=== PATIENT | male | born 1940 | race Caucasian/White ===

== ENCOUNTER 2018-02-23 18:25 | Emergency (ER) | payer OTHER ==
[2018-02-23] MEDS ORDERED: NA CHLORIDE 0.9% 0 ML ONE (19:46)
[2018-02-23] MEDS ORDERED: NA CHLORIDE 0.9% 1,000 ML ONE ×2 (19:54→19:55)
[2018-02-23] MEDS ORDERED: NA CHLORIDE 0.9% 250 ML ONE (19:55)
[2018-02-23 20:03] LABS: Absolute Lymphocytes (CBC) 0.9 K/uL (0.7-4.9); Absolute Monocytes 1.3 K/uL (0.1-1.3); Absolute Neutrophil 8.1 K/uL (1.8-8.0); Basophils % 0.2 % (0-1.3); Eosinophils % 2.1 % (0-4.4); Hematocrit 37.7 % (39.6-49.0); Lymphocytes % 8.8 % (15.3-44.8); MCH 32.8 pg (27.0-35.0); MCV 96.3 fL (80-100); MPV 10.1 fL (7.6-11.3); Monocytes % 12.1 % (3.3-12.3); RBC Red Blood Cell Count 3.92 M/uL (4.33-5.43)
[2018-02-23 20:53] LABS: Protime INR 1.08
[2018-02-23 21:09] LABS: Urine Blood 3+ (NEG); Urine Glucose NEGATIVE (NEG); Urine Protein 2+ (NEG); Urine pH 5.5 (5.0-7.0)
[2018-02-23 21:25] LABS: Urine RBC >50 /HPF (NONE SEEN)
[2018-02-23 21:26] LABS: Urine Bacteria <20 /HPF (NONE SEEN); Urine Culture Reflex Order NOT NEEDED
--- NOTE | 2018-02-23 22:11 | RAD REPORT ---
EXAM DESCRIPTION: CT - Stone Protocol - 02/23/2018 9:03 pm CLINICAL HISTORY: Hematuria, recent lithotripsy history of Ramey catheter exchange of earlier in the day COMPARISON: CT imaging September 11, 2017 TECHNIQUE: Axial 5 mm thick images were obtained without oral or IV contrast. The wexxx-di-muel span s the entirety of the system partially obscuring uppermost abdomen and lung bases. All CT scans are performed using dose optimization technique as appropriate and may include automated exposure control or mA/KV adjustment according to patient size. FINDINGS: No hydronephrosis of the right collecting system. No right-sided renal or ureteral calculi . Double-pigtail stent is in place in the left collecting system. No renal or ureteral remnant calcul us seen. No bladder calculus seen. Ramey catheter is in place. Urinary bladder is contracted. No susp icious renal masses. Isodense masses and pyelonephritis are not excluded on a stone protocol CT scan. In the lower left pelvis there is a 3 x 1.5 cm dense mass. This is adjacent to the distal pigtail. A ir is present within the lumen of the urinary bladder and there is air within the left collecting sys tem. Prostate gland is prominent. Prostatic calcifications are present. There are numerous phlebolith s in the pelvis. Imaged portions of the liver, spleen and pancreas show no suspicious findings on non-contrast imaging . No gallbladder or biliary tree abnormality identified. No significant adrenal finding. No suspicious bowel findings. Appendix is normal. No mass or bulky lymphadenopathy. Bilateral fat filled inguinal hernias are present. No other free ai r. No free fluid or other focal inflammatory stranding. No significant bony abnormality. IMPRESSION: Double-pigtail stent is in place in the left collecting system with no remnant renal or ureteral calculus. Approximately 3 x 1.5 cm mass in the bladder is most likely a hematoma. Air within the bladder and left ureter may well have been introduced at the time of the Ramey cathete r exchange. Given the number of interventional procedures performed, the presence of air is unlikely to be from a gas-forming infectious organism. Isodense masses and pyelonephritis are not excluded on stone protocol technique.
[2018-02-23] MEDS ORDERED: CEFTRIAXONE/SWI 1gm 1 GM/10 ML SYR ONE (22:51)
--- NOTE | 2018-02-23 22:54 | ER ---
Nurse's Notes [facility] Name: Teo Toribio Age: 77 yrs Sex: Male : 1940 Arrival Date: 02/23/2018 Time: 18:27 Bed 16 Private MD: Jim Gabriel E Diagnosis: Hematuria, unspecified;Retention of urine, unspecified Presentation: 02/23 18:33 Presenting complaint: Patient states: I had a kidney stone removed with Dr Webb at [facility] on Monday and this morning they took my catheter out, I had been able to pee all day until one hour ago then my urine had bright red blood and now I c cant pee. Transition of care: patient was not received from another setting of care. Onset of symptoms was February 23, 2018. Risk Assessment: Do you want to hurt yourself or someone else? Patient reports no desire to harm self or others. Initial Sepsis Screen: Does the patient meet any 2 criteria? No. Patient's initial sepsis screen is negative. Does the patient have a suspected source of infection? No. Patient's initial sepsis screen is negative. Care prior to arrival: None. 18:33 Method Of Arrival: Ambulatory la1 18:33 Acuity: DEMARCUS 3 la1 Historical: - Allergies: 18:34 No Known Allergies; la1 - PMHx: 18:34 enlarged prostate; High Cholesterol; Hypertension; Hypothyroidism; la1 - Immunization history:: Adult Immunizations up to date. - Social history:: Smoking status: Patient/guardian denies using tobacco. - Ebola Screening: : No symptoms or risks identified at this time. Screenin:50 Abuse screen: Denies threats or abuse. Nutritional screening: No deficits noted. jb4 Tuberculosis screening: No symptoms or risk factors identified. Fall Risk None identified. Assessment: 18:50 General: Appears in no apparent distress. comfortable, Behavior is calm, cooperative, jb4 appropriate for age. Pain: Denies pain. Neuro: Level of Consciousness is awake, alert, obeys commands, Oriented to person, place, time, situation. Cardiovascular: Heart tones S1 S2 present Patient's skin is warm and dry. Respiratory: Airway is patent Respiratory effort is even, unlabored, Respiratory pattern is regular, symmetrical. GI: Abdomen is flat, Bowel sounds present X 4 quads. Abd is soft and non tender X 4 quads. : Reports inability to void, since 1730 urinating blood, and clots. EENT: No signs and/or symptoms were reported regarding the EENT system. Derm: Skin is intact, Skin is pink, warm \T\ dry. Musculoskeletal: No signs and/or symptoms reported regarding the musculoskeletal system. 19:16 General: Received report from MELISSA Bruce. Patient stable at this moment and agree with ao documented assessment by MELISSA Bruce. Patient is awaiting on provider. Patient urine is reported about 155 ml reading from bladder scanner. 20:32 Reassessment: Patient appears in no apparent distress at this time. No changes from ao previously documented assessment. Patient and/or family updated on plan of care and expected duration. Pain level reassessed. Bladder has been irrigated. Patient tolerated well. : 3-way catheter in place Urine is rajiv blood. 21:30 Reassessment: Patient appears in no apparent distress at this time. No changes from ao previously documented assessment. Patient and/or family updated on plan of care and expected duration. Pain level reassessed. irrigated bladder a second time as ordered by Janice REYES. 22:52 Reassessment: Patient appears in no apparent distress at this time. No changes from ao previously documented assessment. Patient and/or family updated on plan of care and expected duration. Pain level reassessed. Waiting on Dispo orders. Vital Signs: 18:34 BP 188 / 95; Pulse 90; Resp 16; Temp 97.4; Pulse Ox 100% on R/A; la1 20:33 BP 162 / 92; Pulse 72; Resp 20; Pulse Ox 98% ; ao 21:30 BP 162 / 96; Pulse 96; Resp 20; Pulse Ox 98% on R/A; Pain 0/10; ao 22:52 BP 165 / 98; Pulse 70; Resp 18; Pulse Ox 96% on R/A; Pain 0/10; ao ED Course: 18:27 Patient arrived in ED. mr 18:28 Jim Gabriel MD is Private Physician. mr 18:34 Triage completed. la1 18:34 Arm band placed on right wrist. la1 18:35 Teo Sheth RN is Primary Nurse. jb4 18:50 Patient has correct armband on for positive identification. Placed in gown. Bed in low jb4 position. Call light in reach. Side rails up X 1. Pulse ox on. NIBP on. 19:05 Report given to MELISSA Moctezuma. jb4 19:20 Hugo Camacho PA is PHCP. cp 19:20 Abhilash Walden MD is Attending Physician. cp 20:00 Inserted saline lock: 20 gauge in left antecubital area, using aseptic technique. ao ,using [facility] technique[facility]. [facility]08 3-way catheter inserted, using sterile technique, 20 Fr. By [facility]. ao 21:03 Stone Protocol In Process Unspecified. EDMS 23:28 No provider procedures requiring assistance completed. IV discontinued, intact, ao bleeding controlled, No redness/swelling at site. Pressure dressing applied. Administered Medications: 20:23 Drug: NS 0.9% 250 ml Route: IV; Rate: bolus; Site: left antecubital; ao 22:00 Follow up: IV Status: Completed infusion; IV Intake: 250ml ao 20:42 Drug: NS 0.9% 1000 ml Route: IV; Rate: 75 ml/hr; Site: left antecubital; ao 22:57 Follow up: IV Status: Order to discontinue infusion ao 23:29 Follow up: IV Status: Order to discontinue infusion ao 22:51 Drug: Rocephin 1 grams Route: IV; Rate: bolus; Site: left antecubital; ao 23:29 Follow up: IV Status: Completed infusion; IV Intake: 10ml ao Intake: 22:00 IV: 250ml; Total: 250ml. ao 23:29 IV: 10ml; Total: 260ml. ao Outcome: 22:54 Discharge ordered by MD. cp 23:28 Discharged to home ambulatory. ao 23:28 Condition: stable 23:28 Discharge instructions given to patient, Instructed on discharge instructions, follow up and referral plans. Demonstrated understanding of instructions, follow-up care, medications, Prescriptions given X 1. 23:29 Patient left the ED. ao Signatures: Dispatcher [facility] Cheryl Maddox Lee, RN RN la1 Hugo Camacho PA PA cp Ortiz, Alex, RN RN ao Bryson, James, RN RN jb4
--- NOTE | 2018-02-23 22:55 | EDPHYS ---
Physician Documentation [facility] Name: Teo Toribio Age: 77 yrs Sex: Male : 1940 Arrival Date: 02/23/2018 Time: 18:27 Bed 16 Private MD: Jim Gabriel E ED Physician Abhilash Walden HPI: 02/23 19:30 This 77 yrs old Male presents to ER via Ambulatory with complaints of Urinary cp Problem. 19:30 The patient presents with urinary symptoms, retention, hematuria. Onset: The cp symptoms/episode began/occurred today. Associated signs and symptoms: Pertinent positives: hematuria, Pertinent negatives: abdominal pain, constipation, fever, nausea, vomiting. Severity of symptoms: in the emergency department the symptoms are unchanged. Patient reports having removal of kidney stone 3 days ago with stent and vaz placed. At f/u appt today vaz was removed. Patient reports difficulty urinating and hematuria today. Historical: - Allergies: 18:34 No Known Allergies; la1 - PMHx: 18:34 enlarged prostate; High Cholesterol; Hypertension; Hypothyroidism; la1 - Immunization history:: Adult Immunizations up to date. - Social history:: Smoking status: Patient/guardian denies using tobacco. - Ebola Screening: : No symptoms or risks identified at this time. ROS: 19:35 Constitutional: Negative for body aches, chills, fever, poor PO intake. cp 19:35 Eyes: Negative for injury, pain, redness, and discharge. cp 19:35 ENT: Negative for drainage from ear(s), ear pain, sore throat, difficulty swallowing, difficulty handling secretions. 19:35 Cardiovascular: Negative for chest pain, edema, palpitations. 19:35 Respiratory: Negative for cough, shortness of breath, wheezing. 19:35 Abdomen/GI: Negative for abdominal pain, nausea, vomiting, and diarrhea, black/tarry stool, rectal bleeding. 19:35 : Positive for hematuria, difficulty urinating, Negative for burning with urination. 19:35 Skin: Negative for cellulitis, rash. 19:35 Neuro: Negative for altered mental status, dizziness, headache, syncope, near syncope, weakness. 19:35 All other systems are negative. Exam: 19:40 Constitutional: The patient appears in no acute distress, alert, awake, non-toxic, well cp developed, well nourished. 19:40 Head/Face: Normocephalic, atraumatic. cp 19:40 Eyes: Periorbital structures: appear normal, Conjunctiva: normal, no exudate, no injection, Sclera: no appreciated abnormality, Lids and lashes: appear normal, bilaterally. 19:40 ENT: External ear(s): are unremarkable, Nose: is normal, Mouth: Lips: moist, Oral mucosa: moist, Posterior pharynx: is normal, airway is patent. 19:40 Neck: ROM/movement: is normal, is supple, without pain, no range of motions limitations, no nuchal rigidity. 19:40 Chest/axilla: Inspection: normal, Palpation: is normal, no crepitus, no tenderness. 19:40 Cardiovascular: Rate: normal, Rhythm: regular. 19:40 Respiratory: the patient does not display signs of respiratory distress, Respirations: normal, no use of accessory muscles, no retractions, no splinting, no tachypnea, labored breathing, is not present, Breath sounds: are clear throughout, no decreased breath sounds, no stridor, no wheezing. 19:40 Abdomen/GI: Inspection: abdomen appears normal, Bowel sounds: active, all quadrants, Palpation: abdomen is soft and non-tender, in all quadrants, rebound tenderness, is not appreciated, voluntary guarding, is not appreciated, involuntary guarding, is not appreciated. 19:40 Back: pain, is absent, ROM is normal. 19:40 Skin: cellulitis, is not appreciated, no rash present. 19:40 Neuro: Orientation: to person, place \T\ time. Mentation: is normal, Cerebellar function: is grossly normal, Motor: moves all fours, strength is normal. Vital Signs: 18:34 BP 188 / 95; Pulse 90; Resp 16; Temp 97.4; Pulse Ox 100% on R/A; la1 20:33 BP 162 / 92; Pulse 72; Resp 20; Pulse Ox 98% ; ao 21:30 BP 162 / 96; Pulse 96; Resp 20; Pulse Ox 98% on R/A; Pain 0/10; ao 22:52 BP 165 / 98; Pulse 70; Resp 18; Pulse Ox 96% on R/A; Pain 0/10; ao MDM: 19:23 Patient medically screened. cp 20:00 Differential diagnosis: UTI, urinary retention, Vaz catheter problem, prostatitis, cp urethritis. 22:52 Data reviewed: vital signs, nurses notes, lab test result(s), radiologic studies, CT cp scan, and as a result, I will discharge patient. 22:52 Counseling: I had a detailed discussion with the patient and/or guardian regarding: the cp historical points, exam findings, and any diagnostic results supporting the discharge/admit diagnosis, the presence of at least one elevated blood pressure reading (>120/80) during this emergency department visit, lab results, radiology results, the need for outpatient follow up, a urologist, to return to the emergency department if symptoms worsen or persist or if there are any questions or concerns that arise at home. 22:52 ED course: VSS. Labs and CT reviewed. Vaz replaced and patient instructed on how to cp irrigate bladder. Will discharge to home for continued monitoring. 02/23 19:23 Order name: Urine Microscopic Only; Complete Time: 21:57 cp 02/23 19:38 Order name: PT-INR; Complete Time: 21:10 cp 02/23 19:38 Order name: Ptt, Activated; Complete Time: 21:10 cp 02/23 19:38 Order name: CBC with Diff; Complete Time: 20:41 cp 02/23 20:42 Interpretation: Normal except: RBC 3.92; HGB 12.9; HCT 37.7; RENE% 76.8; LYM% 8.8; NEUT cp A 8.1. 02/23 19:38 Order name: BMP; Complete Time: 20:41 cp 02/23 20:58 Order name: Urine Dipstick--Ancillary (enter results); Complete Time: 21:10 rg2 02/23 21:10 Interpretation: Normal except: UBLD 3+; UPROT 2+; UESTR TRACE. cp 02/23 18:36 Order name: Bladder Scanner; Complete Time: 18:36 jb4 02/23 19:23 Order name: Urine Dipstick-Ancillary (obtain specimen); Complete Time: 19:25 cp 02/23 19:38 Order name: Vaz-Three way; Complete Time: 20:42 cp 02/23 21:01 Order name: Stone Protocol; Complete Time: 22:18 EDMS 02/23 19:38 Order name: IV; Complete Time: 20:23 cp Administered Medications: 20:23 Drug: NS 0.9% 250 ml Route: IV; Rate: bolus; Site: left antecubital; ao 22:00 Follow up: IV Status: Completed infusion; IV Intake: 250ml ao 20:42 Drug: NS 0.9% 1000 ml Route: IV; Rate: 75 ml/hr; Site: left antecubital; ao 22:57 Follow up: IV Status: Order to discontinue infusion ao 23:29 Follow up: IV Status: Order to discontinue infusion ao 22:51 Drug: Rocephin 1 grams Route: IV; Rate: bolus; Site: left antecubital; ao 23:29 Follow up: IV Status: Completed infusion; IV Intake: 10ml ao Disposition: 02/24 15:58 Co-signature as Attending Physician, Abhilash Walden MD. Disposition: 02/23/18 22:54 Discharged to Home. Impression: Hematuria, unspecified, Retention of urine, unspecified. - Condition is Stable. - Discharge Instructions: Vaz Catheter Care, Adult, Hematuria, Adult, Acute Urinary Retention, Male. - Prescriptions for Keflex 500 mg Oral Capsule - take 1 capsule by ORAL route every 8 hours for 10 days; 30 capsule. - Medication Reconciliation Form, Thank You Letter, Antibiotic Education, Prescription Opioid Use form. - Follow up: Private Physician; When: primary urologist; Reason: Recheck today's complaints, next 2-3 days. - Problem is new. - Symptoms have improved. Signatures: Dispatcher [employer] EDPR Severiano Vargas RN RN la1 Hugo Camacho PA PA cp Jose Elias Cuellar RN RN ao Bryson, James, RN RN jb4 Abhilash Walden MD MD Corrections: (The following items were deleted from the chart) 02/23 21:01 20:43 Abdomen Pelvis Wo Con+CT.RAD.BRZ ordered. EDPR EDPR 23:29 22:54 02/23/2018 22:54 Discharged to Home. Impression: Hematuria, unspecified; ao Retention of urine, unspecified. Condition is Stable. Forms are Medication Reconciliation Form, Thank You Letter, Antibiotic Education, Prescription Opioid Use. Follow up: Private Physician; When: primary urologist; Reason: Recheck today's complaints, next 2-3 days. Problem is new. Symptoms have improved. cp
== END 2018-02-23 23:29 | disposition home or self-care (01) ==
LOC: ER 18:25
DX: R33.9 Retention of urine, unspecified (principal); I10 Essential (primary) hypertension; Z87.442 Personal history of urinary calculi
CPT/HCPCS: 36415; 74176; 76377; 80048; 85025; 85610; 85730; J0696; J7030 ×2; 81003; 81015; 96361; 96365; 96367; 99284

== ENCOUNTER 2018-02-24 18:03 | Emergency (ER) | payer OTHER ==
[2018-02-24] MEDS ORDERED: NACL 0.9% IRR SOLN 2,000 ML IRR ONE (18:24)
--- NOTE | 2018-02-24 20:00 | ER ---
Nurse's Notes [facility] Name: Teo Toribio Age: 77 yrs Sex: Male : 1940 Arrival Date: 02/24/2018 Time: 18:05 Bed 6 Private MD: Jim Gabriel E Diagnosis: Retention of urine;Hematuria Presentation: 02/24 18:06 Presenting complaint: Patient states: "I was seen here last night and they put a Dumont aa5 catheter in but it hasn't been draining into the bag properly, the pee has been running down my leg every time I pee so I think it needs to be changed". 18:06 Acuity: DEMARCUS 4 aa5 18:06 Transition of care: patient was not received from another setting of care. Onset of aa5 symptoms was February 24, 2018. 18:06 Method Of Arrival: Ambulatory aa5 18:06 Risk Assessment: Do you want to hurt yourself or someone else? Patient reports no aa5 desire to harm self or others. Initial Sepsis Screen: Does the patient meet any 2 criteria? No. Patient's initial sepsis screen is negative. Does the patient have a suspected source of infection? No. Patient's initial sepsis screen is negative. Care prior to arrival: None. Historical: - Allergies: 18:10 No Known Allergies; aa5 - Home Meds: 19:00 Fish Oil Oral daily [Active]; Flomax 0.4 mg Oral cp24 once daily [Active]; Iron CR Oral bp daily [Active]; levothyroxine [Active]; Lipitor Oral once daily [Active]; Melatonin Oral daily [Active]; vitamin [id number]-[id number] acid Oral once daily [Active]; - PMHx: 18:10 enlarged prostate; High Cholesterol; Hypertension; Hypothyroidism; aa5 - Immunization history:: Adult Immunizations up to date. - Ebola Screening: : No symptoms or risks identified at this time. - Social history:: Smoking status: Patient/guardian denies using tobacco. Screenin:08 Abuse screen: Denies threats or abuse. Denies injuries from another. Nutritional jl7 screening: No deficits noted. Tuberculosis screening: No symptoms or risk factors identified. Fall Risk None identified. Assessment: 18:30 General: Appears in no apparent distress. uncomfortable, Behavior is calm, cooperative, jl7 appropriate for age. Pain: Denies pain. Neuro: Level of Consciousness is awake, alert, obeys commands, Oriented to person, place, time, situation. Cardiovascular: Patient's skin is warm and dry. Respiratory: Airway is patent Respiratory effort is even, unlabored, Respiratory pattern is regular, symmetrical. : 3-way catheter in place Urine leaks out around the catheter. Derm: Skin is pink, warm \\T\\ dry. 19:15 Reassessment: RECD REPORT FROM SARAH TORRES. 77YO WM P/W URINARY CATHETER COMPLICATIONS. bp BLADDER IRRIGATION IN PROCESS, LEAKING NOTED AROUND DUMONT. AWAITING FURTHER ORDERS. 19:54 Reassessment: DUMONT REPLACED WITH NO COMPLICATIONS. PT TO BE OBS FOR COMPLICATIONS bp PRIOR TO DISPO. 20:07 Reassessment: PT D/C HOME WITH FAMILY, DX WITH URINARY RETENTION. bp Vital Signs: 19:08 BP 180 / 91; Pulse 70; Resp 16; Pulse Ox 94% ; jl7 19:15 BP 168 / 95; Pulse 80; Resp 16; Pulse Ox 95% ; bp 20:00 BP 166 / 99; Pulse 70; Resp 16; Pulse Ox 95% ; bp ED Course: 18:05 Patient arrived in ED. rg4 18:05 Jim Gabriel MD is Private Physician. rg4 18:06 Arm band placed on Patient placed in an exam room, on a stretcher. aa5 18:07 Sarah Pena RN is Primary Nurse. jl7 18:09 Edwin Velez PA is PHCP. jr8 18:09 Abhilash Walden MD is Attending Physician. jr8 18:10 Triage completed. aa5 18:45 Bladder irrigated via Dumont with 250 ml normal saline returned Initially return rajiv jl7 blood then ran clear, Irrigation leaks around tubing. ERP notified, ordered new catheter to be placed. Patient tolerated well. 19:08 Patient has correct armband on for positive identification. Placed in gown. Bed in low jl7 position. Call light in reach. Side rails up X 1. Pulse ox on. NIBP on. 19:55 Coud inserted, using sterile technique, 20 Fr. Returned bloody urine. To gravity bp drainage. Patient tolerated well. [address] WAY CATH REMOVED. 20FR COUDE INSERTED. 20:06 No provider procedures requiring assistance completed. Patient did not have IV access bp during this emergency room visit. Administered Medications: No medications were administered Outcome: 19:59 Discharge ordered by MD. bolanos 20:08 Discharged to home via wheelchair, with family. bp 20:08 Condition: stable 20:08 Discharge instructions given to patient, Instructed on discharge instructions, follow up and referral plans. Demonstrated understanding of instructions, follow-up care. 20:15 Patient left the ED. bp Signatures: Angela Dean RN RN aa5 Edwin Velez PA PA 8 Esther Clark 4 Sarah Pena RN RN jl7 Alejandro Valerio RN RN bp
--- NOTE | 2018-02-24 20:00 | EDPHYS ---
Physician Documentation [facility] Name: Teo Toribio Age: 77 yrs Sex: Male : 1940 Arrival Date: 02/24/2018 Time: 18:05 Bed 6 Private MD: Jim Gabriel E ED Physician Abhilash Walden HPI: 02/24 18:18 This 77 yrs old Male presents to ER via Ambulatory with complaints of Problem jr8 With Urinary Catheter. 18:18 The patient presents with a Vaz catheter problem, is not draining. Onset: The jr8 symptoms/episode began/occurred acutely, today. Modifying factors: The symptoms are alleviated by nothing, the symptoms are aggravated by nothing. Associated signs and symptoms: The patient has no apparent associated signs or symptoms. Severity of symptoms: At their worst the symptoms were mild, in the emergency department the symptoms are unchanged. The patient has experienced a previous episode. The patient has been recently seen by a physician:. Patient had renal stone removed this week. On Monday after work noticed that he was unable to urinate. Vaz was placed and had clots in urine with hematuria. Was doing fine until today where he cannot urinate again with the Vaz in place . Historical: - Allergies: 18:10 No Known Allergies; aa5 - Home Meds: 19:00 Fish Oil Oral daily [Active]; Flomax 0.4 mg Oral cp24 once daily [Active]; Iron CR Oral bp daily [Active]; levothyroxine [Active]; Lipitor Oral once daily [Active]; Melatonin Oral daily [Active]; vitamin [id number] acid Oral once daily [Active]; - PMHx: 18:10 enlarged prostate; High Cholesterol; Hypertension; Hypothyroidism; aa5 - Immunization history:: Adult Immunizations up to date. - Ebola Screening: : No symptoms or risks identified at this time. - Social history:: Smoking status: Patient/guardian denies using tobacco. ROS: 18:18 Eyes: Negative for injury, pain, redness, and discharge, ENT: Negative for injury, jr8 pain, and discharge, Neck: Negative for injury, pain, and swelling, Cardiovascular: Negative for chest pain, palpitations, and edema, Respiratory: Negative for shortness of breath, cough, wheezing, and pleuritic chest pain, Abdomen/GI: Negative for abdominal pain, nausea, vomiting, diarrhea, and constipation, Back: Negative for injury and pain, MS/Extremity: Negative for injury and deformity, Skin: Negative for injury, rash, and discoloration, Neuro: Negative for headache, weakness, numbness, tingling, and seizure. 18:18 : Positive for small amounts, hematuria, Negative for penile discharge, penile pain, testicular pain Exam: 18:18 Eyes: Pupils equal round and reactive to light, extra-ocular motions intact. Lids and jr8 lashes normal. Conjunctiva and sclera are non-icteric and not injected. Cornea within normal limits. Periorbital areas with no swelling, redness, or edema. ENT: Nares patent. No nasal discharge, no septal abnormalities noted. Tympanic membranes are normal and external auditory canals are clear. Oropharynx with no redness, swelling, or masses, exudates, or evidence of obstruction, uvula midline. Mucous membranes moist. Neck: Trachea midline, no thyromegaly or masses palpated, and no cervical lymphadenopathy. Supple, full range of motion without nuchal rigidity, or vertebral point tenderness. No Meningismus. Cardiovascular: Regular rate and rhythm with a normal S1 and S2. No gallops, murmurs, or rubs. Normal PMI, no JVD. No pulse deficits. Respiratory: Lungs have equal breath sounds bilaterally, clear to auscultation and percussion. No rales, rhonchi or wheezes noted. No increased work of breathing, no retractions or nasal flaring. Abdomen/GI: Soft, non-tender, with normal bowel sounds. No distension or tympany. No guarding or rebound. No evidence of tenderness throughout. Back: No spinal tenderness. No costovertebral tenderness. Full range of motion. Skin: Warm, dry with normal turgor. Normal color with no rashes, no lesions, and no evidence of cellulitis. MS/ Extremity: Pulses equal, no cyanosis. Neurovascular intact. Full, normal range of motion. Neuro: Awake and alert, GCS 15, oriented to person, place, time, and situation. Cranial nerves II-XII grossly intact. Motor strength 5/5 in all extremities. Sensory grossly intact. Cerebellar exam normal. Normal gait. 18:18 : Male external genitalia: normal, Bladder: distension, that is mild, tenderness, that is mild, 3-way catheter is employed, urine is blood tinged, clots present . Vital Signs: 19:08 BP 180 / 91; Pulse 70; Resp 16; Pulse Ox 94% ; jl7 19:15 BP 168 / 95; Pulse 80; Resp 16; Pulse Ox 95% ; bp 20:00 BP 166 / 99; Pulse 70; Resp 16; Pulse Ox 95% ; bp MDM: 18:09 Patient medically screened. jr8 19:52 Data reviewed: vital signs, nurses notes, and as a result, I will discharge patient. jr8 Data interpreted: Pulse oximetry: on room air is 95 %. Interpretation: normal. Counseling: I had a detailed discussion with the patient and/or guardian regarding: the historical points, exam findings, and any diagnostic results supporting the discharge/admit diagnosis, the need for outpatient follow up, a urologist, to return to the emergency department if symptoms worsen or persist or if there are any questions or concerns that arise at home. ED course: Irrigated and replaced vaz. No bleeding and no leaking around tube now . 02/24 18:18 Order name: Bladder Irrigation; Complete Time: 19:24 jr8 Administered Medications: No medications were administered Disposition: 02/24/18 19:59 Discharged to Home. Impression: Retention of urine, Hematuria. - Condition is Stable. - Discharge Instructions: Vaz Catheter Care, Adult, Acute Urinary Retention, Male. - Medication Reconciliation Form, Thank You Letter, Antibiotic Education, Prescription Opioid Use form. - Follow up: Private Physician; When: 2 - 3 days; Reason: Recheck today's complaints, Continuance of care, Re-evaluation by your physician. - Problem is new. - Symptoms have improved. Signatures: Angela Dean, RN RN aa5 Edwin Velez PA PA jr8 Alejandro Valerio, RN RN bp Corrections: (The following items were deleted from the chart) 19:59 19:59 02/24/2018 19:59 Discharged to Home. Impression: Retention of urine. Condition is jr8 Stable. Forms are Medication Reconciliation Form, Thank You Letter, Antibiotic Education, Prescription Opioid Use. Follow up: Private Physician; When: 2 - 3 days; Reason: Recheck today's complaints, Continuance of care, Re-evaluation by your physician. Problem is new. Symptoms have improved. jr8 20:15 19:59 02/24/2018 19:59 Discharged to Home. Impression: Retention of urine; Hematuria. bp Condition is Stable. Discharge Instructions: Vaz Catheter Care, Adult, Acute Urinary Retention, Male. Forms are Medication Reconciliation Form, Thank You Letter, Antibiotic Education, Prescription Opioid Use. Follow up: Private Physician; When: 2 - 3 days; Reason: Recheck today's complaints, Continuance of care, Re-evaluation by your physician. Problem is new. Symptoms have improved. jr8
== END 2018-02-24 20:15 | disposition home or self-care (01) ==
LOC: ER 18:03
DX: T83.038A Leakage of other urinary catheter, initial encounter (principal); R31.9 Hematuria, unspecified; E78.00 Pure hypercholesterolemia, unspecified; I10 Essential (primary) hypertension; E03.9 Hypothyroidism, unspecified; N40.1 Benign prostatic hyperplasia with lower urinary tract symptoms; R33.8 Other retention of urine; Y73.8 Miscellaneous gastroenterology and urology devices associated with adverse incidents, not elsewhere classified; Y92.019 Unspecified place in single-family (private) house as the place of occurrence of the external cause
CPT/HCPCS: 51700; 99284

== ENCOUNTER 2019-11-29 07:51 | Inpatient (IN) | payer OTHER ==
--- OUTSIDE RECORDS SUMMARY | 2019-11-29 07:54 | XMS REPORT ---
:1940 Author Organization [facility] t Address [address] [place] [address] Dr. So [address] [place] [id number] Care Team Providers Name Role Phone Unavailable Unavailable Unavailable Problems This patient has no known problems. Allergies, Adverse Reactions, Alerts This patient has no known allergies or adverse reactions. Medications This patient has no known medications. Procedures This patient has no known procedures. Results This patient has no known results.
[2019-11-29 08:45] LABS: Protime INR 0.99
[2019-11-29 08:47] LABS: Absolute Lymphocytes (CBC) 0.8 K/uL (0.7-4.9); Basophils % 0.7 % (0-1.3); Hematocrit 24.8 % (39.6-49.0); Lymphocytes % 6.8 % (15.3-44.8); MPV 9.7 fL (7.6-11.3)
[2019-11-29] MEDS ORDERED: NA CHLORIDE 0.9% 500 ML ONE (09:03)
[2019-11-29 09:06] LABS: ALT/SGPT 26 U/L (12-78); AST/SGOT 18 U/L (15-37); Albumin 2.9 g/dL (3.4-5.0); Alkaline Phosphatase 59 U/L (45-117); BUN Blood Urea Nitrogen 42 mg/dL (7-18); Bicarbonate 25 mmol/L (21-32); Bilirubin Direct 0.1 mg/dL (0-0.2); Bilirubin Total 0.5 mg/dL (0.2-1.0); Glucose Level 166 mg/dL (74-106); Lipase 78 U/L (73-393); Potassium 3.6 mmol/L (3.5-5.1); Protein, Total 5.6 g/dL (6.4-8.2); Sodium Level 142 mmol/L (136-145); Troponin (Emerg Dept Use Only) < 0.02 ng/mL (0.0-0.045)
--- NOTE | 2019-11-29 09:49 | RAD REPORT ---
EXAM DESCRIPTION: CT - Abdomen Pelvis Wo Contrast - 11/29/2019 9:37 am CLINICAL HISTORY: Abdominal pain hematochezia COMPARISON: 2019 TECHNIQUE: Computed axial tomography of the abdomen and pelvis was obtained. IV and oral contrast we re not requested. All CT scans are performed using dose optimization technique as appropriate and may include automated exposure control or mA/KV adjustment according to patient size. FINDINGS: The evaluation of solid organs, vessels and bowel is limited secondary to the lack of con trast administration. The liver, spleen, pancreas, adrenals and right kidney appear grossly normal. Left renal cyst is unch anged The appendix is normal. Colonic diverticulosis without evidence of diverticulitis. Mild anterior subluxation L4 on L5. Small umbilical hernia The prostate gland is mildly enlarged. Small inguinal hernias contain fat IMPRESSION: No acute abnormality is displayed.
--- NOTE | 2019-11-29 10:00 | ER ---
Nurse's Notes [facility] [place] Name: Teo Toribio Age: 79 yrs Sex: Male : 1940 Arrival Date: 11/29/2019 Time: 07:57 Bed 6 Private MD: Jim Gabriel E Diagnosis: Syncope and collapse;Gastrointestinal hemorrhage, unspecified;Acute Kidney Injury Presentation: 11/28 08:05 Chief complaint: Patient states: bloody stools that began 5-6 days ago. Pt states aa5 "sometimes the blood is bright red and sometimes dark red". Pt reports having colonoscopy and endoscopy September 12, [address] Boyd. Also reports diarrhea. 08:05 Coronavirus screen: Proceed with normal triage. Patient denies a cough. Patient denies aa5 shortness of breath or difficulty breathing. Patient denies measured and/or subjective temperature greater than 100.4F prior to today's visit. Patient denies travel on a cruise ship or to a country the [facility] currently lists as an affected area. Patient denies contact with known and/or suspected case of COVID-19. Ebola Screen: Patient negative for fever greater than or equal to 101.5 degrees Fahrenheit, and additional compatible Ebola Virus Disease symptoms. Initial Sepsis Screen: Does the patient meet any 2 criteria? No. Patient's initial sepsis screen is negative. Does the patient have a suspected source of infection? No. Patient's initial sepsis screen is negative. Risk Assessment: Do you want to hurt yourself or someone else? Patient reports no desire to harm self or others. Onset of symptoms was November 2019. 08:05 Acuity: DEMARCUS 3 aa5 08:05 Method Of Arrival: Wheelchair aa5 Historical: - Allergies: 08:24 No Known Allergies; aa5 - PMHx: 08:23 enlarged prostate; High Cholesterol; Hypertension; Hypothyroidism; Diverticulosis; aa5 - Immunization history:: Adult Immunizations unknown. - Social history:: Smoking status: Patient denies any tobacco usage or history of. Screenin:33 Abuse screen: Denies threats or abuse. Denies injuries from another. Nutritional ph screening: No deficits noted. Tuberculosis screening: No symptoms or risk factors identified. Fall Risk None identified. Assessment: 09:17 General: Appears in no apparent distress. comfortable, well groomed, Behavior is calm, ph cooperative, appropriate for age, Denies fever. Pain: Denies pain. Neuro: Level of Consciousness is awake, alert, obeys commands, Oriented to person, place, time, situation, Reports dizziness, weakness Denies blurred vision headache. Cardiovascular: Reports fatigue, lightheadedness, Denies chest pain, nausea, shortness of breath, syncope, vomiting, Capillary refill < 3 seconds in bilateral fingers Patient's skin is warm and dry. Respiratory: Airway is patent Respiratory effort is even, unlabored. GI: Abdomen is flat, non-distended, Reports diarrhea, bloody stool, Patient currently denies abdominal pain, nausea, vomiting. Derm: Skin is intact, Skin is pink, warm \\T\\ dry. Musculoskeletal: Circulation, motion, and sensation intact. Range of motion: intact in all extremities. 09:29 Reassessment: Patient appears in no apparent distress at this time. Patient and/or ph family updated on plan of care and expected duration. Pain level reassessed. Patient is alert, oriented x 3, equal unlabored respirations, skin warm/dry/pink. Pt taken to CT via wheelchair. 10:30 Reassessment: Patient appears in no apparent distress at this time. Patient and/or ph family updated on plan of care and expected duration. Pain level reassessed. Patient is alert, oriented x 3, equal unlabored respirations, skin warm/dry/pink. 11:36 Reassessment: Patient appears in no apparent distress at this time. Patient and/or ph family updated on plan of care and expected duration. Pain level reassessed. Patient is alert, oriented x 3, equal unlabored respirations, skin warm/dry/pink. 12:39 Reassessment: Patient appears in no apparent distress at this time. Patient and/or ph family updated on plan of care and expected duration. Pain level reassessed. Patient is alert, oriented x 3, equal unlabored respirations, skin warm/dry/pink. Pt resting comfortably, awaiting room assignment, VSS. 13:30 Reassessment: Patient appears in no apparent distress at this time. Patient and/or ph family updated on plan of care and expected duration. Pain level reassessed. Patient is alert, oriented x 3, equal unlabored respirations, skin warm/dry/pink. Vital Signs: 08:05 BP 116 / 65; Pulse 70; Resp 16 S; Temp 97.4(O); Pulse Ox 100% on R/A; Pain 0/10; aa5 08:40 BP 98 / 57 Supine; Pulse 64; Pulse Ox 100% ; lt1 08:43 BP 85 / 51 Sitting; Pulse 72; lt1 09:18 BP 110 / 61; Pulse 57; Resp 18; Pulse Ox 100% on R/A; Pain 0/10; ph 10:30 BP 92 / 52; Pulse 65; Resp 18; Pulse Ox 98% on R/A; ph 11:30 BP 116 / 57; Pulse 71; Resp 18; Pulse Ox 100% on R/A; ph 12:30 BP 105 / 54; Pulse 64; Resp 18; Pulse Ox 99% on R/A; ph 13:30 BP 112 / 58; Pulse 64; Resp 18; Temp 97.8; Pulse Ox 99% on R/A; ph 08:43 Patient felt dizzy when sitting up lt1 ED Course: 07:57 Patient arrived in ED. mr 07:57 Jim Gabriel MD is Private Physician. mr 07:59 [facility] jmm 07:59 Soy Montez MD is Attending Physician. jmm 08:05 Arm band placed on Patient placed in an exam room, on a stretcher. aa5 08:07 Itzel Bowen, RN is Primary Nurse. ph 08:23 Triage completed. aa5 08:33 Patient has correct armband on for positive identification. Placed in gown. Bed in low ph position. Call light in reach. Side rails up X 1. Pulse ox on. NIBP on. Door closed. Noise minimized. Warm blanket given. 08:47 Initial lab(s) drawn, by me, sent to lab. Inserted saline lock: 20 gauge in left lt1 antecubital area, using aseptic technique. 09:37 Abdomen In Process Unspecified. EDMS 09:49 EKG done, by auto glass technician. reviewed by Franc REYES. at1 09:55 Initiated transfer to [facility] with Kami Dickson. Stated she would work on tt3 getting an assignment and would call back. 10:35 Kami Dickson called with Dr. Deng for Franc. Initial transfer is cancelled. tt3 10:43 Madhav Major DO is Hospitalizing Provider[facility] 13:00 No provider procedures requiring assistance completed. Patient admitted, IV remains in ph place. Administered Medications: 08:59 Drug: NS 0.9% 500 ml Route: IV; Rate: bolus; Site: left femoral; ph 10:12 Follow up: Response: No adverse reaction; IV Status: Completed infusion; IV Intake: ph 500ml Intake: 10:12 IV: 500ml; Total: 500ml. ph Outcome: :59 ER care complete, transfer ordered by MD. jmm 10:45 Decision to Hospitalize by Provider. jmm 14:20 Patient left the ED. em 14:20 Admitted to Tele accompanied by tech, via stretcher, with chart. ph 14:20 Condition: stable 14:20 Instructed on the need for admit. Signatures: Dispatcher [employer] EDMS Franc Lunsford PA PA nicholas Tan Temi Rodriguez, Alcides, RN RN Angela Alcaraz RN RN aa5 Milly Nunes, medicine man EKG Tat1 Itzel Bowen RN RN Liriano, Erin lt1 Yimi Smith tt3 Corrections: (The following items were deleted from the chart) 08:34 08:05 Chief complaint: Patient states: bloody stools that began 5-6 days ago. Pt states aa5 "sometimes the blood is bright red and sometimes dark red". Pt reports having colonoscopy and endoscopy September 12, [address] Boyd. aa5 09:22 09:18 BP 110 / 61; Pulse 58bpm; Resp 18bpm; Pulse Ox 100% RA; Temp 97.7F; 58.97 kg; ph Pain 0/10; ph
--- NOTE | 2019-11-29 10:01 | EDPHYS ---
Physician Documentation [facility] Name: Teo Toribio Age: 79 yrs Sex: Male : 1940 Arrival Date: 11/29/2019 Time: 07:57 Bed 6 Private MD: Jim Gabriel E ED Physician Soy Montez HPI: 11/28 08:23 This 79 yrs old Male presents to ER via Wheelchair with complaints of Bloody jmm Stools. 08:23 The patient presents to the emergency department with rectal bleeding. Onset: The jmm symptoms/episode began/occurred gradually, 5 day(s) ago. Abdominal pain: none is appreciated. Modifying factors: The symptoms are alleviated by nothing, the symptoms are aggravated by nothing. Associated signs and symptoms: Pertinent negatives: fever. This is a 79 year old male with a history of of diverticulosis, HTN, HLP that presents to the ED with complaints of diarrhea, bloody stools beginning this past Monday. patient states symptoms worsened today with a syncopal episodes when walking to the restroom to defecate. Patient states recently finishing a course of amoxicillin for a tooth extraction. Denies abdominal pain. Patient complains of generalized fatigue and weakness. Similar episode in 2018 with negative colonoscopy. . Historical: - Allergies: 08:24 No Known Allergies; aa5 - PMHx: 08:23 enlarged prostate; High Cholesterol; Hypertension; Hypothyroidism; Diverticulosis; aa5 - Immunization history:: Adult Immunizations unknown. - Social history:: Smoking status: Patient denies any tobacco usage or history of. ROS: 08:23 Constitutional: Negative for fever, chills, and weight loss, Cardiovascular: Negative jmm for chest pain, palpitations, and edema, Respiratory: Negative for shortness of breath, cough, wheezing, and pleuritic chest pain. 08:23 Abdomen/GI: Positive for diarrhea, rectal bleeding. 08:23 Neuro: Positive for syncope. 08:23 All other systems are negative. Exam: 08:23 Constitutional: This is a well developed, well nourished patient who is awake, alert, jmm and in no acute distress. Head/Face: atraumatic. Eyes: EOMI, no conjunctival erythema appreciated ENT: Moist Mucus Membranes Neck: Trachea midline, Supple Chest/axilla: Normal chest wall appearance and motion. 08:23 Back: Normal ROM Skin: General appearance color normal MS/ Extremity: Moves all extremities, no obvious deformities appreciated, no edema noted to the lower extremities Neuro: Awake and alert, normal gait Psych: Behavior is normal, Mood is normal, Patient is cooperative and pleasant 08:23 Cardiovascular: Rate: normal, Rhythm: regular. 08:23 Respiratory: the patient does not display signs of respiratory distress, Respirations: normal, Breath sounds: are clear throughout. 08:23 Abdomen/GI: Inspection: abdomen appears normal, Bowel sounds: normal, Palpation: abdomen is soft and non-tender, in all quadrants. Vital Signs: 08:05 BP 116 / 65; Pulse 70; Resp 16 S; Temp 97.4(O); Pulse Ox 100% on R/A; Pain 0/10; aa5 08:40 BP 98 / 57 Supine; Pulse 64; Pulse Ox 100% ; lt1 08:43 BP 85 / 51 Sitting; Pulse 72; lt1 09:18 BP 110 / 61; Pulse 57; Resp 18; Pulse Ox 100% on R/A; Pain 0/10; ph 10:30 BP 92 / 52; Pulse 65; Resp 18; Pulse Ox 98% on R/A; ph 11:30 BP 116 / 57; Pulse 71; Resp 18; Pulse Ox 100% on R/A; ph 12:30 BP 105 / 54; Pulse 64; Resp 18; Pulse Ox 99% on R/A; ph 13:30 BP 112 / 58; Pulse 64; Resp 18; Temp 97.8; Pulse Ox 99% on R/A; ph 08:43 Patient felt dizzy when sitting up lt1 MDM: 08:06 [facility] medically screened. [facility] 09:54 Data reviewed: vital signs, nurses notes. Counseling: I had a detailed discussion with [facility] the patient and/or guardian regarding: the historical points, exam findings, and any diagnostic results supporting the discharge/admit diagnosis, lab results, radiology results, the need to transfer to another facility. ED course: No GI services today, will need to transfer. . 10:45 ED course: I discussed the patient with Dr. Boyd whom will consult on admission. . [facility] 11/28 08:09 Order name: Basic Metabolic Panel; Complete Time: 09:13 [facility] 11/28 08:09 Order name: CBC with Diff; Complete Time: 08:52 [facility] 11/28 08:09 Order name: Hepatic Function; Complete Time: 09:13 [facility] 11/28 08:09 Order name: Lipase; Complete Time: 09:13 [facility] 11/28 08:09 Order name: Troponin (emerg Dept Use Only); Complete Time: 09:13 [facility] 11/28 08:09 Order name: Type And Screen [facility] 11/28 08:09 Order name: PT-INR; Complete Time: 08:52 [facility] 11/28 08:29 Order name: Occult Blood; Complete Time: 11:49 [facility] 11/28 08:29 Order name: Stool Culture [facility] 11/28 08:29 Order name: C.difficile; Complete Time: 11:49 [facility] 11/28 09:09 Order name: CREATININE WHOLE BLOOD; Complete Time: 09:13 [facility] 11/28 09:26 Order name: Urine Culture [facility] 11/28 10:10 Order name: Urine Dipstick--Ancillary (enter results); Complete Time: 10:25 tt3 11/28 08:09 Order name: IV Saline Lock; Complete Time: 08:34 [facility] 11/28 08:09 Order name: Labs collected and sent; Complete Time: 08:34 [facility] 11/28 08:18 Order name: EKG - Nurse/Tech; Complete Time: 10:12 [facility] 11/28 08:19 Order name: Orthostatic Blood Pressure; Complete Time: 08:50 [facility] 11/28 08:59 Order name: Abdomen ; Complete Time: 09:52 [facility] 11/28 09:26 Order name: Urine Dipstick-Ancillary (obtain specimen); Complete Time: 10:12 [facility] Administered Medications: 08:59 Drug: NS 0.9% 500 ml Route: IV; Rate: bolus; Site: left femoral; ph 10:12 Follow up: Response: No adverse reaction; IV Status: Completed infusion; IV Intake: ph 500ml Disposition: 11/29 07:06 Co-signature as Attending Physician, Soy Montez MD. [email or web address] Disposition: 11/29/19 10:45 Hospitalization ordered by Madhav Major for Inpatient Admission. Preliminary diagnosis are Syncope and collapse, Gastrointestinal hemorrhage, unspecified, Acute Kidney Injury. - Bed requested for Telemetry/MedSurg (Inpatient). - Status is Inpatient Admission. em - Condition is Stable. - Problem is new. - Symptoms have improved. Signatures: Dispatcher [employer] EDVA Franc Lunsford PA PA [facility] Alcides Rodriguez, RN RN Angela Dean, RN RN [email or web address] Itzel Bowen, RN RN Soy Montez MD MD 7 Corrections: (The following items were deleted from the chart) 11/28 08:59 08:19 Abdomen Pelvis W Con+CT.RAD.BRZ ordered. EDVA EDVA 10:41 09:59 11/29/2019 09:[address] [facility]. [facility] Diagnosis is Gastrointestinal hemorrhage, unspecified; Anemia; acute kidney injury; syncope. Reason for transfer: Higher level of care. Accepting physician is [facility]. Condition is Stable. Problem is new. Symptoms are unchanged. [facility] 10:45 09:54 ED course: No GI services today, will need to transfer. . [facility] 12:40 10:45 Hospitalization Ordered by Madhav Majro DO for Inpatient Admission. Preliminary [facility] diagnosis is Syncope and collapse; Gastrointestinal hemorrhage, unspecified; Acute Kidney Injury. Bed requested for Telemetry/MedSurg (Inpatient). Status is Inpatient Admission. Condition is Stable. Problem is new. Symptoms have improved. [facility] 14:20 12:40 11/29/2019 10:45 Hospitalization Ordered by Madhav Major DO for Inpatient em Admission. Preliminary diagnosis is Syncope and collapse; Gastrointestinal hemorrhage, unspecified; Acute Kidney Injury. Bed requested for Telemetry/MedSurg (Inpatient). Status is Inpatient Admission. Condition is Stable. Problem is new. Symptoms have improved. 7
[2019-11-29 10:23] LABS: Urine Blood 2+ (NEG); Urine Glucose NEGATIVE (NEG); Urine Protein NEGATIVE (NEG); Urine Specific Gravity 1.025 (1.005-1.030)
[2019-11-29 11:47] LABS: C.diff Antigen/Toxin Ag neg : Tox neg (NEG : NEG)
--- NOTE | 2019-11-29 13:52 | P.HP ---
Certification for Inpatient Patient admitted to: Observation With expected LOS: <2 Midnights Patient will require the following post-hospital care: None Practitioner: I am a practitioner with admitting privileges, knowledge of patient current condition, hospital course, and medical plan of care. Services: Services provided to patient in accordance with Admission requirements found in Title 42 Section 412.3 of the Code of Federal Regulations Patient History Date of Service: 11/29/19 Primary Care Provider: Dr. Gabriel; GI-Dr. Mancia Reason for admission: Rectal bleeding, syncope History of Present Illness: 79-year-old male with history of hypertension, hyperlipidemia, BPH, hypothyroidism and GERD. Patient presented with syncope and rectal bleeding. He reports that he noted some rectal bleeding on Monday. He also reported some diarrhea at that time. He daughter was going to get better. He took some Lomotil to help with this. He denied any chest pain, shortness of breath or dizziness. Today when he woke up he felt lightheaded. He has reported passing out for a second. He still continued to have some rectal bleeding. Due to his worsening symptoms the patient came to the ER for further evaluation. Patient reports taking antibiotic therapy-Amoxil over the past week to due to a dental procedure. In the ER patient was evaluated. Blood pressure was initially low around 90 systolic. Patient was given IV fluid bolus. On lab hemoglobin 8.4. Prior hemoglobin above 12.0. Sodium 142, potassium 3.6. BUN of 42, creatinine 1.68 with a GFR 40. Troponin unremarkable. Patient was positive for guaiac stools. CT abdomen unremarkable. C diff culture was positive. The patient has been stabilize. Patient admitted for further evaluation and observation. When I saw the patient ER, he was much improved. Blood pressure also improved around 130 systolic. Patient did not take his blood pressure medication today. Patient reports having colonoscopies over the past 10 years. He does report a history of diverticulosis. Allergies No Known Allergies Allergy (Verified 09/12/17 00:13) Home medications list reviewed: Yes Home Medications: Amlodipine Besylate 1 tab PO DAILY 09/12/17 Atorvastatin Calcium 1 tab PO DAILY 09/12/17 Docosahexanoic AC/Epa [Fish Oil 1,000 MG*] 1 cap PO BID 09/12/17 Docosahexanoic AC/Epa [Fish Oil 1,000 MG*] 1 cap PO DAILY 09/12/17 Dutasteride 0.5 mg PO DAILY 09/12/17 Ferrous Sulfate [Iron] 325 mg PO DAILY 09/12/17 Levothyroxine Sodium 50 mcg PO DAILY 09/12/17 Melatonin [Melatonin*] 3 mg PO BEDTIME 09/12/17 Tamsulosin HCl 0.4 mg PO DAILY 09/12/17 Vit B Comp No.3/Folic/C/Biotin [Planning Assistant-Temi Rx Tablet] 1 each PO DAILY 09/12/17 Ciprofloxacin HCl [Cipro 250 MG Tablet*] 250 mg PO BID #6 tab 09/13/17 - Past Medical/Surgical History Diabetic: No -: Hypertension -: Hypothyroidism -: BPH -: Hyperlipidemia -: GERD -: Tonsillectomy -: Kidney stone removal Psychosocial/ Personal History: Patient is - Family History Family History: Reviewed- Non-Contributory - Social History Smoking Status: Never smoker Alcohol use: Yes CD- Drugs: No Caffeine use: Yes Place of Residence: Home Review of Systems General: Weakness, As per HPI Eyes: Unremarkable ENT: Unremarkable Respiratory: Unremarkable Cardiovascular: Light Headedness, As per HPI Gastrointestinal: Hematochezia, As per HPI Genitourinary: Unremarkable Musculoskeletal: Unremarkable Integumentary: Unremarkable Neurological: As per HPI Lymphatics: Unremarkable Physical Examination - Physical Exam General: Alert, In no apparent distress, Oriented x3, Cooperative HEENT: Atraumatic, Normocephalic, Other (Dry mucous membranes) Neck: Supple Respiratory: Clear to auscultation bilaterally, Normal air movement Cardiovascular: Normal pulses, Regular rate/rhythm Gastrointestinal: Normal bowel sounds, Soft and benign, Non-distended, No tenderness, No masses, No rebound, No guarding Musculoskeletal: No erythema, No tenderness, No warmth Integumentary: No tenderness/swelling, No erythema, No warmth, No cyanosis Neurological: Normal speech, Normal strength at 5/5 x4 extr, Normal tone, Normal affect - Studies Laboratory Data (last 24 hrs) 11/29/19 08:30: PT 11.7, INR 0.99 11/29/19 08:30: WBC 11.0 H, Hgb 8.4 L, Hct 24.8 L, Plt Count 163 11/29/19 08:30: Sodium 142, Potassium 3.6, BUN 42 H, Creatinine 1.68 H, Glucose 166 H, Total Bilirubin 0.5, AST 18, ALT 26, Alkaline Phosphatase 59, Lipase 78 Microbiology Data (last 24 hrs): 11/29/19 10:00 Stool Occult Blood - Final Assessment and Plan - Plan Impression: Syncope related to rectal bleeding and acute anemia suspect lower GI bleed versus colitis Acute renal injury suspect related to dehydration Hypertension Hyperlipidemia BPH GERD Hypothyroidism Plan: Syncope related to rectal bleeding and acute anemia suspect lower GI bleed versus colitis: Patient will be admitted for further evaluation and treatment. Will recheck hemoglobin. If hemoglobin below 8.0 will transfuse. Will maintain hemoglobin above 8.0. Will continue with IV fluids. Will hold blood pressure medication at this time. Will monitor for rectal bleeding. Patient without abdominal pain at this time. This may be related to a diverticular bleed due to history of diverticulosis. Will discuss further with GI. Will continue monitor hemoglobin. Will monitor electrolytes. Protocol in place. SCD for DVT prophylaxis. Anticipate improvement over the next 24-48 hr. Acute renal injury suspect related to dehydration: Will start IV fluids. Hold his medication of hydrochlorothiazide. Hypertension: Hold hydrochlorothiazide, carvedilol due to acute anemia and syncope. Hyperlipidemia: Obtain and restart home medication. BPH: Obtain and restart home medication. GERD: Will start PPI. Hypothyroidism: Resume home medication - Advance Directives Does patient have a Living Will: No Does patient have a Durable POA for Healthcare: Yes
[2019-11-29] MEDS ORDERED: ACETAMINOPHEN 500 MG TAB PO PRN (13:57)
[2019-11-29] MEDS ORDERED: SODIUM CHLORIDE 0.9% 10ML INJ IV PRN (13:57)
[2019-11-29] MEDS ORDERED: ONDANSETRON 4 MG/2 ML VIAL IV PRN (13:57)
[2019-11-29] MEDS: NA CHLORIDE 0.9% 1,000 ML IV SCH ×2 (14:30→23:57)
[2019-11-29] MEDS: Ciprofloxacin 200mg IV 200 MG/100 ML IV.SOLN. IV SCH ×2 (14:32→20:25)
[2019-11-29] MEDS: METRONIDAZOLE 500mg IVPB 500 MG/100 ML BAG IV SCH (14:32)
[2019-11-29 14:35] VITALS: BMI 29.2
[2019-11-29] MEDS ORDERED: POTASSIUM 25 MEQ EFFERV TAB PO ONE (15:00)
[2019-11-29] MEDS: PANTOPRAZOLE 40 MG INJ IVP SCH ×2 (15:20→20:50)
--- NOTE | 2019-11-29 15:36 | EKG ---
Test Date: 2019-11-29 Test Time: 09:47:25 Warehouse Incentive Selector: RUDY MEASUREMENT RESULTS: Intervals: Rate: 62 IA: 194 QRSD: 94 QT: 430 QTc: 436 [place]: P: 40 IA: 194 QRS: -3 T: -19 INTERPRETIVE STATEMENTS: Normal sinus rhythm Voltage criteria for left ventricular hypertrophy Inferior infarct, age undetermined Abnormal ECG Compared to ECG 09/12/2017 17:42:14 Left ventricular hypertrophy now present Myocardial infarct finding now present Electronically Signed On 11-29-19 15:35:25 CDT by Shahriar Benson
--- NOTE | 2019-11-29 20:50 | RAD REPORT ---
EXAM DESCRIPTION: RAD - Small Bowel Series - 11/29/2019 8:43 pm CLINICAL HISTORY: Rectal bleeding COMPARISON: Abdomen Pelvis Wo Contrast dated 11/29/2019 FINDINGS: Linotyper film shows a nonspecific bowel gas pattern. No obstruction or free air. No suspiciou s calcifications. Gastric size and mucosal fold pattern are grossly normal but not optimally visualize. Small hiatal he rnia is present. No delay in transit of contrast into the small bowel. Small bowel is normal in diame ter with no mucosal fold thickening. No intrinsic or extrinsic mass identifiable. Terminal ileum has normal appearance. Transit time to the colon is prolonged at 4 hours. IMPRESSION: No small bowel abnormality seen. Transit time was prolonged measuring 4 hours.
[2019-11-29 21:45] LABS: Hematocrit 22.6 % (39.6-49.0)
[2019-11-29] MEDS ORDERED: NA CHLORIDE 0.9% 250 ML ONE (22:47)
[2019-11-30] MEDS: METRONIDAZOLE 500mg IVPB 500 MG/100 ML BAG IV SCH ×3 (02:02→17:41)
[2019-11-30] MEDS ORDERED: FUROSEMIDE 20 MG/ 2ML VIAL IV ONE (03:00)
[2019-11-30 04:52] LABS: Absolute Lymphocytes (CBC) 1.1 K/uL (0.7-4.9); Basophils % 0.6 % (0-1.3); Hematocrit 25.6 % (39.6-49.0); Lymphocytes % 10.3 % (15.3-44.8); MPV 9.8 fL (7.6-11.3); RBC Red Blood Cell Count 2.64 M/uL (4.33-5.43)
[2019-11-30 04:55] LABS: Potassium 4.1 mmol/L (3.5-5.1)
[2019-11-30 05:19] LABS: Thyroid Stimulating Hormone 2.62 uIU/mL (0.360-3.740)
[2019-11-30] MEDS: PANTOPRAZOLE 40 MG INJ IVP SCH ×2 (09:57→19:55)
[2019-11-30] MEDS: Ciprofloxacin 200mg IV 200 MG/100 ML IV.SOLN. IV SCH ×2 (09:58→19:55)
[2019-11-30 12:26] LABS: Hematocrit 24.3 % (39.6-49.0)
--- NOTE | 2019-11-30 13:11 | P.PN ---
Subjective Date of Service: 11/30/19 Primary Care Provider: Dr. Gabriel; GI-Dr. Mancia Chief Complaint: Rectal bleeding, syncope Subjective: No new changes, Other (Had 1 more episode of melena Denies any hematemesis No fever or chills Denies any chest pain or shortness of breath Has difficulty in ambulation) Review of Systems 10-point ROS is otherwise unremarkable Physical Examination - Vital Signs Temperature: 97.8 F Blood Pressure: 121/64 Pulse: 85 Respirations: 16 Pulse Ox (%): 96 - Physical Exam General: Alert, In no apparent distress, Oriented x3 HEENT: Atraumatic, Normocephalic Neck: Supple Respiratory: Clear to auscultation bilaterally Cardiovascular: Normal pulses, Regular rate/rhythm, Normal S1 S2 Capillary refill: <2 Seconds Gastrointestinal: Normal bowel sounds, Soft and benign, Non-distended, W/out hepatosplenomegaly Musculoskeletal: No clubbing, No swelling, No erythema Integumentary: No rashes, No breakdown Neurological: Normal speech, Normal strength at 5/5 x4 extr Lymphatics: No axilla or inguinal lymphadenopathy Rectal: Deferred - Studies Abnormal Lab Results 11/29/19 08:30 ABO/Rh O POSITIVE Solid Phase Ab Screen Negative Crossmatch See Detail 11/29/19 08:30: ABO/Rh O POSITIVE, Solid Phase Ab Screen Negative, Crossmatch See Detail Laboratory Tests 11/29/19 11/29/19 11/29/19 07:56 08:30 08:30 WBC 11.0 H RBC 2.50 L Hgb 8.4 L Hct 24.8 L MCV 99.5 D MCH 33.6 MCHC 33.8 RDW 13.4 Plt Count 163 MPV 9.7 Neutrophils % 83.5 H Lymphocytes % 6.8 L Monocytes % 7.8 Eosinophils % 1.2 Basophils % 0.7 Absolute Neutrophils 9.2 H Absolute Lymphocytes 0.8 Absolute Monocytes 0.9 Absolute Eosinophils 0.1 Absolute Basophils 0.1 PT INR Sodium 142 Potassium 3.6 Chloride 109 H Carbon Dioxide 25 BUN 42 H Creatinine 1.68 H Whole Bld Creatinine 1.8 H Estimated GFR 40 L Glucose 166 H Calcium 8.2 L Total Bilirubin 0.5 Direct Bilirubin 0.1 AST 18 ALT 26 Alkaline Phosphatase 59 Rapid Troponin I < 0.02 Serum Total Protein 5.6 L Albumin 2.9 L Globulin 2.7 Albumin/Globulin Ratio 1.1 Lipase 78 Urine pH Ur Specific [place] Glucose (UA)(Auto) Urine Ketones Urine Blood Urine Nitrite Ur Leukocyte Esterase Urine Total Protein C. difficile Ag & Toxin ABO/Rh Solid Phase Ab Screen Crossmatch 11/29/19 11/29/19 11/29/19 08:30 08:30 10:00 WBC RBC Hgb Hct MCV MCH MCHC RDW Plt Count MPV Neutrophils % Lymphocytes % Monocytes % Eosinophils % Basophils % Absolute Neutrophils Absolute Lymphocytes Absolute Monocytes Absolute Eosinophils Absolute Basophils PT 11.7 INR 0.99 Sodium Potassium Chloride Carbon Dioxide BUN Creatinine Whole Bld Creatinine Estimated GFR Glucose Calcium Total Bilirubin Direct Bilirubin AST ALT Alkaline Phosphatase Rapid Troponin I Serum Total Protein Albumin Globulin Albumin/Globulin Ratio Lipase Urine pH Ur Specific [place] Glucose (UA)(Auto) Urine Ketones Urine Blood Urine Nitrite Ur Leukocyte Esterase Urine Total Protein C. difficile Ag & Toxin Ag neg : tox neg ABO/Rh O POSITIVE Solid Phase Ab Screen Negative Crossmatch See Detail 11/29/19 10:10 WBC RBC Hgb Hct MCV MCH MCHC RDW Plt Count MPV Neutrophils % Lymphocytes % Monocytes % Eosinophils % Basophils % Absolute Neutrophils Absolute Lymphocytes Absolute Monocytes Absolute Eosinophils Absolute Basophils PT INR Sodium Potassium Chloride Carbon Dioxide BUN Creatinine Whole Bld Creatinine Estimated GFR Glucose Calcium Total Bilirubin Direct Bilirubin AST ALT Alkaline Phosphatase Rapid Troponin I Serum Total Protein Albumin Globulin Albumin/Globulin Ratio Lipase Urine pH 5.0 Ur Specific [place] 1.025 Glucose (UA)(Auto) Negative Urine Ketones Negative Urine Blood 2+ H Urine Nitrite Negative Ur Leukocyte Esterase Negative Urine Total Protein Negative C. difficile Ag & Toxin ABO/Rh Solid Phase Ab Screen Crossmatch Microbiology Data (last 24 hrs): 11/29/19 10:00 Stool Occult Blood - Final Assessment & Plan - Problems (Diagnosis) (1) Anemia Onset Date: 09/12/17 Current Visit: No Status: Acute Plan: Acute blood-loss anemia due to GI bleed Status post transfusion Monitor serial H&Hs Transfuse p.r.n. Qualifiers: Anemia type: other cause (2) Lower gastrointestinal bleed Onset Date: 09/12/17 Current Visit: No Status: Acute Plan: Continue PPI Had 1 more episode of GI bleed Awaiting GI consult Monitor closely for any bleeding (3) Syncope Onset Date: 09/12/17 Current Visit: No Status: Acute Plan: Syncope possibly related to anemia Monitor neuro vital signs Will get a PTOT evaluation Monitor closely on telemetry Discharge Plan: Home Plan to discharge in: 24 Hours - Code Status/Comfort Care Code Status Assessed: Yes Code Status: Full Code Time Spent Managing Pts Care (In Minutes): 35
[2019-11-30] MEDS: METOCLOPRAMIDE 10 MG/2mL INJ IV SCH ×2 (17:37→18:00)
[2019-11-30] MEDS ORDERED: MAGNESIUM CITRATE 300 ML BOT PO SCH (19:00)
[2019-11-30] MEDS: MELATONIN 5 MG TABLET PO SCH (19:57)
[2019-11-30] MEDS: NA CHLORIDE 0.9% 1,000 ML IV SCH (19:57)
[2019-11-30] MEDS ORDERED: GOLYTELY 4000 ML PO SCH (20:00)
[2019-11-30] MEDS ORDERED: MELATONIN 3 MG TABLET PO SCH (21:00)
--- NOTE | 2019-11-30 21:40 | CON ---
Date of Consultation: 11/30/2019 Reason For Consultation: Hematochezia, change in bowel habits, diarrhea with dehydration and syncope . History Of Present Illness: Patient is a 79-year-old white male with history of hypertension, hyperl ipidemia, hypothyroidism, gastric reflux disease, kidney stones. Patient presented to hospital with change in bowel habits, diarrhea, rectal bleeding over the past week with dehydration. Patient had s yncope prior to admission as well. He denies any blood thinners, aspirin, ibuprofen, or other medica tions that are causing the bleeding that he knows of. He had a colonoscopy and EGD in September 2017. H e recalls diverticulosis, but no significant findings in the upper GI tract except being put on acid medicine to help alleviate findings there, possibly gastritis. Patient states he has had diarrhea of f and on as well as bleeding off and on over the past week. He has been becoming dehydrated and he h as syncope. He is unsure if it is due to the diarrhea or to the bleeding. He does note 3 weeks ago having a tooth extraction with amoxicillin given 500 mg p.o. t.i.d. 5 days before and then 5 days aft er his procedure. Stool studies have been negative today, although in chart says there is possibilit y he may have had C diff positive, but I could not find in the actual lab section. Review of Systems: Positive for hematochezia, diarrhea, dehydration, syncope. He denies any melena, hematemesis, coffee -grounds emesis, hematuria, dysuria, polydipsia, hemoptysis, chest pain, shortness of breath, seizure . He does have syncope, depression, anxiety, muscle aches, joint aches, backaches. Past Medical History: Significant for hypertension, hyperlipidemia, hypothyroidism, benign prostatic hypertrophy, gastric reflux disease, tonsillectomy, kidney stone removal. Medications: At home include amlodipine, atorvastatin, fish oil, dutasteride, iron sulfate, levothyr oxine, melatonin, tamsulosin, vitamin B, Cipro. Allergies: NKDA. Social History: , 2 children. No tobacco. No alcohol. 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 L[facility] [place], [facility], [facility] and back here in [place], and retired. Family History: Father of old age and lived to be in his late 80s. Mother with breast can cer in her late 90s. Physical Examination: Vital Signs: Patient is 5 foot 11 inches, 210 pounds, BMI 29.3 kg/sq m. His temperature is 97.8 deg jignesh Fahrenheit, pulse 85, respirations 16, blood pressure 120/64, O2 saturation 96%. HEENT: Normocephalic, atraumatic. Anicteric. Pupils equal, round, and reactive to light. Orophary nx is clear. Neck: Supple. No masses. Respirations: Clear to auscultation bilaterally. Heart: Regular rate and rhythm. Gastrointestinal: Positive bowel sounds, soft, nontender, nondistended. No hepatosplenomegaly. Extremities: No clubbing, cyanosis, or edema. 2+ pulses. Neuro: Alert and oriented x3. Grossly nonfocal. 5/5 motor strength. Sensation intact to light kelley ch. Laboratory Data: Patient had a hemoglobin of 8.4 on admission, which went down to 7.8. He had 1 uni t of packed RBCs overnight with hemoglobin back up to 8.7 and then the second time this afternoon at 12:12, it is 8.5. He has a PT of 11.7, INR of 1.0. He has a sodium of 142, potassium 4.1, chloride 111, bicarb 27, BUN 13, creatinine of 1.51, glucose 127, calcium 8.0, magnesium 2.0, total bilirubin yesterday of 0.5, direct bilirubin 0.1, AST 18, ALT 27, alkaline phosphatase 59, rapid troponin I of less than 0.02. Total protein 5.6, albumin 2.9, lipase 78. TSH is 2.62. TSH of 1.1. UA has 2+ blo od, otherwise negative. Negative C diff on the C diff toxin serology. Microbiology: Stool culture and ova and parasites are pending. Occult blood was positive and urine culture had mixed desiree. Imaging: CT abdomen and pelvis was negative except for mild anterior subluxation at L4-5 and small u mbilical hernia. He also had a mildly enlarged prostate gland and small inguinal hernias containing fat and colonic diverticulosis without evidence of diverticulitis. Appendix appeared normal. Small bowel series was unremarkable except a small hiatal hernia noted. Impression: 1.Hematochezia, off and on x1 week, increase as the week went on. Patient denies any blood thinners , aspirin, ibuprofen also make him bleed. He takes his medication. It appears he denies any abdomin al pain, fevers, chills, night sweats, nausea, vomiting. He does report having this episode of bleed ing back in 2018. Colonoscopy at that time revealed diverticulosis. EGD at that time revealed possi ble gastritis other than he is treated with depression medicine by his recollection today. 2.Change in bowel habits, diarrhea, dehydration, syncope. He is unsure if the diarrhea has happened versus other bleeding, but from his history, it seems like it may be related to the bleeding. Of no te 3 weeks ago, he had a tooth extraction with amoxicillin 500 mg p.o. t.i.d. given for 5 days before the procedure and 5 days after the procedure. His C diff toxin antigen test was negative. His stoo l culture and O and P are pending at this time. 3.History of hypertension, hyperlipidemia, hypothyroidism, benign prostatic hypertrophy, gastric ref lux disease, tonsillectomy, kidney stones. Recommendation: 1.Continue IV fluids and IV antibiotics. 2.Diet, clear liquids. 3.Colonoscopy, EGD. 4.Check stool studies, which are pending. The culture and ova and parasite are still pending. 5.Small bowel series is done which is negative. 6.PillCam as outpatient if colonoscopy and EGD are unremarkable. Continue to monitor serial H and H , and transfuse p.r.n. JOSÉ/CAMILA Voice ID: [id number] Report ID: [id number]
[2019-12-01] MEDS: METOCLOPRAMIDE 10 MG/2mL INJ IV SCH (01:09)
[2019-12-01] MEDS: METRONIDAZOLE 500mg IVPB 500 MG/100 ML BAG IV SCH ×3 (01:09→17:21)
[2019-12-01] MEDS: LEVOTHYROXINE SOD 0.05 MG TABLET PO SCH ×2 (05:28→14:40)
[2019-12-01] MEDS ORDERED: METOCLOPRAMIDE 10 MG/2mL INJ IV SCH (06:00)
[2019-12-01] MEDS: PANTOPRAZOLE 40 MG INJ IVP SCH ×3 (08:24→23:06)
[2019-12-01] MEDS: Ciprofloxacin 200mg IV 200 MG/100 ML IV.SOLN. IV SCH ×3 (08:25→23:07)
[2019-12-01] MEDS: TAMSULOSIN 0.4 MG SR CAP PO SCH (09:00)
[2019-12-01] MEDS: VITAMIN D 1000 UNIT TAB PO SCH (09:00)
[2019-12-01] MEDS: DUTASTERIDE 0.5 MG GEL CAP PO SCH (09:00)
[2019-12-01] MEDS ORDERED: HOME MED 1 EA UNK (Cholecalciferol (Vitamin D3) [Vitamin D3] 1 TAB) PO SCH (09:00)
[2019-12-01 09:11] LABS: Absolute Lymphocytes (CBC) 0.9 K/uL (0.7-4.9); Basophils % 0.4 % (0-1.3); Lymphocytes % 8.1 % (15.3-44.8); MPV 9.2 fL (7.6-11.3); RBC Red Blood Cell Count 2.04 M/uL (4.33-5.43)
[2019-12-01 09:14] LABS: Magnesium 2.2 mg/dL (1.8-2.4); Potassium 4.3 mmol/L (3.5-5.1)
[2019-12-01] MEDS ORDERED: NA CHLORIDE 0.9% 250 ML IV SCH (10:00)
[2019-12-01] MEDS ORDERED: LIDOCAINE 1% MPF 5 ML VIAL ONE (10:53)
[2019-12-01] MEDS ORDERED: EPINEPHRINE/PF 1 MG/ML AMP ONE (10:53)
[2019-12-01] MEDS ORDERED: propofoL 200 MG/20 ML VIAL IV ONE (10:53)
[2019-12-01] MEDS ORDERED: Phenylephrine HCl 10 MG/ML 1 ML VIAL ONE (12:18)
--- NOTE | 2019-12-01 12:20 | ENDO RPT ---
[address], [address] EGD PROCEDURE REPORT EXAM DATE: 12/01/2019 PATIENT NAME: Teo Toribio MR#: [id number] BIRTHDATE: 1940 ATTENDING: Jim [address] STATUS: inpatient - [facility] RESIDENT CARE PROVIDER: Jacquelyn ROBERT, Jack Duong [employer], Gisell Salas [employer], and Toya Jiménez RN INDICATIONS: The patient is a 79 yr old Male here for an EGD due to anemia, hgb 6.8, hematochezia PROCEDURE PERFORMED: EGD, diagnostic MEDICATIONS: Per Anesthesia. TOPICAL ANESTHETIC: none CONSENT: The patient understands the risks and benefits of the procedure and understands that these risks include, but are not limited to: sedation, allergic reaction, infection, perforation and/or bleeding. Alternative means of evaluation and treatment include, among others: physical exam, x-rays, and/or surgical intervention. The patient elects to proceed with this endoscopic procedure. DESCRIPTION OF PROCEDURE: During intra-op preparation period all mechanical medical equipment was checked for proper function. Hand hygiene and appropriate measures for infection prevention was taken. Procedure, possible complications, and alternatives including but not limited to the possibility of bleeding, perforation, tear, infection, sepsis, need for surgery, need for blood transfusion, and anesthesia related complications were explained to the patient. After the risks, benefits and alternatives of the procedure were thoroughly explained, Informed consent was verified, confirmed and timeout was successfully executed by the treatment team. The patient was placed in the left lateral position. The patient was anesthetized with topical anesthesia. Through the anesthetized oropharyngeal area, the scope was passed without any difficulty. The [id number] ([id number]) endoscope was introduced through the mouth and advanced to the third portion of the duodenum. Retroflexed views revealed a small hiatal hernia. The gastroscope was then slowly withdrawn and removed. A Schatzki's ring was found in the lower esophagus. A small hiatal hernia was found ADVERSE EVENTS: There were no complications. IMPRESSIONS: 1. Schatzki's ring in the lower esophagus (no history of dysphagia) 2. Small hiatal hernia RECOMMENDATIONS: colonoscopy REPEAT EXAM: Jim Boyd Dr eSigned: Jim Boyd Dr 12/01/2019 12:19 PM cc: Madhav Major CPT CODES: ICD9 CODES: PATIENT NAME: Teo Toribio MR#: [id number]
--- NOTE | 2019-12-01 13:11 | ENDO RPT ---
[address], [address] COLONOSCOPY PROCEDURE REPORT EXAM DATE: 12/01/2019 PATIENT NAME: Teo Toribio MR #: [id number] BIRTHDATE: 1940 ATTENDING: Jim [address] STATUS: inpatient - 7 ACCOUNT SERVICES MANAGER: Jacquelyn ROBERT, Jack Nam [employer], Gisell Salas [place], and Toya Jiménez RN INDICATIONS: The patient is a 79 yr old Male here for a colonoscopy due to anemia, hematochezia, and unexplained chronic diarrhea PROCEDURE PERFORMED: Colonoscopy MEDICATIONS: Per Anesthesia. ESTIMATED BLOOD LOSS: None CONSENT: The patient understands the risks and benefits of the procedure and understands that these risks include, but are not limited to: sedation, allergic reaction, infection, perforation and/or bleeding. Alternative means of evaluation and treatment include, among others: physical exam, x-rays, and/or surgical intervention. The patient elects to proceed with this endoscopic procedure. DESCRIPTION OF PROCEDURE: During intra-op preparation period all mechanical medical equipment was checked for proper function. Hand hygiene and appropriate measures for infection prevention was taken. Procedure, possible complications, alternatives including, but not limited to possibility of bleeding, perforation, tear, infection, sepsis, need for surgery, need for blood transfusion, were explained to the patient. After the risks, benefits and alternatives of the procedure were thoroughly explained, Informed consent was verified, confirmed and timeout was successfully executed by the treatment team. The patient was placed in the left lateral position. A digital rectal exam was performed and revealed an enlarged prostate. After appropriate level of anesthesia, the scope was passed. The [id number] ([id number]) and [id number] ([id number]) endoscope was introduced through the anus and advanced to the terminal ileum which was intubated for a short distance. The quality of the prep was poor. The instrument was then slowly withdrawn as the colon was fully examined. Scope withdrawal time was 9 minutes. COLON FINDINGS: There was moderate diverticulosis noted throughout the entire examined colon with associated angulation, left > right (less in transverse) with occasional speck of red heme scattered throughout the colon (but no heme / blood in the terminal ileum). A flat polyp measuring 9 mm in size was found at the cecum. Small internal hemorrhoids were found. Retroflexed views revealed small hemorrhoids. The scope was then completely withdrawn from the patient and the procedure terminated. ADVERSE EVENTS: There were no complications. IMPRESSIONS: 1. Moderate diverticulosis throughout the entire examined colon, left > right (less in transverse) with occasional speck of red heme scattered throughout the colon (but no heme / blood in the terminal ileum) -> probable diverticular bleed 2. 9 mm flat polyp just distal to the cecum (not removed due to acute GI bleed with hgb to 6.8 today) 3. Small internal hemorrhoids 4. Intubation to terminal ileum RECOMMENDATIONS: 1. tertiary center where interventional radiology is available since admission with hgb 8.4 to 7.8 then transfused with 1 unit PRBC to 8.7 and now down to 6.8 overnight (if not possible, repeat colonoscopy with better colonoscopy prep) 2. monitor labs and transfuse prn RECALL: Outpatient colonoscopy in 1 month to remove cecal polyp Jim Boyd Dr eSigned: Jim Boyd Dr 12/01/2019 1:11 PM cc: Madhav Major CPT CODES: ICD9 CODES: 1. 600.0 Hypertrophy (benign) of prostate 2. 211.3 Benign neoplasm of colon PATIENT NAME: Teo ToribioElvia MR#: [id number]
--- NOTE | 2019-12-01 13:18 | ENDO RPT ---
[address], [address] COLONOSCOPY PROCEDURE REPORT EXAM DATE: 12/01/2019 PATIENT NAME: Teo Toribio MR #: [id number] BIRTHDATE: 1940 ATTENDING: Jim [address] STATUS: inpatient - 7 COMMUNITY MANAGER: Jacquelyn ROBERT, Jack Nam [employer], Gisell Salas [employer], and Toya Jiménez RN INDICATIONS: The patient is a 79 yr old Male here for a colonoscopy due to anemia, hgb 6.8, hematochezia, and unexplained diarrhea PROCEDURE PERFORMED: Colonoscopy MEDICATIONS: Per Anesthesia. ESTIMATED BLOOD LOSS: None CONSENT: The patient understands the risks and benefits of the procedure and understands that these risks include, but are not limited to: sedation, allergic reaction, infection, perforation and/or bleeding. Alternative means of evaluation and treatment include, among others: physical exam, x-rays, and/or surgical intervention. The patient elects to proceed with this endoscopic procedure. DESCRIPTION OF PROCEDURE: During intra-op preparation period all mechanical medical equipment was checked for proper function. Hand hygiene and appropriate measures for infection prevention was taken. Procedure, possible complications, alternatives including, but not limited to possibility of bleeding, perforation, tear, infection, sepsis, need for surgery, need for blood transfusion, were explained to the patient. After the risks, benefits and alternatives of the procedure were thoroughly explained, Informed consent was verified, confirmed and timeout was successfully executed by the treatment team. The patient was placed in the left lateral position. A digital rectal exam was performed and revealed an enlarged prostate. After appropriate level of anesthesia, the scope was passed. The [id number] ([id number]) and [id number] ([id number]) endoscope was introduced through the anus and advanced to the terminal ileum which was intubated for a short distance. The quality of the prep was poor. The instrument was then slowly withdrawn as the colon was fully examined. Scope withdrawal time was 9 minutes. COLON FINDINGS: There was moderate diverticulosis noted throughout the entire examined colon with associated angulation, left > right (less in transverse) with occasional speck of red heme scattered throughout the colon (but no heme / blood in the terminal ileum). A flat polyp measuring 9 mm in size was found at the cecum. Small internal hemorrhoids were found. Retroflexed views revealed small hemorrhoids. The scope was then completely withdrawn from the patient and the procedure terminated. ADVERSE EVENTS: There were no complications. IMPRESSIONS: 1. Moderate diverticulosis throughout the entire examined colon, left > right (less in transverse) with occasional speck of red heme scattered throughout the colon (but no heme / blood in the terminal ileum) -> probable diverticular bleed 2. 9 mm flat polyp just distal to the cecum (not removed due to acute GI bleed with hgb to 6.8 today) 3. Small internal hemorrhoids 4. Intubation to terminal ileum RECOMMENDATIONS: 1. tertiary center where interventional radiology is available since admission with hgb 8.4 to 7.8 then transfused with 1 unit PRBC to 8.7 and now down to 6.8 overnight (if not possible, repeat colonoscopy with better colonoscopy prep) 2. monitor labs and transfuse prn 3. Tagged RBC / GI bleed scan RECALL: Outpatient colonoscopy in 1 month to remove cecal polyp Jim [address] Dr eSigned: Jim Boyd Dr 12/01/2019 1:18 PM Revised: 12/01/2019 1:18 PM cc: Madhav Major CPT CODES: ICD9 CODES: 1. 600.0 Hypertrophy (benign) of prostate 2. 211.3 Benign neoplasm of colon PATIENT NAME: Teo Toribio MR#: [id number]
[2019-12-01] MEDS ORDERED: CEFAZOLIN/SWI 1gm 0 GM/0 ML SYR ONE (13:29)
[2019-12-01] MEDS: NA CHLORIDE 0.9% 1,000 ML IV SCH ×3 (14:35→15:57)
[2019-12-01] MEDS: hydroCHLOROthiazide 12.5 MG CAP PO SCH (14:41)
--- NOTE | 2019-12-01 14:41 | P.PN ---
Subjective Date of Service: 12/01/19 Primary Care Provider: Dr. Gabriel; GI-Dr. Mancia Chief Complaint: Rectal bleeding, syncope Subjective: Other (Patient had another episode of rectal bleeding. Patient scheduled to have EGD and colonoscopy today.) Physical Examination - Vital Signs Temperature: 97.4 F Blood Pressure: 120/51 Pulse: 71 Respirations: 16 Pulse Ox (%): 93 - Physical Exam General: Alert, In no apparent distress, Oriented x3, Cooperative HEENT: Atraumatic Neck: Supple Respiratory: Clear to auscultation bilaterally, Normal air movement Cardiovascular: Normal pulses, Regular rate/rhythm Gastrointestinal: Normal bowel sounds, Soft and benign, Non-distended, No ascites, No tenderness, No masses, No rebound, No guarding Integumentary: No tenderness/swelling, No erythema, No warmth, No cyanosis Neurological: Normal speech, Normal strength at 5/5 x4 extr, Normal tone, Normal affect - Studies Microbiology Data (last 24 hrs): 11/29/19 09:55 Clean Catch Urine [place] Count - Final >100,000 CFU/ML. 11/29/19 09:55 Clean Catch Urine - Final MIXED SOREN. Medications List Reviewed: Yes Assessment & Plan Discharge Plan: Transfer Plan to discharge in: 24 Hours Physician Review Additional Text: Impression: Syncope related to rectal bleeding and acute anemia suspect GI bleed etiology unknown Acute renal injury suspect related to dehydration Hypertension Hyperlipidemia BPH GERD/hiatal hernia Hypothyroidism Plan: Syncope related to rectal bleeding and acute anemia suspect active GI bleed, etiology/source unknown: Patient's hemoglobin has dropped. Some rectal bleeding noted this morning. Initial hemoglobin 7.8. Patient received 1 unit of blood yesterday. It was up to 8.5. Recheck today 6.8. Patient will get 2 more units of packed red blood cells. Case discussed at length with GI after EGD and colonoscopy. EGD shows schatzki's ring in the lower esophagus and small hiatal hernia. Colonoscopy revealed moderate diverticulosis throughout the entire exam(Left greater than right, less in transverse with occasional suspect of red blood. Scattered throughout the colon but no active bleeding noted. Blood in terminal ileum was noted). 9 mm flat polyp just distal to the cecum noted. This was not removed due to active GI bleed. Small internal hemorrhoids also noted. GI now recommends tagged red blood cell GI scan. This will be done today. GI also recommends transfer to higher level care center for further evaluation and treatment. Patient will require angiogram and interventional radiology to find source of bleeding and potentially addressed it. I spoke to the patient. He agrees to plan of care. Will work on transferring patient to further address. Acute renal injury suspect related to dehydration: Continue IV antibiotic therapy. Continue to hold blood pressure medications. Hypertension: Continue to hold hydrochlorothiazide, carvedilol due to acute anemia and syncope. Hyperlipidemia: Home medication reviewed. BPH: Continue home medication. GERD/hiatal hernia: Patient on PPI. Hypothyroidism: Resume home medication Time Spent Managing Pts Care (In Minutes): 55
[2019-12-01] MEDS: FERROUS SULFATE 325 MG TAB PO SCH (14:44)
[2019-12-01] MEDS: AMLODIPINE 10 MG TAB PO SCH (14:44)
[2019-12-01] MEDS ORDERED: CEFAZOLIN/SWI 2gm 2 GM/20 ML SYR IVP ONE (15:00)
[2019-12-01] MEDS: MULTIVITAMINS,THERAPEUT 1 TAB PO SCH (15:14)
[2019-12-01] MEDS ORDERED: FUROSEMIDE 20 MG/ 2ML VIAL IV ONE ×2 (15:28→19:00)
[2019-12-01] MEDS: ATORVASTATIN 40 MG TAB PO SCH (15:39)
--- NOTE | 2019-12-01 15:55 | P.DS ---
Admission Date: 11/30/19 Discharge Date: 12/01/19 Primary Care Provider: Dr. Gabriel; Martine Mancia Disposition: TRANSFER TO [facility] Discharge Condition: GOOD Reason for Admission: Rectal bleeding, syncope Consultations: GI-Dr. Mancia Procedures: CT Scan: COMPARISON: 2018 TECHNIQUE: Computed axial tomography of the abdomen and pelvis was obtained. IV and oral contrast were not requested. All CT scans are performed using dose optimization technique as appropriate and may include automated exposure control or mA/KV adjustment according to patient size. FINDINGS: The evaluation of solid organs, vessels and bowel is limited secondary to the lack of contrast administration. The liver, spleen, pancreas, adrenals and right kidney appear grossly normal. Left renal cyst is unchanged The appendix is normal. Colonic diverticulosis without evidence of diverticulitis. Mild anterior subluxation L4 on L5. Small umbilical hernia The prostate gland is mildly enlarged. Small inguinal hernias contain fat IMPRESSION: No acute abnormality is displayed. Small bowel series: COMPARISON: Abdomen Pelvis Wo Contrast dated 11/29/2019 FINDINGS: Conversion Man film shows a nonspecific bowel gas pattern. No obstruction or free air. No suspicious calcifications. Gastric size and mucosal fold pattern are grossly normal but not optimally visualize. Small hiatal hernia is present. No delay in transit of contrast into the small bowel. Small bowel is normal in diameter with no mucosal fold thickening. No intrinsic or extrinsic mass identifiable. Terminal ileum has normal appearance. Transit time to the colon is prolonged at 4 hours. IMPRESSION: No small bowel abnormality seen. Transit time was prolonged measuring 4 hours. EGD: Schatzki's ring in the lower esophagus, small hiatal hernia Colonoscopy: 1. Moderate diverticulosis throughout the entire examined colon. Left greater than right (less in transverse with occasional specks of red heme scattered throughout the colon but no heme/blood in the terminal ileum), probable diverticular bleed 2. 9 mm flat polyp just distal to the cecum, not removed due to acute bleed. 3. Small internal hemorrhoids. 4. Intubation to terminal ileum. Medical Problem List: Syncope related to rectal bleeding and acute anemia suspect GI bleed etiology unknown possible diverticular bleed Acute renal injury suspect related to dehydration Hypertension Hyperlipidemia BPH GERD/hiatal hernia Hypothyroidism Brief History of Present Illness: 79-year-old male with history of hypertension, hyperlipidemia, BPH, hypothyroidism and GERD. Patient presented with syncope and rectal bleeding. He reports that he noted some rectal bleeding on Monday. He also reported some diarrhea at that time. He daughter was going to get better. He took some Lomotil to help with this. He denied any chest pain, shortness of breath or dizziness. Today when he woke up he felt lightheaded. He has reported passing out for a second. He still continued to have some rectal bleeding. Due to his worsening symptoms the patient came to the ER for further evaluation. Patient reports taking antibiotic therapy-Amoxil over the past week to due to a dental procedure. In the ER patient was evaluated. Blood pressure was initially low around 90 systolic. Patient was given IV fluid bolus. On lab hemoglobin 8.4. Prior hemoglobin above 12.0. Sodium 142, potassium 3.6. BUN of 42, creatinine 1.68 with a GFR 40. Troponin unremarkable. Patient was positive for guaiac stools. CT abdomen unremarkable. C diff culture was positive. The patient has been sta bilize. Patient admitted for further evaluation and observation. When I saw the patient ER, he was much improved. Blood pressure also improved around 130 systolic. Patient did not take his blood pressure medication today. Patient reports having colonoscopies over the past 10 years. He does report a history of diverticulosis. Hospital Course: Patient presented with syncope related to rectal bleeding. Patient found to have acute anemia. GI was consulted to further evaluate and address. Initial hemoglobin 7.8. Patient received 1 unit of blood. It came up to 8.5. But recheck hemoglobin this morning was 6.8. Patient to receive 2 more units of packed red blood cells. Initial CT scan and small-bowel series unremarkable. Further rectal bleeding noted this a.m. after GI prep. GI recommended EGD and colonoscopy to further evaluate. EGD findings showed: Schatzki's ring in the lower esophagus, small hiatal hernia Colonoscopy: 1. Moderate diverticulosis throughout the entire examined colon. Left greater than right (less in transverse with occasional specks of red heme scattered throughout the colon but no heme/blood in the terminal ileum), probable diverticular bleed 2. 9 mm flat polyp just distal to the cecum, not removed due to acute bleed. 3. Small internal hemorrhoids. 4. Intubation to terminal ileum. No or source of bleeding identified. GI recommends transfer to higher level care center for further evaluation and treatment. Patient will require angiogram with Interventional Radiology to find the source of bleeding and potentially address it. I have discussed the case at length with [facility] They are willing to accept the patient. Await transfer at this time. Patient remains stable at this time. Patient stable for transfer. Will continue to monitor hemoglobin. Will continue with plan for GI bleeding scan. Anticipate transfer soon. Patient also had acute renal injury related to dehydration and acute anemia. This has improved. Will continue to monitor closely. Continue with transfusion. Patient with hypertension. Patient takes hydrochlorothiazide and carvedilol. This has been held due to acute GI bleed. Patient with hyperlipidemia. Will continue to hold medication at this time. Patient with BPH. Will continue with his medication. Patient with hypothyroidism. Will continue with his medication. Vital Signs/Physical Exam: Temp Pulse Resp BP Pulse Ox 97.4 F 73 16 127/62 93 12/01/19 14:41 12/01/19 15:38 12/01/19 14:41 12/01/19 15:38 12/01/19 14:41 General: Alert, In no apparent distress, Oriented x3, Cooperative HEENT: Atraumatic Neck: Supple Respiratory: Clear to auscultation bilaterally, Normal air movement Cardiovascular: Normal pulses, Regular rate/rhythm Gastrointestinal: Normal bowel sounds, Soft and benign, Non-distended, No tenderness, No masses, No rebound, No guarding Musculoskeletal: No erythema, No tenderness, No warmth Integumentary: No tenderness/swelling, No erythema, No warmth, No cyanosis Neurological: Normal speech, Normal strength at 5/5 x4 extr, Normal tone, Normal affect Laboratory Data at Discharge: WBC 11.6 K/uL (4.3-10.9) H 12/01/19 08:48 Hgb 6.8 g/dL (13.6-17.9) L* 12/01/19 08:48 Hct 20.0 % (39.6-49.0) L* D 12/01/19 08:48 Plt Count 144 K/uL (152-406) L 12/01/19 08:48 PT 11.7 SECONDS (9.5-12.5) 11/29/19 08:30 INR 0.99 11/29/19 08:30 Sodium 145 mmol/L (136-145) 12/01/19 08:48 Potassium 4.3 mmol/L (3.5-5.1) 12/01/19 08:48 BUN 25 mg/dL (7-18) H 12/01/19 08:48 Creatinine 1.43 mg/dL (0.55-1.3) H 12/01/19 08:48 Glucose 116 mg/dL (74-106) H 12/01/19 08:48 Magnesium 2.2 mg/dL (1.8-2.4) 12/01/19 08:48 Total Bilirubin 0.5 mg/dL (0.2-1.0) 11/29/19 08:30 AST 18 U/L (15-37) 11/29/19 08:30 ALT 26 U/L (12-78) 11/29/19 08:30 Alkaline Phosphatase 59 U/L (45-117) 11/29/19 08:30 Lipase 78 U/L (73-393) 11/29/19 08:30 Home Medications: Amlodipine Besylate 1 tab PO DAILY 09/12/17 Atorvastatin Calcium 1 tab PO DAILY 09/12/17 Dutasteride 0.5 mg PO DAILY 09/12/17 Ferrous Sulfate [Iron] 325 mg PO DAILY 09/12/17 Levothyroxine Sodium 50 mcg PO DAILY 09/12/17 Melatonin [Melatonin*] 5 mg PO BEDTIME 09/12/17 Tamsulosin HCl 0.4 mg PO DAILY 09/12/17 Vit B Comp No.3/Folic/C/Biotin [Trace Clerk-Temi Rx Tablet] 1 each PO DAILY 09/12/17 Cholecalciferol (Vitamin D3) [Vitamin D3] 1 tab PO DAILY 11/29/19 Famotidine [Pepcid*] 1 tab PO DAILY 11/29/19 hydroCHLOROthiazide [Hydrochlorothiazide*] 1 tab PO DAILY 11/29/19 Patient Discharge Instructions: Patient be transferred to high-level care center for further evaluation of acute GI bleed. Diet: Clear liquid diet Activity: Bedrest Time spent managing pt's care (in minutes): 55
--- NOTE | 2019-12-01 17:02 | RAD REPORT ---
EXAM DESCRIPTION: NM - GI Blood Loss Imaging - 12/01/2019 4:53 pm CLINICAL HISTORY: Gastrointestinal bleeding COMPARISON: CT study November 28 TECHNIQUE: The patient was administered 24.2 millicuries technetium labeled red blood cells. Images were acquired in multiple acquisitions. Patient had use the restroom requiring stopping and starting the examination. FINDINGS: Normal physiologic activity seen in the liver, spleen and great vessels. Normal low-level activity in the kidneys and bladder. No abnormal activity to indicate acute GI bleed. IMPRESSION: No evidence of active gastrointestinal bleeding during the examination
[2019-12-01] MEDS: MELATONIN 5 MG TABLET PO SCH (22:02)
[2019-12-02 00:28] LABS: Hematocrit 26.7 % (39.6-49.0)
[2019-12-02] MEDS: METRONIDAZOLE 500mg IVPB 500 MG/100 ML BAG IV SCH ×3 (00:56→16:51)
[2019-12-02] MEDS: NA CHLORIDE 0.9% 1,000 ML IV SCH ×3 (01:02→21:36)
[2019-12-02 04:39] LABS: Protime INR 1.05
[2019-12-02 04:47] LABS: Potassium 3.6 mmol/L (3.5-5.1)
[2019-12-02 04:48] LABS: Absolute Lymphocytes (CBC) 1.4 K/uL (0.7-4.9); Basophils % 0.2 % (0-1.3); Hematocrit 26.6 % (39.6-49.0); Lymphocytes % 7.8 % (15.3-44.8); MPV 9.6 fL (7.6-11.3); RBC Red Blood Cell Count 2.86 M/uL (4.33-5.43)
[2019-12-02] MEDS: LEVOTHYROXINE SOD 0.05 MG TABLET PO SCH (05:56)
[2019-12-02] MEDS ORDERED: POTASSIUM 25 MEQ EFFERV TAB PO ONE (09:00)
[2019-12-02] MEDS: DUTASTERIDE 0.5 MG GEL CAP PO SCH (09:00)
[2019-12-02] MEDS: hydroCHLOROthiazide 12.5 MG CAP PO SCH (09:00)
[2019-12-02] MEDS: TAMSULOSIN 0.4 MG SR CAP PO SCH (09:00)
[2019-12-02] MEDS: VITAMIN D 1000 UNIT TAB PO SCH (09:00)
[2019-12-02] MEDS: MULTIVITAMINS,THERAPEUT 1 TAB PO SCH (09:12)
[2019-12-02] MEDS: PANTOPRAZOLE 40 MG INJ IVP SCH ×2 (09:12→21:36)
[2019-12-02] MEDS: AMLODIPINE 10 MG TAB PO SCH (09:12)
[2019-12-02] MEDS: ATORVASTATIN 40 MG TAB PO SCH (09:12)
[2019-12-02] MEDS: FERROUS SULFATE 325 MG TAB PO SCH (09:14)
[2019-12-02] MEDS: Ciprofloxacin 200mg IV 200 MG/100 ML IV.SOLN. IV SCH ×2 (10:21→21:35)
[2019-12-02 12:19] LABS: Hematocrit 27.1 % (39.6-49.0)
--- NOTE | 2019-12-02 14:19 | P.PN ---
Subjective Date of Service: 12/02/19 Primary Care Provider: Dr. Gabriel; GI-Dr. Mancia Chief Complaint: Rectal bleeding, syncope Subjective: No new changes, Other (No further episodes of melena) Review of Systems 10-point ROS is otherwise unremarkable Physical Examination - Vital Signs Temperature: 98.1 F Blood Pressure: 125/63 Pulse: 82 Respirations: 18 Pulse Ox (%): 98 - Physical Exam General: Alert, In no apparent distress HEENT: Atraumatic, Normocephalic Neck: Supple, 2+ carotid pulse no bruit Respiratory: Clear to auscultation bilaterally, Normal air movement Cardiovascular: Normal pulses, Regular rate/rhythm, Normal S1 S2 Capillary refill: <2 Seconds Gastrointestinal: Soft and benign, W/out hepatosplenomegaly Musculoskeletal: No clubbing, No swelling Integumentary: No rashes Neurological: Normal speech, Normal strength at 5/5 x4 extr Lymphatics: No axilla or inguinal lymphadenopathy Urinary: Other (No bladder distention) Rectal: Deferred - Studies Microbiology Data (last 24 hrs): 11/29/19 10:00 Stool Culture & Sensitivity - Final Medications List Reviewed: Yes Assessment & Plan - Problems (Diagnosis) (1) Anemia Onset Date: 09/12/17 Current Visit: No Status: Acute Plan: Acute blood-loss anemia due to GI bleed Status post transfusion Monitor serial H&Hs Transfuse p.r.n. Qualifiers: Anemia type: other cause (2) Lower gastrointestinal bleed Onset Date: 09/12/17 Current Visit: No Status: Acute Plan: Continue PPI Had 1 more episode of GI bleed Awaiting GI consult Monitor closely for any bleeding (3) Syncope Onset Date: 09/12/17 Current Visit: No Status: Acute Plan: Syncope possibly related to anemia Monitor neuro vital signs Will get a PTOT evaluation Monitor closely on telemetry Physician Review Additional Text: Impression: Syncope related to rectal bleeding and acute anemia suspect GI bleed etiology unknown Acute renal injury suspect related to dehydration Hypertension Hyperlipidemia BPH GERD/hiatal hernia Hypothyroidism Plan: Syncope related to rectal bleeding and acute anemia suspect active GI bleed, etiology/source unknown: Patient's hemoglobin has dropped. Some rectal bleeding noted this morning. Initial hemoglobin 7.8. Patient received 1 unit of blood yesterday. It was up to 8.5. Recheck today 6.8. Patient will get 2 more units of packed red blood cells. Case discussed at length with GI after EGD and colonoscopy. EGD shows schatzki's ring in the lower esophagus and small hiatal hernia. Colonoscopy revealed moderate diverticulosis throughout the entire exam(Left greater than right, less in transverse with occasional suspect of red blood. Scattered throughout the colon but no active bleeding noted. Blood in terminal ileum was noted). 9 mm flat polyp just distal to the cecum noted. T his was not removed due to active GI bleed. Small internal hemorrhoids also noted. GI now recommends tagged red blood cell GI scan. This will be done today. GI also recommends transfer to higher level care center for further evaluation and treatment. Patient will require angiogram and interventional radiology to find source of bleeding and potentially addressed it. I spoke to the patient. He agrees to plan of care. Will work on transferring patient to further address. Acute renal injury suspect related to dehydration: Continue IV antibiotic therapy. Continue to hold blood pressure medications. Hypertension: Continue to hold hydrochlorothiazide, carvedilol due to acute anemia and syncope. Hyperlipidemia: Home medication reviewed. BPH: Continue home medication. GERD/hiatal hernia: Patient on PPI. Hypothyroidism: Resume home medication 12/02/2019 No further episodes of GI bleed H and H stable appreciate help from GI Awaiting transfer to higher level of care for further IR workup for GI bleed Patient needs a bleeding scan and possible coiling Awaiting transfer Time Spent Managing Pts Care (In Minutes): 32
[2019-12-02] MEDS: MELATONIN 5 MG TABLET PO SCH (21:36)
[2019-12-03] MEDS: METRONIDAZOLE 500mg IVPB 500 MG/100 ML BAG IV SCH ×3 (00:21→16:06)
[2019-12-03 04:58] LABS: Basophils % 0.7 % (0-1.3); Hematocrit 26.3 % (39.6-49.0); Lymphocytes % 9.9 % (15.3-44.8); RBC Red Blood Cell Count 2.75 M/uL (4.33-5.43)
[2019-12-03] MEDS: LEVOTHYROXINE SOD 0.05 MG TABLET PO SCH (05:24)
[2019-12-03] MEDS: NA CHLORIDE 0.9% 1,000 ML IV SCH ×2 (07:57→17:57)
[2019-12-03] MEDS: DUTASTERIDE 0.5 MG GEL CAP PO SCH ×2 (08:26→08:43)
[2019-12-03] MEDS: ATORVASTATIN 40 MG TAB PO SCH (08:27)
[2019-12-03] MEDS: FERROUS SULFATE 325 MG TAB PO SCH (08:27)
[2019-12-03] MEDS: MULTIVITAMINS,THERAPEUT 1 TAB PO SCH (08:27)
[2019-12-03] MEDS: VITAMIN D 1000 UNIT TAB PO SCH (08:27)
[2019-12-03] MEDS: PANTOPRAZOLE 40 MG INJ IVP SCH ×2 (08:28→20:49)
[2019-12-03] MEDS: AMLODIPINE 10 MG TAB PO SCH (08:28)
[2019-12-03] MEDS: hydroCHLOROthiazide 12.5 MG CAP PO SCH (08:28)
[2019-12-03] MEDS: TAMSULOSIN 0.4 MG SR CAP PO SCH ×2 (08:29→08:44)
[2019-12-03] MEDS: Ciprofloxacin 200mg IV 200 MG/100 ML IV.SOLN. IV SCH ×3 (09:00→20:53)
--- NOTE | 2019-12-03 12:17 | P.PN ---
Subjective Date of Service: 12/03/19 Primary Care Provider: Dr. Gabriel; GI-Dr. Kingston Chief Complaint: Rectal bleeding, syncope Subjective: No new changes, Improving (No further episodes of melena) Review of Systems 10-point ROS is otherwise unremarkable Physical Examination - Vital Signs Temperature: 97.6 F Blood Pressure: 133/71 Pulse: 82 Respirations: 18 Pulse Ox (%): 95 - Physical Exam General: Alert, In no apparent distress, Oriented x3 HEENT: Atraumatic, Normocephalic Neck: Supple, 2+ carotid pulse no bruit Respiratory: Clear to auscultation bilaterally, Normal air movement Cardiovascular: No edema, Regular rate/rhythm Capillary refill: <2 Seconds Gastrointestinal: Normal bowel sounds, Soft and benign, W/out hepatosplenomegaly Musculoskeletal: No clubbing, No swelling Integumentary: No rashes, No breakdown Neurological: Normal gait, Normal strength at 5/5 x4 extr Lymphatics: No axilla or inguinal lymphadenopathy Rectal: Deferred - Studies Laboratory Last Values WBC 10.9 K/uL (4.3-10.9) 11/30/19 04:09 RBC 2.64 M/uL (4.33-5.43) L 11/30/19 04:09 Hgb 8.5 g/dL (13.6-17.9) L 11/30/19 12:12 Hct 24.3 % (39.6-49.0) L 11/30/19 12:12 MCV 97.1 fL (80-100) 11/30/19 04:09 MCH 33.0 pg (27.0-35.0) 11/30/19 04:09 MCHC 33.9 g/dL (32.0-36.0) 11/30/19 04:09 RDW 14.8 % (12.1-15.2) D 11/30/19 04:09 Plt Count 163 K/uL (152-406) 11/30/19 04:09 MPV 9.8 fL (7.6-11.3) 11/30/19 04:09 Neutrophils % 77.1 % (41.7-73.7) H 11/30/19 04:09 Lymphocytes % 10.3 % (15.3-44.8) L 11/30/19 04:09 Monocytes % 9.5 % (3.3-12.3) 11/30/19 04:09 Eosinophils % 2.5 % (0-4.4) 11/30/19 04:09 Basophils % 0.6 % (0-1.3) 11/30/19 04:09 Absolute Neutrophils 8.4 K/uL (1.8-8.0) H 11/30/19 04:09 Absolute Lymphocytes 1.1 K/uL (0.7-4.9) 11/30/19 04:09 Absolute Monocytes 1.0 K/uL (0.1-1.3) 11/30/19 04:09 Absolute Eosinophils 0.3 K/uL (0-0.5) 11/30/19 04:09 Absolute Basophils 0.1 K/uL (0-0.5) 11/30/19 04:09 PT 11.7 SECONDS (9.5-12.5) 11/29/19 08:30 INR 0.99 11/29/19 08:30 Sodium 142 mmol/L (136-145) 11/30/19 04:09 Potassium 4.1 mmol/L (3.5-5.1) 11/30/19 04:09 Chloride 111 mmol/L (98-107) H 11/30/19 04:09 Carbon Dioxide 27 mmol/L (21-32) 11/30/19 04:09 BUN 32 mg/dL (7-18) H 11/30/19 04:09 Creatinine 1.51 mg/dL (0.55-1.3) H 11/30/19 04:09 Whole Bld Creatinine 1.8 mg/dL (0.6-1.3) H 11/29/19 07:56 Estimated GFR 45 mL/min (=/>90) L 11/30/19 04:09 Glucose 127 mg/dL (74-106) H 11/30/19 04:09 Calcium 8.0 mg/dL (8.5-10.1) L 11/30/19 04:09 Magnesium 2.0 mg/dL (1.8-2.4) 11/30/19 04:09 Total Bilirubin 0.5 mg/dL (0.2-1.0) 11/29/19 08:30 Direct Bilirubin 0.1 mg/dL (0-0.2) 11/29/19 08:30 AST 18 U/L (15-37) 11/29/19 08:30 ALT 26 U/L (12-78) 11/29/19 08:30 Alkaline Phosphatase 59 U/L (45-117) 11/29/19 08:30 Rapid Troponin I < 0.02 ng/mL (0.0-0.045) 11/29/19 08:30 Serum Total Protein 5.6 g/dL (6.4-8.2) L 11/29/19 08:30 Albumin 2.9 g/dL (3.4-5.0) L 11/29/19 08:30 Globulin 2.7 g/dL (2.3-3.5) 11/29/19 08:30 Albumin/Globulin Ratio 1.1 (1.1-1.8) 11/29/19 08:30 Lipase 78 U/L (73-393) 11/29/19 08:30 TSH 2.620 uIU/mL (0.360-3.740) 11/30/19 04:09 Free T4 1.10 ng/dL (0.76-1.46) 11/30/19 04:09 Urine pH 5.0 (5.0-7.0) 11/29/19 10:10 Ur Specific [place] 1.025 (1.005-1.030) 11/29/19 10:10 Glucose (UA)(Auto) Negative (NEG) 11/29/19 10:10 Urine Ketones Negative (NEG) 11/29/19 10:10 Urine Blood 2+ (NEG) H 11/29/19 10:10 Urine Nitrite Negative (NEG) 11/29/19 10:10 Ur Leukocyte Esterase Negative (NEG) 11/29/19 10:10 Urine Total Protein Negative (NEG) 11/29/19 10:10 C. difficile Ag & Toxin Ag neg : tox neg (NEG : NEG) 11/29/19 10:00 ABO/Rh O POSITIVE 11/29/19 08:30 Solid Phase Ab Screen Negative 11/29/19 08:30 Crossmatch See Detail 11/29/19 08:30 Microbiology Data (last 24 hrs): 11/29/19 10:00 Stool Culture & Sensitivity - Final Medications List Reviewed: Yes Assessment & Plan - Problems (Diagnosis) (1) Anemia Onset Date: 09/12/17 Current Visit: No Status: Acute Qualifiers: Anemia type: other cause (2) Lower gastrointestinal bleed Onset Date: 09/12/17 Current Visit: No Status: Acute (3) Syncope Onset Date: 09/12/17 Current Visit: No Status: Acute Physician Review Additional Text: Impression: Syncope related to rectal bleeding and acute anemia suspect GI bleed etiology unknown Acute renal injury suspect related to dehydration Hypertension Hyperlipidemia BPH GERD/hiatal hernia Hypothyroidism Plan: Syncope related to rectal bleeding and acute anemia suspect active GI bleed, etiology/source unknown: Patient's hemoglobin has dropped. Some rectal bleeding noted this morning. Initial hemoglobin 7.8. Patient received 1 unit of blood yesterday. It was up to 8.5. Recheck today 6.8. Patient will get 2 more units of packed red blood cells. Case discussed at length with GI after EGD and colonoscopy. EGD shows schatzki's ring in the lower esophagus and small hiatal hernia. Colonoscopy revealed moderate diverticulosis throughout the entire exam(Left greater than right, less in transverse with occasional suspect of red blood. Scattered throughout the colon but no active bleeding noted. Blood in terminal ileum was noted). 9 mm flat polyp just distal to the cecum noted. This was not removed due to active GI bleed. Small internal hemorrhoids also noted. GI now recommends tagged red blood cell GI scan. This will be done today. GI also recommends transfer to higher level care center for further evaluation and treatment. Patient will require angiogram and interventional radiology to find source of bleeding and potentially addressed it. I spoke to the patient. He agrees to plan of care. Will work on transferring patient to further address. Acute renal injury suspect related to dehydration: Continue IV antibiotic therapy. Continue to hold blood pressure medications. Hypertension: Continue to hold hydrochlorothiazide, carvedilol due to acute anemia and syncope. Hyperlipidemia: Home medication reviewed. BPH: Continue home medication. GERD/hiatal hernia: Patient on PPI. Hypothyroidism: Resume home medication 12/02/2019 No further episodes of GI bleed H and H stable appreciate help from GI Awaiting transfer to higher level of care for further IR workup for GI bleed Patient needs a bleeding scan and possible coiling Awaiting transfer 12/03/2019 No further episodes of GI bleed or melena H&H is stable at 9 Discuss with the patient and family Still waiting for the bed in [facility] Family wants to take him home and follow as an outpatient with interventional radiology Discusses with Dr. kingston Wants to have a 2nd look colonoscopy tomorrow as he had GI bleed twice Monitor under telemetry Advice ambulation Will start on bowel preparation for colonoscopy Time Spent Managing Pts Care (In Minutes): 35
[2019-12-03] MEDS ORDERED: MAGNESIUM CITRATE 300 ML BOT PO SCH ×2 (13:00→18:00)
[2019-12-03] MEDS ORDERED: GOLYTELY 4000 ML PO SCH ×2 (13:00→19:00)
--- NOTE | 2019-12-03 17:11 | P.PN ---
Subjective Date of Service: 12/03/19 Primary Care Provider: Dr. Gabriel; GI-Dr. Kingston Chief Complaint: Rectal bleeding, syncope Subjective: Improving (No hematochezia today. No stools today. Transfer to [facility] still pending from this weekend.) Review of Systems 10-point ROS is otherwise unremarkable General: Weakness (Improved) Physical Examination - Vital Signs Temperature: 98.0 F Blood Pressure: 124/67 Pulse: 78 Respirations: 18 Pulse Ox (%): 99 - Physical Exam General: Alert, In no apparent distress, Oriented x3, Cooperative HEENT: Atraumatic, Normocephalic, PERRLA, EOMI Neck: Supple Respiratory: Normal air movement Cardiovascular: Normal pulses Gastrointestinal: Soft and benign, No tenderness, No rebound, No guarding Neurological: Normal speech, Normal strength at 5/5 x4 extr - Studies Medications List Reviewed: Yes Assessment And Plan - Current Problems (Diagnosis) (1) Hematochezia Current Visit: Yes Status: Acute (2) Anemia Onset Date: 09/12/17 Current Visit: No Status: Acute Qualifiers: Anemia type: other cause (3) Syncope Onset Date: 09/12/17 Current Visit: No Status: Acute - Plan REC: 1) repeat colonoscopy 2) serial H&Hs and transfuse prn 3) await transfer to tertiary center higher level of care with possible interventional radiology for colonic artery embolization (not available here) Physician Review Additional Text: Impression: Syncope related to rectal bleeding and acute anemia suspect GI bleed etiology unknown Acute renal injury suspect related to dehydration Hypertension Hyperlipidemia BPH GERD/hiatal hernia Hypothyroidism Plan: Syncope related to rectal bleeding and acute anemia suspect active GI bleed, etiology/source unknown: Patient's hemoglobin has dropped. Some rectal bleeding noted this morning. Initial hemoglobin 7.8. Patient received 1 unit of blood yesterday. It was up to 8.5. Recheck today 6.8. Patient will get 2 more units of packed red blood cells. Case discussed at length with GI after EGD and colonoscopy. EGD shows schatzki's ring in the lower esophagus and small hiatal hernia. Colonoscopy revealed moderate diverticulosis throughout the entire exam(Left greater than right, less in transverse with occasional suspect of red blood. Scattered throughout the colon but no active bleeding noted. Blood in terminal ileum was noted). 9 mm flat polyp just distal to the cecum noted. This was not removed due to active GI bleed. Small internal hemorrhoids also noted. GI now recommends tagged red blood cell GI scan. This will be done today. GI also recommends transfer to higher level care center for further evaluation and treatment. Patient will require angiogram and interventional radiology to find source of bleeding and potentially addressed it. I spoke to the patient. He agrees to plan of care. Will work on transferring patient to further address. Acute renal injury suspect related to dehydration: Continue IV antibiotic therapy. Continue to hold blood pressure medications. Hypertension: Continue to hold hydrochlorothiazide, carvedilol due to acute anemia and syncope. Hyperlipidemia: Home medication reviewed. BPH: Continue home medication. GERD/hiatal hernia: Patient on PPI. Hypothyroidism: Resume home medication 12/02/2019 No further episodes of GI bleed H and H stable appreciate help from GI Awaiting transfer to higher level of care for further IR workup for GI bleed Patient needs a bleeding scan and possible coiling Awaiting transfer 12/03/2019 No further episodes of GI bleed or melena H&H is stable at 9 Discuss with the patient and family Still waiting for the bed in [facility] Family wants to take him home and follow as an outpatient with interventional radiology Discusses with Dr. kingston Wants to have a 2nd look colonoscopy tomorrow as he had GI bleed twice Monitor under telemetry Advice ambulation Will start on bowel preparation for colonoscopy
[2019-12-03] MEDS ORDERED: BISACODYL E.C. 5 MG TAB PO ONE (20:00)
[2019-12-03] MEDS: MELATONIN 5 MG TABLET PO SCH (20:49)
[2019-12-04] MEDS: METRONIDAZOLE 500mg IVPB 500 MG/100 ML BAG IV SCH ×3 (00:17→16:45)
[2019-12-04] MEDS: LEVOTHYROXINE SOD 0.05 MG TABLET PO SCH (06:30)
[2019-12-04] MEDS ORDERED: NA CHLORIDE 0.9% 500 ML ONE (07:43)
[2019-12-04] MEDS ORDERED: propofoL 200 MG/20 ML VIAL IV ONE (07:44)
[2019-12-04] MEDS ORDERED: LIDOCAINE 1% MPF 5 ML VIAL ONE (07:44)
[2019-12-04] MEDS ORDERED: EPINEPHRINE/PF 1 MG/ML AMP ONE (08:00)
[2019-12-04] MEDS ORDERED: EPHEDRINE SULF 50 MG/ML VIAL ONE (08:38)
[2019-12-04] MEDS ORDERED: NS 0.9% VIAL 10 ML ONE (08:38)
[2019-12-04] MEDS: VITAMIN D 1000 UNIT TAB PO SCH (09:00)
[2019-12-04] MEDS: DUTASTERIDE 0.5 MG GEL CAP PO SCH (09:00)
--- NOTE | 2019-12-04 09:28 | ENDO RPT ---
[address], [address] COLONOSCOPY PROCEDURE REPORT EXAM DATE: 12/04/2019 PATIENT NAME: Teo Toribio MR #: [id number] BIRTHDATE: 1940 ATTENDING: Jim Boyd Dr STATUS: inpatient [place] FORMER: Milly Zapata CST and Rand Oscar RN INDICATIONS: The patient is a 79 yr old Male here for a colonoscopy due to hematochezia and anemia PROCEDURE PERFORMED: Colonoscopy for control of bleeding, Colonoscopy with directed submucosal injection(s) any substance, and Colon w/ endoclip MEDICATIONS: Per Anesthesia. ESTIMATED BLOOD LOSS: None CONSENT: The patient understands the risks and benefits of the procedure and understands that these risks include, but are not limited to: sedation, allergic reaction, infection, perforation and/or bleeding. Alternative means of evaluation and treatment include, among others: physical exam, x-rays, and/or surgical intervention. The patient elects to proceed with this endoscopic procedure. DESCRIPTION OF PROCEDURE: During intra-op preparation period all mechanical medical equipment was checked for proper function. Hand hygiene and appropriate measures for infection prevention was taken. Procedure, possible complications, alternatives including, but not limited to possibility of bleeding, perforation, tear, infection, sepsis, need for surgery, need for blood transfusion, were explained to the patient. After the risks, benefits and alternatives of the procedure were thoroughly explained, Informed consent was verified, confirmed and timeout was successfully executed by the treatment team. The patient was placed in the left lateral position. A digital rectal exam was performed and revealed no abnormalities of the rectum. After appropriate level of anesthesia, the scope was passed. The EC-[id number] ([id number]) endoscope was introduced through the anus and advanced to the terminal ileum which was intubated for a short distance. The quality of the prep was good. The instrument was then slowly withdrawn as the colon was fully examined. Scope withdrawal time was 8 minutes. COLON FINDINGS: There was moderate diverticulosis noted throughout the entire examined colon with associated angulation. There was active bleeding noted from the diverticulosis. Small amount red blood scattered in thin film of mucus in the distal descending colon to proximal sigmoid colon, from 40-50 cm from the anal verge on withdrawal. Thin film of red blood / mucus also in a few of the diverticula, but no active bleeding. One seemed suspicious, s/p and nearby other diverticulum at 42 cm from the anal verge. Small internal hemorrhoids were found. Retroflexed views revealed small hemorrhoids. The scope was then completely withdrawn from the patient and the procedure terminated. ADVERSE EVENTS: There were no complications. IMPRESSIONS: 1. Moderate diverticulosis noted throughout the entire examined colon, s/p left > right (predominantly in the distal descending / sigmoid colon) 2. Small amount red blood scattered in thin film of mucus in the distal descending colon to proximal sigmoid colon, from 40-50 cm from the anal verge on withdrawal 3. Thin film of red blood / mucus also in a few of the diverticula, but no active bleeding. One diverticulum seemed suspicious, s/p endoclip X1 and other diverticulum at 42 cm from the anal verge 4. Small internal hemorrhoids 5. Intubation to terminal ileum (no blood seen in the terminal ileum nor right colon) RECOMMENDATIONS: 1. Monitor labs and transfuse prn 2. Await transfer to tertiary center for possible interventional radiology procedure, especially if rebleeding occurs RECALL: Jim Boyd Dr eSigned: Jim Boyd Dr 12/04/2019 9:27 AM cc: Madhav Major D.O. CPT CODES: ICD9 CODES: PATIENT NAME: Teo Toribio MR#: [id number]
[2019-12-04] MEDS: PANTOPRAZOLE 40 MG INJ IVP SCH ×2 (10:40→20:50)
[2019-12-04] MEDS: TAMSULOSIN 0.4 MG SR CAP PO SCH (10:40)
[2019-12-04] MEDS: MULTIVITAMINS,THERAPEUT 1 TAB PO SCH (10:40)
[2019-12-04] MEDS: FERROUS SULFATE 325 MG TAB PO SCH (10:40)
[2019-12-04] MEDS: ATORVASTATIN 40 MG TAB PO SCH (10:41)
[2019-12-04] MEDS: hydroCHLOROthiazide 12.5 MG CAP PO SCH (10:41)
[2019-12-04] MEDS: AMLODIPINE 10 MG TAB PO SCH (10:41)
[2019-12-04] MEDS: Ciprofloxacin 200mg IV 200 MG/100 ML IV.SOLN. IV SCH ×2 (10:49→20:50)
--- NOTE | 2019-12-04 14:21 | P.PN ---
Subjective Date of Service: 12/04/19 Primary Care Provider: Dr. Gabriel; GI-Dr. Kingston Chief Complaint: Rectal bleeding, syncope Subjective: No new changes Physical Examination - Vital Signs Temperature: 97.2 F Blood Pressure: 120/63 Pulse: 80 Respirations: 15 Pulse Ox (%): 98 - Physical Exam General: Alert, In no apparent distress HEENT: Atraumatic, Normocephalic Neck: Supple Respiratory: Clear to auscultation bilaterally, Normal air movement Cardiovascular: Normal pulses, Regular rate/rhythm Capillary refill: <2 Seconds Gastrointestinal: Soft and benign, W/out hepatosplenomegaly Musculoskeletal: No clubbing, No swelling Integumentary: No rashes Neurological: Normal speech, Normal strength at 5/5 x4 extr Lymphatics: No axilla or inguinal lymphadenopathy - Studies Medications List Reviewed: Yes Assessment & Plan - Problems (Diagnosis) (1) Anemia Onset Date: 09/12/17 Current Visit: No Status: Acute Plan: Acute blood-loss anemia due to GI bleed Status post transfusion Monitor serial H&Hs Transfuse p.r.n. Qualifiers: Anemia type: other cause (2) Lower gastrointestinal bleed Onset Date: 09/12/17 Current Visit: No Status: Acute Plan: Continue PPI Had 1 more episode of GI bleed Awaiting GI consult Monitor closely for any bleeding (3) Syncope Onset Date: 09/12/17 Current Visit: No Status: Acute Plan: Syncope possibly related to anemia Monitor neuro vital signs Will get a PTOT evaluation Monitor closely on telemetry Physician Review Additional Text: Impression: Syncope related to rectal bleeding and acute anemia suspect GI bleed etiology unknown Acute renal injury suspect related to dehydration Hypertension Hyperlipidemia BPH GERD/hiatal hernia Hypothyroidism Plan: Syncope related to rectal bleeding and acute anemia suspect active GI bleed, etiology/source unknown: Patient's hemoglobin has dropped. Some rectal bleeding noted this morning. Initial hemoglobin 7.8. Patient received 1 unit of blood yesterday. It was up to 8.5. Recheck today 6.8. Patient will get 2 more units of packed red blood cells. Case discussed at length with GI after EGD and colonoscopy. EGD shows schatzki's ring in the lower esophagus and small hiatal hernia. Colonoscopy revealed moderate diverticulosis throughout the entire exam(Left greater than right, less in transverse with occasional suspect of red blood. Scattered throughout the colon but no active bleeding noted. Blood in terminal ileum was noted). 9 mm flat polyp just distal to the cecum noted. This was not removed due to active GI bleed. Small internal hemorrhoids also noted. GI now recommends tagged red blood cell GI scan. This will be done today. GI also recommends transfer to higher level care center for further evaluation and treatment. Patient will require angiogram and interventional radiology to find source of bleeding and potentially addressed it. I spoke to the patient. He agrees to plan of care. Will work on transferring patient to further address. Acute renal injury suspect related to dehydration: Continue IV antibiotic therapy. Continue to hold blood pressure medications. Hypertension: Continue to hold hydrochlorothiazide, carvedilol due to acute anemia and syncope. Hyperlipidemia: Home medication reviewed. BPH: Continue home medication. GERD/hiatal hernia: Patient on PPI. Hypothyroidism: Resume home medication 12/02/2019 No further episodes of GI bleed H and H stable appreciate help from GI Awaiting transfer to higher level of care for further IR workup for GI bleed Patient needs a bleeding scan and possible coiling Awaiting transfer 12/03/2019 No further episodes of GI bleed or melena H&H is stable at 9 Discuss with the patient and family Still waiting for the bed in [facility] Family wants to take him home and follow as an outpatient with interventional radiology Discusses with Dr. kingston Wants to have a 2nd look colonoscopy tomorrow as he had GI bleed twice Monitor under telemetry Advice ambulation Will start on bowel preparation for colonoscopy 12/04/2019 No further episodes of GI bleed Appreciate help from GI Monitor closely under telemetry Underwent a colonoscopy Showed multiple diverticuli No active bleeding not Advice conservative management May need transfer to higher level of care if the bleeding occurs Monitor labs in a.m. Possible Dc in a.m. Time Spent Managing Pts Care (In Minutes): 35
[2019-12-04] MEDS: MELATONIN 5 MG TABLET PO SCH (20:50)
[2019-12-05] MEDS: METRONIDAZOLE 500mg IVPB 500 MG/100 ML BAG IV SCH ×2 (00:13→08:26)
[2019-12-05] MEDS: LEVOTHYROXINE SOD 0.05 MG TABLET PO SCH (05:28)
[2019-12-05] MEDS: PANTOPRAZOLE 40 MG INJ IVP SCH (08:32)
[2019-12-05] MEDS: AMLODIPINE 10 MG TAB PO SCH (08:34)
[2019-12-05] MEDS: DUTASTERIDE 0.5 MG GEL CAP PO SCH (08:35)
[2019-12-05] MEDS: hydroCHLOROthiazide 12.5 MG CAP PO SCH (08:35)
[2019-12-05] MEDS: FERROUS SULFATE 325 MG TAB PO SCH (08:35)
[2019-12-05] MEDS: VITAMIN D 1000 UNIT TAB PO SCH (08:36)
[2019-12-05] MEDS: ATORVASTATIN 40 MG TAB PO SCH (08:36)
[2019-12-05] MEDS: MULTIVITAMINS,THERAPEUT 1 TAB PO SCH (08:36)
[2019-12-05] MEDS: TAMSULOSIN 0.4 MG SR CAP PO SCH (08:36)
[2019-12-05 09:17] LABS: Hematocrit 28.6 % (39.6-49.0)
[2019-12-05 09:50] VITALS: O2SAT 94
[2019-12-05] MEDS: Ciprofloxacin 200mg IV 200 MG/100 ML IV.SOLN. IV SCH (11:22)
--- NOTE | 2019-12-05 13:54 | P.DS ---
Admission Date: 11/30/19 Discharge Date: 12/05/19 Primary Care Provider: Dr. Gabriel; GI-Dr. Mancia Disposition: ROUTINE DISCHARGE Discharge Condition: GOOD Reason for Admission: Rectal bleeding, syncope - Problems (1) Anemia Onset Date: 09/12/17 Current Visit: No Status: Acute Qualifiers: Anemia type: other cause (2) Lower gastrointestinal bleed Onset Date: 09/12/17 Current Visit: No Status: Acute (3) Syncope Onset Date: 09/12/17 Current Visit: No Status: Acute Brief History of Present Illness: 79-year-old male with history of hypertension, hyperlipidemia, BPH, hypothyroidism and GERD. Patient presented with syncope and rectal bleeding. He reports that he noted some rectal bleeding on Monday. He also reported some diarrhea at that time. He daughter was going to get better. He took some Lomotil to help with this. He denied any chest pain, shortness of breath or dizziness. Today when he woke up he felt lightheaded. He has reported passing out for a second. He still continued to have some rectal bleeding. Due to his worsening symptoms the patient came to the ER for further evaluation. Patient reports taking antibiotic therapy-Amoxil over the past week to due to a dental procedure. In the ER patient was evaluated. Blood pressure was initially low around 90 systolic. Patient was given IV fluid bolus. On lab hemoglobin 8.4. Prior hemoglobin above 12.0. Sodium 142, potassium 3.6. BUN of 42, creatinine 1.68 with a GFR 40. Troponin unremarkable. Patient was positive for guaiac stools. CT abdomen unremarkable. C diff culture was positive. The patient has been stabilize. Patient admitted for further evaluation and observation. When I saw the patient ER, he was much improved. Blood pressure also improved around 130 systolic. Patient did not take his blood pressure medication today. Patient reports having colonoscopies over the past 10 years. He does report a history of diverticulosis. Hospital Course: Patient was admitted and was monitor closely under telemetry. Underwent multiple blood transfusions. H&H was trended . GI was consulted. He initially underwent a colonoscopy which showed no active bleeding but was poor preparation. Initially it was decided to transfer the patient for higher level of care for possible angiogram and possible coiling if needed if the bleeding happens. Gi did a second-look colonoscopy did not show any active bleeding. H&H is stable . Discussed with the patient and family . No further episodes of GI bleed .Appreciate help from GI Monitored closely under telemetry .Colonoscopy Showed multiple diverticuli and No active bleeding noted. GI recommended conservative management Patient wanted go home and is being discharged home today in a stable condition with advice to follow up with PCP in 1 week and also with GI in 1-2 weeks. Vital Signs/Physical Exam: Temp Pulse Resp BP Pulse Ox 97.6 F 79 16 119/64 94 12/05/19 08:00 12/05/19 08:35 12/05/19 08:00 12/05/19 08:35 12/05/19 08:00 General: Alert, In no apparent distress HEENT: Atraumatic, Normocephalic Neck: Supple, 2+ carotid pulse no bruit Respiratory: Clear to auscultation bilaterally, Normal air movement Cardiovascular: Normal pulses, Regular rate/rhythm Gastrointestinal: Soft and benign, W/out hepatosplenomegaly Musculoskeletal: No clubbing, No swelling Integumentary: No rashes, No tenderness/swelling Neurological: Normal speech, Normal strength at 5/5 x4 extr Lymphatics: No axilla or inguinal lymphadenopathy Rectal: Deferred Laboratory Data at Discharge: WBC 10.0 K/uL (4.3-10.9) D 12/03/19 04:32 Hgb 9.7 g/dL (13.6-17.9) L 12/05/19 09:06 Hct 28.6 % (39.6-49.0) L 12/05/19 09:06 Plt Count 155 K/uL (152-406) 12/03/19 04:32 PT 12.4 SECONDS (9.5-12.5) 12/02/19 03:52 INR 1.05 12/02/19 03:52 APTT 27.0 SECONDS (24.3-36.9) 12/02/19 03:52 Sodium 144 mmol/L (136-145) 12/03/19 04:32 Potassium 4.0 mmol/L (3.5-5.1) 12/03/19 04:32 BUN 13 mg/dL (7-18) 12/03/19 04:32 Creatinine 1.47 mg/dL (0.55-1.3) H 12/03/19 04:32 Glucose 122 mg/dL (74-106) H 12/03/19 04:32 Magnesium 2.2 mg/dL (1.8-2.4) 12/01/19 08:48 Total Bilirubin 0.5 mg/dL (0.2-1.0) 11/29/19 08:30 AST 18 U/L (15-37) 11/29/19 08:30 ALT 26 U/L (12-78) 11/29/19 08:30 Alkaline Phosphatase 59 U/L (45-117) 11/29/19 08:30 Lipase 78 U/L (73-393) 11/29/19 08:30 Home Medications: Amlodipine Besylate 1 tab PO DAILY 09/12/17 Atorvastatin Calcium 1 tab PO DAILY 09/12/17 Dutasteride 0.5 mg PO DAILY 09/12/17 Ferrous Sulfate [Iron] 325 mg PO DAILY 09/12/17 Levothyroxine Sodium 50 mcg PO DAILY 09/12/17 Melatonin [Melatonin*] 5 mg PO BEDTIME 09/12/17 Tamsulosin HCl 0.4 mg PO DAILY 09/12/17 Vit B Comp No.3/Folic/C/Biotin [Clinic Office Manager-[facility] Rx Tablet] 1 each PO DAILY 09/12/17 Cholecalciferol (Vitamin D3) [Vitamin D3] 1 tab PO DAILY 11/29/19 hydroCHLOROthiazide [Hydrochlorothiazide*] 1 tab PO DAILY 11/29/19 Pantoprazole [Protonix Tab] 40 mg PO DAILY #30 tab 12/05/19 New Medications: Pantoprazole [Protonix Tab] 40 mg PO DAILY #30 tab Patient Discharge Instructions: Patient be transferred to high-level care center for further evaluation of acute GI bleed. Diet: Regular Activity: Ad luis felipe Followup: Jim Boyd MD [ASSOCIATE-ACTIVE - CAN ADMIT] -
[2019-12-05 14:34] VITALS: BP 123/72; TEMP 97.8
== END 2019-12-05 14:50 | disposition home or self-care (01) | DRG 378 ==
LOC: ER 07:51 → ERHOLD 11:32 → 4TH 13:59 → 2ND 21:49 → OBSVTOIN 11-30 16:33
PROVIDERS: ADMIT Family Medicine; ATTEND Family Medicine
PROC: 0DJ08ZZ Inspection of Upper Intestinal Tract, Via Natural or Artificial Opening Endoscopic (ICD-10-PCS; 2019-12-01)
PROC: 0DJD8ZZ Inspection of Lower Intestinal Tract, Via Natural or Artificial Opening Endoscopic (ICD-10-PCS; principal; 2019-12-01 11:00)
PROC: 30233N1 Transfusion of Nonautologous Red Blood Cells into Peripheral Vein, Percutaneous Approach (ICD-10-PCS; 2019-12-01 11:00)
PROC: 0DJD8ZZ Inspection of Lower Intestinal Tract, Via Natural or Artificial Opening Endoscopic (ICD-10-PCS; 2019-12-04)
DX: K57.31 Diverticulosis of large intestine without perforation or abscess with bleeding (principal); N17.9 Acute kidney failure, unspecified; D62 Acute posthemorrhagic anemia; K64.8 Other hemorrhoids; K22.2 Esophageal obstruction; E78.5 Hyperlipidemia, unspecified; I10 Essential (primary) hypertension; K21.9 Gastro-esophageal reflux disease without esophagitis; B96.89 Other specified bacterial agents as the cause of diseases classified elsewhere; E03.9 Hypothyroidism, unspecified; K52.9 Noninfective gastroenteritis and colitis, unspecified; E86.0 Dehydration; N40.0 Benign prostatic hyperplasia without lower urinary tract symptoms; K44.9 Diaphragmatic hernia without obstruction or gangrene; D12.0 Benign neoplasm of cecum; Z79.890 Hormone replacement therapy; Z79.899 Other long term (current) drug therapy
CPT/HCPCS: 36415; 36430; 74176; 74250; 78278; 80048; 80076; 81003; 82274; 82565; 83690; 83735; 84439; 84443; 84484; 85014; 85018; 85025; 85610; 85730; 86850; 86900; 86901; 87045; 87046; 87086; 87088; 87177; 87209; 87324; 87449; 93005; 96360; 97116; 97161; 97530; 99285; A9560; C9113; G0378; J0171; J0690; J0744; J1940; J2370; J2704; J2765; J7030; J7040; P9016

== ENCOUNTER 2022-08-23 11:10 | Inpatient (IN) | payer OTHER ==
--- OUTSIDE RECORDS SUMMARY | 2022-08-23 11:16 | XMS REPORT | Continuity of Care Document ---
:1940 Author Organization [facility] t Address [address] [place] [address] Dr. So [address] [place] [id number] Care Team Providers Name Role Phone Unavailable Unavailable Unavailable Problems This patient has no known problems. Allergies, Adverse Reactions, Alerts This patient has no known allergies or adverse reactions. Medications This patient has no known medications. Procedures This patient has no known procedures. Encounters Start End Encounter Admission Attending Care Care Encounter Source Date/Time Date/Time Type Type Clinicians Facility Department ID 2021-10-11 Outpatient [facility] [id number] Common 10:21:05 [facility] Results This patient has no known results.
[2022-08-23 12:45] LABS: Absolute Lymphocytes (CBC) 0.4 K/uL (0.7-4.9); Hematocrit 40.2 % (39.6-49.0); Lymphocytes % 5.7 % (15.3-44.8); MCV 103.7 fL (80-100); MPV 9.6 fL (7.6-11.3); RBC Red Blood Cell Count 3.87 M/uL (4.33-5.43)
[2022-08-23 12:46] LABS: Protime INR 1.18
[2022-08-23 12:50] LABS: SARS-CoV-2 Antigen Rapid Res Negative (Negative)
[2022-08-23 13:04] LABS: Albumin 3.8 g/dL (3.4-5.0); Bilirubin Direct 0.3 mg/dL (0-0.2); Bilirubin Total 0.7 mg/dL (0.2-1.0); Magnesium 2.6 mg/dL (1.6-2.4); Potassium 4.7 mmol/L (3.5-5.1); Troponin High Sensitivity 24.5 pg/mL (<58.9)
--- NOTE | 2022-08-23 13:04 | RAD REPORT ---
EXAM DESCRIPTION: RAD - Chest Single View - 08/23/2022 12:52 pm CLINICAL HISTORY: SOB Chest pain. COMPARISON: Abdomen 1 View (KUB) dated 11/09/2017; Chest Single View dated 09/11/2017 FINDINGS: Portable technique limits examination quality. Mild interstitial pulmonary edema. The heart is moderately enlarged. No displaced fractures. IMPRESSION: Mild CHF.
--- NOTE | 2022-08-23 15:04 | RAD REPORT ---
EXAM DESCRIPTION: US - Extrem Venous W Compress Prosper - 08/23/2022 2:56 pm CLINICAL HISTORY: SWELLING Bilateral leg edema and swelling. COMPARISON: Extremity Venous Uni Ltd dated 06/19/2019 TECHNIQUE: Real-time sonographic interrogation of the left and right lower extremity deep venous sys tems was performed. FINDINGS: Normal compressibility, flow augmentation, phasic flow and spontaneous flow is identified in both the left and right lower extremity deep venous systems. IMPRESSION: No sonographic evidence of left or right lower extremity deep venous thrombosis.
[2022-08-23] MEDS ORDERED: FUROSEMIDE 40 MG/4 ML VIAL ONE (15:59)
--- NOTE | 2022-08-23 16:24 | ER ---
Nurse's Notes [facility] Name: Teo Toribio Age: 82 yrs Sex: Male : 1940 Arrival Date: 08/23/2022 Time: 11:12 Bed 13 Private MD: Jim Gabriel E Diagnosis: New onset congestive heart failure;Acute kidney injury Presentation: 08/23 12:02 Chief complaint: Patient states: AMY Cespedes sent for possible new onset CHF due to SOB jl7 and 20 pound weight gain over the last 2 months. Coronavirus screen: At this time, the client does not indicate any symptoms associated with coronavirus-19. Ebola Screen: No symptoms or risks identified at this time. Initial Sepsis Screen: Does the patient meet any 2 criteria? No. Patient's initial sepsis screen is negative. Does the patient have a suspected source of infection? No. Patient's initial sepsis screen is negative. Risk Assessment: Do you want to hurt yourself or someone else? Patient reports no desire to harm self or others. Onset of symptoms is unknown. Care prior to arrival: None. 12:02 Method Of Arrival: Ambulatory jl7 12:02 Acuity: DEMARCUS 3 jl7 Triage Assessment: 12:04 General: Appears in no apparent distress. uncomfortable, Behavior is calm, cooperative, jl7 appropriate for age. Pain: Denies pain. Historical: - Allergies: 12:04 No Known Allergies; jl7 - Home Meds: 12:04 gabapentin oral [Active]; tizanidine 4 mg oral cap [Active]; levothyroxine 50 mcg oral jl7 tab [Active]; hydrochlorothiazide 12.5 mg Oral cap [Active]; carvedilol 3.125 mg oral tab 2 tabs [Active]; losartan 25 mg oral tab [Active]; allopurinol 100 mg Oral tab [Active]; tamsulosin oral [Active]; dutasteride 0.5 mg oral cap [Active]; Lipitor Oral once daily [Active]; - PMHx: 12:04 diverticulosis; enlarged prostate; High Cholesterol; Hypertension; Hypothyroidism; Gout;jl7 - Immunization history:: Client reports receiving the 2nd dose of the Covid vaccine. - Social history:: Smoking status: Patient denies any tobacco usage or history of. Screenin:57 [facility] ED Fall Risk Assessment (Adult) History of falling in the last 3 months, ko1 including since admission No falls in past 3 months (0 pts) Confusion or Disorientation No (0 pts) Intoxicated or Sedated No (0 pts) Impaired Gait No (0 pts) Mobility Assist Device Used No (0 pt) Altered Elimination No (0 pt) Score/Fall Risk Level 0 - 2 = Low Risk Oriented to surroundings, Maintained a safe environment, Educated pt \T\ family on fall prevention, incl call for assistance when getting out of bed, Assessed \T\ reinforced patient's understanding of fall precautions, Provided non-skid footwear, Hourly rounding (assess needs \T\ fall precautionary measures) done, Used ambulatory aids as needed (educated on \T\ assisted with), Used gait belt as appropriate. Abuse screen: Denies threats or abuse. Denies injuries from another. Nutritional screening: No deficits noted. Tuberculosis screening: No symptoms or risk factors identified. Assessment: 13:57 General: Appears in no apparent distress. comfortable. Pain: Denies pain. Neuro: No ko1 deficits noted. Cardiovascular: Reports edema. Respiratory: Reports shortness of breath on exertion. GI: No deficits noted. : No deficits noted. EENT: No deficits noted. Derm: No deficits noted. Musculoskeletal: No deficits noted. Vital Signs: 12:02 BP 138 / 86; Pulse 74; Resp 17; Temp 97.1; Pulse Ox 98% on R/A; Weight 103.87 kg; jl7 Height 5 ft. 11 in. (180.34 cm); Pain 0/10; 13:57 BP 151 / 102; Pulse 79; Resp 18; Pulse Ox 97% on R/A; Pain 0/10; ko1 14:24 BP 145 / 92; Pulse 73; Resp 14; Pulse Ox 100% ; ko1 12:02 Body Mass Index 31.94 (103.87 kg, 180.34 cm) jl7 ED Course: 11:12 Patient arrived in ED. as 11:12 Jim Gabriel MD is Private Physician. as 11:14 Franc Lunsford PA is PHCP. [facility] 11:14 Allen Ward MD is Attending Physician. [facility] 12:04 Triage completed. [facility] 12:04 Arm band placed on right wrist. Patient placed in waiting room, Patient notified of jl7 wait time. 13:05 SARS RAPID Sent. jl7 13:06 Troponin HS Sent. jl7 13:06 XRAY Chest (1 view) Sent. jl7 13:06 PT-INR Sent. jl7 13:06 NT PRO-BNP Sent. jl7 13:06 Magnesium Sent. jl7 13:06 LFT's Sent. jl7 13:06 CBC with Diff Sent. jl7 13:06 Basic Metabolic Panel Sent. 7 13:50 Theresa Jacobo, RN is Primary Nurse. ko1 13:57 Patient has correct armband on for positive identification. Bed in low position. Call ko1 light in reach. Side rails up X 1. Adult w/ patient. Client placed on continuous cardiac and pulse oximetry monitoring. NIBP monitoring applied. tier lift truck operator on. 16:23 Dong Bunn MD is Hospitalizing Provider. [facility] 19:22 Primary Nurse role handed off by Theresa Jacobo, RN mw2 20:33 No provider procedures requiring assistance completed. Patient admitted, IV remains in ll3 place. Administered Medications: 15:59 Drug: Lasix (furosemide) 40 mg Route: IVP; Site: left antecubital; ko1 Medication: 20:33 VIS not applicable for this client. ll3 Outcome: 16:24 Decision to Hospitalize by Provider. [facility] 20:33 Admitted to Med/surg accompanied by tech, via wheelchair, room 211, with chart, Report ll3 called to MELISSA Jaeger 20:33 Condition: stable 20:33 Instructed on the need for admit, Demonstrated understanding of instructions. 20:34 Patient left the ED. ll3 Signatures: Franc Lunsford PA PA jmm Martinez, Amelia as Leal, Jahala RN RN jl7 Usman Chao mw2 Wanda Rowley RN RN ll3 Theresa Jacobo, RN RN ko1
--- NOTE | 2022-08-23 16:25 | EDPHYS ---
Physician Documentation [facility] Name: Teo Toribio Age: 82 yrs Sex: Male : 1940 Arrival Date: 08/23/2022 Time: 11:12 Bed 13 Private MD: Jim Gabriel E ED Physician Allen Ward HPI: 08/23 12:03 This 82 yrs old Male presents to ER via Ambulatory with complaints of sent by flower Cespedes suspected chf. 12:03 The patient has shortness of breath at rest, with light activity. Onset: The jm symptoms/episode began/occurred gradually, 3 week(s) ago. Duration: The symptoms are continuous. Is an 82-year-old male with a history of hypertension, hyperlipidemia the presents emerged part with complaints of progressively worsening short nests of breath. States symptoms initially began approximately 3 weeks ago. States he has gained 20 pounds. Has experienced swelling to both lower extremities. Denies chest pain.. Historical: - Allergies: 12:04 No Known Allergies; jl7 - Home Meds: 12:04 gabapentin oral [Active]; tizanidine 4 mg oral cap [Active]; levothyroxine 50 mcg oral jl7 tab [Active]; hydrochlorothiazide 12.5 mg Oral cap [Active]; carvedilol 3.125 mg oral tab 2 tabs [Active]; losartan 25 mg oral tab [Active]; allopurinol 100 mg Oral tab [Active]; tamsulosin oral [Active]; dutasteride 0.5 mg oral cap [Active]; Lipitor Oral once daily [Active]; - PMHx: 12:04 diverticulosis; enlarged prostate; High Cholesterol; Hypertension; Hypothyroidism; Gout;jl7 - Immunization history:: Client reports receiving the 2nd dose of the Covid vaccine. - Social history:: Smoking status: Patient denies any tobacco usage or history of. ROS: 12:03 Constitutional: Negative for fever, chills, and weight loss, Cardiovascular: Negative jm for chest pain, palpitations, and edema. 12:03 Respiratory: Positive for shortness of breath. 12:03 MS/extremity: Positive for swelling. 12:03 All other systems are negative. Exam: 12:03 Constitutional: This is a well developed, well nourished patient who is awake, alert, jmm and in no acute distress. Head/Face: atraumatic. Eyes: EOMI, no conjunctival erythema appreciated ENT: Moist Mucus Membranes Neck: Trachea midline, Supple Chest/axilla: Normal chest wall appearance and motion. Cardiovascular: Regular rate and rhythm. No edema appreciated Respiratory: Normal respirations, no respiratory distress appreciated Abdomen/GI: Non distended Back: Normal ROM Skin: General appearance color normal Neuro: Awake and alert 12:03 Musculoskeletal/extremity: Swelling noted to both extremities, full dorsalis pedis pulse, compartments are soft, neurovascular intact. 12:03 Skin: Appearance: Color: normal in color. 12:03 Neuro: Orientation: is normal, Mentation: is normal, Memory: is normal. 12:03 Psych: Behavior/mood is pleasant, cooperative. Vital Signs: 12:02 BP 138 / 86; Pulse 74; Resp 17; Temp 97.1; Pulse Ox 98% on R/A; Weight 103.87 kg; [facility] Height 5 ft. 11 in. (180.34 cm); Pain 0/10; 13:57 BP 151 / 102; Pulse 79; Resp 18; Pulse Ox 97% on R/A; Pain 0/10; ko1 14:24 BP 145 / 92; Pulse 73; Resp 14; Pulse Ox 100% ; ko1 12:02 Body Mass Index 31.94 (103.87 kg, 180.34 cm) [facility] MDM: 12:03 Patient medically screened. [facility] 16:18 Data reviewed: vital signs, nurses notes. Consideration of Admission/Observation [facility] Patient was admitted/placed on observation. Management of patient was discussed with the following: Hospitalist: Dima. I considered the following discharge prescriptions or medication management in the emergency department Medications were administered in the Emergency Department. See MAR. 16:22 ED course: I discussed the patient with the rounds whom accepted the patient to Dr. flower Bunn service. I discussed the patient Dr. Rajan whom recommended admit with consult to him.. 08/23 12:05 Order name: Basic Metabolic Panel [facility] 08/23 12:05 Order name: CBC with Diff [facility] 08/23 12:05 Order name: LFT's [facility] 08/23 12:05 Order name: Magnesium [facility] 08/23 12:05 Order name: NT PRO-BNP [facility] 08/23 12:05 Order name: PT-INR [facility] 08/23 12:05 Order name: Troponin HS [facility] 08/23 12:05 Order name: SARS RAPID [facility] 08/23 12:46 Order name: Protime (+INR); Complete Time: 12:49 EDMS 08/23 12:47 Order name: CBC with Automated Diff; Complete Time: 12:49 EDMS 08/23 12:51 Order name: SARS-COV-2 Antigen Rapid; Complete Time: 13:04 EDMS 08/23 13:05 Order name: Basic Metabolic Panel; Complete Time: 13:16 EDMS 08/23 13:05 Order name: Liver (Hepatic) Function; Complete Time: 13:16 EDMS 08/23 13:05 Order name: Troponin High Sensitivity; Complete Time: 13:16 EDMS 08/23 12:05 Order name: XRAY Chest (1 view) [facility] 08/23 12:05 Order name: EKG; Complete Time: 12:05 [facility] 08/23 12:05 Order name: Cardiac monitoring; Complete Time: 14:38 [facility] 08/23 12:05 Order name: EKG - Nurse/Tech; Complete Time: 12:34 [facility] 08/23 12:05 Order name: IV Saline Lock; Complete Time: 12:34 [facility] 08/23 12:05 Order name: Labs collected and sent; Complete Time: 12:34 [facility] 08/23 13:04 Order name: RAD; Complete Time: 13:05 EDMS 08/23 13:05 Order name: NT PRO-BNP; Complete Time: 13:16 EDMS 08/23 13:05 Order name: Magnesium; Complete Time: 13:16 EDMS 08/23 14:25 Order name: US Extremity Venous W Compression Prosper [facility] 08/23 15:04 Order name: US; Complete Time: 15:14 EDMS 08/23 19:46 Order name: Phosphorus; Complete Time: 19:47 EDMS 08/23 19:46 Order name: T4 Free; Complete Time: 19:47 EDMS 08/23 19:46 Order name: Magnesium; Complete Time: 19:47 EDMS 08/23 19:46 Order name: Thyroid Stimulating Hormone; Complete Time: 19:47 EDMS 08/23 12:05 Order name: O2 Per Protocol; Complete Time: 13:06 [facility] 08/23 12:05 Order name: O2 Sat Monitoring; Complete Time: 13:06 m Administered Medications: 15:59 Drug: Lasix (furosemide) 40 mg Route: IVP; Site: left antecubital; ko1 Disposition Summary: 08/23/22 16:24 Hospitalization Ordered Hospitalization Status: Inpatient Admission [facility] Provider: Dong Bunn Location: Telemetry/MedSur (Inpatient) [facility] Condition: Stable jm Problem: new jmm Symptoms: are unchanged [facility] Bed/Room Type: Standard [facility] Room Assignment: 211(08/23/22 18:33) bd Diagnosis - New onset congestive heart failure jmm - Acute kidney injury [facility] Forms: - Medication Reconciliation Form [facility] - SBAR form [facility] Addendum: 08/29/2022 08:05 Co-signature as Attending Physician, Allen Ward MD I reviewed the patient's care r n provided by the Advanced Practice Provider and agree with the diagnosis and treatment plan. Signatures: Dispatcher [employer] EDMS Christy Murillo Joel, PA PA m Allen Ward MD MD rn Leal, Jahala, RN RN jl7 Theresa Jacobo RN RN ko1 Corrections: (The following items were deleted from the chart) 08/23 18:33 16:24 jm bd
[2022-08-23] MEDS ORDERED: ACETAMINOPHEN 325 MG TABLET PO PRN (16:59)
[2022-08-23] MEDS ORDERED: ONDANSETRON 4 MG/2 ML VIAL IV PRN (17:00)
[2022-08-23] MEDS ORDERED: ALBUTEROL 2.5 MG/3 ML NEB SOL NEB PRN (17:00)
--- NOTE | 2022-08-23 17:03 | P.HP ---
Certification for Inpatient Patient admitted to: Inpatient With expected LOS: >2 Midnights Patient will require the following post-hospital care: None Practitioner: I am a practitioner with admitting privileges, knowledge of patient current condition, hospital course, and medical plan of care. Services: Services provided to patient in accordance with Admission requirements found in Title 42 Section 412.3 of the Code of Federal Regulations Patient History Date of Service: 08/23/22 Reason for admission: Bilateral lower extremity edema, shortness of breath History of Present Illness: Patient is an 82-year-old male with a past medical history significant for hypertension, BPH, HLD, hypothyroidism, gout, peripheral neuropathy who presents with complaint of shortness of breath and bilateral lower extremity edema that has been ongoing for the past 2 weeks. Patient reported associated signs and symptoms of orthopnea, cough, abdominal swelling, fatigue and weakness. Patient reported that he has put on about 20 pounds in weight. Patient indicated that shortness of breath is aggravated by exertion and relieved by rest. Patient denies any other signs or symptoms. Patient decided to present to the hospital due to worsening symptoms. Allergies No Known Allergies Allergy (Verified 09/12/17 00:13) Home Medications: Amlodipine Besylate 1 tab PO DAILY 09/12/17 Atorvastatin Calcium 1 tab PO DAILY 09/12/17 Dutasteride 0.5 mg PO DAILY 09/12/17 Ferrous Sulfate [Iron] 325 mg PO DAILY 09/12/17 Levothyroxine Sodium 50 mcg PO DAILY 09/12/17 Melatonin [Melatonin*] 5 mg PO BEDTIME 09/12/17 Tamsulosin HCl 0.4 mg PO DAILY 09/12/17 Vit B Comp No.3/Folic/C/Biotin [[employer] Rx Tablet] 1 each PO DAILY 09/12/17 Cholecalciferol (Vitamin D3) [Vitamin D3] 1 tab PO DAILY 11/29/19 hydroCHLOROthiazide [Hydrochlorothiazide*] 1 tab PO DAILY 11/29/19 Pantoprazole [Protonix Tab] 40 mg PO DAILY #30 tab 12/05/19 - Past Medical/Surgical History Diabetic: No -: Hypertension -: Hypothyroidism -: BPH -: Hyperlipidemia -: GERD -: Tonsillectomy -: Kidney stone removal Psychosocial/ Personal History: Patient is - Social History Smoking Status: Never smoker Alcohol use: No CD- Drugs: No Caffeine use: Yes Place of Residence: Home Review of Systems General: Weakness, Other (Fatigue.) Eyes: Unremarkable ENT: Unremarkable Respiratory: Cough, Shortness of Breath, SOB with Excertion Cardiovascular: Orthopnea Gastrointestinal: Distention, Other (Abdominal swelling) Genitourinary: Unremarkable Musculoskeletal: Unremarkable Integumentary: Unremarkable Neurological: Unremarkable Lymphatics: Unremarkable Physical Examination - Physical Exam General: Alert, In no apparent distress, Oriented x3, Cooperative HEENT: Atraumatic, PERRLA, Mucous membr. moist/pink, EOMI, Sclerae nonicteric Neck: Supple, 2+ carotid pulse no bruit, No LAD, Without JVD or thyroid abnormality Respiratory: Diminished Cardiovascular: Regular rate/rhythm, Normal S1 S2, Edema Capillary refill: <2 Seconds Gastrointestinal: Normal bowel sounds, Soft and benign, Distended Musculoskeletal: No clubbing, Swelling, Tenderness Integumentary: No rashes, No breakdown, No significant lesion, Tenderness/swelling Neurological: Normal speech, Normal tone, Normal affect Lymphatics: No axilla or inguinal lymphadenopathy - Studies Laboratory Data (last 24 hrs) 08/23/22 12:28: PT 13.0 H, INR 1.18 08/23/22 12:28: WBC 7.00, Hgb 13.2 L, Hct 40.2, Plt Count 165 08/23/22 12:28: Sodium 143, Potassium 4.7, BUN 48 H, Creatinine 2.11 H, Glucose 106, Magnesium 2.6 H, Total Bilirubin 0.7, AST 25, ALT 35, Alkaline Phosphatase 123 H Assessment and Plan - Plan ---[place] [id number]. Chest x-ray indicates findings consistent with CHF. Echocardiogram pending to assess LV\valvular function and wall motion. Cardiology consulted. Patient placed on diuresis with Lasix. Daily weight and strict I/O. Further management per web methods developer. --Hypertension. Poorly controlled. Continue home medications and hydralazine as needed. --HLD. Continue statin. --BPH. Continue home medication. --Hypothyroidism. Continue Synthroid. --Peripheral neuropathy. Continue home medication. . --Gout. Continue home medication. --GERD. Continue home medication. --SIMONE. Continue ferrous sulfate. --Insomnia. Continue melatonin as needed. --Class I obesity. Compounded by volume overload. Patient counseled on weight reduction, diet and exercise therapy. --DVT prophylaxis with Lovenox subQ. Discharge Plan: Home Plan to discharge in: Greater than 2 days - Advance Directives Does patient have a Living Will: Yes Does patient have a Durable POA for Healthcare: Yes - Code Status/Comfort Care Code Status Assessed: Yes Physician Review: Patient Assessed, Agree with Above Assessment and Plan Critical Care: No
[2022-08-23] MEDS: ENOXAPARIN 30 MG/0.3 ML SQ SCH (18:00)
[2022-08-23] MEDS ORDERED: ENOXAPARIN 30 MG/0.3 ML SQ ONE (19:02)
[2022-08-23 19:41] LABS: Magnesium 2.3 mg/dL (1.6-2.4); Phosphorus 3.7 mg/dL (2.5-4.9)
[2022-08-23 19:46] LABS: Thyroid Stimulating Hormone 7.65 uIU/mL (0.358-3.740)
[2022-08-23] MEDS ORDERED: HYDRALAZINE HCL 20 MG/ML VIAL IV PRN (20:15)
[2022-08-23] MEDS: MELATONIN 5 MG TABLET PO SCH (21:00)
[2022-08-23 22:30] VITALS: BMI 30.5
[2022-08-24 01:05] LABS: Specific Gravity 1.009 (1.005-1.030); Urine Bilirubin NEGATIVE (Negative); Urine Blood Negative (Negative); Urine Clarity Clear (Clear); Urine Color Colorless (Yellow); Urine Glucose NEGATIVE (Negative); Urine Protein NEGATIVE (Negative); Urine Urobilinogen Normal (Normal)
[2022-08-24 04:10] LABS: Absolute Lymphocytes (CBC) 0.8 K/uL (0.7-4.9); Hematocrit 36.3 % (39.6-49.0); Lymphocytes % 10.6 % (15.3-44.8); MCV 103.3 fL (80-100); MPV 9.7 fL (7.6-11.3); RBC Red Blood Cell Count 3.51 M/uL (4.33-5.43)
[2022-08-24 04:25] LABS: Potassium 4.5 mmol/L (3.5-5.1)
[2022-08-24] MEDS ORDERED: LEVOTHYROXINE SOD 0.05 MG TABLET PO SCH (06:30)
--- NOTE | 2022-08-24 08:55 | P.PN ---
Subjective Date of Service: 08/24/22 Chief Complaint: Bilateral lower extremity edema, shortness of breath No acute events overnight. He reports that he has gained 20-25 lb of fluid over the last several weeks. He denies prior history of congestive heart failure. He states that he is experiencing significant shortness of breath with exertion and orthopnea. He denies any chest pain or palpitations. Review of Systems 10-point ROS is otherwise unremarkable Respiratory: SOB with Excertion Cardiovascular: Orthopnea Physical Examination - Vital Signs Temperature: 97.9 F Blood Pressure: 144/88 Pulse: 73 Respirations: 16 Pulse Ox (%): 98 - Physical Exam General: Alert, In no apparent distress, Oriented x3 HEENT: Atraumatic, EOMI, Sclerae nonicteric Neck: JVD distended Respiratory: Diminished, Crackles/rales (bibasilar) Cardiovascular: Regular rate/rhythm, Normal S1 S2, No gallops, No rubs, No murmurs, Edema (2-3+ pitting BLE edema) Gastrointestinal: Normal bowel sounds, Soft and benign, Non-distended, No tenderness, No rebound, No guarding Musculoskeletal: No clubbing Integumentary: No rashes Neurological: Normal speech, Normal affect - Studies Laboratory Data (last 24 hrs) 08/23/22 12:28: PT 13.0 H, INR 1.18 08/23/22 12:28: WBC 7.00, Hgb 13.2 L, Hct 40.2, Plt Count 165 08/23/22 12:28: Sodium 143, Potassium 4.7, BUN 48 H, Creatinine 2.11 H, Glucose 106, Magnesium 2.6 H, Total Bilirubin 0.7, AST 25, ALT 35, Alkaline Phosphatase 123 H Assessment And Plan - Plan # Acute Decompensated Congestive Heart Failure with Unknown Ejection Fraction - Reports gaining 20-25 lb over the last several weeks - Consult Cardiology - recommendations appreciated - Ordered transthoracic echocardiogram - NT-Pro BNP = 12,174 - Diuresis with IV furosemide for today - Daily weights - Strict I/O - Cardiac diet, 1.5 L fluid restriction, 2 g Na restriction # KDIGO Stage I Acute Kidney Injury on Chronic Kidney Disease Stage III - Suspect [place] secondary to cardiorenal syndrome. - Consulted Nephrology - recommendations appreciated - Creatinine = 2.11 -> 1.93 (creatinine was 1.47 on 12/03/2019) - Urinalysis = unremarkable - IV diuretics as mentioned above - Monitor creatinine and urine output - If worsening, obtain renal ultrasound - Renally dose medications # Hypothyroidism - TSH 7.65, Free T4 1.12 - Continue home levothyroxine # Hypertension - Continue home amlodipine # Hyperlipidemia - Continue home atorvastatin # Benign Prostatic Hyperplasia - Continue home tamsulosin, dutasteride # Gastroesophageal Reflux Disease - Continue home pantoprazole # Iron Deficiency Anemia - Continue home ferrous sulfate Dong Bunn M.D.
[2022-08-24] MEDS ORDERED: HOME MED 1 EA UNK (Cholecalciferol (Vitamin D3) [Vitamin D3] 1,000 UNIT Capsule) PO SCH (09:00)
[2022-08-24] MEDS ORDERED: hydroCHLOROthiazide 12.5 MG CAP PO SCH (09:00)
[2022-08-24] MEDS ORDERED: VITAMIN D 1000 UNIT TAB PO SCH (09:00)
[2022-08-24] MEDS: FERROUS SULFATE 325 MG TAB PO SCH (10:25)
[2022-08-24] MEDS: TAMSULOSIN 0.4 MG SR CAP PO SCH (10:25)
[2022-08-24] MEDS: ASPIRIN 81 MG CHEWABLE TABLET PO SCH (10:26)
[2022-08-24] MEDS: AMLODIPINE 10 MG TAB PO SCH (10:26)
[2022-08-24] MEDS: MULTIVITAMINS,THERAPEUT 1 TAB PO SCH (10:26)
[2022-08-24] MEDS: PANTOPRAZOLE 40MG TABLET PO SCH (10:26)
[2022-08-24] MEDS: ENOXAPARIN 30 MG/0.3 ML SQ SCH (10:26)
[2022-08-24] MEDS: ATORVASTATIN 40 MG TAB PO SCH (10:26)
[2022-08-24] MEDS: FUROSEMIDE 40 MG/4 ML VIAL IV SCH ×2 (10:27→16:58)
[2022-08-24] MEDS: DUTASTERIDE 0.5 MG GEL CAP PO SCH (10:27)
--- NOTE | 2022-08-24 11:46 | RAD REPORT ---
EXAM DESCRIPTION: US - Renal Ultrasound-Complete - 08/24/2022 11:22 am CLINICAL HISTORY: Acute renal insufficiency COMPARISON: 2019 FINDINGS: The right kidney measures cm with a mildly increased echotexture The left kidney measures cm with a mildly increased echotexture. Parapelvic cysts are present. Hydronephrosis is not seen. Prominent soft tissue structure abuts the base of the bladder IMPRESSION: Mildly increased renal echotexture may indicate mild parenchymal disease Prominent soft tissue structure abuts the base of the bladder. This may represent prostatic hypertrop hy. A combination of prostatic hypertrophy and prostatic mass can also have this appearance
--- NOTE | 2022-08-24 13:01 | EKG ---
Test Date: 2022-08-23 Test Time: 12:20:49 Binder Sorter: RODERICK MEASUREMENT RESULTS: Intervals: Rate: 76 IL: 196 QRSD: 96 QT: 430 QTc: 483 Mamou: P: 51 IL: 196 QRS: 104 T: -5 INTERPRETIVE STATEMENTS: Normal sinus rhythm Rightward axis Anterior infarct, age undetermined T wave abnormality, consider inferior ischemia Abnormal ECG Compared to ECG 11/29/2019 09:47:25 Right-axis deviation now present T-wave abnormality now present Possible ischemia now present Left ventricular hypertrophy no longer present Myocardial infarct finding still present Electronically Signed On 08-24-22 12:59:02 ELECTRONIC IMAGING SYSTEM OPERATOR by Carlos Eduardo Rajan
--- NOTE | 2022-08-24 13:07 | CON ---
Date of Consultation: 08/24/2022 Reason For Consultation: Elevated BUN and creatinine, anasarca. 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 The patient last seen back in February. The patient came to the hospital that his swelling gradually started increased. For that reason, he reported to the hospital. Upon arrival to the hospital, the patient was over volume. The patient at home used to be on hydrochlorothiazide 12.5 mg daily, which maintained his edema and shortness of breath. Last creatinine back in February 2022, 1.6 and GFR of 43 with PC ratio 0.07. The patient denied taking any nonsteroidal. No change in his diuresis. Past Medical History: Includes; 1. Hypertension. 2. Hyperlipidemia. 3. Benign prostatic hypertrophy. 4. Nephrolithiasis. 5. Chronic kidney disease, baseline creatinine 1.7, GFR of 43 back in February 2022. 6. Hypothyroidism. Allergies: NO KNOWN DRUGS ALLERGY. Home Medications: Include hydrochlorothiazide 12.5, carvedilol 3.125, losartan, Flomax, omega-3, melatonin, levothyroxine, Pepcid, atorvastatin. Past Surgical History: Includes tonsillectomy and lithotripsy. Social History: Denied smoking, denied drinking, denied drug abuse. Review of Systems: Head and Neck: No red eye. No ear pain. GI: No nausea. No vomiting. : No polyuria. No dysuria. No hematuria. Exhibits Coordinator: Not applicable. Respiratory: Has shortness of breath. Has orthopnea. Cardiovascular: Has leg swelling. Endocrine: No polydipsia. Skin: No rash. Neuro: Has weakness. No neuropathy. Musculoskeletal: Generalized fatigue. Physical Examination: Vital Signs: When I saw the patient; blood pressure 144/88, pulse of 73, afebrile. Chest: Crackles bilateral base. Heart: S1, S2. Systolic murmur. Abdomen: Soft, nontender. Extremities: +2 edema. Neurologic: Alert. No focality. Laboratory Data: Chest x-ray, cardiomegaly with congestion. Hemoglobin 12.1. Sodium 144, potassium 4.5, bicarb 26, BUN 48, creatinine 1.9, GFR of 34, calcium 9.1. BNP 13,764. TSH 7.6. Urinalysis negative for infection. Renal ultrasound; increased echogenicity, size not documented, but no hydronephrosis. Current Medications: The patient on include Lovenox, ferrous sulfate, Flomax, aspirin, hydralazine, Tylenol. Assessment And Plan: 1. Acute kidney injury secondary to cardiorenal, over volume. I am going to go ahead and sent for PC ratio and we will hold hydrochlorothiazide, start the patient on Lasix 40 mg b.i.d., and we will monitor the patient. Obstructive uropathy and rhabdomyolysis have been ruled out. 2. Edema, possible secondary to cardiorenal/calcium channel ronal. I am going to discontinue hydrochlorothiazide, start the patient on Lasix, and we will follow up the patient. Given the present of elevation on TSH, I am going to go ahead and increase his levothyroxine to 75 mcg and we will follow up. We will follow up with Cardiology evaluation. 3. Congestive heart failure exacerbation. We will follow up echocardiogram. We will follow up with Cardiology. 4. Hypothyroidism. As above, we will increase levothyroxine. time spend exam the patient face to face , reviewing data lab and radiology placing order , discussing with marge member nursing and hospitalist >65 min ESPINOZA Voice ID: [id number] Report ID: [id number] SARANYA
[2022-08-24] MEDS: MELATONIN 5 MG TABLET PO SCH (21:00)
[2022-08-25 03:50] LABS: Albumin 3.3 g/dL (3.4-5.0); Phosphorus 3.5 mg/dL (2.5-4.9); Potassium 3.7 mmol/L (3.5-5.1)
[2022-08-25] MEDS ORDERED: POTASSIUM CL SA 10 MEQ TAB PO ONE ×2 (04:30→09:00)
[2022-08-25] MEDS: LEVOTHYROXINE SOD 0.05 MG TABLET PO SCH (06:00)
--- NOTE | 2022-08-25 08:19 | ECHO ---
HEIGHT: 5 ft 11 in WEIGHT: 217 lb 8 oz DATE OF STUDY: 08/24/[address]: Garcia Power 2-DIMENSIONAL: YES M.MODE: YES DOPPLER: YES COLOR FLOW: YES TDS: NO PORTABLE: YES DEFINITY: NO BUBBLE STUDY: NO DIAGNOSIS: CONGESTIVE HEART FAILURE CARDIAC HISTORY: CATHERIZATION: SURGERY: PROSTHETIC VALVE: PACEMAKER: MEASUREMENTS (cm) DIASTOLIC (NORMALS) SYSTOLIC (NORMALS) IVSd 1.1 (0.6-1.2) LA Diam 4.8 (1.9-4.0) LVEF 65% LVIDd 5.6 (3.5-5.7) LVIDs 3.0 (2.0-3.5) %FS 45% LVPWd 1.1 (0.6-1.2) Ao Diam 3.1 (2.0-3.7) 2 DIMENSIONAL ASSESSMENT: RIGHT ATRIUM: NORMAL LEFT ATRIUM: ENLARGED RIGHT VENTRICLE: NORMAL LEFT VENTRICLE: NORMAL TRICUSPID VALVE: MILD TR MITRAL VALVE: MODERATE MR PULMONIC VALVE: MILD PI AORTIC VALVE: NORMAL PERICARDIAL EFFUSION: NONE AORTIC ROOT: NORMAL LEFT VENTRICULAR WALL MOTION: NORMAL DOPPLER/COLOR FLOW: SEE BELOW. COMMENTS: 1. NORMAL LEFT VENTRICULAR EJECTION FRACTION 60-65%. 2. NORMAL WALL MOTION. 3. LEFT ATRIAL ENLARGEMENT. 4. MODERATE DIASTOLIC DYSFUNCTION. 5. CALCIFIED MITRAL VALVE WITH MODERATE MITRAL REGURGITATION. 6. MILD TRICUSPID AND PULMONARY REGURGITATION. 7. SEVERE PULMONARY HYPERTENSION WITH RIGHT VENTRICULAR SYSTOLIC PRESSURE > 60 mmHg. TECHNOLOGIST: Jovanny REYNOLDS
[2022-08-25] MEDS: MULTIVITAMINS,THERAPEUT 1 TAB PO SCH (09:15)
[2022-08-25] MEDS: FERROUS SULFATE 325 MG TAB PO SCH (09:15)
[2022-08-25] MEDS: PANTOPRAZOLE 40MG TABLET PO SCH (09:15)
[2022-08-25] MEDS: TAMSULOSIN 0.4 MG SR CAP PO SCH (09:15)
[2022-08-25] MEDS: AMLODIPINE 10 MG TAB PO SCH (09:15)
[2022-08-25] MEDS: ATORVASTATIN 40 MG TAB PO SCH (09:15)
[2022-08-25] MEDS: ASPIRIN 81 MG CHEWABLE TABLET PO SCH (09:15)
[2022-08-25] MEDS: FUROSEMIDE 40 MG/4 ML VIAL IV SCH ×2 (09:16→16:50)
[2022-08-25] MEDS: DUTASTERIDE 0.5 MG GEL CAP PO SCH (09:16)
[2022-08-25] MEDS: ENOXAPARIN 30 MG/0.3 ML SQ SCH (09:16)
[2022-08-25] MEDS: CEFTRIAXONE 1,000 MG in NA CHLORIDE 0.9% 50 ML IVPB SCH (10:20)
--- NOTE | 2022-08-25 12:16 | PN ---
Date of Progress Note: 08/25/2022 Subjective: The patient was admitted with anasarca over volume. The patient's obstructive uropathy has been ruled out. The patient was started on diuresis. Kidney function has been improved. Anasarca has been improved. The patient suspect to have osteomyelitis. Workup is still pending. Physical Examination: Vital Signs: Blood pressure 149/97, pulse of 84, afebrile. The patient had good urine output of 2300, negative of 1300. Weight barton, the patient lost 2 pounds from yesterday. Chest: Clear to auscultation. Heart: S1, S2. Regular. Abdomen: Soft, nontender. Extremities: Plus edema, ulcer under foot. Neurologic: Alert. No focality. Laboratory Data: Sodium 140, potassium 3.7, bicarb 27, BUN 45, creatinine 1.7, GFR of 38. Calcium 8.9, phosphorus 3.5, hemoglobin 12.5. Echocardiogram was done yesterday. Ejection fraction of 65, moderate diastolic dysfunction, severe pulmonary hypertension. Current Medications: The patient on include Periactin, aspirin, Flomax, ferrous sulfate, Lovenox, amlodipine 10 mg, atorvastatin, hydralazine, Lasix 40 b.i.d., Zofran, pantoprazole, melatonin, KCl. Assessment And Plan: 1. Acute kidney injury secondary to cardiorenal. Responds very well to current diuresis dose. I am going to continue current Lasix. With the presence of pulmonary hypertension, I am going to go ahead and add spironolactone and we will follow up the patient. 2. Hypertension, controlled, not optimal. We are adding spironolactone. Continue diuresis. Keep holding any CINDY inhibitor or ARB. 3. Hypokalemia. We will supplement and add spironolactone. 4. Congestive heart failure, new incident. We will follow up with Cardiology. 5. Anasarca secondary to cardiorenal, pulmonary hypertension, and hypothyroidism. We increased levothyroxine and we are adding spironolactone. We will follow up. 6. Secondary hyperparathyroidism. No need for vitamin D. Calcium and phosphorus on the goal. time spend exam the patient face to face , reviewing data lab and radiology placing order , discussing with marge member nursing and hospitalist >35 min SHERMAN/CAMILA Voice ID: [id number] Report ID: [id number] SARANYA
[2022-08-25 12:54] LABS: UR CREAT < 13.0 mg/dL (20-370); UR PROTEIN < 5.0 mg/dL (<11.9); Urine Protein/Creatinine Ratio ND ratio (<0.15)
--- NOTE | 2022-08-25 13:13 | RAD REPORT ---
EXAM DESCRIPTION: Dulce Mcelroy Left08/25/2022 12:56 pm CLINICAL HISTORY: Left leg pain FINDINGS: No fracture is seen. Soft tissue swelling. No bony destructive lesion noted. Vascular calcifications are present
--- NOTE | 2022-08-25 16:16 | P.PN ---
Subjective Date of Service: 08/25/22 Chief Complaint: Bilateral lower extremity edema, shortness of breath No acute events overnight. He reports that his breathing is improved. He reports left lower extremity swelling/erythema. He denies any chest pain or palpitations. Review of Systems 10-point ROS is otherwise unremarkable Cardiovascular: Orthopnea, Edema Integumentary: Rash (LLE ) Physical Examination - Vital Signs Temperature: 97.9 F Blood Pressure: 131/77 Pulse: 91 Respirations: 16 Pulse Ox (%): 96 Assessment And Plan - Plan - Physical Exam General: Alert, In no apparent distress, Oriented x3 HEENT: Atraumatic, Sclerae nonicteric Neck: JVD distended Respiratory: Diminished, Crackles/rales (bibasilar) Cardiovascular: Regular rate/rhythm, Normal S1 S2, No murmurs, Edema (2-3+ pitting BLE edema) Gastrointestinal: Soft, Non-distended, No tenderness, No rebound, No guarding Musculoskeletal: No clubbing Integumentary: left lower extremity erythema, warmth, and tenderness Neurological: Normal speech, Normal affect # Acute Decompensated Diastolic Congestive Heart Failure with Preserved Ejection Fraction # Severe Pulmonary Hypertension - Reports gaining 20-25 lb over the last several weeks - Consult Cardiology and spoke with Dr. Rajan - recommendations appreciated - Transthoracic echocardiogram = "1. normal left ventricular ejection fraction 60-65%. 2. normal wall motion. 3. left atrial enlargement. 4. moderate diastolic dysfunction. 5. calcified mitral valve with moderate mitral regurgitation. 6. mild tricuspid and pulmonary regurgitation. 7. severe pulmonary hypertension with right ventricular systolic pressure > 60 mmHg." - NT-Pro BNP = 12,174 - Diuresis with IV furosemide for today - Daily weights - Strict I/O - Cardiac diet, 1.5 L fluid restriction, 2 g Na restriction # KDIGO Stage I Acute Kidney Injury on Chronic Kidney Disease Stage III - Suspect [place] secondary to cardiorenal syndrome. - Consulted Nephrology - recommendations appreciated - Creatinine = 2.11 -> 1.93 -> 1.75 (creatinine was 1.47 on 12/03/2019) - Urinalysis = unremarkable - IV diuretics as mentioned above - Monitor creatinine and urine output - If worsening, obtain renal ultrasound - Renally dose medications # Left Lower Extremity Cellulitis - Does not meet sepsis criteria - Ordered x-ray to evaluate for osteomyelitis - Started ceftriaxone # Hypothyroidism - TSH 7.65, Free T4 1.12 - Continue home levothyroxine # Hypertension - Continue home amlodipine # Hyperlipidemia - Continue home atorvastatin # Benign Prostatic Hyperplasia - Continue home tamsulosin, dutasteride # Gastroesophageal Reflux Disease - Continue home pantoprazole # Iron Deficiency Anemia - Continue home ferrous sulfate Dong Bunn M.D.
[2022-08-25] MEDS: MELATONIN 5 MG TABLET PO SCH (21:00)
--- NOTE | 2022-08-25 22:31 | PN ---
Date of Progress Note: 08/25/2022 Subjective: Seen by bedside. He is improving gradually. Lower extremity edema and shortness of chelsea ath has improved. Review of Systems: Has mild shortness of breath and lower extremity edema, improved significantly. No chest pain, nause a, vomiting, or diarrhea. No abdominal pain. All other systems reviewed, they were negative. Physical Examination: Vital Signs: Reviewed. Head and Neck: Pupils are equal, reactive to light. Intact eye movements. No JVD. No cervical lym phadenopathy. Neck is supple. Thyroid is not enlarged. Lungs: Decreased breathing sounds bilaterally. No accessory muscle use or muscle retraction. Heart: Irregular. No extra sounds. Abdomen: Soft, nontender. Bowel sounds positive. No organomegaly. No masses or hernias. No rigid ity or rebound. Extremities: 1+ pitting edema bilaterally. No clubbing or cyanosis. Intact pulses. Skin: No rash. Neurologic: Alert, awake, oriented x3. No acute focal deficits appreciated. Investigations: BUN is 45, creatinine 1.75. Assessment/recommendation: 1.Acute on chronic diastolic heart failure exacerbation, improving very well. Continue IV diuresis for one more day and continue Aldactone. Plan to switch him to oral Lasix tomorrow in preparation fo r discharge in the morning. 2.Acute on chronic renal failure. This is due to the elevated central venous pressure from the acut e congestive heart failure. Hence, the kidney function is improving with diuresis. Continue to [facility]. Nephrology is on board. Apparently, patient has a component of chronic renal failure as well, which could be cardiorenal in origin. SR/MODL Voice ID: [id number] Report ID: [id number]
[2022-08-26 03:19] LABS: Absolute Lymphocytes (CBC) 0.7 K/uL (0.7-4.9); Hematocrit 37.9 % (39.6-49.0); MCV 101.6 fL (80-100); MPV 9.5 fL (7.6-11.3); RBC Red Blood Cell Count 3.73 M/uL (4.33-5.43)
[2022-08-26 03:32] LABS: Albumin 3.5 g/dL (3.4-5.0); Phosphorus 3.3 mg/dL (2.5-4.9); Potassium 4.1 mmol/L (3.5-5.1)
[2022-08-26] MEDS: LEVOTHYROXINE SOD 0.05 MG TABLET PO SCH (06:27)
[2022-08-26] MEDS: DUTASTERIDE 0.5 MG GEL CAP PO SCH (09:20)
[2022-08-26] MEDS: AMLODIPINE 10 MG TAB PO SCH (09:20)
[2022-08-26] MEDS: SPIRONOLACTONE 25 MG TABLET PO SCH (09:21)
[2022-08-26] MEDS: PANTOPRAZOLE 40MG TABLET PO SCH (09:21)
[2022-08-26] MEDS: ASPIRIN 81 MG CHEWABLE TABLET PO SCH (09:21)
[2022-08-26] MEDS: TAMSULOSIN 0.4 MG SR CAP PO SCH (09:21)
[2022-08-26] MEDS: FERROUS SULFATE 325 MG TAB PO SCH (09:21)
[2022-08-26] MEDS: ATORVASTATIN 40 MG TAB PO SCH (09:22)
[2022-08-26] MEDS: MULTIVITAMINS,THERAPEUT 1 TAB PO SCH (09:22)
[2022-08-26] MEDS: CEFTRIAXONE 1,000 MG in NA CHLORIDE 0.9% 50 ML IVPB SCH (09:23)
[2022-08-26] MEDS: ENOXAPARIN 40 MG/0.4 ML SQ SCH (09:23)
[2022-08-26] MEDS: FUROSEMIDE 40 MG/4 ML VIAL IV SCH ×2 (09:23→16:13)
--- NOTE | 2022-08-26 13:10 | P.PN ---
Subjective Date of Service: 08/26/22 Chief Complaint: Bilateral lower extremity edema, shortness of breath Subjective: Other (he reports no increased shortness of breath.) Physical Examination - Vital Signs Temperature: 98.4 F Blood Pressure: 143/77 Pulse: 77 Respirations: 16 Pulse Ox (%): 97 - Physical Exam General: Other (appears as his stated age) HEENT: Atraumatic, Normocephalic Neck: Supple Respiratory: Other (symmetric chest expansion) Cardiovascular: No rubs, No murmurs Gastrointestinal: Soft and benign, No guarding Musculoskeletal: No clubbing Integumentary: No warmth Neurological: Normal speech, Normal tone Urinary: Other (no bladder distention) External genitalia: Deferred Rectal: Deferred Assessment And Plan - Plan 1. Acute kidney injury secondary to cardiorenal. continue Lasix 40 mg IV twice a day today, switch to by mouth 40 mg twice a day tomorrow. Continue Joe 25 g by mouth daily. Advised on liberal by mouth fluid intake at least 2 L per day. 2. Hypertension. Continue current medication regimen. 3. Hypokalemia. KCl repletion when necessary. Continue spironolactone. 4. Congestive heart failure, new incident. Lasix + joe as above. strictly low-sodium diet less than 2 g per day. Weigh daily. 5. Hypothyroidism levothyroxine 6. Secondary hyperparathyroidism Monitor Check serum intact PTH and 25 OHD level as outpatient Physician Review: Patient Assessed, Agree with Above Assessment and Plan
--- NOTE | 2022-08-26 14:53 | P.PN ---
Subjective Date of Service: 08/26/22 Chief Complaint: Bilateral lower extremity edema, shortness of breath No acute events overnight. His left lower extremity swelling and shortness of breath have improved. He denies any chest pain or palpitations. Will obtain General Surgery consult to evaluate his cellulitis for possible intervention. Review of Systems 10-point ROS is otherwise unremarkable Respiratory: SOB with Excertion Integumentary: Rash (LLE cellulitis) Physical Examination - Vital Signs Temperature: 98.4 F Blood Pressure: 143/77 Pulse: 77 Respirations: 16 Pulse Ox (%): 97 Assessment And Plan - Plan - Physical Exam General: Alert, In no apparent distress, Oriented x3 HEENT: Atraumatic, Sclerae nonicteric Neck: JVD distended Respiratory: Diminished, Crackles/rales (faint, bibasilar) Cardiovascular: Regular rate/rhythm, No murmurs, Edema (1-2+ pitting BLE edema) Gastrointestinal: Soft, Non-distended, No tenderness Musculoskeletal: No clubbing Integumentary: Left lower extremity erythema, warmth, and tenderness - improved compared to yesterday Neurological: Normal speech, Normal affect # Acute Decompensated Diastolic Congestive Heart Failure with Preserved Ejection Fraction # Severe Pulmonary Hypertension - Reports gaining 20-25 lb over the last several weeks - Consult Cardiology and spoke with Dr. Rajan - recommendations appreciated - Continue IV diuresis for an additional 24 hours and anticipate transition to PO/discharge tomorrow if doing well - Transthoracic echocardiogram = "1. normal left ventricular ejection fraction 60-65%. 2. normal wall motion. 3. left atrial enlargement. 4. moderate diastolic dysfunction. 5. calcified mitral valve with moderate mitral regurgitation. 6. mild tricuspid and pulmonary regurgitation. 7. severe pulmonary hypertension with right ventricular systolic pressure > 60 mmHg." - NT-Pro BNP = 12,174 - Diuresis with IV furosemide for today - Daily weights - Strict I/O - Cardiac diet, 1.5 L fluid restriction, 2 g Na restriction # KDIGO Stage I Acute Kidney Injury on Chronic Kidney Disease Stage III - Suspect [place] secondary to cardiorenal syndrome. - Consulted Nephrology - recommendations appreciated - Creatinine = 2.11 -> 1.93 -> 1.75 -> 1.80 (creatinine was 1.47 on 12/03/2019) - Urinalysis = unremarkable - IV diuretics as mentioned above - Monitor creatinine and urine output - If worsening, obtain renal ultrasound - Renally dose medications # Left Lower Extremity Cellulitis - Does not meet sepsis criteria - Consulted General Surgery and spoke with Dr. Bullard - recommendations appreciated - Left lower extremity x-ray = "no fracture is seen. Soft tissue swelling. No bony destructive lesion noted. Vascular calcifications are present." - Started ceftriaxone # Hypothyroidism - TSH 7.65, Free T4 1.12 - Continue home levothyroxine # Hypertension - Continue home amlodipine # Hyperlipidemia - Continue home atorvastatin # Benign Prostatic Hyperplasia - Continue home tamsulosin, dutasteride # Gastroesophageal Reflux Disease - Continue home pantoprazole # Iron Deficiency Anemia - Continue home ferrous sulfate Dong Bunn M.D.
--- NOTE | 2022-08-26 16:58 | CON ---
Date of Consultation: 08/26/2022 Brief History Of Present Illness: The patient is an 82-year-old male with past medical history of hy pertension, BPH, hyperlipidemia, hypothyroidism, gout, peripheral neuropathy who presents with shortn ess of breath and bilateral lower extremity edema with pain in the bilateral lower extremities for th e past 2 weeks and multiple small wounds. He was admitted to the hospital with the above-stated comp laints, on antibiotics. I am consulted to see the patient regarding his bilateral lower extremity ce llulitis and wounds. Past Medical History: Hypertension, hypothyroidism, BPH, hyperlipidemia, and GERD. Past Surgical History: Include tonsillectomy and kidney stone removal. Allergies: NO KNOWN DRUG ALLERGIES. Medications: Home medications include amlodipine, atorvastatin, dutasteride, iron, levothyroxine, me latonin, multivitamin, vitamin D, hydrochlorothiazide, and pantoprazole. Social History: He denies smoking, alcohol, or recreational drug use. He is . Review of Systems: Ten-point review of systems other than HPI, he admits to shortness of breath on exertion, cough, weak ness, intermittent abdominal swelling at times, but no pain for several days prior to his arrival. Physical Examination: General: He is awake, alert, and oriented. Psychiatric: Appropriate, conversive. HEENT: He is normocephalic. Sclerae anicteric. Mucous membranes are moist. Oropharynx clear. Neck: Supple without JVD. Chest: Expansion and excursion. Cardiovascular: Regular rate and rhythm. Pulmonary: Clear to auscultation bilaterally. Abdomen: Soft, nontender, nondistended. Extremities: He has swelling of bilateral lower extremities with 1+ pitting edema. There is red str eaks in the area consistent with cellulitis and multiple small punctate wounds, but no obvious draina ble collections. No significant necrotic changes or skin conditions warranting surgical debridement at this time based on physical exam. Laboratory Data: His laboratory exam revealed a white blood cell count of 7.7, hemoglobin 12.5, marta tocrit of 37.9, and platelet count was 178. Sodium 139, potassium 4.1, chloride 105, carbon dioxide 27, BUN 43, creatinine 1.8, and glucose is 118. He had imaging performed, which included a tibia-fib andres x-ray officially read as no fracture seen. Soft tissue swelling. No bony destructive lesions no lizbet. Vascular calcifications present in the left lower leg. He additionally had an extremity venous study on 08/23, officially read as no sonographic evidence of left or right DVT. Assessment And Plan: This is an 82-year-old male who comes in with signs and symptoms of cellulitis and other medical concerns. 1.Continue medical management. 2.Continue antibiotic coverage. 3.I have recommended mupirocin cream topically over the lower extremities, wraps and elevations with daily dressing changes. The patient does not require surgical debridement at this time. I have exp lained the risks, benefits, and alternatives of nonoperative management versus operative management. We will proceed with nonoperative management at this time. The patient agrees to proceed as indicat ed. Thank you for this interesting consult. VERITO/CAMILA Voice ID: [id number] Report ID: [id number]
[2022-08-26] MEDS: MELATONIN 5 MG TABLET PO SCH (21:00)
[2022-08-27 05:04] LABS: Albumin 3.4 g/dL (3.4-5.0); Magnesium 2.3 mg/dL (1.6-2.4); Phosphorus 3.8 mg/dL (2.5-4.9); Potassium 4.1 mmol/L (3.5-5.1)
[2022-08-27] MEDS: LEVOTHYROXINE SOD 0.05 MG TABLET PO SCH (06:29)
--- NOTE | 2022-08-27 08:18 | P.DS ---
Admission Date: 08/23/22 Discharge Date: 08/27/22 Disposition: ROUTINE DISCHARGE Discharge Condition: GOOD Reason for Admission: Bilateral lower extremity edema, shortness of breath Consultations: 1. Cardiology 2. Nephrology 3. General Surgery Hospital Course: DIAGNOSES: # Acute Decompensated Diastolic Congestive Heart Failure with Preserved Ejection Fraction # Severe Pulmonary Hypertension # KDIGO Stage I Acute Kidney Injury on Chronic Kidney Disease Stage III # Left Lower Extremity Cellulitis # Hypothyroidism # Hypertension # Hyperlipidemia # Benign Prostatic Hyperplasia # Gastroesophageal Reflux Disease # Iron Deficiency Anemia HOSPITAL COURSE: Mr. Teo Toribio is a pleasant 82 year old male with a past medical history significant for chronic kidney disease stage III, hypothyroidism, hypertension, hyperlipidemia, benign prostatic hyperplasia, and iron deficiency anemia who was admitted to the [facility] on 08/23/2022 for shortness of breath and lower extremity edema. He was admitted to the Medicine service. Upon further evaluation, his chest x- ray revealed, "mild CHF." Bilateral lower extremity Doppler revealed, "no sonographic evidence of left or right lower extremity deep venous thrombosis." He was found to have an acute decompensated congestive heart failure exacerbation. Cardiology was consulted and he was evaluated by Dr. Rajan. He was treated with IV diuretics, with significant improvement in his symptoms. Dr. Rajan has cleared him for discharge with outpatient follow-up. Additionally, he was also noted to have an acute kidney injury on chronic kidney disease. His renal ultrasound revealed, "mildly increased renal echotexture may indicate mild parenchymal disease. Prominent soft tissue structure abuts the base of the bladder. This may represent prostatic hypertrophy. A combination of prostatic hypertrophy and prostatic mass can also have this appearance." Nephrology was consulted and he was evaluated by Dr. Hoff. His diuretic regimen was adjusted with stabilization of his creatinine levels. Dr. Hoff has cleared him for discharge home with furosemide 40 mg BID and spironolactone 25 mg daily. He was counseled that his ultrasound left the possibility of prostate cancer and he was advised to follow-up with Urology for further evaluation. He verbalized understanding and agreed to make this appointment. During his evaluation, he was found to have left lower extremity cellulitis, not meeting sepsis criteria. He was treated with IV ceftriaxone and General Surgery was consulted to evaluate for the need of debridement. He was evaluated by Dr. Bullard, who felt that the cellulitis did not justify surgical intervention. Over the course of his hospitalization, his symptoms improved significantly. He was transitioned to PO antibiotics for discharge. On 08/27/2022, he was seen on morning rounds and deemed medically stable for discharge. He was discharged with instructions to schedule follow-up appointments with his PCP (AMY Cespedes), with Cardiology (Dr. Rajan), with Nephrology (Dr. Hoff), and with Urology (Dr. Rivas). He was provided prescriptions for furosemide, spironolactone, and cefdinir. He and his family members were given the opportunity to ask questions and reported no further questions. Furthermore, all questions were answered to the best of my ability. A copy of this discharge summary will be sent to the above providers to facilitate continuity of care. Today, I personally spent 40 minutes on his case, of which greater than 50% of the time was spent in patient education, counseling, and coordination of care as described above. - Physical Exam General: Alert, In no apparent distress, Oriented x3 HEENT: Atraumatic, Sclerae nonicteric Neck: JVD distended Respiratory: Diminished, Clear to ausculation bilaterally, without wheezes, r honchi, or rales Cardiovascular: Regular rate/rhythm, No murmurs, Edema (trace-1+ pitting BLE edema) Gastrointestinal: Soft, Non-distended, No tenderness Musculoskeletal: No clubbing Integumentary: Minimal left lower extremity erythema, warmth, and tenderness Neurological: Normal speech, Normal affect Vital Signs/Physical Exam: Temp Pulse Resp BP Pulse Ox 98.4 F 77 16 143/77 H 97 08/27/22 06:48 08/27/22 06:48 08/27/22 06:48 08/27/22 06:48 08/27/22 06:48 Laboratory Data at Discharge: WBC 7.70 K/uL (4.3-10.9) 08/26/22 02:57 Hgb 12.5 g/dL (13.6-17.9) L 08/26/22 02:57 Hct 37.9 % (39.6-49.0) L 08/26/22 02:57 Plt Count 178 K/uL (152-406) 08/26/22 02:57 PT 13.0 SECONDS (9.5-12.5) H 08/23/22 12:28 INR 1.18 08/23/22 12:28 Sodium 139 mmol/L (136-145) 08/27/22 03:31 Potassium 4.1 mmol/L (3.5-5.1) 08/27/22 03:31 BUN 39 mg/dL (7-18) H 08/27/22 03:31 Creatinine 1.85 mg/dL (0.70-1.30) H 08/27/22 03:31 Glucose 103 mg/dL (74-106) 08/27/22 03:31 Phosphorus 3.8 mg/dL (2.5-4.9) 08/27/22 03:31 Magnesium 2.3 mg/dL (1.6-2.4) 08/27/22 03:31 Total Bilirubin 0.7 mg/dL (0.2-1.0) 08/23/22 12:28 AST 25 U/L (15-37) 08/23/22 12:28 ALT 35 U/L (16-61) 08/23/22 12:28 Alkaline Phosphatase 123 U/L (45-117) H 08/23/22 12:28 Home Medications: RX: Amlodipine Besylate 1 tab PO DAILY 09/12/17 RX: Atorvastatin Calcium 1 tab PO DAILY 09/12/17 RX: Dutasteride 0.5 mg PO DAILY 09/12/17 RX: Ferrous Sulfate [Iron] 325 mg PO DAILY 09/12/17 RX: Levothyroxine Sodium 50 mcg PO DAILY 09/12/17 RX: Melatonin [Melatonin*] 5 mg PO BEDTIME 09/12/17 RX: Tamsulosin HCl 0.4 mg PO DAILY 09/12/17 RX: Vit B Comp No.3/Folic/C/Biotin [Steward/Stewardess Second-Temi Rx Tablet] 1 each PO DAILY 09/12/17 RX: Cholecalciferol (Vitamin D3) [Vitamin D3] 1 tab PO DAILY 11/29/19 RX: Pantoprazole [Protonix Tab*] 40 mg PO DAILY #30 tab 12/05/19 Cefdinir [Cefdinir*] 300 mg PO BID 7 Days #14 cap 08/27/22 RX: Aspirin Chewable [Aspirin Chewable*] 81 mg PO DAILY tab.chew 08/27/22 RX: Furosemide [Lasix*] 40 mg PO BIDL #60 tab 08/27/22 RX: Spironolactone [Aldactone*] 25 mg PO DAILY #30 tab 08/27/22 New Medications: RX: Spironolactone [Aldactone*] 25 mg PO DAILY #30 tab Cefdinir [Cefdinir*] 300 mg PO BID 7 Days #14 cap RX: Furosemide [Lasix*] 40 mg PO BIDL #60 tab Physician Discharge Instructions: 1. Please call and schedule a follow-up appointment with your PCP (AMY Cespedes) in 3-5 days - Please have him recheck your thyroid levels 2. Please call and schedule a follow-up appointment with Cardiology (Dr. Rajan) in 5-7 days 3. Please call and schedule a follow-up appointment with Nephrology (Dr. Hoff) in 5-7 days 4. Please call and schedule a follow-up appointment with Urology (Dr. Rivas) in 5-7 days - As we discussed, please have him evaluate you further in case this ultrasound finding represents prostate cancer Diet: AHA Activity: Ad luis felipe Followup: Usman Cespedes PA [Primary Care Provider] - Carlos Eduardo Rajan MD [ACTIVE - CAN ADMIT] - Misha Rivas [ACTIVE - CAN ADMIT] - Lilliana Hoff MD [OUTSIDE PHYSICIAN] - Time spent managing pt's care (in minutes): 40
[2022-08-27 08:19] VITALS: BP 143/88; TEMP 99.1
[2022-08-27] MEDS ORDERED: CEFTRIAXONE 1,000 MG in NA CHLORIDE 0.9% 50 ML IVPB ONE (08:30)
[2022-08-27] MEDS ORDERED: FUROSEMIDE 40 MG TABLET PO SCH (09:00)
[2022-08-27] MEDS: FERROUS SULFATE 325 MG TAB PO SCH (09:15)
[2022-08-27] MEDS: SPIRONOLACTONE 25 MG TABLET PO SCH (09:15)
[2022-08-27] MEDS: DUTASTERIDE 0.5 MG GEL CAP PO SCH (09:15)
[2022-08-27] MEDS: ASPIRIN 81 MG CHEWABLE TABLET PO SCH (09:15)
[2022-08-27] MEDS: AMLODIPINE 10 MG TAB PO SCH (09:16)
[2022-08-27] MEDS: MULTIVITAMINS,THERAPEUT 1 TAB PO SCH (09:16)
[2022-08-27] MEDS: ATORVASTATIN 40 MG TAB PO SCH (09:16)
[2022-08-27] MEDS: TAMSULOSIN 0.4 MG SR CAP PO SCH (09:16)
[2022-08-27] MEDS: ENOXAPARIN 40 MG/0.4 ML SQ SCH (09:17)
[2022-08-27] MEDS: PANTOPRAZOLE 40MG TABLET PO SCH (09:17)
[2022-08-27 09:41] VITALS: O2SAT 94
[2022-08-28] MEDS ORDERED: CEFDINIR 300 MG CAP PO SCH (09:00)
[2022-08-29 15:45] LABS: Vitamin D 1,25-Dihydroxy Total 17 pg/mL (18-72); Vitamin D,1,25-OH2, D2 <8 pg/mL
== END 2022-08-27 10:51 | disposition home or self-care (01) | DRG 291 ==
LOC: ER 11:10 → ERHOLD 16:57 → 2ND 19:42
PROVIDERS: ADMIT Internal Medicine; ATTEND Internal Medicine
DX: I13.0 Hypertensive heart and chronic kidney disease with heart failure and stage 1 through stage 4 chronic kidney disease, or unspecified chronic kidney disease (principal); I50.33 Acute on chronic diastolic (congestive) heart failure; N17.9 Acute kidney failure, unspecified; L03.116 Cellulitis of left lower limb; N25.81 Secondary hyperparathyroidism of renal origin; N18.30 Chronic kidney disease, stage 3 unspecified; E03.9 Hypothyroidism, unspecified; M10.9 Gout, unspecified; E78.5 Hyperlipidemia, unspecified; K21.9 Gastro-esophageal reflux disease without esophagitis; G62.9 Polyneuropathy, unspecified; E87.6 Hypokalemia; D50.8 Other iron deficiency anemias; G47.00 Insomnia, unspecified; N40.0 Benign prostatic hyperplasia without lower urinary tract symptoms; I27.20 Pulmonary hypertension, unspecified; I08.1 Rheumatic disorders of both mitral and tricuspid valves; E66.9 Obesity, unspecified; Z68.30 Body mass index [BMI] 30.0-30.9, adult; Z79.890 Hormone replacement therapy; Z79.899 Other long term (current) drug therapy; Z20.822 Contact with and (suspected) exposure to COVID-19
CPT/HCPCS: 36415; 71045; 76770; 80048; 80069; 80076; 81003; 82570; 82652; 83735; 83880; 83970; 84100; 84156; 84439; 84443; 84484; 85025; 85610; 87811; 93005; 93306; 93970; 96374; 99285; J1650; J1940

== ENCOUNTER 2022-08-29 11:41 | Observation (INO) | payer OTHER ==
--- OUTSIDE RECORDS SUMMARY | 2022-08-29 11:44 | XMS REPORT | Continuity of Care Document ---
:1940 Author Organization [facility] t Address [address] [place] [address] Dr. So [address] [place] [id number] Care Team Providers Name Role Phone Unavailable Unavailable Unavailable Problems This patient has no known problems. Allergies, Adverse Reactions, Alerts This patient has no known allergies or adverse reactions. Medications This patient has no known medications. Procedures This patient has no known procedures. Encounters Start End Encounter Admission Attending Care Care Encounter Source Date/Time Date/Time Type Type Clinicians Facility Department ID 2021-10-11 Outpatient [facility] [id number] Common 10:21:05 [facility] Results This patient has no known results.
[2022-08-29 12:10] LABS: Absolute Lymphocytes (CBC) 0.6 K/uL (0.7-4.9); Hematocrit 42.1 % (39.6-49.0); Lymphocytes % 7.1 % (15.3-44.8); MCV 102.5 fL (80-100); MPV 9.3 fL (7.6-11.3); RBC Red Blood Cell Count 4.11 M/uL (4.33-5.43)
[2022-08-29 12:16] LABS: Protime INR 1.11
[2022-08-29] MEDS ORDERED: NA CHLORIDE 0.9% 500 ML ONE (12:16)
[2022-08-29 12:28] LABS: Magnesium 2.6 mg/dL (1.6-2.4); Potassium 4.7 mmol/L (3.5-5.1); Troponin High Sensitivity 25.8 pg/mL (<58.9)
--- NOTE | 2022-08-29 12:39 | RAD REPORT ---
EXAM DESCRIPTION: RAD - Chest Single View - 08/29/2022 12:31 pm CLINICAL HISTORY: syncope Chest pain. COMPARISON: Chest Single View dated 08/23/2022; Abdomen 1 View (KUB) dated 11/09/2017; Chest Single Vie w dated 09/11/2017 FINDINGS: Portable technique limits examination quality. The lungs are grossly clear. The heart is mildly enlarged in size. No displaced fractures. IMPRESSION: No acute intrathoracic process suspected.
--- NOTE | 2022-08-29 14:00 | EDPHYS ---
Physician Documentation [facility] Name: Teo Toribio Age: 82 yrs Sex: Male : 1940 Arrival Date: 08/29/2022 Time: 11:44 Bed 5 Private MD: ED Physician Allen Ward HPI: 08/29 12:04 This 82 yrs old Male presents to ER via Unassigned with complaints of syncope. rn 12:04 The patient has experienced syncope. Onset: The symptoms/episode began/occurred just rn prior to arrival. Duration: This was a single episode. Associated injury: The patient did not suffer any apparent associated injury. Associated signs and symptoms: Pertinent negatives: abdominal pain, chest pain, confusion, headache, palpitations, seizure, shortness of breath, vertigo, vomiting. Current symptoms: Currently, the patient is not experiencing any symptoms. The patient has not experienced similar symptoms in the past. The patient has been recently been admitted at [facility]. 12:08 Pt admitted last week for CHF, new onset, was given lasix in hospital, sent home on rn john, was seated today at home, felt lightheaded, passed out, no trauma, noted to be hypotensive by EMS, fluids started after BP was 50s systolic, got up to 90s, started levophed at low dose peripherally. Patient's mental status improved, denies chest pain or sob, no abd pain. No focal neuro complaint. Feels much better since being picked up by EMS. . Historical: - Allergies: 12:19 No Known Allergies; bp - Home Meds: 12:19 allopurinol 100 mg Oral tab [Active]; carvedilol 3.125 mg Oral tab 2 tabs [Active]; bp dutasteride 0.5 mg Oral cap [Active]; Fish Oil Oral daily [Active]; Flomax 0.4 mg Oral cp24 once daily [Active]; vitamin [id number] acid Oral once daily [Active]; tizanidine 4 mg Oral cap [Active]; tamsulosin Oral [Active]; Melatonin Oral daily [Active]; losartan 25 mg Oral tab [Active]; levothyroxine 50 mcg tab [Active]; Iron CR Oral daily [Active]; Lipitor Oral once daily [Active]; gabapentin Oral [Active]; hydrochlorothiazide 12.5 mg Oral cap [Active]; - PMHx: 12:19 diverticulosis; High Cholesterol; Gout; enlarged prostate; Hypertension; bp Hypothyroidism; Congestive heart failure; - Immunization history:: Adult Immunizations up to date. - Social history:: Smoking status: Patient denies any tobacco usage or history of. - Family history:: not pertinent. - Hospitalizations: : The patient was recently seen at [facility]. ROS: 12:04 Constitutional: Negative for fever, chills, and weight loss, Eyes: Negative for injury, rn pain, redness, and discharge, Neck: Negative for injury, pain, and swelling, Cardiovascular: Negative for chest pain, palpitations, and edema, Respiratory: Negative for shortness of breath, cough, wheezing, and pleuritic chest pain, Abdomen/GI: Negative for abdominal pain, nausea, vomiting, diarrhea, and constipation, Back: Negative for injury and pain, MS/Extremity: Negative for injury and deformity, Skin: Negative for injury, rash, and discoloration, Neuro: Negative for headache, weakness, numbness, tingling, and seizure. Exam: 12:04 Constitutional: This is a well developed, well nourished patient who is awake, alert, rn and in no acute distress. Head/Face: Normocephalic, atraumatic. Eyes: Pupils equal round and reactive to light, extra-ocular motions intact. ENT: dry mm Cardiovascular: Regular rate and rhythm. No pulse deficits. Respiratory: No increased work of breathing, no retractions or nasal flaring. Abdomen/GI: Soft, non-tender Skin: Warm, dry MS/ Extremity: Pulses equal, no cyanosis. Neuro: Awake and alert, GCS 15, oriented to person, place, time, and situation. Cranial nerves II-XII grossly intact. Motor strength 5/5 in all extremities. Sensory grossly intact. 12:18 ECG was reviewed by the Attending Physician. rn Vital Signs: 11:56 BP 108 / 73; Pulse 69; Resp 17; Temp 97.6(O); Pulse Ox 100% on R/A; Weight 90.26 kg; ss Height 5 ft. 11 in. (180.34 cm); 12:58 BP 118 / 71; Pulse 70; Resp 16; Pulse Ox 100% ; bp 13:59 BP 112 / 70; Pulse 71; Resp 18; Pulse Ox 100% ; bp 17:02 BP 118 / 68; Pulse 70; Resp 18; Pulse Ox 100% ; ld1 18:30 BP 118 / 73; Pulse 69; Resp 18; Pulse Ox 98% on R/A; ld1 11:56 Body Mass Index 27.75 (90.26 kg, 180.34 cm) ss MDM: 11:44 Patient medically screened. rn 13:57 Differential Diagnosis: aortic aneurysm, cardiac arrhythmia, idiopathic syncope, rn vasovagal episode, over-diuresis, dehydration, volume depletion. Data reviewed: vital signs, nurses notes, lab test result(s), EKG, radiologic studies, plain films, and as a result, I will admit patient. Consideration of Admission/Observation Patient was admitted/placed on observation. Escalation of care including admission/observation considered. Management of patient was discussed with the following: Hospitalist: Case and management discussed with hospitalist group. Independent interpretation of the following test(s) in the Emergency Department EKG: See my EKG interpretation above X-Ray: My interpretation is CXR images neg for pneumonia or pneumothorax. Counseling: I had a detailed discussion with the patient and/or guardian regarding: the historical points, exam findings, and any diagnostic results supporting the discharge/admit diagnosis, lab results, radiology results, the need for further work-up and treatment in the hospital. Response to treatment: the patient's symptoms have markedly improved after treatment, and as a result, I will discharge patient. ED course: Will admit patient for further observation. Most likely over-diuresis from recent admission, but strange that happened 2 days after discharge, in seated position, BP was very low in 50s systolic and required levophed to bump up pressure. . 08/29 11:45 Order name: Basic Metabolic Panel rn 08/29 11:45 Order name: CBC with Diff rn 08/29 11:45 Order name: Magnesium rn 08/29 11:45 Order name: NT PRO-BNP rn 08/29 11:45 Order name: PT-INR rn 08/29 11:45 Order name: Troponin HS rn 08/29 12:14 Order name: CBC with Automated Diff; Complete Time: 13:30 EDMS 08/29 12:16 Order name: Protime (+INR); Complete Time: 13:30 EDMS 08/29 12:28 Order name: Basic Metabolic Panel; Complete Time: 13:30 EDMS 08/29 12:28 Order name: Troponin High Sensitivity; Complete Time: 13:30 EDMS 08/29 12:29 Order name: NT PRO-BNP; Complete Time: 13:30 EDMS 08/29 12:29 Order name: Magnesium; Complete Time: 13:30 EDMS 08/29 16:15 Order name: SARS RAPID ss 08/29 16:15 Order name: Phosphorus EDMS 08/29 11:45 Order name: XRAY Chest (1 view) rn 08/29 11:45 Order name: EKG; Complete Time: 11:45 rn 08/29 11:45 Order name: Cardiac monitoring; Complete Time: 12:02 rn 08/29 11:45 Order name: EKG - Nurse/Tech; Complete Time: 12:25 rn 08/29 11:45 Order name: IV Saline Lock; Complete Time: 12:02 rn 08/29 11:45 Order name: Labs collected and sent; Complete Time: 12:02 rn 08/29 11:45 Order name: O2 Per Protocol; Complete Time: 12:02 rn 08/29 11:45 Order name: O2 Sat Monitoring; Complete Time: 12:02 rn 08/29 12:40 Order name: RAD; Complete Time: 13:30 EDMS 08/29 16:15 Order name: Magnesium EDMS 08/29 17:04 Order name: SARS-COV-2 Antigen Rapid EDMS EC:18 Rate is 64 beats/min. Rhythm is regular. QRS [place] is Normal. RI interval is normal. QRS rn interval is normal. QT interval is prolonged at 474 msec. No Q waves. T waves are Inverted in leads III, aVF, V1, V3, V4. No ST changes noted. Clinical impression: NSR w/ Non-specific ST/T Changes. Interpreted by me. Reviewed by me. Administered Medications: 12:05 Drug: NS 0.9% 500 ml Route: IV; Rate: bolus; Site: right forearm; bp Disposition Summary: 08/29/22 14:00 Hospitalization Ordered Hospitalization Status: Observation rn Condition: Stable rn Problem: new rn Symptoms: have improved rn Bed/Room Type: Standard rn Provider: Hemanth Ward(08/29/22 14:05) rn Location: Telemetry/MedSurg (observation)(08/29/22 21:17) cg Room Assignment: 431(08/29/22 21:17) cg Diagnosis - Syncope rn - Hypotension, unspecified rn - Acute kidney failure, unspecified rn Forms: - Medication Reconciliation Form rn - SBAR form rn Signatures: Dispatcher [employer] Allen Catalan MD MD rn Garcia, Cindy, RN RN cg Peltier, Brian RN RN bp Corrections: (The following items were deleted from the chart) 14:05 14:00 Virgilio Abraham rn rn 20:16 14:00 Telemetry/MedSurg (observation) rn cg 20: 14:00 rn cg : 20:16 [facility] ER HOLD cg cg : 20:16 ERHOLD- cg cg
--- NOTE | 2022-08-29 14:00 | ER ---
Nurse's Notes [facility] Name: Teo Toribio Age: 82 yrs Sex: Male : 1940 Arrival Date: 08/29/2022 Time: 11:44 Bed 5 Private MD: Diagnosis: Syncope;Hypotension, unspecified;Acute kidney failure, unspecified Presentation: 08/29 12:04 Chief complaint: EMS states: UNRESPONSIVE AND HYPOTENSIVE AT HOME. Coronavirus screen: bp At this time, the client does not indicate any symptoms associated with coronavirus-19. Ebola Screen: No symptoms or risks identified at this time. Initial Sepsis Screen: Does the patient meet any 2 criteria? No. Patient's initial sepsis screen is negative. Does the patient have a suspected source of infection? No. Patient's initial sepsis screen is negative. Risk Assessment: Do you want to hurt yourself or someone else? Patient reports no desire to harm self or others. Onset of symptoms was August 29, 2022 at 11:30. Care prior to arrival: Medication(s) given: LEVOPHED IV initiated. 20 GA, in the left in the right forearm, Glucose check: 113. 12:04 Method Of Arrival: EMS: [facility] bp 12:04 Acuity: DEMARCUS 2 bp Triage Assessment: 12:04 General: Appears in no apparent distress. comfortable, Behavior is cooperative, bp appropriate for age, anxious. Pain: Denies pain. EENT: No deficits noted. Neuro: Level of Consciousness is awake, alert, obeys commands, Oriented to person, place, time, situation. Cardiovascular: Rhythm is sinus rhythm. Respiratory: Airway is patent Respiratory effort is even, unlabored. GI: No signs and/or symptoms were reported involving the gastrointestinal system. : No signs and/or symptoms were reported regarding the genitourinary system. Derm: No deficits noted. Musculoskeletal: No deficits noted. Historical: - Allergies: 12:19 No Known Allergies; bp - Home Meds: 12:19 allopurinol 100 mg Oral tab [Active]; carvedilol 3.125 mg Oral tab 2 tabs [Active]; bp dutasteride 0.5 mg Oral cap [Active]; Fish Oil Oral daily [Active]; Flomax 0.4 mg Oral cp24 once daily [Active]; vitamin [id number] acid Oral once daily [Active]; tizanidine 4 mg Oral cap [Active]; tamsulosin Oral [Active]; Melatonin Oral daily [Active]; losartan 25 mg Oral tab [Active]; levothyroxine 50 mcg tab [Active]; Iron CR Oral daily [Active]; Lipitor Oral once daily [Active]; gabapentin Oral [Active]; hydrochlorothiazide 12.5 mg Oral cap [Active]; - PMHx: 12:19 diverticulosis; High Cholesterol; Gout; enlarged prostate; Hypertension; bp Hypothyroidism; Congestive heart failure; - Immunization history:: Adult Immunizations up to date. - Social history:: Smoking status: Patient denies any tobacco usage or history of. - Family history:: not pertinent. - Hospitalizations: : The patient was recently seen at [facility]. Screenin:04 [facility] ED Fall Risk Assessment (Adult) History of falling in the last 3 months, bp including since admission No falls in past 3 months (0 pts). Abuse screen: Denies threats or abuse. Denies injuries from another. Nutritional screening: No deficits noted. Tuberculosis screening: No symptoms or risk factors identified. Assessment: 12:04 General: SEE TRIAGE NOTE. bp 12:58 Reassessment: Patient appears in no apparent distress at this time. Patient and/or bp family updated on plan of care and expected duration. Pain level reassessed. 13:59 Reassessment: Patient appears in no apparent distress at this time. Patient and/or bp family updated on plan of care and expected duration. Pain level reassessed. 16:00 Reassessment: Patient appears in no apparent distress at this time. Patient and/or bp family updated on plan of care and expected duration. Pain level reassessed. 18:00 Reassessment: ADMIT IN PROCESS. bp Vital Signs: 11:56 BP 108 / 73; Pulse 69; Resp 17; Temp 97.6(O); Pulse Ox 100% on R/A; Weight 90.26 kg; ss Height 5 ft. 11 in. (180.34 cm); 12:58 BP 118 / 71; Pulse 70; Resp 16; Pulse Ox 100% ; bp 13:59 BP 112 / 70; Pulse 71; Resp 18; Pulse Ox 100% ; bp 17:02 BP 118 / 68; Pulse 70; Resp 18; Pulse Ox 100% ; ld1 18:30 BP 118 / 73; Pulse 69; Resp 18; Pulse Ox 98% on R/A; ld1 11:56 Body Mass Index 27.75 (90.26 kg, 180.34 cm) ED Course: 11:44 Patient arrived in ED. eb 11:44 Allen Ward MD is Attending Physician. rn 11:49 Alejandro Valerio, RN is Primary Nurse. bp 11:56 Arm band placed on right wrist. ss 12:00 Maintain EMS IV. Dressing intact. Good blood return noted. Site clean \T\ dry. Gauge \T\ bp site: 20 G LEFT FA, 20 G R FA. 12:04 Patient has correct armband on for positive identification. Bed in low position. Call bp light in reach. Side rails up X2. 12:19 Triage completed. bp 13:59 Virgilio Abraham MD is Hospitalizing Provider. rn 14:05 Hemanth Ward MD is Hospitalizing Provider. rn Administered Medications: 12:05 Drug: NS 0.9% 500 ml Route: IV; Rate: bolus; Site: right forearm; bp Medication: 12:04 VIS not applicable for this client. bp Outcome: 14:00 Decision to Hospitalize by Provider. rn 21:49 Patient left the ED. bb Signatures: Ivette Mc RN RN bb Allen Ward MD MD rn Smirch, Shelby, RN RN Alejandro Valerio RN RN bp Botello, Elizabeth Georgina Lomeli RN RN ld1
[2022-08-29] MEDS ORDERED: ACETAMINOPHEN 325 MG TABLET PO PRN (15:01)
[2022-08-29] MEDS ORDERED: ONDANSETRON 4 MG/2 ML VIAL IV PRN (15:31)
--- NOTE | 2022-08-29 15:36 | P.HP ---
Certification for Inpatient With expected LOS: <2 Midnights Patient will require the following post-hospital care: None Practitioner: I am a practitioner with admitting privileges, knowledge of patient current condition, hospital course, and medical plan of care. Services: Services provided to patient in accordance with Admission requirements found in Title 42 Section 412.3 of the Code of Federal Regulations Patient History Date of Service: 08/29/22 Reason for admission: Syncope History of Present Illness: Patient is an 82-year-old male with a past medical history significant for hypertension, BPH, HLD, CHF, hypothyroidism, gout who presents with complaint of Syncope. Patient was discharged from the hospital 2 days ago after being treated for diastolic CHF exacerbation. Patient reported that this morning he was sitting at home in the kitchen counter when he suddenly felt lightheaded and decided to put his head on the countertop. Shortly after patient reported that he passed out. Patient did not fall and did not hit his head. Patient reported that he regained consciousness while in the ambulance en route to the ER. Patient denies any other signs and symptoms. Symptoms are aggravated or relieved by nothing. Patient was brought to the hospital for medical evaluation. Allergies No Known Allergies Allergy (Verified 09/12/17 00:13) Home Medications: Amlodipine Besylate 1 tab PO DAILY 09/12/17 Atorvastatin Calcium 1 tab PO DAILY 09/12/17 Dutasteride 0.5 mg PO DAILY 09/12/17 Ferrous Sulfate [Iron] 325 mg PO DAILY 09/12/17 Levothyroxine Sodium 50 mcg PO DAILY 09/12/17 Melatonin [Melatonin*] 5 mg PO BEDTIME 09/12/17 Tamsulosin HCl 0.4 mg PO DAILY 09/12/17 Vit B Comp No.3/Folic/C/Biotin [Ref[employer]-[facility] Rx Tablet] 1 each PO DAILY 09/12/17 Cholecalciferol (Vitamin D3) [Vitamin D3] 1 tab PO DAILY 11/29/19 Pantoprazole [Protonix Tab*] 40 mg PO DAILY #30 tab 12/05/19 Aspirin Chewable [Aspirin Chewable*] 81 mg PO DAILY tab.chew 08/27/22 Cefdinir [Cefdinir*] 300 mg PO BID 7 Days #14 cap MDD 7 days 08/27/22 Furosemide [Lasix*] 40 mg PO BIDL #60 tab 08/27/22 Spironolactone [Aldactone*] 25 mg PO DAILY #30 tab 08/27/22 - Past Medical/Surgical History Diabetic: No -: Hypertension -: Hypothyroidism -: BPH -: Hyperlipidemia -: GERD -: Tonsillectomy -: Kidney stone removal Psychosocial/ Personal History: Patient is - Family History Father Notes: of ald age Mother -: Cancer Notes: Breast - Social History Smoking Status: Never smoker Alcohol use: Yes CD- Drugs: No Caffeine use: Yes Place of Residence: Home Review of Systems General: Unremarkable Eyes: Unremarkable ENT: Unremarkable Respiratory: Unremarkable Cardiovascular: Light Headedness Gastrointestinal: Unremarkable Genitourinary: Unremarkable Musculoskeletal: Unremarkable Integumentary: Unremarkable Neurological: Unremarkable Lymphatics: Unremarkable Physical Examination - Physical Exam General: Alert, In no apparent distress, Oriented x3, Cooperative HEENT: Atraumatic, PERRLA, Mucous membr. moist/pink, EOMI, Sclerae nonicteric Neck: Supple, 2+ carotid pulse no bruit, No LAD, Without JVD or thyroid abnormality Respiratory: Clear to auscultation bilaterally, Normal air movement Cardiovascular: No edema, Regular rate/rhythm, Normal S1 S2 Capillary refill: <2 Seconds Gastrointestinal: Normal bowel sounds, No tenderness Musculoskeletal: No clubbing, No swelling, No tenderness Integumentary: No rashes, No significant lesion, No tenderness/swelling Neurological: Normal speech, Normal tone, Normal affect Lymphatics: No axilla or inguinal lymphadenopathy - Studies Laboratory Data (last 24 hrs) 08/29/22 12:00: PT 12.2, INR 1.11 08/29/22 12:00: WBC 8.00, Hgb 14.0, Hct 42.1, Plt Count 219 08/29/22 12:00: Sodium 137, Potassium 4.7, BUN 62 H, Creatinine 3.37 H, Glucose 116 H, Magnesium 2.6 H Assessment and Plan - Plan --Syncope. Likely secondary to hypotension secondary to volume depletion from over diuresis. Wood Room Supervisor consulted. Fall precautions. We will hold diuretics and BP meds. Will await further recommendations from supervisor ore dressing. 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 Likely prerenal secondary to volume depletion. Patient was apparently over diuresed in the last admission. Nephrology consulted. We will await further recommendations. --Chronic diastolic CHF. Patient currently volume depleted secondary to overdiuresis in the last admission. Further management per supervisor ore dressing. --HLD. Continue statin. --BPH. Continue home medications. --Hypothyroidism. Continue Synthroid. --GERD. Continue home medication. --SIMONE. Continue ferrous sulfate. --Insomnia. Continue melatonin at bedtime. --DVT prophylaxis with Heparin subQ. Discharge Plan: Home Plan to discharge in: 48 Hours - Advance Directives Does patient have a Living Will: No Does patient have a Durable POA for Healthcare: No - Code Status/Comfort Care Code Status Assessed: Yes Physician Review: Patient Assessed, Agree with Above Assessment and Plan Critical Care: No
[2022-08-29 16:15] LABS: Magnesium 2.5 mg/dL (1.6-2.4); Phosphorus 3.9 mg/dL (2.5-4.9)
--- NOTE | 2022-08-29 16:37 | EKG ---
Test Date: 2022-08-29 Test Time: 12:09:40 Cello Teacher: BP MEASUREMENT RESULTS: Intervals: Rate: 64 SC: 194 QRSD: 80 QT: 460 QTc: 474 Wild Horse: P: 38 SC: 194 QRS: 13 T: -26 INTERPRETIVE STATEMENTS: Normal sinus rhythm ST & T wave abnormality, consider inferior ischemia ST & T wave abnormality, consider anterior ischemia Prolonged QT Abnormal ECG Compared to ECG 08/23/2022 12:20:49 ST (T wave) deviation now present Prolonged QT interval now present Right-axis deviation no longer present Myocardial infarct finding no longer present T-wave abnormality no longer present Possible ischemia still present Electronically Signed On 08-29-22 16:36:08 TITLE INSURANCE EXAMINER by Carlos Eduardo Rajan
[2022-08-29 17:04] LABS: SARS-CoV-2 Antigen Rapid Res Negative (Negative)
--- NOTE | 2022-08-29 20:59 | CON ---
Date of Consultation: 08/29/2022 Reason For Consultation: Syncope. History Of Present Illness: This is an 82-year-old male with history of diastolic heart failure who was in the hospital recently with significant diastolic heart failure exacerbation, was treated with Lasix and sent home on Lasix 40 mg twice a day plus aldactone. The patient is feeling dizzy and stoo d up and passed out. He came in, blood pressure was low and he has in acute on chronic renal failure . Past Medical History: Hypertension, hypothyroidism, enlarged prostate, dyslipidemia, and diastolic h eart failure. Medications: Refer reconciliation sheet for detailed list. Past Surgical History: Tonsillectomy and kidney stone removal. Allergies: NO KNOWN DRUG ALLERGIES. Family History: No premature coronary artery disease or cancer. Social History: Does not smoke or drink. Does not use any drugs. Review of Systems: All systems reviewed. They are negative except what is mentioned in HPI. Physical Examination: Vital Signs: Reviewed. Head and Neck: Pupils are equal, reactive to light. Intact eye movements. No JVD. No cervical lym phadenopathy. Neck: Supple. Thyroid is not enlarged. Lungs: Clear to auscultation bilaterally. No rhonchi, rales, or crackles. No accessory muscle use. Heart: Irregular. No extra sounds. Abdomen: Soft, nontender. Bowel sounds positive. No organomegaly. No masses or hernia. No rigidi ty or rebound. Extremities: No clubbing, cyanosis. Intact pulses. Skin: No rash. Neurologic: Alert, awake, oriented x3. No acute focal deficits appreciated. Investigations: His BUN is 62, creatinine 3.37. Troponin is negative. Hemoglobin is 14. Assessment And Recommendation: 1.Syncope due to dehydration and hypotension. The patient is in acute renal failure. He was over d iuresed. Recommend a gentle hydration with 0.5 normal saline 50 cc/hour overnight and recheck his ki dney function tomorrow. 2.Acute on chronic renal failure. Hydrate gently as above and reassess labs in the morning. 3.Diastolic heart failure, carefully rehydrating him to avoid fluid overload, and once he is release d at this time, the amount of diuretics needs to be cut down. The patient was educated about daily b alexandr weight to restrict his sodium in his diet and I will follow him as an outpatient. Cardiology jorje gibson sign off. SR/MODL Voice ID: [id number] Report ID: [id number]
[2022-08-29] MEDS: HEPARIN 5000 UNIT/ML 1 ML VIAL SQ SCH (21:00)
[2022-08-29 21:50] VITALS: O2SAT 97
[2022-08-29] MEDS: NA CHLORIDE 0.9% 1,000 ML IV SCH (22:40)
[2022-08-30 01:29] VITALS: BMI 27.7
--- NOTE | 2022-08-30 02:25 | CON ---
Date of Consultation: 08/29/2022 Chief Complaint: Acute kidney injury on chronic kidney disease stage 3. History Of Present Illness: The patient has multiple medical problems. He is admitted to the [facility] because of syncope. He was having dizziness at home and his found him to be unresponsive for a short period of time, he regained consciousness and he came to emergency room because of syncope. He denies chest pain or palpitations. He has episodes of dizziness. Denies fever, sore throat, vis ion changes, or extremity weakness. He has history of multiple medical problems including congestive heart failure, diastolic dysfunction, history of congestive heart failure exacerbation, which requir ed previous hospitalization. He was treated for congestive heart failure in the recent past in the [facility] and was discharged with medications to continue at home including Lasix and Aldactone. Blood pressure became low and the patient was feeling dizzy and he passed out at home. The patient has ch ronic kidney disease and was found to have worsening of the renal function and acute kidney injury. He remains nonoliguric. Urine did not show any discoloration and the patient denies lower urinary tr act symptoms. Denies kidney colic. Past Medical History: Hypertension, hypothyroidism, enlarged prostate, dyslipidemia, diastolic conge stive heart failure, and chronic kidney disease stage 3b. Past Surgical History: Tonsillectomy and kidney stone removal. Family History: No kidney disease in the family. Social History: The patient denies tobacco. Denies alcohol. Review of Systems: General: Denies fever or chills. Eyes: Denies vision changes. Ears, Nose, Mouth, And Throat: Denies sore throat or earache. Respiratory: Denies PND or orthopnea. Cardiovascular: Denies chest pain or palpitations, although he had syncope. GI: Denies nausea or vomiting. : Denies dysuria or hematuria. Denies kidney colic. Extremities: Denies gout or extremity weakness. All other systems reviewed and all are negative. Physical Examination: General: The patient is awake, alert, and follows commands. Eyes: Anicteric sclerae. EOMI. Ears, Nose, Mouth, And Throat: Oral mucosa moist. No pallor. Neck: Supple. No bruits. Lungs: Clear to auscultation bilaterally. Heart: S1, S2. Abdomen: Soft, benign. Extremities: No edema. Impression And Plan: 1.Syncope due to volume depletion and hypotension. The patient is on IV fluids with normal saline. Continue hydration. 2.Dobju-qt-lwhmfrk kidney injury. The patient has severe prerenal azotemia. BUN is 62 and creatini ne 3.37. The patient will continue volume resuscitation with IV fluids. Monitor renal function and electrolytes. 3.Diastolic congestive heart failure. Continue hydration. Diuretic on hold. Per Cardiology, the p caroline is undergoing cardiac workup. Troponin level was ordered by primary team. 4.Hypotension. Monitor blood pressure and avoid CINDY inhibitor and angiotensin receptor ronal due to acute kidney injury. The patient will have kidney ultrasound to rule out hydronephrosis. Urinalysis was ordered to rule o ut active urinary sediment to check for any evidence of nephritis. The patient will continue IV flui ds. Monitor fluid balance. CINDY inhibitor is on hold and diuretic on hold. EB/MODL Voice ID: [id number] Report ID: [id number]
[2022-08-30 04:41] LABS: Renal Epithelial <5 /HPF (None Seen); Specific Gravity 1.014 (1.005-1.030); Urine Bacteria None Seen /HPF (<20); Urine Bilirubin NEGATIVE (Negative); Urine Blood Negative (Negative); Urine Clarity Clear (Clear); Urine Color Light-Yellow (Yellow); Urine Glucose NEGATIVE (Negative); Urine Protein NEGATIVE (Negative); Urine RBC <5 /HPF (None Seen); Urine Urobilinogen Normal (Normal); Urine pH 6.5 (5.0-7.0)
[2022-08-30 04:46] LABS: UR PROTEIN 19.9 mg/dL (<11.9); Urine Protein/Creatinine Ratio 0.28 ratio (<0.15)
[2022-08-30 06:00] LABS: Absolute Lymphocytes (CBC) 0.6 K/uL (0.7-4.9); Hematocrit 39.5 % (39.6-49.0); Lymphocytes % 8.6 % (15.3-44.8); MPV 9.3 fL (7.6-11.3); RBC Red Blood Cell Count 3.88 M/uL (4.33-5.43)
[2022-08-30 06:23] LABS: Potassium 4.3 mmol/L (3.5-5.1); Thyroid Stimulating Hormone 3.3 uIU/mL (0.358-3.740)
--- NOTE | 2022-08-30 08:45 | RAD REPORT ---
EXAM DESCRIPTION: US - Renal Ultrasound-Complete - 08/30/2022 12:33 am CLINICAL HISTORY: anupama on ckd3 Flank pain COMPARISON: Renal Ultrasound-Complete dated 08/24/2022 FINDINGS: There is mild increased echogenicity of the kidneys compatible with underlying medical karin al disease. The right kidney measures 9.7 x 5.5 x 4.3 cm. No hydronephrosis, focal mass or perinephric fluid. The left kidney measures 12.3 x 5.3 x 4.4 cm. No hydronephrosis, focal mass or perinephric fluid. Damian ign left renal cysts. The urinary bladder is incompletely distended without gross abnormality seen. Enlarged prostate gland which projects into the bladder base. IMPRESSION: Mild increased echogenicity is present compatible with underlying medical renal disease. Prostate gland is enlarged and projects into the bladder base. Clinical correlation advised.
[2022-08-30] MEDS ORDERED: ATORVASTATIN 40 MG TAB PO SCH (09:00)
[2022-08-30] MEDS ORDERED: ASPIRIN 81 MG CHEWABLE TABLET PO SCH ×2 (09:00→12:41)
[2022-08-30] MEDS: NA CHLORIDE 0.9% 1,000 ML IV SCH (10:58)
[2022-08-30] MEDS: HEPARIN 5000 UNIT/ML 1 ML VIAL SQ SCH (11:01)
[2022-08-30] MEDS ORDERED: TAMSULOSIN 0.4 MG SR CAP PO SCH (12:41)
[2022-08-30] MEDS ORDERED: PANTOPRAZOLE 40MG TABLET PO SCH (12:42)
[2022-08-30] MEDS: AMLODIPINE 10 MG TAB PO SCH ×2 (13:03→13:05)
[2022-08-30] MEDS ORDERED: DUTASTERIDE 0.5 MG GEL CAP PO SCH (14:00)
--- NOTE | 2022-08-30 15:36 | P.PN ---
Subjective Date of Service: 08/30/22 Chief Complaint: Syncope Subjective , Pt with CKD and CHF, recently discharged after he was treated for CHF Pt admitted or syncope, hypotension and TRENTON today feels better cr down to baseline will dc IVF pt can be discharged from nephrology point of view Physical exam General: Awake, NAD HEENT: Atraumatic, Normocephalic Neck: Supple, no elevated JVD Respiratory: mild basal rale s Cardiovascular: No rubs, No murmurs Gastrointestinal: Soft and benign, Non-distended Musculoskeletal: No clubbing Integumentary: No warmth # Acute kidney injury secondary to dehydration hold diuretics for now cr down to baseline will dc IVF can resume lasxi po in 2 days and hold aldactone #Syncope likely due to dehydration and hypotension as above #Hypothyroidism levothyroxine # Hx of CHF dry to euvolemic now diuretics as above Physical Examination - Vital Signs Temperature: 97.9 F Blood Pressure: 121/76 Pulse: 74 Respirations: 18 Pulse Ox (%): 97 Assessment And Plan Physician Review: Patient Assessed, Agree with Above Assessment and Plan
--- NOTE | 2022-08-30 16:56 | PN ---
Date of Progress Note: 08/30/2022 Subjective: Seen by bedside. The patient is doing clinically well. Symptoms resolved. Review of Systems: No chest pain, shortness of breath, orthopnea, cough. No nausea, vomiting, diarrhea. All other syst ems reviewed and they were negative. Physical Examination: Vital Signs: Reviewed. Head and Neck: Pupils are equal, reactive to light. Intact eye movements. No JVD. No cervical lym phadenopathy. Neck is supple. Thyroid is not enlarged. Lungs: Clear to auscultation bilaterally. No rhonchi, wheezing, or crackles. No accessory muscle u se. Heart: Regular rate and rhythm. No extra sounds. Abdomen: Soft, nontender. Bowel sounds positive. No organomegaly. No masses or hernia. No rigidi ty or rebound. Extremities: No edema, clubbing, or cyanosis. Intact pulses. Skin: No rash. Neurologic: Alert, awake, oriented x3. No acute focal deficits appreciated. Lymph Nodes: No cervical or axillary lymphadenopathy. Investigations: BUN is 51, creatinine 2.24. Assessment And Recommendations: 1.Syncope due to hypotension and dehydration. After fluid management, the patient's symptoms have r esolved. 2.Acute renal failure due to dehydration and over diuresis. He was hydrated and his creatinine is a pproaching baseline. I will recommend stop IV fluid to avoid further fluid overload. The patient ca n be released off Lasix and I will follow him up in the office in 2 weeks. Cardiology will sign off. Thank you for the consult. /CAMILA Voice ID: [id number] Report ID: [id number]
[2022-08-30 17:10] VITALS: BP 135/82; TEMP 97.2
--- NOTE | 2022-08-30 18:21 | P.DS ---
Admission Date: 08/29/22 Discharge Date: 08/30/22 Disposition: ROUTINE DISCHARGE Discharge Condition: FAIR Reason for Admission: Syncope - Problems (1) Hypovolemic shock Current Visit: Yes Status: Acute (2) Acute worsening of stage 3 chronic kidney disease Current Visit: Yes Status: Acute (3) Syncope Onset Date: 09/12/17 Current Visit: No Status: Acute Brief History of Present Illness: Patient is an 82-year-old male with a past medical history significant for hypertension, BPH, HLD, CHF, hypothyroidism, gout who presented with complaint of Syncope. Patient was discharged from the hospital 2 days prior after being treated for diastolic CHF exacerbation. Patient reported he suddenly felt lightheaded and decided to put his head on the countertop. Shortly after patient reported that he passed out. He denied falling. Patient reported that he regained consciousness while in the ambulance en route to the ER. EMS found him hypotensive. Blood work done in the ED demonstrated elevated creatinine which could suggest dehydration. Patient was hospitalized for further management. He Hospital Course: Patient placed under observation on the medical floor and hydrated with IV normal saline. His blood pressure was stable. His serum creatinine was up to 3.37 from a recent baseline of 1.75. Creatinine responded well to IV fluid and trended down to 2.25. Patient seen and evaluated by nephrology and cardiology. He has been asymptomatic since admission. He has been ambulatory and denies any dizziness, vitals have been stable, patient has been tolerating his diet. Patient deemed stable for discharge per cardiology and nephrology. Both cardiology and nephrology recommend holding his diuretics-Lasix and spironolactone on discharge. Vital Signs/Physical Exam: Temp Pulse Resp BP Pulse Ox 97.2 F 75 18 135/82 95 08/30/22 16:35 08/30/22 16:35 08/30/22 16:35 08/30/22 16:35 08/30/22 16:35 General: Alert, In no apparent distress, Oriented x3 Neck: JVD not distended Respiratory: Clear to auscultation bilaterally, Normal air movement Cardiovascular: No edema, Regular rate/rhythm, Normal S1 S2 Gastrointestinal: Soft and benign, Non-distended Musculoskeletal: No tenderness Integumentary: No cyanosis Neurological: Normal strength at 5/5 x4 extr Laboratory Data at Discharge: WBC 7.30 K/uL (4.3-10.9) 08/30/22 05:26 Hgb 13.2 g/dL (13.6-17.9) L 08/30/22 05:26 Hct 39.5 % (39.6-49.0) L 08/30/22 05:26 Plt Count 197 K/uL (152-406) 08/30/22 05:26 PT 12.2 SECONDS (9.5-12.5) 08/29/22 12:00 INR 1.11 08/29/22 12:00 Sodium 140 mmol/L (136-145) 08/30/22 13:48 Potassium 5.0 mmol/L (3.5-5.1) D 08/30/22 13:48 BUN 51 mg/dL (7-18) H 08/30/22 13:48 Creatinine 2.24 mg/dL (0.70-1.30) H 08/30/22 13:48 Glucose 113 mg/dL (74-106) H 08/30/22 13:48 Phosphorus 3.9 mg/dL (2.5-4.9) 08/29/22 15:55 Magnesium 2.5 mg/dL (1.6-2.4) H 08/29/22 15:55 Home Medications: Amlodipine Besylate 1 tab PO DAILY 09/12/17 Atorvastatin Calcium 1 tab PO DAILY 09/12/17 Dutasteride 0.5 mg PO DAILY 09/12/17 Ferrous Sulfate [Iron] 325 mg PO DAILY 09/12/17 Levothyroxine Sodium 50 mcg PO DAILY 09/12/17 Melatonin [Melatonin*] 5 mg PO BEDTIME 09/12/17 Tamsulosin HCl 0.4 mg PO DAILY 09/12/17 Vit B Comp No.3/Folic/C/Biotin [Clinical Trials Manager-[facility] Rx Tablet] 1 each PO DAILY 09/12/17 Cholecalciferol (Vitamin D3) [Vitamin D3] 1 tab PO DAILY 11/29/19 Pantoprazole [Protonix Tab*] 40 mg PO DAILY #30 tab 12/05/19 Aspirin Chewable [Aspirin Chewable*] 81 mg PO DAILY tab.chew 08/27/22 Diet: Renal Activity: Ad luis felipe Followup: Jim Gabriel MD [ACTIVE - CAN ADMIT] - 1-2 Weeks
[2022-08-30] MEDS ORDERED: MELATONIN 3 MG TABLET PO SCH (21:00)
[2022-08-31] MEDS ORDERED: LEVOTHYROXINE SOD 0.05 MG TABLET PO SCH (06:30)
[2022-08-31] MEDS ORDERED: FERROUS SULFATE 325 MG TAB PO SCH (09:00)
[2022-08-31] MEDS ORDERED: VITAMIN D 1000 UNIT TAB PO SCH (09:00)
[2022-08-31] MEDS ORDERED: HOME MED 1 EA UNK (Cholecalciferol (Vitamin D3) [Vitamin D3] 1,000 UNIT Capsule) PO SCH (09:00)
== END 2022-08-30 20:00 | disposition home or self-care (01) ==
LOC: ER 11:41 → ERHOLD 15:00 → 4TH 21:22
PROVIDERS: ADMIT Hospitalist; ATTEND Internal Medicine
DX: R57.1 Hypovolemic shock (principal); R55 Syncope and collapse; I95.9 Hypotension, unspecified; E86.9 Volume depletion, unspecified; N17.9 Acute kidney failure, unspecified; N18.32 Chronic kidney disease, stage 3b; I10 Essential (primary) hypertension; E78.5 Hyperlipidemia, unspecified; N40.0 Benign prostatic hyperplasia without lower urinary tract symptoms; I50.32 Chronic diastolic (congestive) heart failure; K21.9 Gastro-esophageal reflux disease without esophagitis; G47.00 Insomnia, unspecified; E86.0 Dehydration; E03.9 Hypothyroidism, unspecified; M10.9 Gout, unspecified; R35.89 Other polyuria; Z20.822 Contact with and (suspected) exposure to COVID-19
CPT/HCPCS: 93005; 85025 ×2; 81001; 80048 ×3; 36415 ×2; 83735 ×2; 82550; 84100; 85610; 84443; 82570; 84484; 82533; 83880; 84156; 71045; 76770; 99284; 87811; J1644 ×2; J7040; J7030 ×2; G0378

== ENCOUNTER 2023-07-31 07:10 | Observation (INO) | payer OTHER ==
--- OUTSIDE RECORDS SUMMARY | 2023-07-31 07:12 | XMS REPORT | Continuity of Care Document ---
Author Name Unknown Address [address] [place] [address] [facility] Address [address] [place] [address] Care Team Providers Care Chemical Handler Name Role Phone Unavailable Unavailable Unavailable Encounters Start Date/Time End Date/Time Encounter Type Admission Type Attending Clinicians Care Facility Care Department Encounter ID Source 2021-10-11 10:21:05 Outpatient [facility] [id number] [facility]
[2023-07-31 08:10] LABS: Absolute Lymphocytes (CBC) 0.5 K/uL (0.7-4.9); Hematocrit 30.4 % (39.6-49.0); Lymphocytes % 8.3 % (15.3-44.8); MCV 102.6 fL (80-100); MPV 9.4 fL (7.6-11.3); Platelets 146 thou/uL (152-406); RBC Red Blood Cell Count 2.96 M/uL (4.33-5.43)
[2023-07-31] MEDS ORDERED: NA CHLORIDE 0.9% 1,000 ML ONE ×2 (08:25→15:41)
[2023-07-31 08:37] LABS: Bilirubin Total 0.8 mg/dL (0.2-1.0); Potassium 4.4 mEq/L (3.5-5.1); Protein, Total 5.7 g/dL (6.4-8.2)
--- NOTE | 2023-07-31 09:40 | RAD REPORT ---
EXAM DESCRIPTION: CTAbdomen Pelvis W Contrast - 07/31/2023 9:10 am CLINICAL HISTORY: Abdominal pain. ABD PAIN COMPARISON: No comparisons TECHNIQUE: Biphasic CT imaging of the abdomen and pelvis was performed with 100 ml non-ionic IV cont rast. All CT scans are performed using dose optimization technique as appropriate and may include automated exposure control or mA/KV adjustment according to patient size. FINDINGS: The lung bases are clear. The liver, spleen, pancreas, adrenal glands and right kidney are within normal limits. Several parape lvic left renal cysts. No bowel obstruction, free air, free fluid or abscess. Moderate stool is present throughout the colon . Prominent diverticulosis coli without diverticulitis. The appendix is normal. Prostate gland mildly prominent. No evidence of significant lymphadenopathy. Small bilateral fat containing inguinal herni as. Moderate lower lumbar degenerative changes are present. Grade 1 anterolisthesis of L4 on 5. IMPRESSION: There is prominent diverticulosis of the sigmoid colon seen without diverticulitis. Mode rate stool retention is present. Followup colonoscopy would be suggested if not recently performed to better evaluate this region.
--- NOTE | 2023-07-31 09:56 | EDPHYS ---
Physician Documentation [facility] Name: Teo Toribio Age: 83 yrs Sex: Male : 1940 Arrival Date: 07/31/2023 Time: 07:10 Bed 18 Private MD: Jim Gabriel E ED Physician Tripp Sloan HPI: 07/31 07:44 This 83 yrs old Male presents to ER via Ambulatory with complaints of Rectal Bleeding. ec2 07:44 Patient arrives today for evaluation of blood in the stool. States that he has noted ec2 some bright red coloration. Patient reports no abdominal pain, denies any nausea or vomiting or issues with p.o. intake. States that he has history of previous GI bleeding and previous history of blood transfusions.. Historical: - Allergies: 07:20 No Known Allergies; rs5 - PMHx: 07:20 diverticulosis; enlarged prostate; Hypertension; High Cholesterol; rs5 - Immunization history:: Adult Immunizations unknown. - Social history:: Smoking status: Patient denies any tobacco usage or history of. ROS: 07:44 Constitutional: as per hpi ec2 Exam: 07:44 Constitutional: GEN: NAD Head: atraumatic Eyes: EOMI Ears: External ears are ec2 normal. CV: regular rate LUNGS: no respiratory distress ABD: non-distended, soft, nontender, no guarding, nonrigid. : Hemorrhoid noted, scant amount of bright red blood noted SKIN: no evidence of rashes MSK: no evidence of trauma NEURO: moves all extremities equally Vital Signs: 07:20 BP 117 / 75; Pulse 60; Resp 17; Temp 98.7(O); Pulse Ox 99% on R/A; rs5 07:25 BP 120 / 74; Pulse 65; Resp 17; Pulse Ox 99% on R/A; rs5 09:24 BP 118 / 76; Pulse 64; Resp 18; Pulse Ox 98% on R/A; rs5 MDM: 07:35 Patient medically screened. ec2 07:44 Data reviewed: vital signs. ED course: Patient arrives today for evaluation of rectal ec2 bleeding. Examination remarkable for well-appearing nontoxic dividual with a findings as noted above. Will obtain lab work, CT imaging and reassess the patient. Currently considering diverticulosis, hemorrhoid bleeding, fissure, low suspicion for upper GI bleed.. 08:23 ED course: EKG independently reviewed inter by me, shows normal sinus rhythm, rate of ec2 58, no acute ST segment ovation's, nonconcerning intervals, nonspecific T wave abnormalities noted in the anterior and inferior leads.. 08:40 ED course: CBC remarkable for minimal anemia with a hemoglobin of 10.3. Metabolic ec2 profile reassuring electrolytes, renal dysfunction noted with a creatinine of 1.82 and GFR of 36. Lipase within normal ranges. Pending CT imaging. . 09:42 ED course: CT abdomen pelvis shows diverticulosis. . ec2 09:55 ED course: When compared to external records, hemoglobin typically about 13-14, today ec2 slightly lower than that. Further discussion with patient he denies any symptoms, denies any lightheadedness, chest pain or shortness of breath. Will admit for GI evaluation. Discussed case with hospitalist, pending admission.. 07/31 07:44 Order name: CBC with Diff; Complete Time: 08:40 ec2 07/31 07:44 Order name: CMP; Complete Time: 08:40 ec2 07/31 07:44 Order name: Lipase; Complete Time: 08:40 ec2 07/31 07:44 Order name: Type And Screen; Complete Time: 11:12 ec2 07/31 14:32 Order name: Urinalysis w/ reflexes EDMS 07/31 14:32 Order name: Basic Metabolic Panel EDMS 07/31 14:32 Order name: Basic Metabolic Panel EDMS 07/31 14:32 Order name: CBC with Automated Diff EDMS 07/31 14:32 Order name: CBC with Automated Diff EDMS 07/31 07:44 Order name: CT Abd/Pelvis - IV Contrast Only; Complete Time: 09:41 ec2 07/31 07:44 Order name: IV Saline Lock; Complete Time: 08:01 ec2 07/31 07:44 Order name: Labs collected and sent; Complete Time: 08:01 ec2 Administered Medications: 08:33 Drug: NS 0.9% IV 1000 ml IV at 1 bolus Per protocol; 1000 mL bolus Route: IV; Rate: 1 ld1 bolus; Site: left antecubital; Disposition Summary: 07/31/23 09:56 Hospitalization Ordered Notes: Hospitalization Status: Inpatient Admission ec2 Condition: Stable ec2 Problem: new ec2 Symptoms: are unchanged ec2 Bed/Room Type: Standard ec2 Provider: Aida Moreland(07/31/23 10:08) ec2 Location: Telemetry/MedSurg (Inpatient)(07/31/23 16:54) ja1 Room Assignment: 404(07/31/23 16:54) ja1 Diagnosis - Diverticulosis of large intestine without perforation or abscess with bleeding ec2 Forms: - Medication Reconciliation Form ec2 - SBAR form ec2 - Leadership Thank You Letter ec2 Signatures: Dispatcher [employer] EDMS Christy Murillo Jose RN RN ja1 Georgina Cho RN RN ld1 [place] William RN RN rs5 Tripp Sloan MD MD ec2 Corrections: (The following items were deleted from the chart) 10:08 09:56 Hemanth Ward ec2 ec2 16:50 09:56 Telemetry/MedSurg (Inpatient) ec2 bd 16:50 09:56 ec2 bd 16:54 16:50 [facility] ER HOLD bd ja1 16:54 16:50 ERHOLD- bd ja1
--- NOTE | 2023-07-31 09:56 | ER ---
Nurse's Notes [facility] Name: Teo Toribio Age: 83 yrs Sex: Male : 1940 Arrival Date: 07/31/2023 Time: 07:10 Bed 18 Private MD: Jim Gabriel E Diagnosis: Diverticulosis of large intestine without perforation or abscess with bleeding Presentation: 07/31 07:20 Chief complaint: Patient states: "I've been having rectal bleeding and diarrhea X3 rs5 days. This happened before back in 2019, I was hospitalized for it but not sure what had caused the bleeding." Pt denies dizziness, lighheadedness, and pain. 07:20 Coronavirus screen: Client denies travel out of the [place] in the last 14 days. Ebola rs5 Screen: No symptoms or risks identified at this time. Initial Sepsis Screen: Does the patient meet any 2 criteria? No. Patient's initial sepsis screen is negative. Does the patient have a suspected source of infection? No. Patient's initial sepsis screen is negative. Risk Assessment: Do you want to hurt yourself or someone else? Patient reports no desire to harm self or others. Onset of symptoms was July 28, 2022. 07:20 Method Of Arrival: Ambulatory rs5 07:20 Acuity: DEMARCUS 3 rs5 Historical: - Allergies: 07:20 No Known Allergies; rs5 - PMHx: 07:20 diverticulosis; enlarged prostate; Hypertension; High Cholesterol; rs5 - Immunization history:: Adult Immunizations unknown. - Social history:: Smoking status: Patient denies any tobacco usage or history of. Screenin:20 [facility] ED Fall Risk Assessment (Adult) History of falling in the last 3 months, rs5 including since admission No falls in past 3 months (0 pts) Confusion or Disorientation No (0 pts) Intoxicated or Sedated No (0 pts) Impaired Gait No (0 pts) Mobility Assist Device Used No (0 pt) Altered Elimination No (0 pt) Score/Fall Risk Level 0 - 2 = Low Risk Oriented to surroundings, Maintained a safe environment. Abuse screen: Denies threats or abuse. Nutritional screening: No deficits noted. Tuberculosis screening: No symptoms or risk factors identified. Assessment: 07:20 General: Appears in no apparent distress. comfortable, Behavior is calm, cooperative. rs5 Pain: Denies pain. Neuro: Level of Consciousness is awake, alert, obeys commands, Oriented to person, place, time, situation. Cardiovascular: Heart tones S1 S2 present Patient's skin is warm and dry. Rhythm is regular. Respiratory: Airway is patent Respiratory effort is even, unlabored, Respiratory pattern is regular, symmetrical, Breath sounds are clear bilaterally. 07:20 GI: Abdomen is round non-distended, Bowel sounds present X 4 quads. Abd is soft and non rs5 tender X 4 quads. Patient currently denies nausea, vomiting. GI: Reports bloody stool, since 3 days ago. : No signs and/or symptoms were reported regarding the genitourinary system. EENT: No signs and/or symptoms were reported regarding the EENT system. Derm: Skin is intact, Skin is pink, warm \\T\\ dry. Musculoskeletal: Capillary refill < 3 seconds, is brisk, in bilateral fingers. toes. Range of motion: intact in all extremities. 08:21 Reassessment: No changes from previously documented assessment. rs5 09:23 Reassessment: Patient and/or family updated on plan of care and expected duration. Pain rs5 level reassessed. Patient is alert, oriented x 3, equal unlabored respirations, skin warm/dry/pink. Patient denies pain at this time. Vital Signs: 07:20 BP 117 / 75; Pulse 60; Resp 17; Temp 98.7(O); Pulse Ox 99% on R/A; rs5 07:25 BP 120 / 74; Pulse 65; Resp 17; Pulse Ox 99% on R/A; rs5 09:24 BP 118 / 76; Pulse 64; Resp 18; Pulse Ox 98% on R/A; rs5 ED Course: 07:11 Patient arrived in ED. rg4 07:12 Jim Gabriel MD is Private Physician. rg4 07:20 Patient has correct armband on for positive identification. Bed in low position. Call rs5 light in reach. Side rails up X2. 07:30 Inserted saline lock: 20 gauge in left upper arm, using aseptic technique. Blood rs5 collected. 07:35 Tripp Sloan MD is Attending Physician. ec2 07:37 [place] William, MELISSA is Primary Nurse. rs5 07:41 Triage completed. rs5 09:12 CT Abd/Pelvis - IV Contrast Only In Process Unspecified. EDMS 09:24 No provider procedures requiring assistance completed. rs5 09:55 Hemanth Ward MD is Hospitalizing Provider. ec2 10:08 Aida Moreland MD is Hospitalizing Provider. ec2 17:49 Patient admitted, IV remains in place. rs5 Administered Medications: 08:33 Drug: NS 0.9% IV 1000 ml IV at 1 bolus Per protocol; 1000 mL bolus Route: IV; Rate: 1 ld1 bolus; Site: left antecubital; Medication: 09:25 VIS not applicable for this client. rs5 Outcome: 09:56 Decision to Hospitalize by Provider. ec2 17:49 Admitted to Med/surg accompanied by tech, with chart, rs5 17:49 Condition: stable 17:49 Instructed on the need for admit, Demonstrated understanding of instructions, 17:49 Patient left the ED. rs5 Signatures: Dispatcher [employer] Esther Wilkinson rg4 Georgina Cho RN RN ld1 [place] William RN RN rs5 Tripp Sloan MD MD ec2
[2023-07-31] MEDS ORDERED: FLEET ENEMA ADULT PR PRN (13:21)
[2023-07-31] MEDS ORDERED: ALBUTEROL 2.5 MG/3 ML NEB SOL NEB PRN (14:28)
[2023-07-31] MEDS ORDERED: ACETAMINOPHEN 325 MG TABLET PO PRN (14:28)
[2023-07-31] MEDS ORDERED: SODIUM CHLORIDE 0.9% 10ML INJ IV PRN (14:31)
--- NOTE | 2023-07-31 14:43 | P.HP ---
Certification for Inpatient Patient admitted to: Inpatient Practitioner: I am a practitioner with admitting privileges, knowledge of patient current condition, hospital course, and medical plan of care. Services: Services provided to patient in accordance with Admission requirements found in Title 42 Section 412.3 of the Code of Federal Regulations Patient History Date of Service: 07/31/23 Reason for admission: GI bleed History of Present Illness: Pt is an 83 yo male with past medical history of diverticulosis, enlarged prostate, Htn and HLD who presents with rectal bleeding. Pt reports that the re ctal bleeding started on monday. Pt had bright red blood per rectum mixed stool. It happened again on monday, monday and this morning which made pt to come to the ER to check his blood level. On admission, lab studies show WBC 5.5, Hgb 10.3, Cr 1.82, and glucose 182. CT abd shows diverticulosis of the sigmoid colon seen without diverticulitis amd moderate stool retention. At bedside, pt is in NAD. He has not had any GI bleed since admission. Pt denies any chest pain, SOB, fever, chills, nausea, vomiting, abd pain, rectal pain or leg edema but reports GI bleed. At bedside, pt is in NAD. Dr. Boyd plans to do colonoscopy tomorrow. Allergies No Known Allergies Allergy (Verified 09/12/17 00:13) Home Medications: Amlodipine Besylate 1 tab PO DAILY 09/12/17 Atorvastatin Calcium 1 tab PO DAILY 09/12/17 Dutasteride 0.5 mg PO DAILY 09/12/17 Ferrous Sulfate [Iron] 325 mg PO DAILY 09/12/17 Levothyroxine Sodium 50 mcg PO DAILY 09/12/17 Melatonin [Melatonin*] 5 mg PO BEDTIME 09/12/17 Tamsulosin HCl 0.4 mg PO DAILY 09/12/17 Vit B Comp No.3/Folic/C/Biotin [Line Dancer-Temi Rx Tablet] 1 each PO DAILY 09/12/17 Cholecalciferol (Vitamin D3) [Vitamin D3] 1 tab PO DAILY 11/29/19 Pantoprazole [Protonix Tab*] 40 mg PO DAILY #30 tab 12/05/19 Aspirin Chewable [Aspirin Chewable*] 81 mg PO DAILY tab.chew 08/27/22 - Past Medical/Surgical History Diabetic: No -: Hypertension -: Hypothyroidism -: BPH -: Hyperlipidemia -: GERD -: CHF -: Tonsillectomy -: Kidney stone removal Psychosocial/ Personal History: Patient is - Family History Father Notes: of ald age Mother -: Cancer Notes: Breast - Social History Alcohol use: Yes CD- Drugs: No Caffeine use: Yes Review of Systems Unremarkable General: Unremarkable Eyes: Unremarkable ENT: Unremarkable Respiratory: Unremarkable Cardiovascular: Unremarkable Gastrointestinal: Other (GI bleed) Genitourinary: Unremarkable Musculoskeletal: Unremarkable Integumentary: Unremarkable Neurological: Unremarkable Lymphatics: Unremarkable Physical Examination - Physical Exam General: Alert, In no apparent distress, Oriented x3 HEENT: Atraumatic, Normocephalic, PERRLA Neck: Supple, 2+ carotid pulse no bruit Respiratory: Clear to auscultation bilaterally, Normal air movement Cardiovascular: No edema, Normal pulses Capillary refill: <2 Seconds Gastrointestinal: Normal bowel sounds, Soft and benign, Non-distended Musculoskeletal: No clubbing, No swelling Integumentary: No rashes, No breakdown Neurological: Normal gait, Normal speech, Normal strength at 5/5 x4 extr Lymphatics: No axilla or inguinal lymphadenopathy - Studies Laboratory Data (last 24 hrs) 07/31/23 07/31/23 07:58 07:58 WBC 5.50 Hgb 10.3 L Hct 30.4 L Plt Count 146 L Sodium 142 Potassium 4.4 BUN 41 H Creatinine 1.82 H Glucose 104 Total Bilirubin 0.8 AST 20 ALT 27 Alkaline Phosphatase 93 Lipase 26 Assessment and Plan - Plan GI bleed: Hgb is 10.3. Will tredn H/H. Continue IVF, CLD. Will keep pt NPO after midnight for colonoscopy around 12noon on 08/01/[address] Boyd. Continue mag citrate, golytely, reglan 10mg iv Q6h x3 and tap enema until clear. Pt was unable to do bleeding scan due to prior contrast exposure and Cr is 1.82. CT abd shows diverticulosis and constipation. TRENTON: cr is 1.82. Will continue IVF, avoid nephrotoxins and monitor renal function. Htn: Will monitor BP HLD: Statin Hx of Enlarged prostate: Continue home med. DVT ppx: SCD Code: full Discharge Plan: Home - Advance Directives Does patient have a Durable POA for Healthcare: No - Code Status/Comfort Care Code Status Assessed: Yes Code Status: Full Code
[2023-07-31] MEDS ORDERED: METOCLOPRAMIDE 10 MG/2mL INJ IV PRN (15:00)
[2023-07-31] MEDS: NA CHLORIDE 0.9% 1,000 ML IV SCH (15:00)
[2023-07-31] MEDS ORDERED: GOLYTELY 4000 ML PO SCH (15:21)
[2023-07-31] MEDS ORDERED: MAGNESIUM CITRATE 300 ML BOT PO SCH (15:22)
[2023-07-31] MEDS ORDERED: MAGNESIUM CITRATE 300 ML BOT ONE (15:41)
[2023-07-31 17:24] VITALS: BMI 24.3
[2023-07-31 19:52] VITALS: O2SAT 98
[2023-07-31] MEDS: PANTOPRAZOLE 40 MG INJ IVP SCH (20:04)
[2023-08-01] MEDS: NA CHLORIDE 0.9% 1,000 ML IV SCH ×3 (00:59→21:00)
[2023-08-01 04:37] LABS: Absolute Lymphocytes (CBC) 0.5 K/uL (0.7-4.9); Hematocrit 23.6 % (39.6-49.0); MCV 102.2 fL (80-100); MPV 8.7 fL (7.6-11.3); Platelets 143 thou/uL (152-406); RBC Red Blood Cell Count 2.31 M/uL (4.33-5.43)
--- NOTE | 2023-08-01 07:48 | P.PN ---
Date of Service: 08/01/23 Subjective: Physical Exam: Vitals: reviewed GEN: Alert, oriented, NAD HEENT: Normal conjunctiva, sclera anicteric CV: Regular rate & rhythm, no edema Pulm: Nonlabored respiraitons, clear bilaterally ABD: Soft, nontender, nondistended MSK: No joint tenderness Integumentary: No rashes Neuro: Normal speech, normal affect Problem List: Acute GI bleed TRENTON hypernatremia Chronic CHF GERD Hypertension Hyperlipidemia Hypothyroidism BPH Plan: Acute GI bleed Patient reports ongoing rectal bleeding past few days CT abd (07/31): prominent diverticulosis of sigmoid coloin without diverticulitis. Moderate stool retention. f/u colonoscopy recommended CTA abd/pelvis ordered hgb 10.3 -> 8.0 Monitor H&H. Transfuse for hgb < 7 Continue IV PPI Continue IV fluids TRENTON hypernatremia continue IV fluids. Monitor renal function and electrolytes improving Chronic CHF GERD Hypertension Hyperlipidemia Hypothyroidism BPH confirm home meds, restart as appropriate
[2023-08-01 07:55] LABS: Specific Gravity 1.025 (1.005-1.030); Urine Bilirubin NEGATIVE (Negative); Urine Blood Negative (Negative); Urine Clarity Clear (Clear); Urine Color Light-Yellow (Yellow); Urine Glucose NEGATIVE (Negative); Urine Protein NEGATIVE (Negative); Urine Urobilinogen Normal (Normal); Urine pH 5.5 (5.0-7.0)
[2023-08-01] MEDS: PANTOPRAZOLE 40 MG INJ IVP SCH ×2 (08:43→21:10)
--- NOTE | 2023-08-01 08:50 | RAD REPORT ---
EXAM DESCRIPTION: CTAbdomen Angio - 08/01/2023 8:19 am CLINICAL HISTORY: Bleeding scan to find source of bleeding COMPARISON: Abdomen Pelvis W Contrast dated 07/31/2023; Abdomen Pelvis Wo Contrast dated 0; Abdomen Pelvis Wo Contrast dated 05/27/2019; Stone Protocol dated 02/23/2018; Pelvis Angio dated 08/01/2023 TECHNIQUE: CTA of the abdomen and pelvis was performed with IV contrast. All CT scans are performed using dose optimization technique as appropriate and may include automated exposure control or mA/KV adjustment according to patient size. FINDINGS: Lower chest: Mitral annular calcifications. Liver: No acute abnormality or suspicious lesions. Biliary: No biliary ductal dilatation. Stomach: No significant focal abnormality. Duodenum: No significant focal abnormality. Pancreas: No significant abnormality. Spleen: No significant abnormality. Adrenal: No suspicious lesions. Kidney/ureter: No hydronephrosis. No renal calculi. Left renal sinus cysts. Retroperitoneum: No retroperitoneal adenopathy. Vascular: No aneurysm. Bowel: Diverticulosis. No evidence of acute diverticulitis. No appendicitis.. Peritoneum: No ascites or free air. Bladder: Grossly unremarkable. Reproductive: Prostatomegaly. Bones: No acute fracture. Multilevel degenerative changes are present in the spine. Grade 1/2 anterol isthesis of L4 on L5. Retrolisthesis of T12 on L1. Advanced degenerative changes at these levels. Other: n/a IMPRESSION: No acute intra-abdominal or pelvic finding. No active arterial GI bleed identified. Coul d consider nuclear medicine bleeding study.
[2023-08-01] MEDS ORDERED: EPINEPHRINE 1 MG/ML VIAL ONE (11:15)
[2023-08-01] MEDS ORDERED: Ringers Lactate 1,000 ML IV ONE (11:26)
[2023-08-01] MEDS ORDERED: LIDOCAINE 1% MPF 5 ML VIAL ONE (12:00)
[2023-08-01] MEDS ORDERED: propofoL 200 MG/20 ML VIAL IV ONE (12:00)
[2023-08-01] MEDS ORDERED: EPHEDRINE SULF 50 MG/ML VIAL ONE (12:27)
[2023-08-01] MEDS ORDERED: HEPARIN 500 UNIT/5 ML SYR IV ONE (13:42)
[2023-08-01] MEDS ORDERED: METOCLOPRAMIDE 10 MG/2mL INJ IV PRN (14:01)
[2023-08-01] MEDS ORDERED: GOLYTELY 4000 ML PO SCH (15:00)
[2023-08-01] MEDS ORDERED: MAGNESIUM CITRATE 300 ML BOT PO SCH (15:00)
--- NOTE | 2023-08-01 17:52 | EKG ---
Test Date: 2023-07-31 Test Time: 08:15:11 Buffing Wheel Raker: KHUSHBU MEASUREMENT RESULTS: Intervals: Rate: 58 WV: 200 QRSD: 94 QT: 462 QTc: 453 Sumpter: P: 50 WV: 200 QRS: 82 T: -7 INTERPRETIVE STATEMENTS: Sinus bradycardia ST & T wave abnormality, consider inferior ischemia ST & T wave abnormality, consider anterior ischemia Abnormal ECG Compared to ECG 08/29/2022 12:09:40 Sinus rhythm no longer present Prolonged QT interval no longer present ST (T wave) deviation still present Possible ischemia still present Electronically Signed On 08-01-23 17:50:42 LOAN OFFICER ASSISTANT by Carlos Eduardo Rajan
[2023-08-02 04:30] VITALS: BP 124/59; TEMP 97.1
[2023-08-02] MEDS: NA CHLORIDE 0.9% 1,000 ML IV SCH (07:00)
[2023-08-02] MEDS: PANTOPRAZOLE 40 MG INJ IVP SCH (08:09)
--- NOTE | 2023-08-02 08:14 | P.PN ---
Subjective Date of Service: 08/02/23 Chief Complaint: GI bleed, hematochezia, anemia, h/o diverticular bleed 11/26 Subjective: Improving (No blood seen by patient since yesterday. Labs pending. Feels better. Tolerating clear liquid diet.), New changes (Colonoscopy yesterday with ~ 3-4 mm colon polyps removed. Blood with clots scattered throughout colon. Moderate diverticulosis throughout colon. Bleeding lesion not identified. Refused repeat colonoscopy today.) Review of Systems 10-point ROS is otherwise unremarkable (Improved.) General: Weakness (Improved) Physical Examination - Vital Signs Temperature: 97.1 F Blood Pressure: 124/59 Pulse: 67 Respirations: 18 Pulse Ox (%): 97 - Physical Exam General: Alert, In no apparent distress, Oriented x3, Cooperative HEENT: Atraumatic, Normocephalic, PERRLA, EOMI Neck: Supple Respiratory: Normal air movement Cardiovascular: Normal pulses Gastrointestinal: Soft and benign, No tenderness, No rebound, No guarding Neurological: Normal speech, Normal strength at 5/5 x4 extr Assessment And Plan - Current Problems (Diagnosis) (1) Diverticulosis Current Visit: Yes Status: Acute (2) Colon polyps Current Visit: Yes Status: Acute (3) Anemia Onset Date: 09/12/17 Current Visit: No Status: Acute Qualifiers: Anemia type: other cause (4) Hematochezia Current Visit: No Status: Acute - Plan REC: 1) await labs from today 2) advance diet to full liquids to GI soft 3) GI clinic f/u 4) outpatient colonoscopy for removal of flat polyp in ascending colon (seen in 11/26, not seen with poor prep on colonoscopy yesterday)
--- NOTE | 2023-08-02 08:17 | P.PN ---
Subjective Date of Service: 08/02/23 Chief Complaint: GI bleed No reported abdominal pain, presented for rectal bleeding, rectal bleeding improved, status post colonoscopy with Dr. Mancia. - Physical Exam General: Alert, In no apparent distress, Oriented x3 HEENT: Atraumatic, Normocephalic, PERRLA Neck: Supple, 2+ carotid pulse no bruit Respiratory: Clear to auscultation bilaterally, Normal air movement Cardiovascular: No edema, Normal pulses Capillary refill: <2 Seconds Gastrointestinal: Normal bowel sounds, Soft and benign, Non-distended Musculoskeletal: No clubbing, No swelling Integumentary: No rashes, No breakdown Neurological: Normal gait, Normal speech, Normal strength at 5/5 x4 extr Lymphatics: No axilla or inguinal lymphadenopathy Review of Systems per HPI Physical Examination - Vital Signs Temperature: 97.1 F Blood Pressure: 124/59 Pulse: 67 Respirations: 18 Pulse Ox (%): 97 Assessment And Plan - Plan Assessment plan Acute GI bleed Microcytic anemia Dr. Mancia status 07/31 post colonoscopy, plan for an EGD today 08/01 CT of the abdomen 07/31): prominent diverticulosis of sigmoid coloin without diverticulitis. Moderate stool retention. f/u colonoscopy recommended CT of the abdomen pelvis Trend H&H hgb 10.3 -> 8.0 Monitor H&H. Transfuse for hgb < 7 Continue IV PPI, IV fluids Acute on chronic kidney injury Hyponatremia Monitor renal function and electrolytes improving Chronic CHF GERD Hypertension Hyperlipidemia Hypothyroidism BPH confirm home meds, restart as appropriate Diet n.p.o. Full code DVT SCDs Discharge Plan: Home - Code Status/Comfort Care Code Status: Full Code Critical Care: No Time Spent Managing PTS Care (In Minutes): 35
--- NOTE | 2023-08-02 08:49 | RAD REPORT ---
EXAM DESCRIPTION: NM - GI Blood Loss Imaging - 08/02/2023 8:00 am CLINICAL HISTORY: Gastrointestinal bleeding COMPARISON: None. TECHNIQUE: The patient was administered 27.2 millicuries technetium labeled red blood cells. Dynamic images of the abdomen and pelvis were obtained for 60 minutes FINDINGS: No abnormal radiotracer activity is seen within the bowel. No abnormality displayed IMPRESSION: No evidence of active gastrointestinal bleeding during the examination
--- NOTE | 2023-08-02 08:58 | P.DS ---
Admission Date: 07/31/23 Discharge Date: 08/02/23 Disposition: ROUTINE DISCHARGE Reason for Admission: GI bleed, hematochezia, anemia, h/o diverticular bleed 11/26 Brief History of Present Illness: 83 yo male with past medical history of diverticulosis, enlarged prostate, Htn and HLD who presents with rectal bleeding. Pt reports that the rectal bleeding started on monday. Pt had bright red blood per rectum mixed stool. It happened again on monday, monday and this morning which made pt to come to the ER to check his blood level. On admission, lab studies show WBC 5.5, Hgb 10.3, Cr 1.82, and glucose 182. CT abd shows diverticulosis of the sigmoid colon seen without diverticulitis amd moderate stool retention. At bedside, pt is in NAD. He has not had any GI bleed since admission. Pt denies any chest pain, SOB, fever, chills, nausea, vomiting, abd pain, rectal pain or leg edema but reports GI bleed. At bedside, pt is in NAD. Dr. Boyd plans to do colonoscopy - Physical Exam General: Alert, In no apparent distress, Oriented x3 HEENT: Atraumatic, Normocephalic, PERRLA Neck: Supple, 2+ carotid pulse no bruit Respiratory: Clear to auscultation bilaterally, Normal air movement Cardiovascular: No edema, Normal pulses Capillary refill: <2 Seconds Gastrointestinal: Normal bowel sounds, Soft and benign, Non-distended Musculoskeletal: No clubbing, No swelling Integumentary: No rashes, No breakdown Neurological: Normal gait, Normal speech, Normal strength at 5/5 x4 extr Lymphatics: No axilla or inguinal lymphadenopathy Hospital Course: 83-year-old male patient with a past medical history of diverticulosis, enlarged prostate, hypertension, hyperlipidemia, presented to the emergency department with rectal bleeding. Was noted to have microcytic anemia secondary to diverticulosis. Was treated with colonoscopy by Dr. Mancia. Condition improved with proton pump inhibitors, IV fluids, patient is requesting to go home secondary to personal issues needing to take care of family. Stable for discharge to acute inpatient rehab with follow-up appointment with Dr. Mancia GI, primary care physician. PROBLEM: Rectal bleeding Diverticulosis Constipation Microcytic anemia CT of the abdomen pelvis IMPRESSION: No acute intra-abdominal or pelvic finding. No active arterial GI bleed identified. Could nuclear medicine bleeding study IMPRESSION: No evidence of active gastrointestinal bleeding during the examination Follow-up with Dr. Mancia after discharge in 1 to 2 weeks Follow-up with primary care to monitor hemoglobin hematocrit Continue proton pump inhibitor daily Avoid NSAIDs, Follow-up with nephrology for acute kidney injury, chronic kidney disease Avoid nephrotoxic medications, NSAIDs, ibuprofen or Motrin Continue home medicines as previously prescribed GOAL: Clear understanding of disease process INSTRUCTIONS: Physician Discharge Instructions: -DC IV and DC home -Follow-up with PCP in 1 to 2 weeks -Please call Dr. Abraham at [phone] if any questions regarding hospital stay -Please call nursing station at [phone] if any nursing or medication questions -Return to the emergency room if symptoms worsen Diet: ADA, low sodium Activity: Fall precautions DME: Date Ordered: Name of Company: [employer] Services Needed: None Date or Referral: IMMUNIZATION Influenza Vaccine Indicated: Influenza Vaccine Given: Date Given: Pneumonia Vaccine Indicated: Pneumonia Vaccine Given: Date Given: Vital Signs/Physical Exam: Temp Pulse Resp BP Pulse Ox 97.1 F 67 18 124/59 L 97 08/02/23 08:28 08/02/23 08:28 08/02/23 08:28 08/02/23 08:28 08/02/23 08:28 Laboratory Data at Discharge: WBC 6.90 thou/uL (4.3-10.9) 08/01/23 04:25 Hgb 8.0 g/dL (13.6-17.9) L D 08/01/23 04:25 Hct 23.6 % (39.6-49.0) L 08/01/23 04:25 Plt Count 143 thou/uL (152-406) L 08/01/23 04:25 Sodium 147 mEq/L (136-145) H D 08/01/23 04:25 Potassium 5.0 mEq/L (3.5-5.1) D 08/01/23 04:25 BUN 33 mg/dL (7-18) H 08/01/23 04:25 Creatinine 1.65 mg/dL (0.70-1.30) H 08/01/23 04:25 Glucose 98 mg/dL (74-106) 08/01/23 04:25 Total Bilirubin 0.8 mg/dL (0.2-1.0) 07/31/23 07:58 AST 20 U/L (15-37) 07/31/23 07:58 ALT 27 U/L (16-61) 07/31/23 07:58 Alkaline Phosphatase 93 U/L (45-117) 07/31/23 07:58 Lipase 26 U/L (13-75) 07/31/23 07:58 Home Medications: Atorvastatin Calcium 1 tab PO DAILY 09/12/17 Dutasteride 0.5 mg PO DAILY 09/12/17 Ferrous Sulfate [Iron] 65 mg PO DAILY 09/12/17 Levothyroxine Sodium 75 mcg PO DAILY 09/12/17 Melatonin [Melatonin*] 10 mg PO BEDTIME 09/12/17 Tamsulosin HCl 0.4 mg PO DAILY 09/12/17 Cholecalciferol (Vitamin D3) [Vitamin D3] 1 tab PO DAILY 11/29/19 Acetaminophen [Acetaminophen Extra Strength] 500 mg PO TID 07/31/23 Allopurinol 1 tab PO DAILY 07/31/23 Ascorbic Acid [Vitamin C] 1 cap PO DAILY 07/31/23 Carvedilol [Coreg] 1 tab PO BID 07/31/23 Famotidine [Pepcid*] 1 tab PO DAILY 07/31/23 Furosemide [Lasix*] 1 tab PO DIRECTED 07/31/23 Gabapentin [Neurontin*] 1 cap PO BID 07/31/23 Cool-3S/Dha/Epa/Fish Oil [Fish Oil 1,200 mg Softgel] 1 cap PO DAILY 07/31/23 Tizanidine [Zanaflex*] 1 tab PO DAILY 07/31/23 Diet: Renal Activity: Weight bearing as tolerated Followup: Jim Gabriel MD [Primary Care Provider] - Elaine Nguyen MD [ACTIVE - CAN ADMIT] - Jim Boyd MD [ASSOCIATE-ACTIVE - CAN ADMIT] - Time spent managing pt's care (in minutes): 55
--- NOTE | 2023-08-02 09:14 | CON ---
Date of Consultation: 08/01/2023 Reason For Consultation: Hematochezia with anemia. History Of Present Illness: The patient is an 83-year-old white male with history of diverticulosis, diverticular bleed in November of 2019, hypertension, hyperlipidemia, benign prostatic hypertrophy, sciat ica, and lower back pain. The patient presented to the hospital with hematochezia and was found to h ave hemoglobin of 10.3. Since that time, it has decreased to 8.0 today. The patient denies any aspi rin, ibuprofen, blood thinners. He did have a similar episode with a diverticular bleed in November with 2 colonoscopies, second one revealing a bleeding diverticulum in the descending colon at 42 c m from the anal verge. This was treated with epinephrine and an Endo clip with control of bleeding. The patient states he has been fine since that time and has not had recurrence of bleeding until thi s admission. Past Medical History: Significant for diverticulosis and diverticular bleed in November 2019, bleeding di verticulum noted, treated with epinephrine and Endoclip at that time. No bleeding since that time of November of 2019. Also history of hypertension, hyperlipidemia, benign prostatic hypertrophy, sciatica, and lower back pain. Past medical history significant for hypertension, hypothyroidism, hyperlipidemia, benign prostatic h ypertrophy, diverticular bleed in November 2019, status post epinephrine and Endoclip placement in the richard cending colon with control of bleeding and none since that time until this admission. Also with scia humphrey and lower back pain is chronic. Gastric reflux disease, congestive heart failure, tonsillectomy , kidney stones with removal. Home Medications: Include amlodipine, atorvastatin, dutasteride, iron supplements, levothyroxine, me latonin, tamsulosin, vitamin B complex, vitamin D3, Protonix, and aspirin. Social History: He is , 2 children. No tobacco. Rare alcohol. Family History: His father of old age at 90 years of age. Mother at 90 years of age, but by chart review, she had a history of breast cancer as well. Review of Systems: The patient has hematochezia. Denies any abdominal pain, fevers, chills, night sweats, chest pain, s hortness of breath, seizure, syncope, muscle aches, joint aches, backaches, nausea, vomiting, hematem esis, coffee-ground emesis, melena, hematuria, dysuria, polyuria, polydipsia, muscle aches, joint ach es, backaches. No depression or anxiety. Physical Examination: Vital Signs: He is 5 feet 11 inches, 134 pounds, BMI 24.3 kg/sq m. Temperature 97.0, pulse 73, resp irations 16, blood pressure 126/57, O2 saturation 98%. HEENT: Normocephalic, atraumatic. Anicteric. Pupils equal, round, and reactive to light. Anicteri c. Oropharynx clear. Neck: Supple. No masses. Respirations: Clear to auscultation bilaterally. Cardiac: Regular rate and rhythm. No gallops. Abdomen: Positive bowel sounds. Soft, nontender, nondistended. No hepatosplenomegaly. Extremities: No clubbing, cyanosis, or edema. 2+ pulses. Neuro: Alert and oriented x3. Grossly nonfocal. 5/5 motor strength. Sensation is intact to light touch. Laboratory Data: The patient has white count of 6.9, hemoglobin of 8.0, down from 10.3 yesterday, he matocrit of 24, MCV of 102, platelet count 143, polys of 80%, lymphocytes 7%, monocytes 10%, and eosi nophils 3%. Sodium 147, potassium 5.0, chloride 117, bicarb 27, BUN of 33, creatinine of 1.7, glucos e 98, calcium 8.5, total bilirubin 0.8, AST of 20, ALT of 27, alkaline phosphatase 93, total protein 5.7, albumin 3.0, lipase 26. UA was negative. CT abdomen and pelvis reveals prominent diverticulosi s of sigmoid colon without diverticulitis. Moderate stool retention is present. Followup colonoscop y will be suggested to be performed. Impression: 1.Hematochezia, probably secondary to diverticular bleed. The patient denies any aspirin, NSAIDs, b lood thinners. He has a history of diverticular bleed in November 2019 with 2 colonoscopies, second colon oscopy revealing a bleeding lesion in the descending colon at 42 cm from anal verge, which was treate d with epinephrine and Endoclip at that time. No recurrence of bleeding since that time until now. 2.Anemia. Hemoglobin from 10.3 down to 8.0, secondary to lower gastrointestinal bleeding problem. 3.History of diverticular bleed in November 2019 with Endoclip and epinephrine performed of descending co leanne with colonoscopies on November 30 and December 04, 2019. Moderate diverticulosis noted throughout the co leanne, left greater than right. 4.History of hypertension, hypothyroidism, hyperlipidemia, benign prostatic hypertrophy, diverticula r bleed in 2019, sciatica and lower back pain. Recommendation: 1.Continue IV fluids. 2.Check serial H and Hs, perform urgent colonoscopy. Also consider bleeding scan as indicated. JOSÉ/CAMILA Voice ID: [id number] Report ID: [id number]
[2023-08-02 09:37] LABS: Hematocrit 22.2 % (39.6-49.0); MCV 102.6 fL (80-100); RBC Red Blood Cell Count 2.17 M/uL (4.33-5.43)
[2023-08-02 09:38] LABS: Absolute Lymphocytes (CBC) 0.4 K/uL (0.7-4.9); Lymphocytes % 6.8 % (15.3-44.8); MPV 8.8 fL (7.6-11.3); Platelets 143 thou/uL (152-406)
[2023-08-02 09:53] LABS: Magnesium 2.2 mg/dL (1.6-2.4); Phosphorus 1.9 mg/dL (2.5-4.9); Potassium 4.3 mEq/L (3.5-5.1)
== END 2023-08-02 11:00 | disposition home or self-care (01) ==
LOC: ER 07:10 → ERHOLD 14:25 → 4TH 17:46
PROVIDERS: ADMIT Hospitalist; ATTEND Hospitalist
PROC: 0DJD8ZZ Inspection of Lower Intestinal Tract, Via Natural or Artificial Opening Endoscopic (ICD-10-PCS; principal; 2023-08-01 12:00)
DX: K92.2 Gastrointestinal hemorrhage, unspecified (principal); N40.0 Benign prostatic hyperplasia without lower urinary tract symptoms; D64.9 Anemia, unspecified; I10 Essential (primary) hypertension; N17.9 Acute kidney failure, unspecified; E78.5 Hyperlipidemia, unspecified; E87.0 Hyperosmolality and hypernatremia; K21.9 Gastro-esophageal reflux disease without esophagitis; E03.9 Hypothyroidism, unspecified; K59.00 Constipation, unspecified; K92.1 Melena; K63.5 Polyp of colon
CPT/HCPCS: 93005; 85025 ×3; 80048 ×2; 36415 ×2; 86900; 83735; 86850; 84100; 86901; 81003; 83690; 80053; 72191; 74175; 74177; 78278; 99285; 45378; Q9967 ×2; J2704; J2001; C9113 ×4; J1642; J7120; J7030 ×2; A9560; G0378; J0171

== ENCOUNTER 2024-05-11 17:43 | Emergency (ER) | payer OTHER ==
--- OUTSIDE RECORDS SUMMARY | 2024-05-11 17:46 | XMS REPORT | Continuity of Care Document ---
Author Name Unknown Address [address] [facility] [address] [facility] Address [facility] [address] [place] [address] Care Team Providers Care Inclusion Teacher Name Role Phone Jose Oh Cardiology Attending Clinician Unavailable KNOW, DOES_NOT Admitting Clinician Unavailable Payers Payer Name Policy Type Policy Number Effective Date Expirati on Date Source Allergies, Adverse Reactions, Alerts Allergy Name Allergy Type Status Severity Reaction(s) Onset Date Inactive Date Treating Clinician Comments Source No Known Allergie s DA Active U 11-07 00:00: 00 [facility] Encounters Start Date/Time End Date/Time Encounter Type Admission Type Attending Clinicians Care Facility Care Department Encounter ID Source 2024-02-29 16:37:[address] [facility] [id number] [facility] 2024-02-28 09:59:[address] [facility] [id number] [facility] 2021-10-11 10:21:[address] [facility] [id number] [facility] 2023-11-11 04:52:00 2023-11-11 04:52:00 Outpatient Jose Goldsmith [facility]ATH [id number] [facility] Results Test Description Test Time Test Comments Results Result Co mments Source POC ARTERIAL BLOOD [id number] 06:36:00* Test Item Value Reference Range Interpretation Comme nts POC ARTERIAL BLOOD GAS PH (test code = POCPHA) 7.385 pH units 7.35-7.45 N POC ARTERIAL BLOOD GAS PCO2 (test code = ADHXIU3B) 38.9 mmHg e 35.0-45.0 N POC TCO2 ARTERIAL (test code = POCTCO2) 22.9 MMOL/L e 24.0-30.0 L ARTERIAL BLOOD GAS PO2 (test code = PAKWA6X) 89.2 mmHg e 80.0-105.0 N POC HCO3 ARTERIAL (test code = HMPXNB9K) 23.3 MMOL/L e 22.0-26.0 N POC BASE EXCESS (test code = POCBEA) -1.6 MMOL/L e POC O2 SATURATION (test code = POCO2S) 97 % e 95-100 N POC SAMPLE SOURCE (test code = POCSAMPLE) Arterial Descript Specimen COMPREHENSIVE METABOLIC [id number] 06:08:00* Test Item Value Reference Range Interpretation Comme nts SODIUM (test code = NA) 143 mmol/L 136-145 N POTASSIUM (test code = K) 5.2 mmol/L 3.4-5.0 H CHLORIDE (test code = CL) 107 mmol/L 98-107 N CARBON DIOXIDE (test code = CO2) 27 mmol/L 21-32 N ANION GAP (test code = GAP) 9 GAP calc 4-15 N GLUCOSE (test code = GLU) 96 MG/DL 70-110 N BLOOD UREA NITROGEN (test code = BUN) 34 MG/DL 7-18 H GLOMERULAR FILTRATION RATE (test code = GFR) 37 estGFR >60 L The Glomerular Filtration Rate is a calculated parameterbased on serum Creatinine, patient age and sex. GFR valuesless than 60 mL/min/1.73 square meters are indicative ofChronic Kidney Disease. Values less than 15 mL/min/1.73square meters indicate Kidney failure. The calculation forGFR is based on the CKD-EPI (202) calculation. This formulais race indifferent and is the recommended formula for GFRby the National Kidney Foundation for Adults.The GFR will not calculate if the sex is unknown or if thepatient's age is <18 years. CREATININE (test code = CREAT) 1.8 MG/DL 0.6-1.0 H TOTAL PROTEIN (test code = PROT) 7.0 G/DL 6.4-8.2 N ALBUMIN (test code = ALB) 3.0 G/DL 3.4-5.0 L GLOBULIN (test code = GLOB) 4.0 GM/dL ALBUMIN/GLOBULIN RATIO (test code = A/G) 0.8 RATIO 1.2-2.2 L CALCIUM (test code = CA) 8.9 MG/DL 8.5-10.1 N BILIRUBIN TOTAL (test code = BILT) 0.6 MG/DL 0.0-1.0 N SGOT/AST (test code = AST) 49 Unit/L 15-37 H SGPT/ALT (test code = ALT) 38 Unit/L 30-65 N ALKALINE PHOSPHATASE TOTAL (test code = ALKP) 128 Unit/L 50-136 N LIPID PROFILE (CORONARY RISK)2023-11-11 06:08:00* Test Item Value Reference Range Interpretation Comme nts TRIGLYCERIDES (test code = TRIG) 135 MG/DL 0-150 N CHOLESTEROL (test code = CHOL) 119 MG/DL 133-200 L CHOLESTEROL/HDL RATIO (test code = CHOLHDL) 3.84 RATIO See_Comment RISK ASSOC IATED WITH CHOL/HDL RATIOS: RISK MALE FEMALE1/2 AVERAGE 3.43 3.27AVERAGE 4.97 4.442X AVERAGE 9.55 7.053X AVERAGE 23.39 11.04 NOTE THAT THE REFERENCE VALUE IS RELATED TO RISK LEVELS ASRECOMMENDED BY THE [facility]. [Automated message] The system which generated this result transmitted reference range: 0-. The reference range was not used to interpret this result as normal/abnormal. HDL CHOLESTEROL (test code = HDL) 31 MG/DL See_Comment L [[employer]] The system which generated this result transmitted reference range: 60-. The reference range was not used to interpret this result as normal/abnormal. NON-HDL CHOLESTEROL (test code = NHDL) 88 mg/dL <130 LIPOPROTEIN LDL (test code = LDL) 70 MG/DL 0-129 N LDL/HDL (test code = LDL/HDL) 2.25 Ratio See_Comment N [[employer]] The system which generated this result transmitted reference range: 1.48-3.22 Avg. The reference range was not used to interpret this result as normal/abnormal. [id number] 06:08:00* Test Item Value Reference Range Interpretation Comme nts MAGNESIUM (test code = MAG) 2.3 MG/DL 1.8-2.4 N PROTHROMBIN [id number] 05:51:00* Test Item Value Reference Range Interpretation Comme nts PT PATIENT (test code = PTP) 12.2 SECONDS 9.3-12.9 N INTERNATIONAL NORMAL RATIO (test code = INR) 1.11 INR Unit 0.8-1.2 N TARGET INR BY INDICATION Indication INR1. Prophylaxis of venous thrombosis 2.0 - 3.0 (orthopedic surgery), Prophylaxis of venous thrombosis (other than high-risk surgery), Treatment of Deep Vein Thrombosis/Pulmonary Embolism, Prevention of systemic embolism - Tissue heart valves, Acute Myocardial Infarction (to prevent systemic embolism), Valvular heart disease, Acute Myocardial Infarction (to prevent systemic embolism), Valvular heart disease, Atrial Fibrillation, Bileaflet mechanical valve in aortic position.2. Mechanical prosthetic valves (high risk), 2.5 - 3.5 Presence of Lupus Anticoagulant or Antiphospholipid Antibodies, Prevention of systemic embolism - Acute Myocardial Infarction (to prevent recurrent infarct). CBC W/AUTO [id number] 05:34:00* Test Item Value Reference Range Interpretation Comme nts WHITE BLOOD CELL (test code = WBC) 8.1 K/mm3 3.5-11.0 N RED BLOOD CELL (test code = RBC) 3.64 M/mm3 4.70-6.10 L HEMOGLOBIN (test code = HGB) 11.5 G/DL 12.3-15.9 L HEMATOCRIT (test code = HCT) 37.0 % 35.8-46.7 N MEAN CELL VOLUME (test code = MCV) 101.6 Fl 86.3-98.9 H MEAN CELL HGB (test code = MCH) 31.6 pg 28.9-34.4 N MEAN CELL HGB CONCETRATION (test code = MCHC) 31.1 G/DL 32.1-34.5 L RED CELL DISTRIBUTION WIDTH (test code = RDW) 14.6 SD 11.5-14.5 H PLATELET COUNT (test code = PLT) 220 K/mm3 150-450 N MEAN PLATELET VOLUME (test c ode = MPV) 10.60 fL 7.0-9.6 H NEUTROPHIL % (test code = NT%) 73.8 % 40-76 N IMMATURE GRANULOCYTE % (test code = IG%) 0.4 % 0.0-5.0 N LYMPHOCYTE % (test code = LY%) 8.7 % 20.5-51.1 L MONOCYTE % (test code = MO%) 13.3 % 1.7-9.3 H EOSINOPHIL % (test code = EO%) 3.1 % 0.0-6.0 N BASOPHIL % (test code = BA%) 0.7 % 0.0-2.0 N NUCLEATED RBC % (test code = NRBC%) 0.0 /100WBC% 0.0-1.0 N NEUTROPHIL # (test code = NT#) 6.0 K/mm3 1.8-7.6 N IMMATURE GRANULOCYTE # (test code = IG#) 0.03 x10 3/uL 0.00-0.03 N LYMPHOCYTE # (test code = LY#) 0.7 K/mm3 0.6-3.0 N MONOCYTE # (test code = MO#) 1.1 K/mm3 0.2-1.5 N EOSINOPHIL # (test code = EO#) 0.3 K/mm3 0.0-0.4 N BASOPHIL # (test code = BA#) 0.1 K/mm3 0.0-0.2 N NUCLEATED RBC # (test code = NRBC#) 0.0 K/mm3 0.00-0.01 N Notes Date/Time Note Provider Source 2023-11-11 07:02:00 [id number] [address] PATIENT NAME: ASHELY TOSCANO ADMIT DATE: 11/11/23 ACCOUNT NO: [id number] ROOM NO: AGE: 83 REPORT TYPE: OPERATIVE REPORT SEX: M ADMITTING PHYSICIAN: ATTENDING PHYSICIAN: Jose Oh MD Cardiology OPERATION DATE: 11/11/2023 CARDIOLOGY PROCEDURE NOTE MANAGER INFRASTRUCTURE: Jose Oh MD. PREOPERATIVE DIAGNOSIS: POSTOPERATIVE DIAGNOSIS: TITLE OF PROCEDURE: Right and left heart catheterization. SURGEON: Jose Oh MD. ABLE BODIED SEAMAN: ANESTHESIA: Conscious sedation with Versed and fentanyl. 1% lidocaine for local anesthesia. INDICATION FOR THE PROCEDURE: Severe mitral regurgitation, possible coronary artery disease, and pulmonary hypertension. ESTIMATED BLOOD LOSS: Minimal. COMPLICATIONS: None. CONTRAST: 45 mL. FINAL DIAGNOSES: Calcified arteries, single vessel coronary artery disease, nondominant right coronary artery with 50% proximal disease, severe mitral regurgitation with 4+ mitral regurgitation, pulmonary hypertension and elevated left ventricular end-diastolic pressure and wedge pressures. The recommendation is mitral valve replacement or repair. The mitral valve was heavily calcified. PROCEDURE IN DETAIL: After informed consent, the patient was brought to the cardiac catheterization lab in a stable fasting nonsedated state. He was prepped and draped in the usual sterile fashion. After conscious sedation, 1% lidocaine was administered to the right common femoral artery area for local anesthesia. Also, the same was done to the right common femoral vein. A 6-Norwegian sheath was placed in the right common femoral artery and a 7-Norwegian in PATIENT NAME: ASHELY TOSCANO the right common femoral vein using standard techniques and fluoroscopy. After heparinization, left ventricular angiogram was carried out first that showed 60% ejection fraction, left ventricular end-diastolic pressure of 21 and severe 4+ mitral regurgitation. The mitral valve is calcified. Right heart catheterization was then carried out with the RA pressure 17/14/13, RV pressure 67/13/18, PA pressure 72/23/44, wedge pressure is 33/33//26. Cardiac output was 4.2 by thermodilution 5 by Jovi. Index was 2.1 by thermodilution, 2.5 by Jovi, saturation was 96.8 in the femoral artery, 65.2 in the pulmonary artery. The left coronary angiogram was carried out next that showed the large dominant circumflex and ramus intermedius with no angiographic disease. LAD has calcification in the proximal and mid vessel with 30% plaquing. Right coronary angiogram showed a small nondominant or at most, maybe codominant right coronary artery with 50% proximal disease, very small vessel. Most of the circulation comes from the circumflex. Right groin was sealed using Angio-Seal. The venous sheath will be pulled manually. The patient tolerated the procedure well. There were no complications. He was transferred to the holding area for observation. He will be referred as an outpatient for mitral valve repair or likely replacement. Dictated By: Jose Oh MD Date Dictated: 11/11/2023 07:02:39 Date Transcribed: 11/11/2023 09:31:47 MARTHA/JJ Robertson #: [id number] Receipt ID: [id number] Authenticated by Jose Oh MD On 11/11/2023 01:05:29 PM at 0105 PATIENT NAME: ASHELY TOSCANO [facility] [place] 2023-11-11 05:34:00 [id number] [address] PATIENT NAME: ASHELY TOSCANO ADMIT DATE: 11/11/23 ACCOUNT NO: [id number] ROOM NO: AGE: 83 REPORT TYPE: eELECTROCARDIOGRAM SEX: M ADMITTING PHYSICIAN: ATTENDING PHYSICIAN: Jose Oh MD Order: [id number] Test Reason : PREOP Test Date/Time Stamp: MonNov 11 2023 05:34:01 Blood Pressure : / mmHG Vent. Rate : 069 BPM Atrial Rate : 069 BPM P-R Int : 220 ms QRS Dur : 096 ms QT Int : 426 ms P-R-T Axes : 050 038 -09 degrees QTc Int : 456 ms Sinus rhythm with 1st degree AV block T wave abnormality, consider inferior ischemia Abnormal ECG No previous ECGs available Confirmed by JOSE OH ([id number]) on 11/11/2023 8:40:43 AM Referred By: Jose Oh Confirmed by:JOSE OH at 0840 PATIENT NAME: ASHELY TOSCANO [facility] [place] 2023-11-10 07:14:00 [id number] [address] PATIENT NAME: ASHELY TOSCANO ADMIT DATE: ACCOUNT NO: [id number] ROOM NO: AGE: 83 REPORT TYPE: HISTORY AND PHYSICAL SEX: M ADMITTING PHYSICIAN: ATTENDING PHYSICIAN: Jose Oh MD Cardiology PATIENT NAME: ASHELY TOSCANO ADMIT DATE:11/11/2023 ADMISSION DATE: 11/11/2023 10:00:00 REASON FOR ADMISSION: Right and left heart catheterization for evaluation of pulmonary hypertension and severe mitral regurgitation for surgical intervention. HISTORY OF PRESENT ILLNESS: Ashely is an 83-year-old patient who is new to my practice as of 08/17/2023. 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 Records have shown that the patient has been having problems with mitral valve prolapse and mitral regurgitation and he was evaluated at the [facility] in [place] in July of 2023 then he was referred to me for further evaluation. Echocardiogram on 10/31/2023 that showed that the mitral valve is apparently flail with severe regurgitation. Ejection fraction is normal. Pulmonary hypertension was extremely elevated. The patient had also mild to moderate tricuspid insufficiency, and no significant aortic valve abnormalities. He had a carotid Doppler with less than 35% plaquing. He had a coronary evaluation in 2022 with a negative chemical nuclear stress test. Given the patient's symptoms and the finding on the echocardiogram, the patient is here for right and left heart catheterization to assess his coronaries and to evaluate the patient for mitral valve repair or replacement. There is no previous diagnosis of coronary artery disease or invasive workup. The patient carries a diagnosis of chronic diastolic congestive heart failure and pulmonary hypertension, most likely related to the mitral valve. PAST MEDICAL HISTORY: Remarkable for the above, in addition to hypertension, hyperlipidemia, dilated ascending aorta at 4.0, first-degree AV block, chronic renal insufficiency, benign prostatic hyperplasia, diverticulosis, lumbar disk disease, hearing loss, chronic sinusitis, osteoarthritis, and allergies. PAST SURGICAL HISTORY: Tonsillectomy and facetectomy. ALLERGIES: NO KNOWN DRUG ALLERGIES. MEDICATIONS: Carvedilol 3.125 mg b.i.d., allopurinol 100 mg daily, atorvastatin 40 mg daily, omeprazole 40 mg daily, vitamins, iron, fish oil, tamsulosin 0.4 mg daily, gabapentin, stool softeners, furosemide 20 mg daily, Kerendia 10 mg daily. SOCIAL HISTORY: There is no history of smoking, alcohol or street drug use. PATIENT NAME: ASHELY TOSCANO FAMILY HISTORY: Negative for premature atherosclerosis or valve disease. REVIEW OF SYSTEMS: Remarkable for allergies, the above-mentioned symptoms, enlarged prostate, stage III chronic kidney disease, arthritis. No acute GI or other problems. No TIAs or strokes. PHYSICAL EXAMINATION: GENERAL: Reveals a pleasant elderly male in no acute distress. VITAL SIGNS: Blood pressure 127/73, pulse 61 and regular, respiratory rate 18 and unlabored, temperature afebrile. HEENT: Head atraumatic, normocephalic. Eyes and ENT examination within normal for age except for decreased hearing. NECK: Supple, elevated jugular venous pressure is noted. No bruits. Normal upstroke. LUNGS: Clear and resonant. HEART: Regular rate and rhythm with 3/6 systolic murmur at the mitral area, 1/6 diastolic murmur at the aortic area. No gallops. ABDOMEN: Soft, no tenderness, no organomegaly, no masses or bruits. EXTREMITIES: 1+ edema, 2+ distal pulses. No cyanosis or clubbing. NEUROLOGIC: Alert and oriented x3. Examination appears to be nonfocal. LABORATORY DATA: Pending. Noninvasive cardiovascular workup enclosed. IMPRESSION: This is an 83-year-old patient with symptomatic severe mitral regurgitation and severe pulmonary hypertension. His coronary status is unknown. The patient has multiple cardiovascular risk factors. He is here for right and left heart catheterization and assessment of his coronaries and most likely referral for mitral valve repair or replacement. PLAN: The recommendation is to proceed with the above-mentioned procedures. The risks and benefits of the planned procedures were discussed in detail with the patient and available family members and he is willing to proceed. Rest as per orders. Dictated By: Jose Oh MD Date Dictated: 11/10/2023 07:14:31 Date Transcribed: 11/10/2023 08:20:41 D/THE Receipt ID: [id number] Authenticated and Edited by Jose Oh MD On 11/10/23 4:59:36 PM at 0501 PATIENT NAME: ASHELY TOSCANO [facility] [place]
[2024-05-11 18:26] LABS: Absolute Basophils 0.1 K/uL (0-0.5); Absolute Eosinophils 0.3 K/uL (0-0.5); Absolute Lymphocytes (CBC) 0.8 K/uL (0.7-4.9); Absolute Monocytes 0.8 K/uL (0.1-1.3); Absolute Neutrophil 5.9 K/uL (1.8-8.0); Basophils % 1.2 % (0-1.3); Eosinophils % 3.3 % (0-4.4); Hematocrit 36.8 % (39.6-49.0); Hemoglobin 12.6 g/dL (13.6-17.9); Lymphocytes % 10.6 % (15.3-44.8); MCH 33.7 pg (27.0-35.0); MCHC 34.1 g/dL (32.0-36.0); MCV 98.8 fL (80-100); MPV 8.5 fL (7.6-11.3); Monocytes % 10.1 % (3.3-12.3); Neutrophils % 74.8 % (41.7-73.7); Nucleated Red Blood Cells % 0.1 % (0-0); Platelets 232 thou/uL (152-406); RBC Red Blood Cell Count 3.72 M/uL (4.33-5.43)
[2024-05-11 18:36] LABS: PT Prothrombin Time 12.2 SECONDS (9.4-12.5); Protime INR 1.09
--- NOTE | 2024-05-11 18:36 | RAD REPORT ---
EXAMINATION: ONE VIEW CHEST XR CLINICAL INDICATION: rectal bleeding TECHNIQUE: Frontal chest projection is submitted. Examination is limited by patient positioning and t echnique. COMPARISON: 08/29/2022 FINDINGS: The lungs are well inflated and clear. The heart is normal in size. No displaced fractures identified . Sternotomy wires. IMPRESSION: No acute intrathoracic abnormalities.
[2024-05-11 18:47] LABS: ALT/SGPT 46 U/L (16-61); AST/SGOT 36 U/L (15-37); Albumin 3.4 g/dL (3.4-5.0); Albumin/Globulin Ratio 0.9 (1.1-1.8); Alkaline Phosphatase 157 U/L (45-117); Anion Gap 7.5 mEq/L (5.0-15.0); BUN Blood Urea Nitrogen 32 mg/dL (7-18); Bicarbonate 27 mEq/L (21-32); Bilirubin Direct < 0.2 mg/dL (0-0.2); Bilirubin Indirect, Calculated 0.1 mg/dL (0.2-0.8); Bilirubin Total 0.3 mg/dL (0.2-1.0); Glomerular Filtration Rate 38 ml/min (=/>90); Glucose Level 104 mg/dL (74-106); Magnesium 2.1 mg/dL (1.6-2.4); NT PRO-BNP 2536 pg/mL (<450); Potassium 4.5 mEq/L (3.5-5.1); Protein, Total 7.4 g/dL (6.4-8.2); Sodium Level 139 mEq/L (136-145); Troponin High Sensitivity 40.4 pg/mL (<58.9)
--- NOTE | 2024-05-11 19:12 | RAD REPORT ---
EXAMINATION: CT ABDOMEN AND PELVIS WITHOUT CONTRAST CLINICAL INDICATION: rectal bleeding TECHNIQUE: CT abdomen and pelvis was performed, without IV contrast, as per department protocol. Axia l, sagittal and coronal reconstructions were obtained. One or more of the following dose reduction techniques were used: Automated exposure control, adjustment of the mA and kV according to the patien t size, and iterative reconstruction. Unless otherwise specified, incidental findings do not require dedicated imaging follow-up. COMPARISON: 08/01/2023 FINDINGS: The lack of intravenous contrast limits the sensitivity of this exam for evaluation of solid visceral organs, vascular structures, and retroperitoneum. LOWER CHEST: The visualized lung bases are clear. Small hiatal hernia. LIVER:Normal in size and contour. No focal lesion. Grossly unremarkable gallbladder. SPLEEN: Normal size. No focal lesion. PANCREAS: No mass, ductal dilation, or dao-pancreatic fluid. ADRENALS: Normal; no mass. KIDNEYS AND URETERS: Normal size and contour. No hydronephrosis. Parapelvic renal cysts bilaterally, greater on the left. URINARY BLADDER: Normal contour. GASTROINTESTINAL TRACT: No evidence of bowel obstruction, significant free fluid, free air or abscess . Prominent sigmoid diverticulosis coli seen with stool retention. Subtle inflammatory changes are seen in the left lower quadrant sigmoid colon fat. APPENDIX: Normal appendix. LYMPH NODES: No lymphadenopathy. MUSCULOSKELETAL: Mild anterolisthesis of L4 on 5, likely chronic. ADDITIONAL FINDINGS: Mildly enlarged prostate gland. Moderate fat-containing inguinal hernias, greate r on the left. IMPRESSION: Prominent sigmoid diverticulosis coli with moderate fecal retention. Early left lower quadrant sigmoi d colon diverticulitis is suspected.
[2024-05-11] MEDS ORDERED: HYDRALAZINE HCL 20 MG/ML VIAL ONE (19:38)
[2024-05-11] MEDS ORDERED: NA CHLORIDE 0.9% 100 ML ONE (19:38)
[2024-05-11] MEDS ORDERED: PIPERACIL/TAZO 3.375 GM VIAL IV ONE (19:39)
--- NOTE | 2024-05-11 19:59 | ER ---
Nurse's Notes [facility] Name: Teo Toribio Age: 83 yrs Sex: Male : 1940 Arrival Date: 05/11/2024 Time: 17:43 Bed 7 Private MD: Diagnosis: Diverticulitis of large intestine without perforation or abscess with bleeding;Hypertensive heart disease with heart failure Presentation: 05/11 17:48 Chief complaint: Patient states: rectal bleeding started 1pm today , bright red, occurs iw with BM. , has had similar symptoms in past and it was diverticulitis. Coronavirus screen: At this time, the client does not indicate any symptoms associated with coronavirus-19. Ebola Screen: No symptoms or risks identified at this time. Initial Sepsis Screen: Does the patient meet any 2 criteria? No. Patient's initial sepsis screen is negative. Does the patient have a suspected source of infection? No. Patient's initial sepsis screen is negative. Risk Assessment: Do you want to hurt yourself or someone else? Patient reports no desire to harm self or others. Onset of symptoms was May 11, 2024. 17:48 Method Of Arrival: Ambulatory iw 17:48 Acuity: DEMRACUS 3 iw Historical: - Allergies: 17:51 No Known Allergies; iw - Home Meds: 17:55 Plavix 75 mg Oral tablet [Active]; mb9 - PMHx: 17:50 Congestive heart failure; diverticulosis; enlarged prostate; Gout; High Cholesterol; iw Hypertension; Hypothyroidism; - PSHx: 17:50 open heart surgery; iw - Immunization history:: Adult Immunizations up to date. - Infectious Disease History:: Denies. - Social history:: Smoking status: Patient denies any tobacco usage or history of. Screenin:54 [facility] ED Fall Risk Assessment (Adult) History of falling in the last 3 months, mb9 including since admission No falls in past 3 months (0 pts) Confusion or Disorientation No (0 pts) Intoxicated or Sedated No (0 pts) Impaired Gait No (0 pts) Mobility Assist Device Used No (0 pt) Altered Elimination No (0 pt) Score/Fall Risk Level 0 - 2 = Low Risk Oriented to surroundings, Maintained a safe environment, Educated pt \T\ family on fall prevention, incl call for assistance when getting out of bed. Abuse screen: Denies threats or abuse. Nutritional screening: No deficits noted. Tuberculosis screening: No symptoms or risk factors identified. Assessment: 18:13 General: Appears in no apparent distress. Behavior is calm, cooperative. Pain: Denies mb9 pain. Neuro: Britton Agitation-Sedation Scale (RASS): 0 - Alert and Calm Level of Consciousness is awake, alert, obeys commands, Oriented to person, place, time, situation, Appropriate for age. Cardiovascular: Heart tones S1 S2 present Patient's skin is warm and dry. Rhythm is regular. Respiratory: Airway is patent Respiratory effort is even, unlabored, Respiratory pattern is regular, symmetrical, Breath sounds are clear bilaterally. GI: Abdomen is round non-distended, Bowel sounds present X 4 quads. Abd is soft and non tender X 4 quads. Reports rectal bleeding, bloody stool. : No signs and/or symptoms were reported regarding the genitourinary system. EENT: No signs and/or symptoms were reported regarding the EENT system. Derm: Skin is fragile, is thin, Skin is dry, Skin is pale, Skin temperature is cool Bruising that is dark purple, on right arm and left arm. Musculoskeletal: Range of motion: intact in all extremities. 18:55 Reassessment: Assisted pt to bedside commode. Pt stool bright red. mb9 19:08 General: Appears in no apparent distress. Behavior is calm, cooperative. Pain: Denies al5 pain. Neuro: Level of Consciousness is awake, alert, obeys commands, Oriented to person, place, time, situation. Cardiovascular: Capillary refill < 3 seconds skin cool/dry. Respiratory: Airway is patent Respiratory effort is even, unlabored, Respiratory pattern is regular, symmetrical. GI: Abdomen is round non-distended, Stools are reported to be dark red blood with blood clots. Reports rectal bleeding, bloody stool. : No signs and/or symptoms were reported regarding the genitourinary system. EENT: No signs and/or symptoms were reported regarding the EENT system. Derm: Skin is intact, Skin is dry, Skin is pale, Skin temperature is cool. Musculoskeletal: No signs and/or symptoms reported regarding the musculoskeletal system. 20:57 Reassessment: Patient appears in no apparent distress at this time. No changes from al5 previously documented assessment. Patient and/or family updated on plan of care and expected duration. Pain level reassessed. Patient is alert, oriented x 3, equal unlabored respirations, skin warm/dry/pink. 21:43 Reassessment: Patient appears in no apparent distress at this time. No changes from al5 previously documented assessment. Patient and/or family updated on plan of care and expected duration. Pain level reassessed. Patient is alert, oriented x 3, equal unlabored respirations, skin warm/dry/pink. 22:26 Reassessment: Patient appears in no apparent distress at this time. No changes from al5 previously documented assessment. Patient and/or family updated on plan of care and expected duration. Pain level reassessed. Patient is alert, oriented x 3, equal unlabored respirations, skin warm/dry/pink. gave report to [facility] for transport of patient to [facility]. Vital Signs: 17:48 BP 193 / 91; Pulse 69; Resp 16; Temp 97.6; Pulse Ox 100% ; Weight 79.38 kg; Height 5 iw ft. 10 in. ; 18:35 BP 187 / 87; Pulse 67; Resp 16; Pulse Ox 97% on R/A; mb9 19:36 BP 161 / 81; Pulse 70; Resp 18; Pulse Ox 99% on R/A; al5 20:00 BP 178 / 88; Pulse 67; Resp 17; Pulse Ox 99% on R/A; al5 21:01 BP 151 / 91; Pulse 78; Resp 16; Pulse Ox 99% on R/A; al5 22:00 BP 152 / 98; Pulse 70; Resp 14; Pulse Ox 95% on R/A; al5 17:48 Body Mass Index 25.11 (79.38 kg, 177.8 cm) iw ED Course: 17:46 Patient arrived in ED. ra3 17:50 Triage completed. iw 17:51 Arm band placed on. iw 17:53 Hugo Camacho PA is PHCP. cp 17:53 Tripp Sloan MD is Attending Physician. cp 17:53 Temi Bennett, MELISSA is Primary Nurse. mb9 17:53 Placed in gown. Bed in low position. Call light in reach. Side rails up X 1. Provided mb9 Education on: press call light if needing anything. Client placed on continuous cardiac and pulse oximetry monitoring. NIBP monitoring applied. 18:12 Initial lab(s) drawn, by me, sent to lab. EKG done, by ED staff, reviewed by Hugo rogers PA. Inserted saline lock: 20 gauge in left upper arm, using aseptic technique. Blood collected. Flushed with 10 mL NS. 18:15 Served as a [employer] certified network associate during rectal exam. mb9 18:26 Type And Screen Sent. mb9 18:30 XRAY Chest (1 view) In Process Unspecified. EDMS 19:07 Abdomen In Process Unspecified. EDMS 19:45 Hugo Rizvi MD is Attending Physician. cp 20:00 initiated transfer with [facility]- they declined to not having GI services at patients kmf requested facility . 20:15 initiated transfer with [facility]. [facility] 20:40 pt was accepted to [facility] carly - 6B - [id number], number for nurse to nurse report [facility] [phone]. [address] Presley accepted \T\ 2019. Admin approval given by Bonnie Beard \T\ 2034. Awaiting to nurse to nurse sheet to call ems. 21:28 [facility] to transfer pt. ETA 15-20 mins. kmf 21:56 EMS called back with delay in transfer of 30 mins, called [facility] eta 10 mins.kmf 22:26 Patient transferred, IV remains in place. al5 Administered Medications: 19:58 Drug: Piperacillin-Tazobactam IVPB 3.375 grams IVPB once over 60 mins; (mix in NS 100 al5 mL) Route: IVPB; Infused Over: 60 mins; Site: left upper arm; 21:52 Follow up: Response: No adverse reaction; IV Status: Completed infusion; IV Intake: al5 100ml 20:15 Not Given (patient bp 161/81): [id number] mg IVP once al5 21:58 Drug: NS 0.9% IV 250 ml IV at bolus once; to be given as a bolus over 30 minutes Route: al5 IV; Rate: bolus; Site: left upper arm; 22:26 Follow up: Response: No adverse reaction; IV Status: Completed infusion; IV Intake: al5 250ml Medication: 17:54 VIS not applicable for this client. mb9 Intake: 21:52 IV: 100ml; Total: 100ml. al5 22:26 IV: 250ml; Total: 350ml. al5 Outcome: 19:59 ER care complete, transfer ordered by . cp 22:26 Transferred by ground EMS to [facility], Transfer form al5 completed. Note: [facility] clear [facility] room 6030 22:26 Condition: stable 22:26 Instructed on the need for transfer, 23:48 Patient left the ED. al5 Signatures: Dispatcher [employer] Karly Shukla RN RN iw Hugo Camacho PA PA cp Wilkerson, Mary Beth RN RN Elissa Sharp [facility] Kristina Del Toro 3 Milly Vaz RN RN al5 Corrections: (The following items were deleted from the chart) 17:51 17:48 Pulse 69bpm; Resp 16bpm; Pulse Ox 100%; Temp 97.6F; iw jenni
--- NOTE | 2024-05-11 19:59 | EDPHYS ---
Physician Documentation [facility] Name: Teo Toribio Age: 83 yrs Sex: Male : 1940 Arrival Date: 05/11/2024 Time: 17:43 Bed 7 Private MD: ED Physician Hugo Rizvi HPI: 05/11 18:15 This 83 yrs old Male presents to ER via Ambulatory with complaints of Rectal Bleeding. cp 18:15 The patient presents to the emergency department with bleeding from the rectum/anus, cp that is moderate. Onset: The symptoms/episode began/occurred today, at 13:00. 18:15 Context: the patient HX of Diverticulitis with bleeding in the past, takes a Plavix and cp Aspirin. 18:15 Associate signs and symptoms: Pertinent negatives: abdominal pain, constipation, fever, cp vomiting. Historical: - Allergies: 17:51 No Known Allergies; iw - Home Meds: 17:55 Plavix 75 mg Oral tablet [Active]; mb9 - PMHx: 17:50 Congestive heart failure; diverticulosis; enlarged prostate; Gout; High Cholesterol; iw Hypertension; Hypothyroidism; - PSHx: 17:50 open heart surgery; iw - Immunization history:: Adult Immunizations up to date. - Infectious Disease History:: Denies. - Social history:: Smoking status: Patient denies any tobacco usage or history of. ROS: 18:20 Cardiovascular: Negative for chest pain, edema, palpitations, cp 18:20 Eyes: Negative for injury, pain, redness, and discharge, cp 18:20 Constitutional: Negative for body aches, chills, fever, poor PO intake, 18:20 ENT: Negative for drainage from ear(s), ear pain, sore throat, difficulty swallowing, difficulty handling secretions, 18:20 Respiratory: Negative for cough, shortness of breath, wheezing, 18:20 Abdomen/GI: Positive for diarrhea, rectal bleeding, Negative for abdominal pain, vomiting, constipation, black/tarry stool, 18:20 Back: Negative for pain at rest, pain with movement, radiated pain, 18:20 Neuro: Negative for altered mental status, dizziness, headache, numbness, syncope, near syncope, weakness, 18:20 All other systems are negative, Exam: 18:15 ECG was reviewed by the Attending Physician. cp 18:25 Constitutional: The patient appears in no acute distress, alert, awake, cp non-diaphoretic, non-toxic, well developed, well nourished, 18:25 Head/Face: Normocephalic, atraumatic. cp 18:25 Eyes: Periorbital structures: appear normal, Conjunctiva: normal, no exudate, no injection, Sclera: no appreciated abnormality, Lids and lashes: appear normal, bilaterally, 18:25 ENT: External ear(s): are unremarkable, Nose: is normal, Mouth: Lips: moist, Oral mucosa: moist, Posterior pharynx: Airway: no evidence of obstruction, patent, 18:25 Chest/axilla: Inspection: normal, 18:25 Cardiovascular: Rate: normal, Rhythm: regular, Edema: is not appreciated, JVD: is not appreciated, 18:25 Respiratory: the patient does not display signs of respiratory distress, Respirations: normal, no use of accessory muscles, no retractions, labored breathing, is not present, Breath sounds: are clear throughout, no decreased breath sounds, no stridor, no wheezing, 18:25 Abdomen/GI: Inspection: abdomen appears normal, Bowel sounds: active, all quadrants, Palpation: abdomen is soft and non-tender, in all quadrants, 18:25 Back: pain, is absent, ROM is normal, 18:25 : Rectal exam: Stool: maroon, 18:25 Neuro: Orientation: to person, place \T\ time. Mentation: is normal, Motor: moves all fours, strength is normal, Sensation: is normal, Gait: is steady, at a normal pace, without difficulty, Vital Signs: 17:48 BP 193 / 91; Pulse 69; Resp 16; Temp 97.6; Pulse Ox 100% ; Weight 79.38 kg; Height 5 iw ft. 10 in. ; 18:35 BP 187 / 87; Pulse 67; Resp 16; Pulse Ox 97% on R/A; mb9 19:36 BP 161 / 81; Pulse 70; Resp 18; Pulse Ox 99% on R/A; al5 20:00 BP 178 / 88; Pulse 67; Resp 17; Pulse Ox 99% on R/A; al5 21:01 BP 151 / 91; Pulse 78; Resp 16; Pulse Ox 99% on R/A; al5 22:00 BP 152 / 98; Pulse 70; Resp 14; Pulse Ox 95% on R/A; al5 17:48 Body Mass Index 25.11 (79.38 kg, 177.8 cm) iw MDM: 17:53 Medical Screening Exam initiated cp 20:00 Data reviewed: vital signs, nurses notes, lab test result(s), EKG, radiologic studies, cp CT scan. 20:00 Differential diagnosis: hemorrhoids, diverticulitis, anemia, sepsis. I considered the cp following discharge prescriptions or medication management in the emergency department Medications were administered in the Emergency Department. See MAR. Independent interpretation of the following test(s) in the Emergency Department EKG: See my EKG interpretation above. Care significantly affected by the following chronic conditions: Hypertension, Congestive Heart Failure. Counseling: I had a detailed discussion with the patient and/or guardian regarding the historical points, exam findings, and any diagnostic results supporting the discharge/admit diagnosis, lab results, radiology results, the need to transfer to another facility, for higher level of care. 21:15 ED course: Patient requests transfer to [facility] or [facility] due to proximity. cp Consult with DR Presley who will accept patient. 05/11 18:11 Order name: Basic Metabolic Panel; Complete Time: 18:49 05/11 18:49 Interpretation: Normal except: CL 109; BUN 32; CRE 1.76; GFR 38. 05/11 18:11 Order name: CBC with Diff; Complete Time: 18:49 05/11 18:50 Interpretation: Normal except: RBC 3.72; HGB 12.6; HCT 36.8; RENE% 74.8; LYM% 10.6. 05/11 18:11 Order name: LFT's; Complete Time: 18:49 11 18:50 Interpretation: Normal except: ALK 157; IBILI, CALC 0.1; GLOB 4.0; A/G 0.9. 05/11 18:11 Order name: Magnesium; Complete Time: 18:49 05/11 18:11 Order name: NT PRO-BNP; Complete Time: 18:49 05/11 18:11 Order name: PT-INR; Complete Time: 18:49 05/11 18:11 Order name: Troponin HS; Complete Time: 18:49 05/11 18:19 Order name: Type And Screen; Complete Time: 20:24 05/11 19:15 Order name: Ova And Parasites cp 05/11 19:15 Order name: Rotavirus Antigen cp 05/11 19:15 Order name: Stool Culture 05/11 19:15 Order name: Lactate w/ 2H reflex if indic.; Complete Time: 20:24 05/11 19:15 Order name: Blood Culture Adult (2) 05/11 19:16 Order name: Urinalysis w/ reflexes cp 05/11 18:11 Order name: XRAY Chest (1 view); Complete Time: 18:49 05/11 18:54 Order name: Abdomen ; Complete Time: 19:13 EDMS 05/11 19:14 Interpretation: Report reviewed. 05/11 18:11 Order name: Cardiac monitoring; Complete Time: 18:15 05/11 18:11 Order name: EKG - Nurse/Tech; Complete Time: 18:15 05/11 18:11 Order name: IV Saline Lock; Complete Time: 18:15 05/11 18:11 Order name: Labs collected and sent; Complete Time: 18:15 05/11 18:11 Order name: O2 Per Protocol; Complete Time: 18:15 05/11 18:11 Order name: O2 Sat Monitoring; Complete Time: 18:15 05/11 18:19 Order name: IV; Complete Time: 18:26 cp EC:15 Rate is 65 beats/min. Rhythm is regular. DE interval is prolonged at 240 msec. QRS cp interval is normal. QT interval is normal. T waves are Inverted in lead aVR. Interpreted by me. Reviewed by me. Administered Medications: 19:58 Drug: Piperacillin-Tazobactam IVPB 3.375 grams IVPB once over 60 mins; (mix in NS 100 al5 mL) Route: IVPB; Infused Over: 60 mins; Site: left upper arm; 21:52 Follow up: Response: No adverse reaction; IV Status: Completed infusion; IV Intake: al5 100ml 20:15 Not Given (patient bp 161/81): [id number] mg IVP once al5 21:58 Drug: NS 0.9% IV 250 ml IV at bolus once; to be given as a bolus over 30 minutes Route: al5 IV; Rate: bolus; Site: left upper arm; 22:26 Follow up: Response: No adverse reaction; IV Status: Completed infusion; IV Intake: al5 250ml Disposition Summary: 05/11/24 19:59 Transfer Ordered Notes: Transfer Location: [facility] cp Reason: Higher level of care cp Condition: Stable cp Problem: new cp Symptoms: have improved cp Accepting Physician: DR Sha Presley(05/11/24 23:48) al5 Diagnosis - Diverticulitis of large intestine without perforation or abscess with bleeding cp - Hypertensive heart disease with heart failure cp Forms: - Medication Reconciliation Form cp - SBAR form cp Signatures: Dispatcher [employer] EDMS Karly Toribio, RN RN Hugo Ulrich PA PA cp Wilkerson, Temi Rivera RN RN mb9 Milly Vaz RN RN al5 Corrections: (The following items were deleted from the chart) 18:12 18:12 BASIC METABOLIC PANEL+C.LAB.BRZ ordered. EDMS EDMS 18:12 18:12 CBC+H.LAB.BRZ ordered. EDMS EDMS 18:12 18:12 HEPATIC FUNCTION+C.LAB.BRZ ordered. EDMS EDMS 18:12 18:12 MAGNESIUM+C.LAB.BRZ ordered. EDMS EDMS 18:12 18:12 PROBNP+C.LAB.BRZ ordered. EDMS EDMS 18:12 18:12 PROTIME (+INR)+COAG.LAB.BRZ ordered. EDMS EDMS 18:12 18:12 Troponin High Sensitivity+C.LAB.BRZ ordered. EDMS EDMS 18:12 18:12 Chest Single View+RAD.RAD.BRZ ordered. EDMS EDMS 18:12 18:12 Abdomen Pelvis W/Wo Con+CT.RAD.BRZ ordered. EDMS EDMS 18:19 18:19 TYPE AND SCREEN+BB.LAB.BRZ ordered. EDMS EDMS 19:59 19:59 Doctor cp cp 20:27 19:59 Doctor cp cp 23:48 20:27 DR Sha Presley cp al5
[2024-05-11 20:44] LABS: Specific Gravity 1.019 (1.005-1.030); Sqamous Epithelial <5 /HPF (None Seen); Urine Bacteria None Seen /HPF (<20); Urine Bilirubin NEGATIVE (Negative); Urine Blood Negative (Negative); Urine Clarity Clear (Clear); Urine Color Light-Yellow (Yellow); Urine Culture Reflex Order NOT NEEDED; Urine Glucose NEGATIVE (Negative); Urine Ketones NEGATIVE (Negative); Urine Microscopic Reflex YN ORDER UMIC; Urine Mucus Slight /HPF (None Seen); Urine Nitrite NEGATIVE (Negative); Urine Protein NEGATIVE (Negative); Urine RBC <5 /HPF (None Seen); Urine Urobilinogen Normal (Normal); Urine WBC <5 /HPF (<5); Urine pH 5.5 (5.0-7.0)
[2024-05-11] MEDS ORDERED: NA CHLORIDE 0.9% 250 ML ONE (21:55)
[2024-05-11 23:52] VITALS: TEMP 97.6
[2024-05-11 23:58] VITALS: BP 152/98; O2SAT 95
--- NOTE | 2024-05-13 12:16 | EKG ---
Test Date: 2024-05-11 Test Time: 18:08:07 Cooler Room Worker: MB MEASUREMENT RESULTS: Intervals: Rate: 65 WI: 240 QRSD: 86 QT: 434 QTc: 451 Loyal: P: 269 WI: 240 QRS: -16 T: 14 INTERPRETIVE STATEMENTS: Unusual P axis, possible ectopic atrial rhythm Abnormal ECG Compared to ECG 07/31/2023 08:15:11 Sinus bradycardia no longer present ST (T wave) deviation no longer present Possible ischemia no longer present Electronically Signed On 05-13-24 12:13:39 MICROBIOLOGY LAB MANAGER by Serge Ruano
== END 2024-05-11 23:48 | disposition short-term general hospital (02) ==
LOC: ER 17:43
DX: K57.32 Diverticulitis of large intestine without perforation or abscess without bleeding (principal); I11.0 Hypertensive heart disease with heart failure; I50.9 Heart failure, unspecified; I10 Essential (primary) hypertension; E78.00 Pure hypercholesterolemia, unspecified; Z79.01 Long term (current) use of anticoagulants
CPT/HCPCS: 96365; 93005; 87040 ×2; 87045; 85025; 81001; 80048; 36415; 86900; 83735; 86850; 87177; 85610; 86901; 80076; 87046; 83605; 87209; 84484; 83880; 87425; 74176; 71045; 99285; 96366; J0360; J2543; J7050

== ENCOUNTER 2024-07-02 06:03 | Day surgery (SDC) | payer OTHER ==
[2024-07-02] MEDS ORDERED: propofoL 200 MG/20 ML VIAL IV ONE (06:26)
[2024-07-02] MEDS ORDERED: LIDOCAINE 2% MPF 5 ML VIAL ONE (06:26)
[2024-07-02] MEDS ORDERED: FENTANYL CITR 100 MCG/2 ML ONE (06:27)
[2024-07-02] MEDS ORDERED: ROCURONIUM 50 MG/5 ML VIAL IV ONE (06:35)
[2024-07-02] MEDS: Ringers Lactate 1,000 ML IV ONE (07:00)
[2024-07-02] MEDS: CEFAZOLIN SODIUM 1 GM/VIAL ONE (07:04)
[2024-07-02] MEDS ORDERED: EPHEDRINE SULF 50 MG/ML VIAL ONE ×2 (07:07→07:37)
[2024-07-02] MEDS ORDERED: ONDANSETRON 4 MG/2 ML VIAL ONE (07:20)
[2024-07-02] MEDS ORDERED: dexAMETHasone 10 MG/ML VIAL ONE (07:31)
[2024-07-02] MEDS ORDERED: VASOPRESSIN 20 UNIT/ML VIAL ONE (08:07)
--- NOTE | 2024-07-02 09:35 | OP ---
Date of Procedure: 07/02/2024 Surgeon: Shlomo Betancur MD Preoperative Diagnosis: Left knee pain with mechanical symptoms with degenerative joint disease and probable meniscal tear or tears. 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 2.Fraying of the acromioclavicular ligament. 3.Large medial meniscal tear with displaceable meniscal fragments. 4.Tear of anterior horn of lateral meniscus. Procedures: 1.Left knee arthroscopy with debridement of medial meniscal tear. 2.Debridement of lateral meniscal tear. Estimated Blood Loss: Less than 10 cc. Complications: There were no complications. Specimens: No pathology specimen sent. Indications For Operation: Mr. Toribio is an 84-year-old gentleman who came with repeated problems related with pain and swelling with his knee. He does have degenerative changes on the x-ray and bec ause he has mechanical symptoms, elects for MRI, which demonstrates a large medial meniscal tear as w ell as a lateral meniscal tear and degenerative changes as well as a Epstein cyst. Risks, benefits, an d alternatives of different methods of treating this have been discussed with him, including arthrosc opy is not good for degenerative articular lesions; however, if he does have mechanical symptoms, jonh t can be helpful. Also discussed the possibility of total knee arthroplasty or further conservative care. He is not interested in those and understands things as presented with regard to left knee art hroscopy and agrees to proceed. Description Of Procedure: The patient was taken to the operating room and placed in supine position. General anesthesia obtained by staff. Following this, a well-padded tourniquet was placed on super ior left thigh. Left lower extremity was then prepped and draped in usual sterile fashion for proced ure. Following this, a standard superomedial arthroscopy portal was then established with liberation approximately 20 cc of rather normal-appearing synovial fluid. This was followed by placement of in ferolateral arthroscopy portal. The camera was then placed atraumatically with 1 pass. The knee was then sequentially examined including suprapatellar pouch, medial and lateral gutters, medial and lat eral compartments as well as the notch and patellofemoral joint. Pertinent findings included grade 4 chondromalacia of the medial femoral compartment. Also seen is a large medial meniscal tear. Also, significant fraying and distortion of the lateral meniscus. There is some fraying of the ACL as wel l. After this, a standard inferomedial arthroscopy portal was then placed and used as a working port al. The medial meniscus was then debrided back to a firm hook, stable, well contoured base throughou t. There still was a small amount of horizontal tear component; however, this was probed and found n ot to be displaceable within the compartment. Following this, attention was turned to the lateral co mpartment, where a 3.5 shaver was then used to debride back this to a firm hook, stable, well contour ed base. Attention was turned to the ACL and a little bit of debridement was done there from some fr ayed fibers, but no excessive debridement was performed within the notch. Following this, the knee w as again sequentially examined in all the above areas with no further pathology, which was seen, whic h would be amenable to arthroscopic intervention. After this, the inferior arthroscopy portals were then stapled shut. Superomedial arthroscopy portal was used for placement of Marcaine. This was the n stapled. The patient was placed in a well-padded sterile dressing, awakened, and taken to recovery room in good condition. There were no complications. SE/MODL Voice ID: [id number] Report ID: [id number]
[2024-07-02 10:31] VITALS: O2SAT 100
[2024-07-02 10:34] VITALS: BP 136/64; TEMP 97.2
== END 2024-07-02 09:39 | disposition home or self-care (01) ==
LOC: OR 06:03
PROVIDERS: ATTEND Orthopaedic Surgery
PROC: 0SBD4ZZ Excision of Left Knee Joint, Percutaneous Endoscopic Approach (ICD-10-PCS; 2024-07-02)
PROC: 0SBD4ZZ Excision of Left Knee Joint, Percutaneous Endoscopic Approach (ICD-10-PCS; principal; 2024-07-02 07:00)
DX: S83.242D Other tear of medial meniscus, current injury, left knee, subsequent encounter (principal); S83.282D Other tear of lateral meniscus, current injury, left knee, subsequent encounter; M25.562 Pain in left knee; M94.262 Chondromalacia, left knee; M17.12 Unilateral primary osteoarthritis, left knee
CPT/HCPCS: 29880; J2704; J2003; J3010; J1100; J2405; J7120; J0690

== ENCOUNTER 2024-08-09 07:29 | Emergency (ER) | payer OTHER ==
--- OUTSIDE RECORDS SUMMARY | 2024-08-09 07:36 | XMS REPORT | Continuity of Care Document ---
Author Name Unknown Address [address] [facility]. [address] [place], [place] [id number] [place] [address] [facility] Address [address] [facility] [address] [place] [address] Care Team Providers Care Submarine Operator Name Role Phone PCP, PATIENT DOES NOT HAVE A Primary Care Physic julio césar Unavailable Jim Gabriel Attending Clinician Unavailable Berry Nair Attending Clinician Unavailjoaquin e STAN MENDEZ V. Attending Clinician Unavail able STAN MENDEZ V. Attending Clinician Unavail able Jj Mcfarland MD Attending Clinician [phone] Fritz Spencer DO Attending Clinician [phone] Joss Beard MD Attending Clinician [phone] Stan Mendez MD, V. Attending Clinician Lee Reyes MD Attending Clinician [phone] Jerad Bearden Attending Clinician Unavailable Antoine Hammer Attending Clinician Unavailable Tyra Ureña Cardiology Attending Clinician Unavailable Tyra Ureña Cardiology Admitting Clinician Unavailable JJ MCFARLAND Admitting Clinician Unavailable Jj Mcfarland MD Admitting Clinician [phone] Jerad Bearden Admitting Clinician Unavailable Antoine Hammer Admitting Clinician Unavailable KNOW, DOES_NOT Admitting Clinician Unavailable Payers Payer Name Policy Type Policy Number Effective Date Expirati on Date Source MEDICARE PART A \\T\\ B [id number] 2005 00:00:00 [facility] [id number] 2017 00:00:00 Problems Condition Name Condition Details Condition Category Status Onset Date Resolution Date Last Treatment Date Treating Clinician Comments Source Gastrointe stinal hemorrhage Gastrointe stinal hemorrhage Disease Active 2023-07 00:00: 00 [facility] Allergies, Adverse Reactions, Alerts Allergy Name Allergy Type Status Severity Reaction(s) Onset Date Inactive Date Treating Clinician Comments Source No Known Allergie s DA Active U 12-20 00:00: 00 [facility] No Known Allergie s DA Active U 11-07 00:00: 00 [facility] NO KNOWN ALLERGIE S Drug Class Active [facility] Social History Social Habit Start Date Stop Date Quantity Comments Source Sexual orientation U niv[facility]ly [facility] Alcoholic beverage intake 2024-05-15 00:00:00 2024-05-15 00:00:00 Current non-drinker of alcohol (finding) [facility] History of Social function 2019-01-15 00:00:00 2019-01-15 00:00:00 [facility] Tobacco use and exposure 2017-12-01 00:00:00 2017-12-01 00:00:00 Smokeless tobacco non-user [facility] Sex assigned at 1940 00:00:00 1940 00:00:00 [facility] Smoking Status Start Date Stop Date Source Never smoked tobacco [facility] Medications Ordered Medication Name Filled Medication Name Start Date Stop Date Current Medication? Ordering Clinician Indication Dosage Frequency Signature (SIG) Comments Components Source simethicone (GAS RELIEF (SIMETHICON E)) 40 mg/0.6 mL drops 2023-07 19:45: 00 05-14 20:25 :54 No PRN, Starting on Mon05/14/24 at 1345, Until Mon05/14/24 at 1425, Routine, Intra-op [facility] gabapentin ER 600 mg tablet, extended release 24 hr 2023-07 15:19: 23 Yes 600mg Take 1 tablet by mouth every 8 (eight) hours. [facility] tiZANidine 4 mg capsule 2023-07 15:19: 23 Yes 4mg Take 1 capsule by mouth at bedtime. [facility] carvediloL 12.5 mg tablet 2023-07 15:19: 23 Yes 6.25mg Take 0.5 tablets by mouth in the morning and 0.5 tablets in the evening. Take with meals. [facility] peg-electro lyte soln (GOLYTELY) 236-22.74-6 .74 -5.86 gram solution 4,000 mL 2023-07 22:46: 25 Yes 4000mL 4,000 mL, Oral, PRN - SEE INSTRUCTIO NS, Starting on Mon05/13/24 at 1646, Until Discontinu ed, Routine, Bowel Prep, colonoscop y [facility] ondansetron (ZOFRAN (PF)) injection 4 mg 2023-07 22:46: 25 Yes 4mg 4 mg, Slow IV Push, Q6HPRN, Starting on Mon05/13/24 at 1646, Until Discontinu ed, Routine, Nausea and Vomiting (N/V) [facility] bisacodyL (DULCOLAX) tablet 10 mg 2023-07 22:46: 25 05-14 00:54 :00 Yes 10mg 10 mg, Oral, PRE-PROCED URE ONCE, 1 dose, Starting on Mon05/13/24 at 1646, Until Discontinu ed, Routine, Bowel Prep, Colonoscop y [facility] atorvastati n (LIPITOR) tablet 40 mg 2023-07 23:00: 00 Yes 40mg 40 mg, Oral, QPM, First dose on 05/12/24 at 1700, Until Discontinu ed, Routine [facility] tamsulosin (FLOMAX) capsule 0.4 mg 2023-07 15:00: 00 Yes .4mg 0.4 mg, Oral, DAILY, First dose on 05/12/24 at 0900, Until Discontinu ed, Routine [facility] piperacilli n-tazobacta m (ZOSYN) 3.375 g in NaCl 0.9% (NS) 100 mL MINI-BAG 2023-07 15:00: 00 05-15 18:51 :40 No 3.375g 3.375 g, IV Piggyback, Q8H ABX, 21 doses, First dose (after last reorder) on 05/12/24 at 0900, Last dose on Mon05/19/24 at 0100, Administer over 240 Minutes, 100 mL, Reason for Anti-Infec tive: Documented Infection, Documented Infection Site: Abdominal, Duration of Therapy: 7 days [facility] carvediloL (COREG) tablet 6.25 mg 2023-07 14:00: 00 Yes 6.25mg 6.25 mg, Oral, BID MEALS, First dose on Mon05/12/24 at 0800, Until Discontinu ed, Routine [facility] levothyroxi ne (SYNTHROID) tablet 50 mcg 2023-07 12:00: 00 Yes 50ug 50 mcg, Oral, QAM-0600, First dose on Mon05/12/24 at 0600, Until Discontinu ed, Routine [facility] piperacilli n-tazobacta m (ZOSYN) 3.375 g in NaCl 0.9% (NS) 100 mL MINI-BAG 2023-07 05:15: 00 05-12 06:40 :00 No 3.375g 3.375 g, IV Piggyback, Q8H ABX, 1 dose, First dose on Mon05/12/24 at 0015, Administer over 30 Minutes, 100 mL, Reason for Anti-Infec tive: Documented Infection, Documented Infection Site: Abdominal, Duration of Therapy: 7 days [facility] NaCl 0.9% (NS) IV infusion 1,000 mL 2023-07 05:00: 00 05-14 22:40 :03 No 1000mL at 75 mL/hr, IV Infusion, CONTINUOUS , Starting on 05/12/24 at 0000, Until Tu05/14/24 at 1640, Routine [facility] pantoprazol e (PROTONIX) injection 40 mg 2023-07 05:00: 00 05-14 23:07 :24 No 40mg 40 mg, Slow IV Push, Q12H, First dose on 05/12/24 at 0000, Until Discontinu ed [facility] ondansetron (ZOFRAN (PF)) injection 4 mg 2023-07 04:52: 36 Yes 4mg 4 mg, Slow IV Push, Q6HPRN, Starting on 05/11/24 at 2352, Until Discontinu ed, Routine, Nausea and Vomiting (N/V) [facility] acetaminoph en (TYLENOL) tablet 650 mg 2023-07 04:52: 36 Yes 650mg 650 mg, Oral, Q6HPRN, Starting on 05/11/24 at 2352, Until Discontinu ed, Routine, Pain (scale 1-3) [facility] melatonin (MELATIN) tablet 3 mg 2023-07 04:52: 23 Yes 3mg 3 mg, Oral, QHSPRN, Starting on 05/11/24 at 2352, Until Discontinu ed, Routine, Insomnia [facility] hydralAZINE (APRESOLINE ) injection 10 mg 2023-07 04:52: 23 Yes 10mg 10 mg, Slow IV Push, Q4HPRN, Starting on 05/11/24 at 2352, Until Discontinu ed, Routine, DBP=>100; SBP=>160 [facility] TRIAMCINOLO NE ACETONIDE (NASACORT NASAL) 2023-07 00:29: 23 Yes [id number] 1{spray } Use 1 Donnelly in each nostril as needed. [facility] Melatonin 5 mg Cap 2023-07 00:29: 23 Yes [id number] 5mg Take 5 mg by mouth at bedtime. [facility] ferrous sulfate (IRON) 325 mg (65 mg iron) tablet 2023-07 23:48: 11 Yes [id number] 325mg Take 325 mg by mouth 3 (three) times daily with meals. [facility] fenofibrate 54 mg tablet 2023-07 23:48: 11 Yes 54mg Take 54 mg by mouth daily. [facility] hydroCHLORO thiazide 12.5 mg capsule 11-29 00:00: 00 Yes 12.5mg Take 12.5 mg by mouth daily. [facility] omeprazole 20 mg capsule 11-29 00:00: 00 Yes 1{capsu le} Take 1 capsule by mouth daily. [facility] atorvastati n 40 mg tablet 03-09 00:00: 00 Yes [id number] 40mg Take 1 tablet by mouth every evening. [facility] tamsulosin 0.4 mg 24 hr capsule 03-09 00:00: 00 Yes [id number] .4mg Take 1 capsule by mouth in the morning. [facility] dutasteride 0.5 mg capsule 03-08 00:00: 00 Yes [id number] .5mg Take 1 capsule by mouth in the morning. [facility] levothyroxi ne 50 mcg tablet 02-23 00:00: 00 Yes [id number] 50ug Take 1 tablet by mouth every morning. [facility] vit A/C/E ac/ZnOx/cup rambo oxide (EYE VITAMIN AND MINERALS ORAL) 02-13 00:00: 00 Yes 2{capsu le} Take 2 capsules by mouth daily. [facility] Vital Signs Vital Name Observation Time Observation Value Comments S wangantoine Systolic blood pressure 2024-05-15 13:30:00 169 mm[Hg] [facility] Diastolic blood pressure 2024-05-15 13:30:00 79 mm[Hg] [facility] Heart rate 2024-05-15 13:30:00 69 /min [facility] Body temperature 2024-05-15 13:30:00 36.67 Crystla [facility] Respiratory rate 2024-05-15 13:30:00 17 /min [facility] Oxygen saturation in Arterial blood by Pulse oximetry 2024-05-15 13:30:00 98 /min [facility] Body weight 2024-05-15 10:00:00 78.6 kg [facility] BMI 2024-05-15 10:00:00 24.86 kg/m2 [facility] Body height 2024-05-12 04:53:00 177.8 cm [facility] Systolic blood pressure 2024-05-14 18:30:00 174 mm[Hg] [facility] Diastolic blood pressure 2024-05-14 18:30:00 84 mm[Hg] [facility] Heart rate 2024-05-14 18:30:00 67 /min [facility] Body temperature 2024-05-14 18:30:00 36.44 Crystal [facility] Respiratory rate 2024-05-14 18:30:00 19 /min [facility] Oxygen saturation in Arterial blood by Pulse oximetry 2024-05-14 18:30:00 97 /min [facility] Body weight 2024-05-14 10:00:00 76.3 kg [facility] BMI 2024-05-14 10:00:00 24.86 kg/m2 [facility] Body height 2024-05-12 04:53:00 177.8 cm [facility] Procedures Procedure Date / Time Performed Performing Clinician Source BASIC METABOLIC PANEL (NA, K, CL, CO2, GLUCOSE, BUN, CREATININE, CA) 2024-05-15 10:36:00 Stan Mendez V. [facility] CBC WITH DIFF 2024-05-15 10:36:00 Stan Mendez V. [facility] BASIC METABOLIC PANEL (NA, K, CL, CO2, GLUCOSE, BUN, CREATININE, CA) 2024-05-15 10:36:00 Stan Mendez V. [facility] CBC WITH DIFF 2024-05-15 10:36:00 Cyndee Mendeza Marie. [facility] COLONOSCOPY (ENDO) 2024-05-14 20:35:55 Self Refe rred, Facility Npi [facility] COLONOSCOPY (ENDO) 2024-05-14 20:35:55 Self Refe rred, Facility Npi [facility] COLONOSCOPY 2024-05-14 19:22:00 Lee Reyes [facility] COLONOSCOPY 2024-05-14 19:22:00 Lee Reyes [facility] PHOSPHORUS 2024-05-14 16:49:00 SangCyndee de la rosaa V. [facility] MAGNESIUM 2024-05-14 16:49:00 Sangestrella Stan V. [facility] BASIC METABOLIC PANEL (NA, K, CL, CO2, GLUCOSE, BUN, CREATININE, CA) 2024-05-14 16:49:00 Vanessa Stan V. [facility] ABORH CONFIRMATION (LAB ONLY) 2024-05-14 16:49:00 Sangnestori Stan V. [facility] PHOSPHORUS 2024-05-14 16:49:00 Cyndee Mendeza V. [facility] MAGNESIUM 2024-05-14 16:49:00 Sanghani Stan V. [facility] BASIC METABOLIC PANEL (NA, K, CL, CO2, GLUCOSE, BUN, CREATININE, CA) 2024-05-14 16:49:00 Vanessa Stan V. [facility] ABORH CONFIRMATION (LAB ONLY) 2024-05-14 16:49:00 Cyndee Mendeza V. [facility] HB ABO GROUPING 2024-05-14 15:01:00 Simon Holman [facility] HB ABO GROUPING 2024-05-14 15:01:00 Simon Holman [facility] BASIC METABOLIC PANEL (NA, K, CL, CO2, GLUCOSE, BUN, CREATININE, CA) 2024-05-14 11:14:00 Socorro Kimbrough [facility] CBC WITH DIFF 2024-05-14 11:14:[address] [facility] BASIC METABOLIC PANEL (NA, K, CL, CO2, GLUCOSE, BUN, CREATININE, CA) 2024-05-14 11:14:00 Socorro Kimbrough [facility] CBC WITH DIFF 2024-05-14 11:14:[address] [facility] PHOSPHORUS 2024-05-13 09:50:00 KaylanSocorro cage [facility] MAGNESIUM 2024-05-13 09:50:00 KaylanSocorro cage [facility] BASIC METABOLIC PANEL (NA, K, CL, CO2, GLUCOSE, BUN, CREATININE, CA) 2024-05-13 09:50:00 [facility] 2024-05-13 09:50:00 KaylanSocorro cage [facility] PHOSPHORUS 2024-05-13 09:50:00 KaylanSocorro cage [facility] MAGNESIUM 2024-05-13 09:50:00 KaylanSocorro cage [facility] BASIC METABOLIC PANEL (NA, K, CL, CO2, GLUCOSE, BUN, CREATININE, CA) 2024-05-13 09:50:00 [facility]FF 2024-05-13 09:50:00 Socorro Kimbrough [facility] CBC WITHOUT DIFF 2024-05-12 20:35:00 Postlethwai duarte [facility] CBC WITHOUT DIFF 2024-05-12 20:35:00 Postlethwai duarte [facility] XR CHEST 1 2024-05-12 18:04:44 Socorro Kimbrough [facility] XR CHEST 1 2024-05-12 18:04:44 Socorro Kimbrough [facility] CT ABDOMEN PELVIS WO CONTRAST 2024-05-12 17:57:38 Kaylan [facility] CT ABDOMEN PELVIS WO CONTRAST 2024-05-12 17:57:38 [facility] WITH [facility]FF 2024-05-12 14:30:00 KaylanSocorro cage [facility] CBC WITH DIFF 2024-05-12 14:30:00 Socorro Kimbrough [facility] PHOSPHORUS 2024-05-12 05:52:00 [facility] 2024-05-12 05:52:00 Socorro Kimbrough [facility] BASIC METABOLIC PANEL (NA, K, CL, CO2, GLUCOSE, BUN, CREATININE, CA) 2024-05-12 05:52:00 [facility] WITH [facility]FF 2024-05-12 05:52:00 Socorro Kimbrough [facility] PHOSPHORUS 2024-05-12 05:52:00 Socorro Kimbrough [facility] MAGNESIUM 2024-05-12 05:52:00 Socorro Kimbrough [facility] BASIC METABOLIC PANEL (NA, K, CL, CO2, GLUCOSE, BUN, CREATININE, CA) 2024-05-12 05:52:00 [facility] WITH [facility]FF 2024-05-12 05:52:00 Socorro Kimbrough [facility] [id number] 2024-01-12 00:00:00 POREY [facility] [id number] 2024-01-12 00:00:00 POREY [facility] [id number] 2024-01-12 00:00:00 POREY [facility] [id number] 2024-01-12 00:00:00 POREY [facility] [id number] 2024-01-12 00:00:00 POREY [facility] [id number] 2024-01-12 00:00:00 POREY [facility] [id number] 2024-01-12 00:00:00 POREY [facility] [id number] 2024-01-12 00:00:00 POREY [facility] [id number] 2024-01-12 00:00:00 POREY [facility] [id number] 2024-01-12 00:00:00 POREY [facility] [id number] 2024-01-12 00:00:00 POREY [facility] [id number] 2024-01-12 00:00:00 POREY [facility] [id number] 2024-01-12 00:00:00 POREY [facility] [id number] 2024-01-12 00:00:00 POREY [facility] [id number] 2023-12-22 00:00:00 LOYPR [facility] Encounters Start Date/Time End Date/Time Encounter Type Admission Type Attending [facility] Facility Care Department Encounter ID Source 2024-08-05 13:49:01 Outpatient Gabriel, Jim [facility] [id number] [facility] 2024-02-29 16:37:00 Outpatient [facility] [id number] [facility] 2024-02-28 09:59:00 Outpatient [facility] [id number] [facility] 2021-10-11 10:21:05 Outpatient [facility] [id number] [facility] 2024-08-20 11:00:00 2024-08-20 11:00:00 Outpatient Berry Nair [facility] [id number] [facility] 2024-05-11 23:48:00 2024-05-15 16:57:00 Inpatient STAN MAS RACHANA CASERGIO CAN [id number] [facility] 2024-05-11 23:48:00 2024-05-15 16:57:00 Hospital Encounter Jj Mcfarland [facility], Stan Lieberman [facility] [id number] [facility] 2024-05-14 13:00:00 2024-05-14 14:13:00 Surgery Lee Reyes [facility] [id number] [facility] 2024-01-10 08:30:00 2024-01-23 13:25:00 Inpatient Jerad Macario [facility] CARDIAC [id number] [facility] are [facility] 2024-01-10 10:58:00 2024-01-10 10:58:00 Outpatient Jerad Bearden [facility] REF [id number] [facility] 2023-12-22 06:14:00 2023-12-22 14:52:00 Inpatient Antoine Blandon [facility] CAT [id number] [facility] are [facility] 2023-12-22 06:00:00 2023-12-22 13:52:00 Outpatient Antoine Blandon [facility] ZZZB [id number] [facility] 2023-11-11 04:52:00 2023-11-11 04:52:00 Outpatient Tyra Goldsmith [facility] CATH [id number] [facility] Results Test Description Test Time Test Comments Results Result Co mments Source [facility] 17:21:44* Test Item Value Reference Range Interpretation Comme nts MAGNESIUM (test code = 4585855156) 1.9 mg/dL 1.7-2.4 Lab Interpretation (test cod e = 89427-8) Normal [facility]2024-[facility]-05 17:21:44* Test Item Value Reference Range Interpretation Comme nts PHOSPHORUS (test code = 3461865688) 2.5 mg/dL 2.5-5.0 Lab Interpretation (test cod e = 24189-1) Normal [facility] (NA, K, CL, CO2, GLUCOSE, BUN, CREATININE, CA)2024-05-14 17:21:44* Test Item Value Reference Range Interpretation Comme nts NA (test code = 3501062070) 138 mmol/L 135-145 K (test code = 8925281101) 4.2 mmol/L 3.5-5.0 CL (test code = 4257226445) 106 mmol/L 98-108 CO2 TOTAL (test code = 6230550004) 24 mmol/L 23-31 AGAP (test code = 9591774801) 8 2-16 BUN (test code = 0665154053) 19 mg/dL 7-23 GLUCOSE (test code = 9838688717) 85 mg/dL 70-110 CREATININE (test code = 2160-0) 1.60 mg/dL 0.60-1.25 H CALCIUM (test code = 1256774469) 8.4 mg/dL 8.6-10.6 L eGFR (test code = 16246-2) 42.5 mL/min/1.73m2 CKD-EPI eGFR (2020). Assuming creatinine has been stable day-to-day for at least three months, the eGFR indicates Category G3b (30 - 44 mL/min/1.73 m2) Lab Interpretation (test code = 39816-9) Abnormal [facility]2024-[facility]-05 17:21:44* Test Item Value Reference Range Interpretation Comme nts MAGNESIUM (test code = 6117132468) 1.9 mg/dL 1.7-2.4 Lab Interpretation (test cod e = 61298-4) Normal [facility]2024-11-05 17:21:44* Test Item Value Reference Range Interpretation Comme nts PHOSPHORUS (test code = 6089226687) 2.5 mg/dL 2.5-5.0 Lab Interpretation (test cod e = 65004-1) Normal [facility] Confirm[facility] (Lab Only)2024-05-14 16:56:00* Test Item Value Reference Range Interpretation Comme nts ABO & RH (test code = 20) O [facility]2024-05-14 16:56:00* Test Item Value Reference Range Interpretation Comme nts ABO & RH (test code = 20) O Positive [facility] - ONCE [id number] 15:17:00* Test Item Value Reference Range Interpretation Comme nts ABO & RH (test code = 20) O POSITIVE IAT (test code = 1185) Negative [facility] [id number] 15:17:00* Test Item Value Reference Range Interpretation Comme nts ABO & RH (test code = 20) O POSITIVE IAT (test code = 1185) Negative [facility] WO [id number] 22:18:36Interpretation of outside imaging, ?CT ABDOMEN PEL[facility], [facility].Today's date 05/12/2024 4:03 PM HISTORY: Abdominal pain, acute, nonlocalized. Gastrointestinal bleeding PROCEDURE: Axial images of abdomen and pelvis are obtained withoutintravenous administration of contrast. Sagittal and coronal reformats areprovided. COMPARISON: CT abdomen pelvis 01/31/2018 TECHNIQUE: Axial images of the abdomen and pelvis were acquired withoutadministration of intravenous contrast. Coronal and sagittalreconstructions were also created. FINDINGS:Lack of intravenous contrast limits evaluation of solid organ lesions. LOWER CHEST: Mitral and aortic valve replacement. . HEPATOBILIARY: The liver is normal in size. No masses consideringlimitation of lack of intravenous contrast.The gallbladder is normal.No biliary ductal dilatation. SPLEEN: Normal in size. ? PANCREAS: Mild to moderate fatty infiltration of parenchyma.No ductaldilatation. ? ADRENAL GLANDS: No adrenal nodules. KIDNEYS: Multiple bilateral parapelvic cysts are noted measuring up to 2 cmon the left. No hydronephrosis or stone. GI TRACT: Small type on hiatal hernia No luminal dilatation or bowel wallthickening. ?Colonic diverticulosis. A long segment of sigmoid colon,spanning 14 cm is thickened. Subtle fat stranding is seen around proximalsigmoid colon. There is no extraluminal gas or fluid collection. Theappendix is normal. PERITONEUM AND RETROPERITONEUM: No free air or free fluid. LYMPH NODES: Fewsmall perisigmoid lymph nodes measuring up to 7 mm.PELVIS/BLADDER: The urinary bladder is normal. The prostate is moderatelyenlarged.. VESSELS: Mild atherosclerotic disease of aorta and iliac branches. BONES AND SOFT TISSUES: Degenerative changes of spines with multilevel discspace height loss, andintervertebral disc height loss as well asosteophytosis, worse at T12/L1 L5/S1 associated with grade 1 retrolisthesisof T11 on L1, L5 on S1. Grade 1 anterolisthesis of L4 on L5.. Smallfat-containing bilateral inguinal hernias.[facility] WO [id number] 22:18:36Interpretation of outside imaging, ?CT ABDOMEN PELVIS WO CONTRAST [facility], dated 2023.Today's date 05/12/2024 4:03 PM HISTORY: Abdominal pain, acute, nonlocalized. Gastrointestinal bleeding PROCEDURE: Axial images of abdomen and pelvis are obtained withoutintravenous administration of contrast. Sagittal and coronal reformats areprovided. COMPARISON: CT abdomen pelvis 01/31/2018 DUARTE ARACELISANDY: Axial images of the abdomen and pelvis were acquired withoutadministration of intravenous contrast. Coronal and sagittalreconstructions were also created. FINDINGS:Lack of intravenous contrast limits evaluation of solid organ lesions. LOWER CHEST: Mitral and aortic valve replacement. . HEPATOBILIARY: The liver is normal in size. No masses consideringlimitation of lack of intravenous contrast.The gallbladder is normal.No biliary ductal dilatation. SPLEEN: Normal in size. ? PANCREAS: Mild to moderate fatty infiltration of parenchyma.No ductaldilatation. ? ADRENAL GLANDS: No adrenal nodules. KIDNEYS: Multiple bilateral parapelvic cysts are noted measuring up to 2 cmon the left. No hydronephrosis or stone. GI TRACT: Small type on hiatal hernia No luminal dilatation or bowel wallthickening. ?Colonic diverticulosis. A long segment of sigmoid colon,spanning 14 cm is thickened. Subtle fat stranding is seen around proximalsigmoid colon. There is no extraluminal gas or fluid collection. Theappendix is normal. PERITONEUM AND RETROPERITONEUM: No free air or free fluid. LYMPH NODES: Fewsmall perisigmoid lymph nodes measuring up to 7 mm.PELVIS/BLADDER: The urinary bladder is normal. The prostate is moderatelyenlarged.. VESSELS: Mild atherosclerotic disease of aorta and iliac branches. BONES AND SOFT TISSUES: Degenerative changes of spines with multilevel discspace height loss, andintervertebral disc height loss as well asosteophytosis, worse at T12/L1 L5/S1 associated with grade 1 retrolisthesisof T11 on L1, L5 on S1. Grade 1 anterolisthesis of L4 on L5.. Smallfat-containing bilateral inguinal hernias.[facility] without [id number] 20:44:47* Test Item Value Reference Range Interpretation Comme nts WBC (test code = 6690-2) 9.06 4.20-10.70 RBC (test code = 789-8) 2.87 4.26-5.52 L HGB (test code = 718-7) 9.5 g/dL 12.2-16.4 L HCT (test code = 4544-3) 28.2 % 38.4-49.3 L MCH (test code = 785-6) 33.1 pg 26.1-32.7 H MCV (test code = 787-2) 98.3 fL 81.7-95.6 H MCHC (test code = 786-4) 33.7 g/dL 31.2-35.0 PLT (test code = 777-3) 202 150-328 MPV (test code = 78453-9) 10.3 fL 9.8-13.0 RDW-CV (test code = 788-0) 14.2 % 12.1-15.4 RDW-SD (test code = 58769-2) 51.1 fL 38.5-51.6 NRBC x10^3 (test code = 5110973927) See_Comment [Automated messa ge] The system which generated this result transmitted reference range: 10*3/?L. The reference range was not used to interpret this result as normal/abnormal. NRBC/100 WBC (test code = 5253403810) 0.0 0.0-10.0 IPF % (test code = 0470778722) Lab Interpretation (test code = 33641-3) Abnormal [facility] without [id number] 20:44:47* Test Item Value Reference Range Interpretation Comme nts WBC (test code = 6690-2) 9.06 4.20-10.70 RBC (test code = 789-8) 2.87 4.26-5.52 L HGB (test code = 718-7) 9.5 g/dL 12.2-16.4 L HCT (test code = 4544-3) 28.2 % 38.4-49.3 L MCH (test code = 785-6) 33.1 pg 26.1-32.7 H MCV (test code = 787-2) 98.3 fL 81.7-95.6 H MCHC (test code = 786-4) 33.7 g/dL 31.2-35.0 PLT (test code = 777-3) 202 150-328 MPV (test code = 11501-0) 10.3 fL 9.8-13.0 RDW-CV (test code = 788-0) 14.2 % 12.1-15.4 RDW-SD (test code = 02579-2) 51.1 fL 38.5-51.6 NRBC x10^3 (test code = 1027452725) See_Comment [Automated Speedshape[employer] ge] The system which generated this result transmitted reference range: 10*3/?L. The reference range was not used to interpret this result as normal/abnormal. NRBC/100 WBC (test code = 1807973694) 0.0 0.0-10.0 IPF % (test code = 2092310913) Lab Interpretation (test code = 73695-6) [facility] [id number] 19:33:15ORDERING PHYSICIAN: NABOR PAGE CLINICAL HISTORY: ? ?Outside imaging interpretation TECHNIQUE: Single view of the chest COMPARISON: ?None FINDINGS: No focal infiltrate, pleural effusion, or pneumothorax. Thecardiomediastinal silhouette is normal. felt dyeing machine tender prosthesis. Mediansternotomy appear intact. The upper abdomen is unremarkable. ?[facility]osseous abnormality[facility] [id number] 19:33:15ORDERING PHYSICIAN: NABOR PAGE CLINICAL HISTORY: ? ?Outside imaging interpretation TECHNIQUE: Single view of the chest COMPARISON: ?None FINDINGS: No focal infiltrate, pleural effusion, or pneumothorax. Thecardiomediastinal silhouette is normal. felt dyeing machine tender prosthesis. Mediansternotomy appear intact. The upper abdomen is unremarkable. ?[facility] acuteosseous abnormality.[id number]:14[facility]* Test Item Value Reference Range Interpretation Comme nts GLUBED (test code = GLUBED) 122 MG/DL 70-105 H CBC W/AUTO [id number] 07:18:00* Test Item Value Reference Range Interpretation Comme nts WHITE BLOOD CELL (test code = WBC) 13.1 x10 3/uL 4.8-10.8 H RED BLOOD CELL (test code = RBC) 2.88 x10 6/uL 4.70-6.10 L HEMOGLOBIN (test code = HGB) 9.4 g/dL 14.0-18.0 L HEMATOCRIT (test code = HCT) 30.0 % 42.0-52.0 L MEAN CELL VOLUME (test code = MCV) 104.2 fL 80.0-94.0 H MEAN CELL HGB (test code = MCH) 32.6 pg 27-31 H MEAN CELL HGB CONCENTRATION (test code = MCHC) 31.3 G/DL 33-36.5 L RED CELL DISTRIBUTION WIDTH (test code = RDW) 14.4 % 12.9-16.9 N PLATELET COUNT (test code = PLT) 412 x10 3/uL 150-440 N MEAN PLATELET VOLUME (test code = MPV) 10.3 fL 8.9-12.4 N NEUTROPHIL % (test code = NT%) 80.0 % 42.2-75.2 H LYMPHOCYTE % (test code = LY%) 6.8 % 20.5-51.1 L MONOCYTE % (test code = MO%) 8.0 % 1.7-9.3 N EOSINOPHIL % (test code = EO%) 3.4 % 0.0-7.0 N BASOPHIL % (test code = BA%) 0.6 % 0-2.5 N NEUTROPHIL # (test code = NT#) 10.46 x10 3/uL 1.80-7.70 H LYMPHOCYTE # (test code = LY#) 0.89 x10 3/uL 1.00-4.80 L MONOCYTE # (test code = MO#) 1.04 x10 3/uL 0.00-0.80 H EOSINOPHIL # (test code = EO#) 0.45 x10 3/uL 0.00-0.45 N BASOPHIL # (test code = BA#) 0.08 x10 3/uL 0.0-0.20 N COMPREHENSIVE METABOLIC [id number] 06:51:00* Test Item Value Reference Range Interpretation Comme nts SODIUM (test code = NA) 142 mmol/L 136-145 N POTASSIUM (test code = K) 4.7 mmol/L 3.5-5.1 N CHLORIDE (test code = CL) 110 mmol/l 98-107 H CARBON DIOXIDE (test code = CO2) 24 mmol/L 20-31 N GLUCOSE (test code = GLU) 114 mg/dL 74-106 H BLOOD UREA NITROGEN (test code = BUN) 26 mg/dL 9-23 H GLOMERULAR FILTRATION RATE (test code = GFR) 46 mL/min >60 L The Glomerular Filtration Rate is a calculated parameterbased on serum Creatinine, patient age and sex. GFR valuesless than 60 mL/min/1.73 square meters are indicative ofChronic Kidney Disease. Values less than 15 mL/min/1.73square meters indicate Kidney failure. The calculation forGFR is based on the CKD-EPI (2020) calculation. This formulais race indifferent and is the recommended formula for GFRby the National Kidney Foundation for Adults.The GFR will not calculate if the sex is unknown or if thepatient's age is <18 years. CREATININE (test code = CREAT) 1.50 mg/dL 0.70-1.30 H TOTAL PROTEIN (test code = PROT) 5.5 g/dL 5.7-8.2 L ALBUMIN (test code = ALB) 3.3 g/dL 3.2-4.8 N CALCIUM (test code = CA) 8.4 mg/dL 8.7-10.4 L BILIRUBIN TOTAL (test code = BILT) 0.4 mg/dL 0.3-1.2 N SGOT/AST (test code = AST) 54 U/L <34 H SGPT/ALT (test code = ALT) 52 U/L 10-49 H ALKALINE PHOSPHATASE (test code = ALKP) 201.0 U/L 46-116 H [id number] 20:13:00* Test Item Value Reference Range Interpretation Comme nts GLUBED (test code = GLUBED) 113 MG/DL 70-105 H [id number] 16:47:00* Test Item Value Reference Range Interpretation Comme nts GLUBED (test code = GLUBED) 128 MG/DL 70-105 H [id number] 12:05:00* Test Item Value Reference Range Interpretation Comme nts GLUBED (test code = GLUBED) 104 MG/DL 70-105 N [id number] 08:43:00* Test Item Value Reference Range Interpretation Comme nts GLUBED (test code = GLUBED) 235 MG/DL 70-105 H COMPREHENSIVE METABOLIC [id number] 07:50:00* Test Item Value Reference Range Interpretation Comme nts SODIUM (test code = NA) 141 mmol/L 136-145 N POTASSIUM (test code = K) 4.1 mmol/L 3.5-5.1 N CHLORIDE (test code = CL) 113 mmol/l 98-107 H CARBON DIOXIDE (test code = CO2) 22 mmol/L 20-31 N GLUCOSE (test code = GLU) 110 mg/dL 74-106 H BLOOD UREA NITROGEN (test code = BUN) 23 mg/dL 9-23 N GLOMERULAR FILTRATION RATE (test code = GFR) 50 mL/min >60 L The Glomerular Filtration Rate is a calculated parameterbased on serum Creatinine, patient age and sex. GFR valuesless than 60 mL/min/1.73 square meters are indicative ofChronic Kidney Disease. Values less than 15 mL/min/1.73square meters indicate Kidney failure. The calculation forGFR is based on the CKD-EPI (2020) calculation. This formulais race indifferent and is the recommended formula for GFRby the National Kidney Foundation for Adults.The GFR will not calculate if the sex is unknown or if thepatient's age is <18 years. CREATININE (test code = CREAT) 1.40 mg/dL 0.70-1.30 H TOTAL PROTEIN (test code = PROT) 5.2 g/dL 5.7-8.2 L ALBUMIN (test code = ALB) 3.1 g/dL 3.2-4.8 L CALCIUM (test code = CA) 8.1 mg/dL 8.7-10.4 L BILIRUBIN TOTAL (test code = BILT) 0.4 mg/dL 0.3-1.2 N SGOT/AST (test code = AST) 34 U/L <34 N SGPT/ALT (test code = ALT) 38 U/L 10-49 N ALKALINE PHOSPHATASE (test code = ALKP) 171.0 U/L 46-116 H CBC W/AUTO [id number] 07:33:00* Test Item Value Reference Range Interpretation Comme nts WHITE BLOOD CELL (test code = WBC) 10.6 x10 3/uL 4.8-10.8 N RED BLOOD CELL (test code = RBC) 2.67 x10 6/uL 4.70-6.10 L HEMOGLOBIN (test code = HGB) 8.7 g/dL 14.0-18.0 L HEMATOCRIT (test code = HCT) 26.9 % 42.0-52.0 L MEAN CELL VOLUME (test code = MCV) 100.7 fL 80.0-94.0 H MEAN CELL HGB (test code = MCH) 32.6 pg 27-31 H MEAN CELL HGB CONCENTRATION (test code = MCHC) 32.3 G/DL 33-36.5 L RED CELL DISTRIBUTION WIDTH (test code = RDW) 14.3 % 12.9-16.9 N PLATELET COUNT (test code = PLT) 311 x10 3/uL 150-440 N MEAN PLATELET VOLUME (test c ode = MPV) 10.6 fL 8.9-12.4 N NEUTROPHIL % (test code = NT%) 77.6 % 42.2-75.2 H LYMPHOCYTE % (test code = LY%) 6.2 % 20.5-51.1 L MONOCYTE % (test code = MO%) 9.0 % 1.7-9.3 N EOSINOPHIL % (test code = EO%) 5.7 % 0.0-7.0 N BASOPHIL % (test code = BA%) 0.5 % 0-2.5 N NEUTROPHIL # (test code = NT#) 8.20 x10 3/uL 1.80-7.70 H LYMPHOCYTE # (test code = LY#) 0.65 x10 3/uL 1.00-4.80 L MONOCYTE # (test code = MO#) 0.95 x10 3/uL 0.00-0.80 H EOSINOPHIL # (test code = EO#) 0.60 x10 3/uL 0.00-0.45 H BASOPHIL # (test code = BA#) 0.05 x10 3/uL 0.0-0.20 N COMPREHENSIVE METABOLIC [id number] 10:58:00* Test Item Value Reference Range Interpretation Comme nts SODIUM (test code = NA) 141 mmol/L 136-145 N POTASSIUM (test code = K) 4.2 mmol/L 3.5-5.1 N CHLORIDE (test code = CL) 109 mmol/l 98-107 H CARBON DIOXIDE (test code = CO2) 23 mmol/L 20-31 N GLUCOSE (test code = GLU) 159 mg/dL 74-106 H BLOOD UREA NITROGEN (test code = BUN) 24 mg/dL 9-23 H GLOMERULAR FILTRATION RATE (test code = GFR) 42 mL/min >60 L The Glomerular Filtration Rate is [...] <18 years. CREATININE (test code = CREAT) 1.60 mg/dL 0.70-1.30 H TOTAL PROTEIN (test code = PROT) 5.7 g/dL 5.7-8.2 N ALBUMIN (test code = ALB) 3.5 g/dL 3.2-4.8 N CALCIUM (test code = CA) 7.8 mg/dL 8.7-10.4 L BILIRUBIN TOTAL (test code = BILT) 0.5 mg/dL 0.3-1.2 N SGOT/AST (test code = AST) 43 U/L <34 H SGPT/ALT (test code = ALT) 51 U/L 10-49 H ALKALINE PHOSPHATASE (test code = ALKP) 187.0 U/L 46-116 H CBC W/AUTO [id number] 10:40:00* Test Item Value Reference Range Interpretation Comme nts WHITE BLOOD CELL (test code = WBC) 11.6 x10 3/uL 4.8-10.8 H RED BLOOD CELL (test code = RBC) 2.86 x10 6/uL 4.70-6.10 L HEMOGLOBIN (test code = HGB) 9.4 g/dL 14.0-18.0 L HEMATOCRIT (test code = HCT) 29.0 % 42.0-52.0 L MEAN CELL VOLUME (test code = MCV) 101.4 fL 80.0-94.0 H MEAN CELL HGB (test code = MCH) 32.9 pg 27-31 H MEAN CELL HGB CONCENTRATION (test code = MCHC) 32.4 G/DL 33-36.5 L RED CELL DISTRIBUTION WIDTH (test code = RDW) 14.3 % 12.9-16.9 N PLATELET COUNT (test code = PLT) 279 x10 3/uL 150-440 N MEAN PLATELET VOLUME (test c ode = MPV) 10.1 fL 8.9-12.4 N NEUTROPHIL % (test code = NT%) 84.2 % 42.2-75.2 H LYMPHOCYTE % (test code = LY%) 5.1 % 20.5-51.1 L MONOCYTE % (test code = MO%) 6.1 % 1.7-9.3 N EOSINOPHIL % (test code = EO%) 3.1 % 0.0-7.0 N BASOPHIL % (test code = BA%) 0.5 % 0-2.5 N NEUTROPHIL # (test code = NT#) 9.72 x10 3/uL 1.80-7.70 H LYMPHOCYTE # (test code = LY#) 0.59 x10 3/uL 1.00-4.80 L MONOCYTE # (test code = MO#) 0.71 x10 3/uL 0.00-0.80 N EOSINOPHIL # (test code = EO#) 0.36 x10 3/uL 0.00-0.45 N BASOPHIL # (test code = BA#) 0.06 x10 3/uL 0.0-0.20 N BASIC METABOLIC [id number] 03:18:00* Test Item Value Reference Range Interpretation Comme nts SODIUM (test code = NA) 143 mmol/L 136-145 N POTASSIUM (test code = K) 3.9 mmol/L 3.5-5.1 N CHLORIDE (test code = CL) 114 mmol/l 98-107 H CARBON DIOXIDE (test code = CO2) 21 mmol/L 20-31 N GLUCOSE (test code = GLU) 124 mg/dL 74-106 H BLOOD UREA NITROGEN (test code = BUN) 27 mg/dL 9-23 H GLOMERULAR FILTRATION RATE (test code = GFR) 40 mL/min >60 L The Glomerular Filtration Rate is a calculated parameterbased on serum Creatinine, patient age and sex. GFR valuesless than 60 mL/min/1.73 square meters are indicative ofChronic Kidney Disease. Values less than 15 mL/min/1.73square meters indicate Kidney failure. The calculation forGFR is based on the CKD-EPI (2020) calculation. This formulais race indifferent and is the recommended formula for GFRby the National Kidney Foundation for Adults.The GFR will not calculate if the sex is unknown or if thepatient's age is <18 years. CREATININE (test code = CREAT) 1.70 mg/dL 0.70-1.30 H CALCIUM (test code = CA) 7.5 mg/dL 8.7-10.4 L [id number] 03:18:00* Test Item Value Reference Range Interpretation Comme nts PHOSPHOROUS (test code = PHOS) 2.9 mg/dL 2.4-5.1 N [id number] 03:18:00* Test Item Value Reference Range Interpretation Comme nts MAGNESIUM (test code = MAG) 2.1 mg/dL 1.6-2.6 N CBC W/AUTO [id number] 03:04:00* Test Item Value Reference Range Interpretation Comme nts WHITE BLOOD CELL (test code = WBC) 9.4 x10 3/uL 4.8-10.8 N RED BLOOD CELL (test code = RBC) 2.58 x10 6/uL 4.70-6.10 L HEMOGLOBIN (test code = HGB) 8.5 g/dL 14.0-18.0 L HEMATOCRIT (test code = HCT) 26.5 % 42.0-52.0 L MEAN CELL VOLUME (test code = MCV) 102.7 fL 80.0-94.0 H MEAN CELL HGB (test code = MCH) 32.9 pg 27-31 H MEAN CELL HGB CONCENTRATION (test code = MCHC) 32.1 G/DL 33-36.5 L RED CELL DISTRIBUTION WIDTH (test code = RDW) 14.4 % 12.9-16.9 N PLATELET COUNT (test code = PLT) 196 x10 3/uL 150-440 N MEAN PLATELET VOLUME (test c ode = MPV) 10.5 fL 8.9-12.4 N NEUTROPHIL % (test code = NT%) 77.0 % 42.2-75.2 H LYMPHOCYTE % (test code = LY%) 6.5 % 20.5-51.1 L MONOCYTE % (test code = MO%) 9.6 % 1.7-9.3 H EOSINOPHIL % (test code = EO%) 5.5 % 0.0-7.0 N BASOPHIL % (test code = BA%) 0.4 % 0-2.5 N NEUTROPHIL # (test code = NT#) 7.20 x10 3/uL 1.80-7.70 N LYMPHOCYTE # (test code = LY#) 0.61 x10 3/uL 1.00-4.80 L MONOCYTE # (test code = MO#) 0.90 x10 3/uL 0.00-0.80 H EOSINOPHIL # (test code = EO#) 0.51 x10 3/uL 0.00-0.45 H BASOPHIL # (test code = BA#) 0.04 x10 3/uL 0.0-0.20 N [id number] 21:12:00* Test Item Value Reference Range Interpretation Comme nts GLUBED (test code = GLUBED) 139 MG/DL 70-105 H [id number] 18:34:00* Test Item Value Reference Range Interpretation Comme nts GLUBED (test code = GLUBED) 107 MG/DL 70-105 H [id number] 13:51:00* Test Item Value Reference Range Interpretation Comme nts GLUBED (test code = GLUBED) 125 MG/DL 70-105 H BASIC METABOLIC [id number] 04:25:00* Test Item Value Reference Range Interpretation Comme nts SODIUM (test code = NA) 145 mmol/L 136-145 N POTASSIUM (test code = K) 3.5 mmol/L 3.5-5.1 N CHLORIDE (test code = CL) 114 mmol/l 98-107 H CARBON DIOXIDE (test code = CO2) 23 mmol/L 20-31 N GLUCOSE (test code = GLU) 117 mg/dL 74-106 H BLOOD UREA NITROGEN (test code = BUN) 28 mg/dL 9-23 H GLOMERULAR FILTRATION RATE (test code = GFR) 50 mL/min >60 L The Glomerular Filtration Rate is [...] <18 years. CREATININE (test code = CREAT) 1.40 mg/dL 0.70-1.30 H CALCIUM (test code = CA) 7.5 mg/dL 8.7-10.4 L [id number] 04:25:00* Test Item Value Reference Range Interpretation Comme nts PHOSPHOROUS (test code = PHOS) 3.0 mg/dL 2.4-5.1 N [id number] 04:25:00* Test Item Value Reference Range Interpretation Comme nts MAGNESIUM (test code = MAG) 1.9 mg/dL 1.6-2.6 N CBC W/AUTO [id number] 03:51:00* Test Item Value Reference Range Interpretation Comme nts WHITE BLOOD CELL (test code = WBC) 10.6 x10 3/uL 4.8-10.8 N RED BLOOD CELL (test code = RBC) 2.50 x10 6/uL 4.70-6.10 L HEMOGLOBIN (test code = HGB) 8.2 g/dL 14.0-18.0 L HEMATOCRIT (test code = HCT) 25.1 % 42.0-52.0 L MEAN CELL VOLUME (test code = MCV) 100.4 fL 80.0-94.0 H MEAN CELL HGB (test code = MCH) 32.8 pg 27-31 H MEAN CELL HGB CONCENTRATION (test code = MCHC) 32.7 G/DL 33-36.5 L RED CELL DISTRIBUTION WIDTH (test code = RDW) 14.4 % 12.9-16.9 N PLATELET COUNT (test code = PLT) 149 x10 3/uL 150-440 L MEAN PLATELET VOLUME (test c ode = MPV) 11.1 fL 8.9-12.4 N NEUTROPHIL % (test code = NT%) 79.3 % 42.2-75.2 H LYMPHOCYTE % (test code = LY%) 4.1 % 20.5-51.1 L MONOCYTE % (test code = MO%) 11.2 % 1.7-9.3 H EOSINOPHIL % (test code = EO%) 4.1 % 0.0-7.0 N BASOPHIL % (test code = BA%) 0.3 % 0-2.5 N NEUTROPHIL # (test code = NT#) 8.41 x10 3/uL 1.80-7.70 H LYMPHOCYTE # (test code = LY#) 0.44 x10 3/uL 1.00-4.80 L MONOCYTE # (test code = MO#) 1.19 x10 3/uL 0.00-0.80 H EOSINOPHIL # (test code = EO#) 0.44 x10 3/uL 0.00-0.45 N BASOPHIL # (test code = BA#) 0.03 x10 3/uL 0.0-0.20 N [id number] 19:44:00* Test Item Value Reference Range Interpretation Comme nts GLUBED (test code = GLUBED) 130 MG/DL 70-105 H [id number] 17:57:00* Test Item Value Reference Range Interpretation Comme nts GLUBED (test code = GLUBED) 137 MG/DL 70-105 H [id number] 13:20:00* Test Item Value Reference Range Interpretation Comme nts GLUBED (test code = GLUBED) 107 MG/DL 70-105 H BLOOD GAS [id number] 10:02:00* Test Item Value Reference Range Interpretation Comme [facility] ARTERIAL BLOOD GAS PH (test code = PHA) 7.42 7.35-7.45 N ARTERIAL BLOOD GAS PCO2 (test code = PCO2A) 31.1 mmHg 35.0-45.0 L ARTERIAL BLOOD GAS PO2 (test code = PO2A) 119.9 mmHg 80.0-95.0 H BICARBONATE TOTAL HCO3 (test code = HCO3) 19.9 mmol/L 22.0-24.0 L BASE EXCESS (test code = EM) -3.6 mmol/L See_Comment L [Automated message] The system which generated this result transmitted reference range: (+/-)2.0. The reference range was not used to interpret this result as normal/abnormal. ABG O2 SATURATION (test code = SATA) 98.3 % 95.0-100.0 N ARTERIAL FIO2 (test code = FIO2A) 50.0 % ABG VENT MODE (test code = MODEA) Ventilator ALLENS TEST (test code = ALLENS) NOT APPLICABLE SODIUM (POC) (test code = NA/ABG) 141 mmol/L 135-147 N POTASSIUM (POC) (test code = K/ABG) 4.49 mmol/L 3.6-5.2 N CHLORIDE (ARTERIAL) (test code = CL/ABG) 108 mmol/L 98-108 N GLUCOSE (test code = GLU/ABG) 151 mg/dL 70-104 H IONIZED CALCIUM (test code = CAIABG) 1.29 mmol/L 1.12-1.32 N POC LACTIC ACID (test code = POCLAC) 3.65 mmol/L 0.5-2.2 H TOTAL HGB (test code = THB) 11.3 g/dL 13.0-17.0 L OXYHEMOGLOBIN (test code = OOHGBT) 97.0 % 92.0-98.0 N CARBOXYHEMOGLOBIN (test code = HOHGBT) 0.3 % 0-5.0 N METHEMOGLOBIN (test code = METHGB) 1.0 % 0-1.5 N HHb (test code = HHB) 1.7 % TCO2 ARTERIAL (test code = TCO2A) 20.9 MMOL/L 24-30 L BLOOD GAS [id number] 10:02:00* Test Item Value Reference Range Interpretation Comme nts ARTERIAL BLOOD GAS PH (test code = PHA) 7.36 7.35-7.45 N ARTERIAL BLOOD GAS PCO2 (test code = PCO2A) 34.9 mmHg 35.0-45.0 L ARTERIAL BLOOD GAS PO2 (test code = PO2A) 115.0 mmHg 80.0-95.0 H BICARBONATE TOTAL HCO3 (test code = HCO3) 19.2 mmol/L 22.0-24.0 L BASE EXCESS (test code = EM) -5.5 mmol/L See_Comment L [Automated message] The system which generated this result transmitted reference range: (+/-)2.0. The reference range was not used to interpret this result as normal/abnormal. ABG O2 SATURATION (test code = SATA) 98.1 % 95.0-100.0 N ARTERIAL FIO2 (test code = FIO2A) 60.0 % ABG VENT MODE (test code = MODEA) Ventilator ALLENS TEST (test code = ALLENS) NOT APPLICABLE SODIUM (POC) (test code = NA/ABG) 140 mmol/L 135-147 N POTASSIUM (POC) (test code = K/ABG) 4.37 mmol/L 3.6-5.2 N CHLORIDE (ARTERIAL) (test code = CL/ABG) 108 mmol/L 98-108 N GLUCOSE (test code = GLU/ABG) 142 mg/dL 70-104 H IONIZED CALCIUM (test code = CAIABG) 1.33 mmol/L 1.12-1.32 H POC LACTIC ACID (test code = POCLAC) 3.37 mmol/L 0.5-2.2 H TOTAL HGB (test code = THB) 12.2 g/dL 13.0-17.0 L OXYHEMOGLOBIN (test code = OOHGBT) 96.8 % 92.0-98.0 N CARBOXYHEMOGLOBIN (test code = HOHGBT) 0.3 % 0-5.0 N METHEMOGLOBIN (test code = METHGB) 1.0 % 0-1.5 N HHb (test code = HHB) 1.9 % TCO2 ARTERIAL (test code = TCO2A) 20.3 MMOL/L 24-30 L BASIC METABOLIC [id number] 05:01:00* Test Item Value Reference Range Interpretation Comme nts SODIUM (test code = NA) 144 mmol/L 136-145 N POTASSIUM (test code = K) 4.0 mmol/L 3.5-5.1 N CHLORIDE (test code = CL) 115 mmol/l 98-107 H CARBON DIOXIDE (test code = CO2) 23 mmol/L 20-31 N GLUCOSE (test code = GLU) 109 mg/dL 74-106 H BLOOD UREA NITROGEN (test code = BUN) 27 mg/dL 9-23 H GLOMERULAR FILTRATION RATE (test code = GFR) 50 mL/min >60 L The Glomerular Filtration Rate is a calculated parameterbased on serum Creatinine, patient age and sex. GFR valuesless than 60 mL/min/1.73 square meters are indicative ofChronic Kidney Disease. Values less than 15 mL/min/1.73square meters indicate Kidney failure. The calculation forGFR is based on the CKD-EPI (2020) calculation. This formulais race indifferent and is the recommended formula for GFRby the [employer] Kid[employer] Foundation for Adults.The GFR will not calculate if the sex is unknown or if thepatient's age is <18 years. CREATININE (test code = CREAT) 1.40 mg/dL 0.70-1.30 H CALCIUM (test code = CA) 7.7 mg/dL 8.7-10.4 L [id number] 05:01:00* Test Item Value Reference Range Interpretation Comme nts PHOSPHOROUS (test code = PHOS) 3.0 mg/dL 2.4-5.1 N [id number] 05:01:00* Test Item Value Reference Range Interpretation Comme nts MAGNESIUM (test code = MAG) 2.0 mg/dL 1.6-2.6 N CBC W/AUTO [id number] 04:44:00* Test Item Value Reference Range Interpretation Comme nts WHITE BLOOD CELL (test code = WBC) 11.4 x10 3/uL 4.8-10.8 H RED BLOOD CELL (test code = RBC) 2.46 x10 6/uL 4.70-6.10 L HEMOGLOBIN (test code = HGB) 8.0 g/dL 14.0-18.0 L HEMATOCRIT (test code = HCT) 25.0 % 42.0-52.0 L MEAN CELL VOLUME (test code = MCV) 101.6 fL 80.0-94.0 H MEAN CELL HGB (test code = MCH) 32.5 pg 27-31 H MEAN CELL HGB CONCENTRATION (test code = MCHC) 32.0 G/DL 33-36.5 L RED CELL DISTRIBUTION WIDTH (test code = RDW) 14.4 % 12.9-16.9 N PLATELET COUNT (test code = PLT) 133 x10 3/uL 150-440 L MEAN PLATELET VOLUME (test c ode = MPV) 11.1 fL 8.9-12.4 N NEUTROPHIL % (test code = NT%) 82.0 % 42.2-75.2 H LYMPHOCYTE % (test code = LY%) 3.5 % 20.5-51.1 L MONOCYTE % (test code = MO%) 11.0 % 1.7-9.3 H EOSINOPHIL % (test code = EO%) 2.5 % 0.0-7.0 N BASOPHIL % (test code = BA%) 0.4 % 0-2.5 N NEUTROPHIL # (test code = NT#) 9.32 x10 3/uL 1.80-7.70 H LYMPHOCYTE # (test code = LY#) 0.40 x10 3/uL 1.00-4.80 L MONOCYTE # (test code = MO#) 1.25 x10 3/uL 0.00-0.80 H EOSINOPHIL # (test code = EO#) 0.28 x10 3/uL 0.00-0.45 N BASOPHIL # (test code = BA#) 0.04 x10 3/uL 0.0-0.20 N [id number] 04:25:00* Test Item Value Reference Range Interpretation Comme nts GLUBED (test code = GLUBED) 106 MG/DL 70-105 H [id number] 00:12:00* Test Item Value Reference Range Interpretation Comme nts GLUBED (test code = GLUBED) 105 MG/DL 70-105 N [id number] 20:34:00* Test Item Value Reference Range Interpretation Comme nts GLUBED (test code = GLUBED) 92 MG/DL 70-105 N BASIC METABOLIC [id number] 17:15:00* Test Item Value Reference Range Interpretation Comme nts SODIUM (test code = NA) 144 mmol/L 136-145 N POTASSIUM (test code = K) 3.7 mmol/L 3.5-5.1 N CHLORIDE (test code = CL) 113 mmol/l 98-107 H CARBON DIOXIDE (test code = CO2) 21 mmol/L 20-31 N GLUCOSE (test code = GLU) 147 mg/dL 74-106 H BLOOD UREA NITROGEN (test code = BUN) 32 mg/dL 9-23 H GLOMERULAR FILTRATION RATE (test code = GFR) 60 mL/min >60 The Glomerular Filtration Rate is a calculated parameterbased on serum Creatinine, patient age and sex. GFR valuesless than 60 mL/min/1.73 square meters are indicative ofChronic Kidney Disease. Values less than 15 mL/min/1.73square meters indicate Kidney failure. The calculation forGFR is based on the CKD-EPI (2020) calculation. This formulais race indifferent and is the recommended formula for GFRby the National Kidney Foundation for Adults.The GFR will not calculate if the sex is unknown or if thepatient's age is <18 years. CREATININE (test code = CREAT) 1.20 mg/dL 0.70-1.30 N CALCIUM (test code = CA) 7.9 mg/dL 8.7-10.4 L [id number] 17:15:00* Test Item Value Reference Range Interpretation Comme nts PHOSPHOROUS (test code = PHOS) 2.0 mg/dL 2.4-5.1 L [id number] 17:15:00* Test Item Value Reference Range Interpretation Comme nts MAGNESIUM (test code = MAG) 2.1 mg/dL 1.6-2.6 N BLOOD GAS [id number] 14:59:00* Test Item Value Reference Range Interpretation Comme nts ARTERIAL BLOOD GAS PH (test code = PHA) 7.47 7.35-7.45 H ARTERIAL BLOOD GAS PCO2 (test code = PCO2A) 26.0 mmHg 35.0-45.0 L ARTERIAL BLOOD GAS PO2 (test code = PO2A) 65.5 mmHg 80.0-95.0 L BICARBONATE TOTAL HCO3 (test code = HCO3) 18.6 mmol/L 22.0-24.0 L BASE EXCESS (test code = EM) -4.1 mmol/L See_Comment L [Automated message] The system which generated this result transmitted reference range: (+/-)2.0. The reference range was not used to interpret this result as normal/abnormal. ABG O2 SATURATION (test code = SATA) 93.6 % 95.0-100.0 L ARTERIAL FIO2 (test code = FIO2A) 21.0 % ABG VENT MODE (test code = MODEA) NASAL CANNULA ALLENS TEST (test code = ALLENS) NOT APPLICABLE SODIUM (POC) (test code = NA/ABG) 139 mmol/L 135-147 N POTASSIUM (POC) (test code = K/ABG) 3.85 mmol/L 3.6-5.2 N CHLORIDE (ARTERIAL) (test code = CL/ABG) 109 mmol/L 98-108 H GLUCOSE (test code = GLU/ABG) 95 mg/dL 70-104 N IONIZED CALCIUM (test code = CAIABG) 1.19 mmol/L 1.12-1.32 N POC LACTIC ACID (test code = POCLAC) 0.98 mmol/L 0.5-2.2 N TOTAL HGB (test code = THB) 9.4 g/dL 13.0-17.0 L CARBOXYHEMOGLOBIN (test code = HOHGBT) 0.3 % 0-5.0 N METHEMOGLOBIN (test code = METHGB) <0.8 % 0-1.5 N HHb (test code = HHB) 6.4 % TCO2 ARTERIAL (test code = TCO2A) 19.4 MMOL/L 24-30 L [id number] 14:27:00* Test Item Value Reference Range Interpretation Comme nts SURGICAL (test code = SR) -----RUN DATE: 01/17/24 [facility] - LAB PAGE 1 RUN TIME: 1428 Specimen Inquiry RUN USER: INTERFACE -----PATIENT: ASHELY TOSCANO LOC: KatalinaLucy Rosales U #: [id number] AGE/SX: 83/M ROOM: [facility] RE[facility]10/[facility] DR: Jerad Bearden MD : 40 BED: 1 DIS: STATUS: ADM IN TLOC: ----- SPEC #: [id number] RECD: 01/12/[id number] STATUS: CHRISSY GOMEZ #: [id number] LE: 01/12/24-1219 [facility] DR: Jerad Bearden MD ENTERED: 01/12/24142 SP TYPE: SURGICAL OTHR DR: Antoine Hammer MDsuf,Vanessa Estrella MDORDERED: 24013/2, 25059, ANATOMIC SPEC HISTOLOGY: TISSUE ID BLK PCS STORM LEV / PROCEDURE DISPOSITION ____ ___ ___ ___ ___ DEMARCO A 1 1 AOVLV B 1 1 TISSUES: A. MITRAL VALVE, NOS - Mitral Valve Leaflets B. AORTIC VALVE - Aortic Valve Leaflets FINAL DIAGNOSIS A. MITRAL VALVE LEAFLETS, EXCISION: VALVE TISSUE WITH CALCIFICATION AND DEGENERATIVE CHANGES B. AORTIC VALVE LEAFLETS, EXCISION: VALVE TISSUE WITH CALCIFICATION AND DEGENERATIVE CHANGES GROSS DESCRIPTION A.Received in formalin, labeled with the patient's name, MRN and "mitral valve leaflets"aremultiple pieces of mitral valve ranging from 1.0 x 1.0 x 1.0 cm- 3.5 x 2.0 x 0.4 cm. Theleaflets display multiple henriquez-yellow areas of discoloration, the chordae tendineae arethickened and fused. , the calcifications measure 0.5 cm. No vegetations are grossly seen. Gyroscopic Engineering Technician sections are submitted in A1, following decalcification. B. Received in formalin, labeled with the patient's name, MRN and "aortic valve leaflets"is an aggregate of leaflets measuring 2.0 x 1.0 X 1.0, there are henriquez-yellow areas ofdiscoloration, no obvious calcifications are grossly seen. No vegetations fenestrationsare grossly seen. Gyroscopic Engineering Technician sections are submitted in B 1. Technical component performed at [facility], [facility], [address] Immunohistochemistry: This test was developed and its performancecharacteristics determined by this laboratory. It has not been approved nordoes it need approval by the [place] FDA. Appropriate positive and negative controlsare reviewed and judged to be acceptable. This laboratory is certified underthe Clinical Laboratory Improvement Amendments (CLIA-88) as qualified toperform high complexity clinical laboratory testing. CONTINUED ON NEXT PAGE -----RUN DATE: 01/17/24 [facility] - LAB PAGE 2 RUN TIME: 1427 Specimen Inquiry RUN USER: INTERFACE -----SPEC #: [id number] PATIENT: ASHELY TOSCANO #[id number] (Continued) CLINICAL INFORMATION Mitral Valve Regurgitation Signed SIGNATURE ON FILE Tito Rosas 01/17/24 1427 ----- END OF REPORT [id number] 08:11:00* Test Item Value Reference Range Interpretation Comme nts GLUBED (test code = GLUBED) 94 MG/DL 70-105 N BASIC METABOLIC [id number] 05:15:00* Test Item Value Reference Range Interpretation Comme nts SODIUM (test code = NA) 144 mmol/L 136-145 N POTASSIUM (test code = K) 3.9 mmol/L 3.5-5.1 N CHLORIDE (test code = CL) 114 mmol/l 98-107 H CARBON DIOXIDE (test code = CO2) 23 mmol/L 20-31 N GLUCOSE (test code = GLU) 98 mg/dL 74-106 N BLOOD UREA NITROGEN (test code = BUN) 30 mg/dL 9-23 H GLOMERULAR FILTRATION RATE (test code = GFR) 50 mL/min >60 L The Glomerular Filtration Rate is a calculated parameterbased on serum Creatinine, patient age and sex. GFR valuesless than 60 mL/min/1.73 square meters are indicative ofChronic Kidney Disease. Values less than 15 mL/min/1.73square meters indicate Kidney failure. The calculation forGFR is based on the CKD-EPI (2020) calculation. This formulais race indifferent and is the recommended formula for GFRby the National Kidney Foundation for Adults.The GFR will not calculate if the sex is unknown or if thepatient's age is <18 years. CREATININE (test code = CREAT) 1.40 mg/dL 0.70-1.30 H CALCIUM (test code = CA) 8.1 mg/dL 8.7-10.4 L [id number] 05:15:00* Test Item Value Reference Range Interpretation Comme nts PHOSPHOROUS (test code = PHOS) 3.1 mg/dL 2.4-5.1 N [id number] 05:15:00* Test Item Value Reference Range Interpretation Comme nts MAGNESIUM (test code = MAG) 2.0 mg/dL 1.6-2.6 N CBC W/AUTO [id number] 05:04:00* Test Item Value Reference Range Interpretation Comme nts WHITE BLOOD CELL (test code = WBC) 8.2 x10 3/uL 4.8-10.8 N RED BLOOD CELL (test code = RBC) 2.40 x10 6/uL 4.70-6.10 L HEMOGLOBIN (test code = HGB) 7.9 g/dL 14.0-18.0 L HEMATOCRIT (test code = HCT) 24.5 % 42.0-52.0 L MEAN CELL VOLUME (test code = MCV) 102.1 fL 80.0-94.0 H MEAN CELL HGB (test code = MCH) 32.9 pg 27-31 H MEAN CELL HGB CONCENTRATION (test code = MCHC) 32.2 G/DL 33-36.5 L RED CELL DISTRIBUTION WIDTH (test code = RDW) 14.4 % 12.9-16.9 N PLATELET COUNT (test code = PLT) 117 x10 3/uL 150-440 L MEAN PLATELET VOLUME (test c ode = MPV) 10.9 fL 8.9-12.4 N NEUTROPHIL % (test code = NT%) 75.5 % 42.2-75.2 H LYMPHOCYTE % (test code = LY%) 4.9 % 20.5-51.1 L MONOCYTE % (test code = MO%) 14.7 % 1.7-9.3 H EOSINOPHIL % (test code = EO%) 3.9 % 0.0-7.0 N BASOPHIL % (test code = BA%) 0.5 % 0-2.5 N NEUTROPHIL # (test code = NT#) 6.21 x10 3/uL 1.80-7.70 N LYMPHOCYTE # (test code = LY#) 0.40 x10 3/uL 1.00-4.80 L MONOCYTE # (test code = MO#) 1.21 x10 3/uL 0.00-0.80 H EOSINOPHIL # (test code = EO#) 0.32 x10 3/uL 0.00-0.45 N BASOPHIL # (test code = BA#) 0.04 x10 3/uL 0.0-0.20 N BLOOD GAS [id number] 04:54:00* Test Item Value Reference Range Interpretation Comme nts ARTERIAL BLOOD GAS PH (test code = PHA) 7.45 7.35-7.45 N ARTERIAL BLOOD GAS PCO2 (test code = PCO2A) 33.0 mmHg 35.0-45.0 L ARTERIAL BLOOD GAS PO2 (test code = PO2A) 68.0 mmHg 80.0-95.0 L BICARBONATE TOTAL HCO3 (test code = HCO3) 22.5 mmol/L 22.0-24.0 N BASE EXCESS (test code = EM) -1.1 mmol/L See_Comment N [Automated message] The system which generated this result transmitted reference range: (+/-)2.0. The reference range was not used to interpret this result as normal/abnormal. ABG O2 SATURATION (test code = SATA) 94.0 % 95.0-100.0 L ARTERIAL FIO2 (test code = FIO2A) 32.0 % ABG VENT MODE (test code = MODEA) NASAL CANNULA ABG SITE (test code = SITEA) A-Line ALLENS TEST (test code = ALLENS) NOT APPLICABLE SODIUM (POC) (test code = NA/ABG) 138 mmol/L 135-147 N POTASSIUM (POC) (test code = K/ABG) 3.74 mmol/L 3.6-5.2 N CHLORIDE (ARTERIAL) (test code = CL/ABG) 110 mmol/L 98-108 H GLUCOSE (test code = GLU/ABG) 99 mg/dL 70-104 N IONIZED CALCIUM (test code = CAIABG) 1.18 mmol/L 1.12-1.32 N POC LACTIC ACID (test code = POCLAC) 1.01 mmol/L 0.5-2.2 N TOTAL HGB (test code = THB) 8.7 g/dL 13.0-17.0 L OXYHEMOGLOBIN (test code = OOHGBT) 93.4 % 92.0-98.0 N CARBOXYHEMOGLOBIN (test code = HOHGBT) 0.5 % 0-5.0 N METHEMOGLOBIN (test code = METHGB) <0.8 % 0-1.5 N HHb (test code = HHB) 6.0 % TCO2 ARTERIAL (test code = TCO2A) 23.5 MMOL/L 24-30 L [id number] 01:54:00* Test Item Value Reference Range Interpretation Comme nts GLUBED (test code = GLUBED) 99 MG/DL 70-105 N BLOOD GAS [id number] 21:05:00* Test Item Value Reference Range Interpretation Comme nts ARTERIAL BLOOD GAS PH (test code = PHA) 7.45 7.35-7.45 N ARTERIAL BLOOD GAS PCO2 (test code = PCO2A) 33.1 mmHg 35.0-45.0 L ARTERIAL BLOOD GAS PO2 (test code = PO2A) 79.8 mmHg 80.0-95.0 L BICARBONATE TOTAL HCO3 (test code = HCO3) 22.7 mmol/L 22.0-24.0 N BASE EXCESS (test code = EM) -0.6 mmol/L See_Comment N [Automated message] The system which generated this result transmitted reference range: (+/-)2.0. The reference range was not used to interpret this result as normal/abnormal. ABG O2 SATURATION (test code = SATA) 96.1 % 95.0-100.0 N ARTERIAL FIO2 (test code = FIO2A) 32.0 % ABG VENT MODE (test code = MODEA) NASAL CANNULA ALLENS TEST (test code = ALLENS) NOT APPLICABLE SODIUM (POC) (test code = NA/ABG) 138 mmol/L 135-147 N POTASSIUM (POC) (test code = K/ABG) 4.06 mmol/L 3.6-5.2 N CHLORIDE (ARTERIAL) (test code = CL/ABG) 108 mmol/L 98-108 N GLUCOSE (test code = GLU/ABG) 101 mg/dL 70-104 N IONIZED CALCIUM (test code = CAIABG) 1.18 mmol/L 1.12-1.32 N POC LACTIC ACID (test code = POCLAC) 1.12 mmol/L 0.5-2.2 N TOTAL HGB (test code = THB) 12.9 g/dL 13.0-17.0 L CARBOXYHEMOGLOBIN (test code = HOHGBT) 0.4 % 0-5.0 N METHEMOGLOBIN (test code = METHGB) <0.8 % 0-1.5 N HHb (test code = HHB) 3.9 % TCO2 ARTERIAL (test code = TCO2A) 23.7 MMOL/L 24-30 L [id number] 20:40:00* Test Item Value Reference Range Interpretation Comme nts GLUBED (test code = GLUBED) 95 MG/DL 70-105 N BLOOD GAS [id number] 17:56:00* Test Item Value Reference Range Interpretation Comme [facility] ARTERIAL BLOOD GAS PH (test code = PHA) 7.44 7.35-7.45 N ARTERIAL BLOOD GAS PCO2 (test code = PCO2A) 33.5 mmHg 35.0-45.0 L ARTERIAL BLOOD GAS PO2 (test code = PO2A) 81.9 mmHg 80.0-95.0 N BICARBONATE TOTAL HCO3 (test code = HCO3) 22.0 mmol/L 22.0-24.0 N BASE EXCESS (test code = EM) -1.8 mmol/L See_Comment N [Automated message] The system which generated this result transmitted reference range: (+/-)2.0. The reference range was not used to interpret this result as normal/abnormal. ABG O2 SATURATION (test code = SATA) 96.4 % 95.0-100.0 N ARTERIAL FIO2 (test code = FIO2A) 32.0 % ABG VENT MODE (test code = MODEA) NASAL CANNULA ALLENS TEST (test code = ALLENS) NOT APPLICABLE SODIUM (POC) (test code = NA/ABG) 138 mmol/L 135-147 N POTASSIUM (POC) (test code = K/ABG) 3.99 mmol/L 3.6-5.2 N CHLORIDE (ARTERIAL) (test code = CL/ABG) 108 mmol/L 98-108 N GLUCOSE (test code = GLU/ABG) 102 mg/dL 70-104 N IONIZED CALCIUM (test code = CAIABG) 1.18 mmol/L 1.12-1.32 N POC LACTIC ACID (test code = POCLAC) 0.94 mmol/L 0.5-2.2 N TOTAL HGB (test code = THB) 9.2 g/dL 13.0-17.0 L CARBOXYHEMOGLOBIN (test code = HOHGBT) 0.3 % 0-5.0 N METHEMOGLOBIN (test code = METHGB) <0.8 % 0-1.5 N HHb (test code = HHB) 3.6 % TCO2 ARTERIAL (test code = TCO2A) 23.1 MMOL/L 24-30 L VENOUS BLOOD [id number] 12:24:00* Test Item Value Reference Range Interpretation Comme [facility] VENOUS BLOOD GAS PH (test code = PHV) 7.41 7.35-7.45 N VENOUS BLOOD GAS PCO2 (test code = PCO2V) 35.3 mmHg See_Comment [Automated messa ge] The system which generated this result transmitted reference range: 46. The reference range was not used to interpret this result as normal/abnormal. VENOUS BLOOD GAS PO2 (test code = PO2V) 34.2 mmHg See_Comment [Automated messa ge] The system which generated this result transmitted reference range: 40. The reference range was not used to interpret this result as normal/abnormal. VBG HCO3 (test code = HCO3V) 22 meq/L VBG BASE EXCESS (test code = MANDY) -2.6 MMOL/L VENOUS BLOOD GAS O2 SAT (test code = O2SATV) 64 % See_Comment [Automated messa ge] The system which generated this result transmitted reference range: 75. The reference range was not used to interpret this result as normal/abnormal. VENOUS BLOOD GAS TYPE (test code = TYPEV) Venous VENOUS BLOOD GAS FIO2 (test code = FIO2V) 40.0 % VBG VENT MODE (test code = MODEV) Ventilator BLOOD GAS [id number] 12:24:00* Test Item Value Reference Range Interpretation Comme nts ARTERIAL BLOOD GAS PH (test code = PHA) 7.43 7.35-7.45 N ARTERIAL BLOOD GAS PCO2 (test code = PCO2A) 33.1 mmHg 35.0-45.0 L ARTERIAL BLOOD GAS PO2 (test code = PO2A) 145.0 mmHg 80.0-95.0 H BICARBONATE TOTAL HCO3 (test code = HCO3) 21.6 mmol/L 22.0-24.0 L BASE EXCESS (test code = EM) -2.2 mmol/L See_Comment L [Automated message] The system which generated this result transmitted reference range: (+/-)2.0. The reference range was not used to interpret this result as normal/abnormal. ABG O2 SATURATION (test code = SATA) 98.8 % 95.0-100.0 N ARTERIAL FIO2 (test code = FIO2A) 40.0 % ABG VENT MODE (test code = MODEA) Ventilator ALLENS TEST (test code = ALLENS) NOT APPLICABLE SODIUM (POC) (test code = NA/ABG) 130 mmol/L 135-147 L POTASSIUM (POC) (test code = K/ABG) 3.89 mmol/L 3.6-5.2 N CHLORIDE (ARTERIAL) (test code = CL/ABG) 109 mmol/L 98-108 H GLUCOSE (test code = GLU/ABG) 106 mg/dL 70-104 H IONIZED CALCIUM (test code = CAIABG) 1.20 mmol/L 1.12-1.32 N POC LACTIC ACID (test code = POCLAC) 0.95 mmol/L 0.5-2.2 N TOTAL HGB (test code = THB) 8.6 g/dL 13.0-17.0 L OXYHEMOGLOBIN (test code = OOHGBT) 98.3 % 92.0-98.0 H CARBOXYHEMOGLOBIN (test code = HOHGBT) 0.3 % 0-5.0 N METHEMOGLOBIN (test code = METHGB) <0.8 % 0-1.5 N HHb (test code = HHB) 1.2 % TCO2 ARTERIAL (test code = TCO2A) 22.6 MMOL/L 24-30 L BLOOD GAS [id number] 12:23:00* Test Item Value Reference Range Interpretation Comme nts ARTERIAL BLOOD GAS PH (test code = PHA) 7.44 7.35-7.45 N ARTERIAL BLOOD GAS PCO2 (test code = PCO2A) 36.9 mmHg 35.0-45.0 N ARTERIAL BLOOD GAS PO2 (test code = PO2A) 164.4 mmHg 80.0-95.0 H BICARBONATE TOTAL HCO3 (test code = HCO3) 24.5 mmol/L 22.0-24.0 H BASE EXCESS (test code = EM) 0.4 mmol/L See_Comment N [Automated message] The system which generated this result transmitted reference range: (+/-)2.0. The reference range was not used to interpret this result as normal/abnormal. ABG O2 SATURATION (test code = SATA) 99.1 % 95.0-100.0 N ARTERIAL FIO2 (test code = FIO2A) 40.0 % ABG VENT MODE (test code = MODEA) Ventilator ALLENS TEST (test code = ALLENS) NOT APPLICABLE SODIUM (POC) (test code = NA/ABG) 137 mmol/L 135-147 N POTASSIUM (POC) (test code = K/ABG) 3.72 mmol/L 3.6-5.2 N CHLORIDE (ARTERIAL) (test code = CL/ABG) 109 mmol/L 98-108 H GLUCOSE (test code = GLU/ABG) 116 mg/dL 70-104 H IONIZED CALCIUM (test code = CAIABG) 1.16 mmol/L 1.12-1.32 N POC LACTIC ACID (test code = POCLAC) 1.03 mmol/L 0.5-2.2 N TOTAL HGB (test code = THB) 8.6 g/dL 13.0-17.0 L OXYHEMOGLOBIN (test code = OOHGBT) 99.0 % 92.0-98.0 H CARBOXYHEMOGLOBIN (test code = HOHGBT) 0.0 % 0-5.0 N METHEMOGLOBIN (test code = METHGB) <0.8 % 0-1.5 N HHb (test code = HHB) 0.9 % TCO2 ARTERIAL (test code = TCO2A) 25.6 MMOL/L 24-30 N [id number] 08:30:00* Test Item Value Reference Range Interpretation Comme nts GLUBED (test code = GLUBED) 106 MG/DL 70-105 H BASIC METABOLIC [id number] 03:58:00* Test Item Value Reference Range Interpretation Comme nts SODIUM (test code = NA) 144 mmol/L 136-145 N POTASSIUM (test code = K) 4.0 mmol/L 3.5-5.1 N CHLORIDE (test code = CL) 113 mmol/l 98-107 H CARBON DIOXIDE (test code = CO2) 24 mmol/L 20-31 N GLUCOSE (test code = GLU) 102 mg/dL 74-106 N BLOOD UREA NITROGEN (test code = BUN) 33 mg/dL 9-23 H GLOMERULAR FILTRATION RATE (test code = GFR) 60 mL/min >60 The Glomerular Filtration Rate is a calculated [...] <18 years. CREATININE (test code = CREAT) 1.20 mg/dL 0.70-1.30 N CALCIUM (test code = CA) 7.8 mg/dL 8.7-10.4 L [id number] 03:58:00* Test Item Value Reference Range Interpretation Comme nts PHOSPHOROUS (test code = PHOS) 3.0 mg/dL 2.4-5.1 N [id number] 03:58:00* Test Item Value Reference Range Interpretation Comme nts MAGNESIUM (test code = MAG) 1.9 mg/dL 1.6-2.6 N CBC W/AUTO [id number] 03:40:00* Test Item Value Reference Range Interpretation Comme nts WHITE BLOOD CELL (test code = WBC) 9.9 x10 3/uL 4.8-10.8 N RED BLOOD CELL (test code = RBC) 2.31 x10 6/uL 4.70-6.10 L HEMOGLOBIN (test code = HGB) 7.8 g/dL 14.0-18.0 L HEMATOCRIT (test code = HCT) 23.6 % 42.0-52.0 L MEAN CELL VOLUME (test code = MCV) 102.2 fL 80.0-94.0 H MEAN CELL HGB (test code = MCH) 33.8 pg 27-31 H MEAN CELL HGB CONCENTRATION (test code = MCHC) 33.1 G/DL 33-36.5 N RED CELL DISTRIBUTION WIDTH (test code = RDW) 14.6 % 12.9-16.9 N PLATELET COUNT (test code = PLT) 98 x10 3/uL 150-440 L MEAN PLATELET VOLUME (test c ode = MPV) 11.4 fL 8.9-12.4 N NEUTROPHIL % (test code = NT%) 83.3 % 42.2-75.2 H LYMPHOCYTE % (test code = LY%) 3.7 % 20.5-51.1 L MONOCYTE % (test code = MO%) 11.1 % 1.7-9.3 H EOSINOPHIL % (test code = EO%) 1.3 % 0.0-7.0 N BASOPHIL % (test code = BA%) 0.2 % 0-2.5 N NEUTROPHIL # (test code = NT#) 8.22 x10 3/uL 1.80-7.70 H LYMPHOCYTE # (test code = LY#) 0.36 x10 3/uL 1.00-4.80 L MONOCYTE # (test code = MO#) 1.09 x10 3/uL 0.00-0.80 H EOSINOPHIL # (test code = EO#) 0.13 x10 3/uL 0.00-0.45 N BASOPHIL # (test code = BA#) 0.02 x10 3/uL 0.0-0.20 N [id number] 01:51:00* Test Item Value Reference Range Interpretation Comme nts GLUBED (test code = GLUBED) 89 MG/DL 70-105 N BLOOD GAS [id number] 18:40:00* Test Item Value Reference Range Interpretation Comme nts ARTERIAL BLOOD GAS PH (test code = PHA) 7.46 7.35-7.45 H ARTERIAL BLOOD GAS PCO2 (test code = PCO2A) 31.5 mmHg 35.0-45.0 L ARTERIAL BLOOD GAS PO2 (test code = PO2A) 166.8 mmHg 80.0-95.0 H BICARBONATE TOTAL HCO3 (test code = HCO3) 22.0 mmol/L 22.0-24.0 N BASE EXCESS (test code = EM) -1.5 mmol/L See_Comment N [Automated message] The system which generated this result transmitted reference range: (+/-)2.0. The reference range was not used to interpret this result as normal/abnormal. ABG O2 SATURATION (test code = SATA) 99.1 % 95.0-100.0 N ARTERIAL FIO2 (test code = FIO2A) 40.0 % ABG VENT MODE (test code = MODEA) Ventilator ALLENS TEST (test code = ALLENS) NOT APPLICABLE SODIUM (POC) (test code = NA/ABG) 131 mmol/L 135-147 L POTASSIUM (POC) (test code = K/ABG) 3.72 mmol/L 3.6-5.2 N CHLORIDE (ARTERIAL) (test code = CL/ABG) 108 mmol/L 98-108 N GLUCOSE (test code = GLU/ABG) 102 mg/dL 70-104 N IONIZED CALCIUM (test code = CAIABG) 1.27 mmol/L 1.12-1.32 N POC LACTIC ACID (test code = POCLAC) 1.15 mmol/L 0.5-2.2 N TOTAL HGB (test code = THB) 8.4 g/dL 13.0-17.0 L CARBOXYHEMOGLOBIN (test code = HOHGBT) 0.3 % 0-5.0 N METHEMOGLOBIN (test code = METHGB) <0.8 % 0-1.5 N HHb (test code = HHB) 0.9 % TCO2 ARTERIAL (test code = TCO2A) 22.9 MMOL/L 24-30 L BLOOD GAS [id number] 17:15:00* Test Item Value Reference Range Interpretation Comme nts ARTERIAL BLOOD GAS PH (test code = PHA) 7.47 7.35-7.45 H ARTERIAL BLOOD GAS PCO2 (test code = PCO2A) 32.8 mmHg 35.0-45.0 L ARTERIAL BLOOD GAS PO2 (test code = PO2A) 122.3 mmHg 80.0-95.0 H BICARBONATE TOTAL HCO3 (test code = HCO3) 23.4 mmol/L 22.0-24.0 N BASE EXCESS (test code = EM) 0.1 mmol/L See_Comment N [Automated message] The system which generated this result transmitted reference range: (+/-)2.0. The reference range was not used to interpret this result as normal/abnormal. ABG O2 SATURATION (test code = SATA) 98.4 % 95.0-100.0 N ARTERIAL FIO2 (test code = FIO2A) 40.0 % ABG VENT MODE (test code = MODEA) Ventilator ALLENS TEST (test code = ALLENS) NOT APPLICABLE SODIUM (POC) (test code = NA/ABG) 141 mmol/L 135-147 N POTASSIUM (POC) (test code = K/ABG) 3.83 mmol/L 3.6-5.2 N CHLORIDE (ARTERIAL) (test code = CL/ABG) 107 mmol/L 98-108 N GLUCOSE (test code = GLU/ABG) 101 mg/dL 70-104 N IONIZED CALCIUM (test code = CAIABG) 1.17 mmol/L 1.12-1.32 N POC LACTIC ACID (test code = POCLAC) 1.26 mmol/L 0.5-2.2 N TOTAL HGB (test code = THB) 9.0 g/dL 13.0-17.0 L OXYHEMOGLOBIN (test code = OOHGBT) 97.8 % 92.0-98.0 N CARBOXYHEMOGLOBIN (test code = HOHGBT) 0.3 % 0-5.0 N METHEMOGLOBIN (test code = METHGB) <0.8 % 0-1.5 N HHb (test code = HHB) 1.6 % TCO2 ARTERIAL (test code = TCO2A) 24.4 MMOL/L 24-30 N UA RFLX MICR CULT IF [id number] 16:54:00* Test Item Value Reference Range Interpretation Comme nts UA COLOR (test code = COLU) YELLOW DISCRIPT YELLOW UA APPEARANCE (test code = APPU) SLIGHTLY CLOUDY DISCRIPT CLEAR A UA GLUCOSE DIPSTICK (test code = DGLUU) NEGATIVE mg/dL NEGATIVE UA BILIRUBIN DIPSTICK (test code = BILU) NEGATIVE NEGATIVE UA KETONE DIPSTICK (test code = KETU) NEGATIVE mg/dL NEGATIVE UA SPECIFIC GRAVITY (test code = SGU) 1.020 1.005-1.030 UA BLOOD DIPSTICK (test code = FAMILIA) LARGE NEGATIVE A UA PH DIPSTICK (test code = ALBERTA) 6.0 5.0-9.0 UA PROTEIN DIPSTICK (test code = PROU) 10 mg/dL NEGATIVE UA UROBILINOGEN DIPSTICK (test code = URO) NORMAL mg/dL 0.2-1.0 UA NITRITE DIPSTICK (test code = WEST) NEGATIVE NEGATIVE UA LEUKOCYTE ESTERASE DIPSTICK (test code = LEUU) LARGE NEGATIVE A UA WBC (test code = WBCU) 11-20 #WBC/HPF 0-2 A UA RBC (test code = RBCU) 50-100 #RBC/HPF 0-2 A UA BACTERIA (test code = BACU) TRACE /HPF NONE-TRACE A UA SQUAMOUS CELLS (test code = SQU) TRACE /LPF NONE-TRACE Indication for culture: RiskForSepsis-no oth src Temperature > 100.4 FSpecimen Description: CATHETERIZED (STRAIGHT)VENOUS BLOOD [id number] 16:41:00* Test Item Value Reference Range Interpretation Comme nts VENOUS BLOOD GAS PH (test code = PHV) 7.46 7.35-7.45 H VENOUS BLOOD GAS PCO2 (test code = PCO2V) 37.7 mmHg See_Comment [Automated messa ge] The system which generated this result transmitted reference range: 46. The reference range was not used to interpret this result as normal/abnormal. VENOUS BLOOD GAS PO2 (test code = PO2V) 27.5 mmHg See_Comment [Automated messa ge] The system which generated this result transmitted reference range: 40. The reference range was not used to interpret this result as normal/abnormal. VBG HCO3 (test code = HCO3V) 26 meq/L VBG BASE EXCESS (test code = MANDY) 2.4 MMOL/L VENOUS BLOOD GAS O2 SAT (test code = O2SATV) 50 % See_Comment [Automated messa ge] The system which generated this result transmitted reference range: 75. The reference range was not used to interpret this result as normal/abnormal. VENOUS BLOOD GAS TYPE (test code = TYPEV) Venous VENOUS BLOOD GAS FIO2 (test code = FIO2V) 40.0 % VBG VENT MODE (test code = MODEV) Ventilator BLOOD GAS [id number] 16:41:00* Test Item Value Reference Range Interpretation Comme nts ARTERIAL BLOOD GAS PH (test code = PHA) 7.50 7.35-7.45 H ARTERIAL BLOOD GAS PCO2 (test code = PCO2A) 30.4 mmHg 35.0-45.0 L ARTERIAL BLOOD GAS PO2 (test code = PO2A) 140.9 mmHg 80.0-95.0 H BICARBONATE TOTAL HCO3 (test code = HCO3) 23.3 mmol/L 22.0-24.0 N BASE EXCESS (test code = EM) 0.6 mmol/L See_Comment N [Automated message] The system which generated this result transmitted reference range: (+/-)2.0. The reference range was not used to interpret this result as normal/abnormal. ABG O2 SATURATION (test code = SATA) 98.4 % 95.0-100.0 N ARTERIAL FIO2 (test code = FIO2A) 40.0 % ABG VENT MODE (test code = MODEA) Ventilator ALLENS TEST (test code = ALLENS) NOT APPLICABLE SODIUM (POC) (test code = NA/ABG) 139 mmol/L 135-147 N POTASSIUM (POC) (test code = K/ABG) 3.92 mmol/L 3.6-5.2 N CHLORIDE (ARTERIAL) (test code = CL/ABG) 108 mmol/L 98-108 N GLUCOSE (test code = GLU/ABG) 100 mg/dL 70-104 N IONIZED CALCIUM (test code = CAIABG) 1.21 mmol/L 1.12-1.32 N POC LACTIC ACID (test code = POCLAC) 1.41 mmol/L 0.5-2.2 N TOTAL HGB (test code = THB) 9.0 g/dL 13.0-17.0 L OXYHEMOGLOBIN (test code = OOHGBT) 97.3 % 92.0-98.0 N CARBOXYHEMOGLOBIN (test code = HOHGBT) 0.2 % 0-5.0 N METHEMOGLOBIN (test code = METHGB) 0.9 % 0-1.5 N HHb (test code = HHB) 1.6 % TCO2 ARTERIAL (test code = TCO2A) 24.3 MMOL/L 24-30 N BLOOD GAS [id number] 16:40:00* Test Item Value Reference Range Interpretation Comme nts ARTERIAL BLOOD GAS PH (test code = PHA) 7.48 7.35-7.45 H ARTERIAL BLOOD GAS PCO2 (test code = PCO2A) 31.4 mmHg 35.0-45.0 L ARTERIAL BLOOD GAS PO2 (test code = PO2A) 122.7 mmHg 80.0-95.0 H BICARBONATE TOTAL HCO3 (test code = HCO3) 23.0 mmol/L 22.0-24.0 N BASE EXCESS (test code = EM) -0.1 mmol/L See_Comment N [Automated message] The system which generated this result transmitted reference range: (+/-)2.0. The reference range was not used to interpret this result as normal/abnormal. ABG O2 SATURATION (test code = SATA) 98.3 % 95.0-100.0 N ARTERIAL FIO2 (test code = FIO2A) 40.0 % ABG VENT MODE (test code = MODEA) Ventilator ALLENS TEST (test code = ALLENS) NOT APPLICABLE SODIUM (POC) (test code = NA/ABG) 139 mmol/L 135-147 N POTASSIUM (POC) (test code = K/ABG) 3.88 mmol/L 3.6-5.2 N CHLORIDE (ARTERIAL) (test code = CL/ABG) 108 mmol/L 98-108 N GLUCOSE (test code = GLU/ABG) 105 mg/dL 70-104 H IONIZED CALCIUM (test code = CAIABG) 1.20 mmol/L 1.12-1.32 N POC LACTIC ACID (test code = POCLAC) 1.41 mmol/L 0.5-2.2 N TOTAL HGB (test code = THB) 9.1 g/dL 13.0-17.0 L OXYHEMOGLOBIN (test code = OOHGBT) 98.1 % 92.0-98.0 H CARBOXYHEMOGLOBIN (test code = HOHGBT) 0.1 % 0-5.0 N METHEMOGLOBIN (test code = METHGB) <0.8 % 0-1.5 N HHb (test code = HHB) 1.7 % TCO2 ARTERIAL (test code = TCO2A) 24.0 MMOL/L 24-30 N BASIC METABOLIC [id number] 13:45:00* Test Item Value Reference Range Interpretation Comme nts SODIUM (test code = NA) 143 mmol/L 136-145 N POTASSIUM (test code = K) 4.0 mmol/L 3.5-5.1 N CHLORIDE (test code = CL) 112 mmol/l 98-107 H CARBON DIOXIDE (test code = CO2) 24 mmol/L 20-31 N GLUCOSE (test code = GLU) 106 mg/dL 74-106 N BLOOD UREA NITROGEN (test code = BUN) 33 mg/dL 9-23 H GLOMERULAR FILTRATION RATE (test code = GFR) 60 mL/min >60 The Glomerular Filtration Rate is a calculated [...] <18 years. CREATININE (test code = CREAT) 1.20 mg/dL 0.70-1.30 N CALCIUM (test code = CA) 7.7 mg/dL 8.7-10.4 L [id number] 13:45:00* Test Item Value Reference Range Interpretation Comme nts PHOSPHOROUS (test code = PHOS) 2.7 mg/dL 2.4-5.1 N [id number] 13:45:00* Test Item Value Reference Range Interpretation Comme nts MAGNESIUM (test code = MAG) 2.0 mg/dL 1.6-2.6 N [id number] 03:36:00* Test Item Value Reference Range Interpretation Comme nts PHOSPHOROUS (test code = PHOS) 2.6 mg/dL 2.4-5.1 N BASIC METABOLIC [id number] 03:36:00* Test Item Value Reference Range Interpretation Comme nts SODIUM (test code = NA) 143 mmol/L 136-145 N POTASSIUM (test code = K) 4.1 mmol/L 3.5-5.1 N CHLORIDE (test code = CL) 111 mmol/l 98-107 H CARBON DIOXIDE (test code = CO2) 26 mmol/L 20-31 N GLUCOSE (test code = GLU) 101 mg/dL 74-106 N BLOOD UREA NITROGEN (test code = BUN) 33 mg/dL 9-23 H GLOMERULAR FILTRATION RATE (test code = GFR) 55 mL/min >60 L The Glomerular Filtration Rate is a calculated parameterbased on serum Creatinine, patient age and sex. GFR valuesless than 60 mL/min/1.73 square meters are indicative ofChronic Kidney Disease. Values less than 15 mL/min/1.73square meters indicate Kidney failure. The calculation forGFR is based on the CKD-EPI (2020) calculation. This formulais race indifferent and is the recommended formula for GFRby the National Kidney Foundation for Adults.The GFR will not calculate if the sex is unknown or if thepatient's age is <18 years. CREATININE (test code = CREAT) 1.30 mg/dL 0.70-1.30 N CALCIUM (test code = CA) 8.3 mg/dL 8.7-10.4 L [id number] 03:36:00* Test Item Value Reference Range Interpretation Comme nts MAGNESIUM (test code = MAG) 1.9 mg/dL 1.6-2.6 N CBC W/AUTO [id number] 03:23:00* Test Item Value Reference Range Interpretation Comme nts WHITE BLOOD CELL (test code = WBC) 11.7 x10 3/uL 4.8-10.8 H RED BLOOD CELL (test code = RBC) 2.46 x10 6/uL 4.70-6.10 L HEMOGLOBIN (test code = HGB) 8.2 g/dL 14.0-18.0 L HEMATOCRIT (test code = HCT) 25.1 % 42.0-52.0 L MEAN CELL VOLUME (test code = MCV) 102.0 fL 80.0-94.0 H MEAN CELL HGB (test code = MCH) 33.3 pg 27-31 H MEAN CELL HGB CONCENTRATION (test code = MCHC) 32.7 G/DL 33-36.5 L RED CELL DISTRIBUTION WIDTH (test code = RDW) 14.7 % 12.9-16.9 N PLATELET COUNT (test code = PLT) 85 x10 3/uL 150-440 L MEAN PLATELET VOLUME (test code = MPV) 11.7 fL 8.9-12.4 N NEUTROPHIL % (test code = NT%) 87.0 % 42.2-75.2 H LYMPHOCYTE % (test code = LY%) 3.2 % 20.5-51.1 L MONOCYTE % (test code = MO%) 8.7 % 1.7-9.3 N EOSINOPHIL % (test code = EO%) 0.2 % 0.0-7.0 N BASOPHIL % (test code = BA%) 0.3 % 0-2.5 N NEUTROPHIL # (test code = NT#) 10.23 x10 3/uL 1.80-7.70 H LYMPHOCYTE # (test code = LY#) 0.37 x10 3/uL 1.00-4.80 L MONOCYTE # (test code = MO#) 1.02 x10 3/uL 0.00-0.80 H EOSINOPHIL # (test code = EO#) 0.02 x10 3/uL 0.00-0.45 N BASOPHIL # (test code = BA#) 0.03 x10 3/uL 0.0-0.20 N [id number] 01:47:00* Test Item Value Reference Range Interpretation Comme nts GLUBED (test code = GLUBED) 114 MG/DL 70-105 H BLOOD GAS [id number] 16:14:00* Test Item Value Reference Range Interpretation Comme [facility] ARTERIAL BLOOD GAS PH (test code = PHA) 7.41 7.35-7.45 N ARTERIAL BLOOD GAS PCO2 (test code = PCO2A) 38.9 mmHg 35.0-45.0 N ARTERIAL BLOOD GAS PO2 (test code = PO2A) 149.9 mmHg 80.0-95.0 H BICARBONATE TOTAL HCO3 (test code = HCO3) 23.9 mmol/L 22.0-24.0 N BASE EXCESS (test code = EM) -0.7 mmol/L See_Comment N [Automated message] The system which generated this result transmitted reference range: (+/-)2.0. The reference range was not used to interpret this result as normal/abnormal. ABG O2 SATURATION (test code = SATA) 98.9 % 95.0-100.0 N ARTERIAL FIO2 (test code = FIO2A) 40.0 % ABG VENT MODE (test code = MODEA) Ventilator ALLENS TEST (test code = ALLENS) NOT APPLICABLE SODIUM (POC) (test code = NA/ABG) 140 mmol/L 135-147 N POTASSIUM (POC) (test code = K/ABG) 4.70 mmol/L 3.6-5.2 N CHLORIDE (ARTERIAL) (test code = CL/ABG) 109 mmol/L 98-108 H GLUCOSE (test code = GLU/ABG) 112 mg/dL 70-104 H IONIZED CALCIUM (test code = CAIABG) 1.22 mmol/L 1.12-1.32 N POC LACTIC ACID (test code = POCLAC) 1.27 mmol/L 0.5-2.2 N TOTAL HGB (test code = THB) 9.2 g/dL 13.0-17.0 L OXYHEMOGLOBIN (test code = OOHGBT) 98.3 % 92.0-98.0 H CARBOXYHEMOGLOBIN (test code = HOHGBT) 0.3 % 0-5.0 N METHEMOGLOBIN (test code = METHGB) <0.8 % 0-1.5 N HHb (test code = HHB) 1.1 % TCO2 ARTERIAL (test code = TCO2A) 25.1 MMOL/L 24-30 N BASIC METABOLIC [id number] 14:18:00* Test Item Value Reference Range Interpretation Comme nts SODIUM (test code = NA) 143 mmol/L 136-145 N POTASSIUM (test code = K) 4.8 mmol/L 3.5-5.1 N CHLORIDE (test code = CL) 112 mmol/l 98-107 H CARBON DIOXIDE (test code = CO2) 25 mmol/L 20-31 N GLUCOSE (test code = GLU) 114 mg/dL 74-106 H BLOOD UREA NITROGEN (test code = BUN) 31 mg/dL 9-23 H GLOMERULAR FILTRATION RATE (test code = GFR) 55 mL/min >60 L The Glomerular Filtration Rate is a calculated parameterbased on serum Creatinine, patient age and sex. GFR valuesless than 60 mL/min/1.73 square meters are indicative ofChronic Kidney Disease. Values less than 15 mL/min/1.73square meters indicate Kidney failure. The calculation forGFR is based on the CKD-EPI (2020) calculation. This formulais race indifferent and is the recommended formula for GFRby the National Kidney Foundation for Adults.The GFR will not calculate if the sex is unknown or if thepatient's age is <18 years. CREATININE (test code = CREAT) 1.30 mg/dL 0.70-1.30 N CALCIUM (test code = CA) 8.0 mg/dL 8.7-10.4 L [id number] 14:18:00* Test Item Value Reference Range Interpretation Comme nts PHOSPHOROUS (test code = PHOS) 3.8 mg/dL 2.4-5.1 N [id number] 14:18:00* Test Item Value Reference Range Interpretation Comme nts MAGNESIUM (test code = MAG) 2.1 mg/dL 1.6-2.6 N CBC W/AUTO [id number] 14:05:00* Test Item Value Reference Range Interpretation Comme nts WHITE BLOOD CELL (test code = WBC) 15.7 x10 3/uL 4.8-10.8 H RED BLOOD CELL (test code = RBC) 2.48 x10 6/uL 4.70-6.10 L HEMOGLOBIN (test code = HGB) 8.3 g/dL 14.0-18.0 L HEMATOCRIT (test code = HCT) 25.1 % 42.0-52.0 L MEAN CELL VOLUME (test code = MCV) 101.2 fL 80.0-94.0 H MEAN CELL HGB (test code = MCH) 33.5 pg 27-31 H MEAN CELL HGB CONCENTRATION (test code = MCHC) 33.1 G/DL 33-36.5 N RED CELL DISTRIBUTION WIDTH (test code = RDW) 15.1 % 12.9-16.9 N PLATELET COUNT (test code = PLT) 92 x10 3/uL 150-440 L MEAN PLATELET VOLUME (test code = MPV) 11.5 fL 8.9-12.4 N NEUTROPHIL % (test code = NT%) 86.2 % 42.2-75.2 H LYMPHOCYTE % (test code = LY%) 2.7 % 20.5-51.1 L MONOCYTE % (test code = MO%) 10.3 % 1.7-9.3 H EOSINOPHIL % (test code = EO%) 0.1 % 0.0-7.0 N BASOPHIL % (test code = BA%) 0.2 % 0-2.5 N NEUTROPHIL # (test code = NT#) 13.55 x10 3/uL 1.80-7.70 H LYMPHOCYTE # (test code = LY#) 0.43 x10 3/uL 1.00-4.80 L MONOCYTE # (test code = MO#) 1.62 x10 3/uL 0.00-0.80 H EOSINOPHIL # (test code = EO#) 0.01 x10 3/uL 0.00-0.45 N BASOPHIL # (test code = BA#) 0.03 x10 3/uL 0.0-0.20 N BLOOD GAS [id number] 13:57:00* Test Item Value Reference Range Interpretation Comme nts ARTERIAL BLOOD GAS PH (test code = PHA) 7.38 7.35-7.45 N ARTERIAL BLOOD GAS PCO2 (test code = PCO2A) 39.5 mmHg 35.0-45.0 N ARTERIAL BLOOD GAS PO2 (test code = PO2A) 141.3 mmHg 80.0-95.0 H BICARBONATE TOTAL HCO3 (test code = HCO3) 22.8 mmol/L 22.0-24.0 N BASE EXCESS (test code = EM) -2.1 mmol/L See_Comment L [Automated message] The system which generated this result transmitted reference range: (+/-)2.0. The reference range was not used to interpret this result as normal/abnormal. ABG O2 SATURATION (test code = SATA) 98.8 % 95.0-100.0 N ARTERIAL FIO2 (test code = FIO2A) 40.0 % ABG VENT MODE (test code = MODEA) Ventilator ALLENS TEST (test code = ALLENS) NOT APPLICABLE SODIUM (POC) (test code = NA/ABG) 138 mmol/L 135-147 N POTASSIUM (POC) (test code = K/ABG) 4.56 mmol/L 3.6-5.2 N CHLORIDE (ARTERIAL) (test code = CL/ABG) 108 mmol/L 98-108 N GLUCOSE (test code = GLU/ABG) 111 mg/dL 70-104 H IONIZED CALCIUM (test code = CAIABG) 1.25 mmol/L 1.12-1.32 N POC LACTIC ACID (test code = POCLAC) 1.35 mmol/L 0.5-2.2 N TOTAL HGB (test code = THB) 8.9 g/dL 13.0-17.0 L CARBOXYHEMOGLOBIN (test code = HOHGBT) 0.3 % 0-5.0 N METHEMOGLOBIN (test code = METHGB) <0.8 % 0-1.5 N HHb (test code = HHB) 1.2 % TCO2 ARTERIAL (test code = TCO2A) 24.1 MMOL/L 24-30 N [id number] 12:08:00* Test Item Value Reference Range Interpretation Comme nts GLUBED (test code = GLUBED) 112 MG/DL 70-105 H BLOOD GAS [id number] 08:01:00* Test Item Value Reference Range Interpretation Comme nts ARTERIAL BLOOD GAS PH (test code = PHA) 7.48 7.35-7.45 H ARTERIAL BLOOD GAS PCO2 (test code = PCO2A) 30.5 mmHg 35.0-45.0 L BICARBONATE TOTAL HCO3 (test code = HCO3) 22.3 mmol/L 22.0-24.0 N BASE EXCESS (test code = EM) -0.6 mmol/L See_Comment N [Automated message] The system which generated this result transmitted reference range: (+/-)2.0. The reference range was not used to interpret this result as normal/abnormal. ABG O2 SATURATION (test code = SATA) 98.5 % 95.0-100.0 N ARTERIAL FIO2 (test code = FIO2A) 40.0 % ABG VENT MODE (test code = MODEA) Ventilator ALLENS TEST (test code = ALLENS) NOT APPLICABLE SODIUM (POC) (test code = NA/ABG) 140 mmol/L 135-147 N POTASSIUM (POC) (test code = K/ABG) 4.44 mmol/L 3.6-5.2 N CHLORIDE (ARTERIAL) (test code = CL/ABG) 109 mmol/L 98-108 H GLUCOSE (test code = GLU/ABG) 108 mg/dL 70-104 H IONIZED CALCIUM (test code = CAIABG) 1.25 mmol/L 1.12-1.32 N POC LACTIC ACID (test code = POCLAC) 1.37 mmol/L 0.5-2.2 N TOTAL HGB (test code = THB) 9.7 g/dL 13.0-17.0 L CARBOXYHEMOGLOBIN (test code = HOHGBT) 0.3 % 0-5.0 N METHEMOGLOBIN (test code = METHGB) <0.8 % 0-1.5 N HHb (test code = HHB) 1.5 % TCO2 ARTERIAL (test code = TCO2A) 23.2 MMOL/L 24-30 L [id number] 04:28:00* Test Item Value Reference Range Interpretation Comme nts PHOSPHOROUS (test code = PHOS) 3.0 mg/dL 2.4-5.1 N BASIC METABOLIC [id number] 04:28:00* Test Item Value Reference Range Interpretation Comme nts SODIUM (test code = NA) 144 mmol/L 136-145 N POTASSIUM (test code = K) 4.6 mmol/L 3.5-5.1 N CHLORIDE (test code = CL) 113 mmol/l 98-107 H CARBON DIOXIDE (test code = CO2) 24 mmol/L 20-31 N GLUCOSE (test code = GLU) 110 mg/dL 74-106 H BLOOD UREA NITROGEN (test code = BUN) 28 mg/dL 9-23 H GLOMERULAR FILTRATION RATE (test code = GFR) 50 mL/min >60 L The Glomerular Filtration Rate is a calculated parameterbased on serum Creatinine, patient age and sex. GFR valuesless than 60 mL/min/1.73 square meters are indicative ofChronic Kidney Disease. Values less than 15 mL/min/1.73square meters indicate Kidney failure. The calculation forGFR is based on the CKD-EPI (2020) calculation. This formulais race indifferent and is the recommended formula for GFRby the National Kidney Foundation for Adults.The GFR will not calculate if the sex is unknown or if thepatient's age is <18 years. CREATININE (test code = CREAT) 1.40 mg/dL 0.70-1.30 H CALCIUM (test code = CA) 8.4 mg/dL 8.7-10.4 L LIPID PROFILE (CORONARY RISK)[id number] 04:28:00* Test Item Value Reference Range Interpretation Comme nts TRIGLYCERIDES (test code = TRIG) 109 mg/dL <150 N CHOLESTEROL (test code = CHOL) 66 mg/dL <200 N HDL CHOLESTEROL (test code = HDL) 17 mg/dL >60 L Please note New Reference Interval Mar 2023 REFERENCE INTERVALLow (undesirable, high risk): < 40 mg/dLHigh (desirable, low risk): >/= 60 mg/dL LIPOPROTEIN LDL (test code = LDLC) 24 mg/dL <100 N INTERPRETATIVE DATA:LDL Cholesterol: Reference RangesOptimal: <100 mg/dLNear Optimal: 100 -129 mg/dLBorderline High: 130 - 159 mg/dLHigh: 160 - 189 mg/dLVery High: = or > 190 mg/dL CORONARY RISK FACTOR (test code = RISK) 3.88 CHOL/HDL RISK MALE: 1/2 AVG 3.43 FEMALE: 1/2 AVG 3.27 AVG 4.97 AVG 4.44 2X AVG 9.55 2X AVG 7.05 3X AVG 23.39 3X AVG 11.04~~~~~~~~~~~~~~~~~ ~~~~~~~~~~~~~~~~~~~~~~ ~~~~~~~~~~~~~~~~~~~~~N ational Cholesterol Education (NCEP) Guidelines:~~~~~~~~~~~ ~~~~~~~~~~~~~~~~~~~~~~ ~~~~~~~~~~~~~~~~~~~~~~ ~~~~~ HDL Cholesterol<40mg/dL: HDL Cholesterol (Major risk factor for CHD)>60mg/dL: HDL Cholesterol (Negative risk factor for CHD)40-59mg/dL: Borderline Risk LDL Cholesterol<100mg/dL : Desirable LDL-C dwoauknwftzzi413-011zs /dL: Borderline High Risk LDL-C [id number] /dL: High risk LDL-C concentration HDL-LDL Cholesterol is affected by a number of factors suchas smoking, age and sex.~~~~~~~~~~~~~~~~~~ ~~~~~~~~~~~~~~~~~~~~~~ ~~~~~~~~~~~~~~~~~~~~ LIVER FUNCTION [id number] 04:28:00* Test Item Value Reference Range Interpretation Comme nts TOTAL PROTEIN (test code = PROT) 5.1 g/dL 5.7-8.2 L ALBUMIN (test code = ALB) 3.3 g/dL 3.2-4.8 N BILIRUBIN TOTAL (test code = BILT) 0.6 mg/dL 0.3-1.2 N BILIRUBIN DIRECT (test code = BILD) 0.3 mg/dL <0.3 N SGOT/AST (test code = AST) 63 U/L <34 H SGPT/ALT (test code = ALT) 16 U/L 10-49 N ALKALINE PHOSPHATASE (test c ode = ALKP) 85.0 U/L 46-116 N [id number] 04:28:00* Test Item Value Reference Range Interpretation Comme nts MAGNESIUM (test code = MAG) 2.1 mg/dL 1.6-2.6 N PROTHROMBIN [id number] 03:49:00* Test Item Value Reference Range Interpretation Comme nts PROTHROMBIN TIME PATIENT (test code = PTP) 16.1 SECONDS 10.3-12.9 H INTERNATIONAL NORMAL RATIO (test code = INR) 1.45 0.9-1.11 H INR goals are individualized based on patient specificfactors. The following are only general guidelines: Indications: INR Goal:1. Treatment of venous thromboembolism and 2.0 - 3.0 systemic anticoagulation in a variety of conditions, including atrial fibrillation and mechanical heart valves 2. Mechanical mitral and tricuspid valves, 2.5 - 3.5 systemic anticoagulation for high-risk conditions THROMBOPLASTIN TIME [id number] 03:49:00* Test Item Value Reference Range Interpretation [facility] THROMBOPLASTIN TIME PARTIAL (test code = PTT) 34.9 secs 23.8-34.8 H INTERPRETATIVE D MICHELLE: Therapeutic range: Unfractionated Heparin: 60-90 seconds Argatroban: 60-90 seconds [id number] 03:49:00* Test Item Value Reference Range Interpretation [facility] FIBRINOGEN (test code = FIB) 477 mg/dL 200-400 H HGBA1C - GLYCOSYLATED [id number] 03:19:00* Test Item Value Reference Range Interpretation [facility] GLYCOSYLATED HEMOGLOBIN (HA1C) (test code = GLYHGB) 5.2 % <5.7 N Diabetic >/= 6.5%Prediabetes 5.7-6.4%Normal < 5.7% CBC W/AUTO [id number] 03:02:00* Test Item Value Reference Range Interpretation [facility] WHITE BLOOD CELL (test code = WBC) 13.8 x10 3/uL 4.8-10.8 H RED BLOOD CELL (test code = RBC) 2.66 x10 6/uL 4.70-6.10 L HEMOGLOBIN (test code = HGB) 9.0 g/dL 14.0-18.0 L HEMATOCRIT (test code = HCT) 26.6 % 42.0-52.0 L MEAN CELL VOLUME (test code = MCV) 100.0 fL 80.0-94.0 H MEAN CELL HGB (test code = MCH) 33.8 pg 27-31 H MEAN CELL HGB CONCENTRATION (test code = MCHC) 33.8 G/DL 33-36.5 N RED CELL DISTRIBUTION WIDTH (test code = RDW) 15.3 % 12.9-16.9 N PLATELET COUNT (test code = PLT) 91 x10 3/uL 150-440 L MEAN PLATELET VOLUME (test code = MPV) 11.6 fL 8.9-12.4 N NEUTROPHIL % (test code = NT%) 84.8 % 42.2-75.2 H LYMPHOCYTE % (test code = LY%) 3.1 % 20.5-51.1 L MONOCYTE % (test code = MO%) 11.3 % 1.7-9.3 H EOSINOPHIL % (test code = EO%) 0.1 % 0.0-7.0 N BASOPHIL % (test code = BA%) 0.2 % 0-2.5 N NEUTROPHIL # (test code = NT#) 11.68 x10 3/uL 1.80-7.70 H LYMPHOCYTE # (test code = LY#) 0.43 x10 3/uL 1.00-4.80 L MONOCYTE # (test code = MO#) 1.55 x10 3/uL 0.00-0.80 H EOSINOPHIL # (test code = EO#) 0.01 x10 3/uL 0.00-0.45 N BASOPHIL # (test code = BA#) 0.03 x10 3/uL 0.0-0.20 N BLOOD GAS [id number] 02:28:00* Test Item Value Reference Range Interpretation Comme nts ARTERIAL BLOOD GAS PH (test code = PHA) 7.50 7.35-7.45 H ARTERIAL BLOOD GAS PCO2 (test code = PCO2A) 32.5 mmHg 35.0-45.0 L ARTERIAL BLOOD GAS PO2 (test code = PO2A) 166.9 mmHg 80.0-95.0 H BICARBONATE TOTAL HCO3 (test code = HCO3) 24.9 mmol/L 22.0-24.0 H BASE EXCESS (test code = EM) 2.0 mmol/L See_Comment N [Automated message] The system which generated this result transmitted reference range: (+/-)2.0. The reference range was not used to interpret this result as normal/abnormal. ABG O2 SATURATION (test code = SATA) 98.8 % 95.0-100.0 N ARTERIAL FIO2 (test code = FIO2A) 50.0 % ABG VENT MODE (test code = MODEA) Ventilator ALLENS TEST (test code = ALLENS) NOT APPLICABLE SODIUM (POC) (test code = NA/ABG) 140 mmol/L 135-147 N POTASSIUM (POC) (test code = K/ABG) 4.56 mmol/L 3.6-5.2 N CHLORIDE (ARTERIAL) (test code = CL/ABG) 109 mmol/L 98-108 H GLUCOSE (test code = GLU/ABG) 115 mg/dL 70-104 H IONIZED CALCIUM (test code = CAIABG) 1.20 mmol/L 1.12-1.32 N POC LACTIC ACID (test code = POCLAC) 1.63 mmol/L 0.5-2.2 N TOTAL HGB (test code = THB) 10.2 g/dL 13.0-17.0 L OXYHEMOGLOBIN (test code = OOHGBT) 97.8 % 92.0-98.0 N CARBOXYHEMOGLOBIN (test code = HOHGBT) 0.3 % 0-5.0 N METHEMOGLOBIN (test code = METHGB) <0.8 % 0-1.5 N HHb (test code = HHB) 1.2 % TCO2 ARTERIAL (test code = TCO2A) 25.9 MMOL/L 24-30 N BLOOD GAS [id number] 00:39:00* Test Item Value Reference Range Interpretation Comme nts ARTERIAL BLOOD GAS PH (test code = PHA) 7.40 7.35-7.45 N ARTERIAL BLOOD GAS PCO2 (test code = PCO2A) 36.4 mmHg 35.0-45.0 N ARTERIAL BLOOD GAS PO2 (test code = PO2A) 175.3 mmHg 80.0-95.0 H BICARBONATE TOTAL HCO3 (test code = HCO3) 21.9 mmol/L 22.0-24.0 L BASE EXCESS (test code = EM) -2.5 mmol/L See_Comment L [Automated message] The system which generated this result transmitted reference range: (+/-)2.0. The reference range was not used to interpret this result as normal/abnormal. ABG O2 SATURATION (test code = SATA) 99.0 % 95.0-100.0 N ARTERIAL FIO2 (test code = FIO2A) 50.0 % ABG VENT MODE (test code = MODEA) High Flow ALLENS TEST (test code = ALLENS) No SODIUM (POC) (test code = NA/ABG) 141 mmol/L 135-147 N POTASSIUM (POC) (test code = K/ABG) 4.41 mmol/L 3.6-5.2 N CHLORIDE (ARTERIAL) (test code = CL/ABG) 108 mmol/L 98-108 N GLUCOSE (test code = GLU/ABG) 138 mg/dL 70-104 H IONIZED CALCIUM (test code = CAIABG) 1.29 mmol/L 1.12-1.32 N POC LACTIC ACID (test code = POCLAC) 2.66 mmol/L 0.5-2.2 H TOTAL HGB (test code = THB) 10.0 g/dL 13.0-17.0 L OXYHEMOGLOBIN (test code = OOHGBT) 97.8 % 92.0-98.0 N CARBOXYHEMOGLOBIN (test code = HOHGBT) 0.3 % 0-5.0 N METHEMOGLOBIN (test code = METHGB) 0.9 % 0-1.5 N HHb (test code = HHB) 1.0 % TCO2 ARTERIAL (test code = TCO2A) 23.1 MMOL/L 24-30 L [id number] 15:41:00* Test Item Value Reference Range Interpretation Comme nts GLUBED (test code = GLUBED) 122 MG/DL 70-105 H LACTIC [id number] 14:45:00* Test Item Value Reference Range Interpretation Comme nts LACTIC ACID (test code = LACT) 1.70 mmol/L 0.5-2.0 N BASIC METABOLIC [id number] 14:45:00* Test Item Value Reference Range Interpretation Comme nts SODIUM (test code = NA) 145 mmol/L 136-145 N POTASSIUM (test code = K) 4.8 mmol/L 3.5-5.1 N CHLORIDE (test code = CL) 113 mmol/l 98-107 H CARBON DIOXIDE (test code = CO2) 25 mmol/L 20-31 N GLUCOSE (test code = GLU) 131 mg/dL 74-106 H BLOOD UREA NITROGEN (test code = BUN) 32 mg/dL 9-23 H GLOMERULAR FILTRATION RATE (test code = GFR) 46 mL/min >60 L The Glomerular Filtration Rate is a calculated parameterbased on serum Creatinine, patient age and sex. GFR valuesless than 60 mL/min/1.73 square meters are indicative ofChronic Kidney Disease. Values less than 15 mL/min/1.73square meters indicate Kidney failure. The calculation forGFR is based on the CKD-EPI (2020) calculation. This formulais race indifferent and is the recommended formula for GFRby the National Kidney Foundation for Adults.The GFR will not calculate if the sex is unknown or if thepatient's age is <18 years. CREATININE (test code = CREAT) 1.50 mg/dL 0.70-1.30 H CALCIUM (test code = CA) 8.6 mg/dL 8.7-10.4 L [id number] 14:45:00* Test Item Value Reference Range Interpretation Comme nts PHOSPHOROUS (test code = PHOS) 4.3 mg/dL 2.4-5.1 N [id number] 14:45:00* Test Item Value Reference Range Interpretation Comme nts MAGNESIUM (test code = MAG) 2.2 mg/dL 1.6-2.6 N [id number] 12:11:00* Test Item Value Reference Range Interpretation Comme nts GLUBED (test code = GLUBED) 127 MG/DL 70-105 H LACTIC [id number] 08:07:00* Test Item Value Reference Range Interpretation Comme nts LACTIC ACID (test code = LACT) 3.60 mmol/L 0.5-2.0 HH Critical Value r eported toFirst Name:FRANKO Last Name:RICARDO READ BACK AND VERIFIEDby [id number], on 01/13/24, @ 0807. [id number] 07:39:00* Test Item Value Reference Range Interpretation Comme nts GLUBED (test code = GLUBED) 144 MG/DL 70-105 H BLOOD GAS [id number] 06:51:00* Test Item Value Reference Range Interpretation Comme nts ARTERIAL BLOOD GAS PH (test code = PHA) 7.44 7.35-7.45 N ARTERIAL BLOOD GAS PCO2 (test code = PCO2A) 32.8 mmHg 35.0-45.0 L ARTERIAL BLOOD GAS PO2 (test code = PO2A) 150.0 mmHg 80.0-95.0 H BICARBONATE TOTAL HCO3 (test code = HCO3) 21.9 mmol/L 22.0-24.0 L BASE EXCESS (test code = EM) -1.7 mmol/L See_Comment N [Automated message] The system which generated this result transmitted reference range: (+/-)2.0. The reference range was not used to interpret this result as normal/abnormal. ABG O2 SATURATION (test code = SATA) 98.9 % 95.0-100.0 N ARTERIAL FIO2 (test code = FIO2A) 50.0 % ABG VENT MODE (test code = MODEA) Ventilator ALLENS TEST (test code = ALLENS) NOT APPLICABLE SODIUM (POC) (test code = NA/ABG) 141 mmol/L 135-147 N POTASSIUM (POC) (test code = K/ABG) 4.55 mmol/L 3.6-5.2 N CHLORIDE (ARTERIAL) (test code = CL/ABG) 108 mmol/L 98-108 N GLUCOSE (test code = GLU/ABG) 154 mg/dL 70-104 H IONIZED CALCIUM (test code = CAIABG) 1.18 mmol/L 1.12-1.32 N POC LACTIC ACID (test code = POCLAC) 3.81 mmol/L 0.5-2.2 H TOTAL HGB (test code = THB) 9.8 g/dL 13.0-17.0 L OXYHEMOGLOBIN (test code = OOHGBT) 97.4 % 92.0-98.0 N CARBOXYHEMOGLOBIN (test code = HOHGBT) 0.3 % 0-5.0 N METHEMOGLOBIN (test code = METHGB) 1.2 % 0-1.5 N HHb (test code = HHB) 1.1 % TCO2 ARTERIAL (test code = TCO2A) 22.9 MMOL/L 24-30 L VENOUS BLOOD [id number] 06:51:00* Test Item Value Reference Range Interpretation Comme nts VENOUS BLOOD GAS PH (test code = PHV) 7.41 7.35-7.45 N VENOUS BLOOD GAS PCO2 (test code = PCO2V) 35.7 mmHg See_Comment [Automated [employer]] The system which generated this result transmitted reference range: 46. The reference range was not used to interpret this result as normal/abnormal. VENOUS BLOOD GAS PO2 (test code = PO2V) 36.6 mmHg See_Comment [Automated [employer]] The system which generated this result transmitted reference range: 40. The reference range was not used to interpret this result as normal/abnormal. VBG HCO3 (test code = HCO3V) 22 meq/L VBG BASE EXCESS (test code = MANDY) -2.3 MMOL/L VENOUS BLOOD GAS O2 SAT (test code = O2SATV) 73 % See_Comment [Automated messa ge] The system which generated this result transmitted reference range: 75. The reference range was not used to interpret this result as normal/abnormal. VENOUS BLOOD GAS TYPE (test code = TYPEV) Venous VENOUS BLOOD GAS FIO2 (test code = FIO2V) 50.0 % VBG VENT MODE (test code = MODEV) Ventilator Novel Coronavirus [id number] 06:19:00* Test Item Value Reference Range Interpretation Comme nts Novel Coronavirus 2019 Inhouse (test code = [id number]) POSITIVE Negative A Critical resul t called to FLAVIO ESCOBEDO, MTby [id number] at 0519 01/13/24Nurse read back result and tech confirmed it's correct? YPositive results are indicative of the presence [id number]-[id number] RNA, clinical correlation with patient historyand other diagnostic information is necessary to determinepatient infection status. Positive results do not rule outbacterial infection or co-infection with other viruses. Negative results do not preclude SARS-CoV-2 infection andshould not be used as the sole basis for patient managementdecisions. Negative results must be combined with otherclinical observations, patient history, and epidemiologicalinformation . Detection of SARS-CoV-2 RNA may be affected bysample collection methods, storage conditions, and/or stageof infection. Viral RNA mutations, vaccinations, antiviraltherapeutics, antibiotics, chemotherapeutic orimmunosuppressant drugs have not been evaluated for effectson detection. Results are for the identification of SARS-CoV-2 RNA usingreal-time (RT) polymerase chain reaction (PCR) technologyfor the qualitative detection of nucleic acids from aheNGPZ-NuS-4 virus and diagnosis of SARS-CoV-2 virusinfection. It is an Emergency Use Authorization (EUA) testauthorized by the U.[place]. FDA. [id number] 04:06:00* Test Item Value Reference Range Interpretation Comme nts GLUBED (test code = GLUBED) 146 MG/DL 70-105 H BASIC METABOLIC [id number] 02:52:00* Test Item Value Reference Range Interpretation Comme nts SODIUM (test code = NA) 146 mmol/L 136-145 H POTASSIUM (test code = K) 4.8 mmol/L 3.5-5.1 N CHLORIDE (test code = CL) 113 mmol/l 98-107 H CARBON DIOXIDE (test code = CO2) 22 mmol/L 20-31 N GLUCOSE (test code = GLU) 170 mg/dL 74-106 H BLOOD UREA NITROGEN (test code = BUN) 34 mg/dL 9-23 H GLOMERULAR FILTRATION RATE (test code = GFR) 42 mL/min >60 L The Glomerular Filtration Rate is a calculated parameterbased on serum Creatinine, patient age and sex. GFR valuesless than 60 mL/min/1.73 square meters are indicative ofChronic Kidney Disease. Values less than 15 mL/min/1.73square meters indicate Kidney failure. The calculation forGFR is based on the CKD-EPI (2020) calculation. This formulais race indifferent and is the recommended formula for GFRby the National Kidney Foundation for Adults.The GFR will not calculate if the sex is unknown or if thepatient's age is <18 years. CREATININE (test code = CREAT) 1.60 mg/dL 0.70-1.30 H CALCIUM (test code = CA) 8.5 mg/dL 8.7-10.4 L LIVER FUNCTION [id number] 02:52:00* Test Item Value Reference Range Interpretation Comme nts TOTAL PROTEIN (test code = PROT) 5.0 g/dL 5.7-8.2 L ALBUMIN (test code = ALB) 3.4 g/dL 3.2-4.8 N BILIRUBIN TOTAL (test code = BILT) 0.6 mg/dL 0.3-1.2 N BILIRUBIN DIRECT (test code = BILD) 0.3 mg/dL <0.3 N SGOT/AST (test code = AST) 95 U/L <34 H SGPT/ALT (test code = ALT) 24 U/L 10-49 N ALKALINE PHOSPHATASE (test c ode = ALKP) 75.0 U/L 46-116 N [id number] 02:52:00* Test Item Value Reference Range Interpretation Comme nts PHOSPHOROUS (test code = PHOS) 4.6 mg/dL 2.4-5.1 [id number] 02:52:00* Test Item Value Reference Range Interpretation Comme nts MAGNESIUM (test code = MAG) 2.3 mg/dL 1.6-2.6 N BLOOD GAS [id number] 02:33:00* Test Item Value Reference Range Interpretation Comme nts ARTERIAL BLOOD GAS PH (test code = PHA) 7.38 7.35-7.45 N ARTERIAL BLOOD GAS PCO2 (test code = PCO2A) 36.2 mmHg 35.0-45.0 N ARTERIAL BLOOD GAS PO2 (test code = PO2A) 146.3 mmHg 80.0-95.0 H BICARBONATE TOTAL HCO3 (test code = HCO3) 21.1 mmol/L 22.0-24.0 L BASE EXCESS (test code = EM) -3.5 mmol/L See_Comment L [Automated message] The system which generated this result transmitted reference range: (+/-)2.0. The reference range was not used to interpret this result as normal/abnormal. ABG O2 SATURATION (test code = SATA) 98.5 % 95.0-100.0 N ARTERIAL FIO2 (test code = FIO2A) 50.0 % ABG VENT MODE (test code = MODEA) Ventilator ALLENS TEST (test code = ALLENS) NOT APPLICABLE SODIUM (POC) (test code = NA/ABG) 141 mmol/L 135-147 N POTASSIUM (POC) (test code = K/ABG) 4.69 mmol/L 3.6-5.2 N CHLORIDE (ARTERIAL) (test code = CL/ABG) 108 mmol/L 98-108 N GLUCOSE (test code = GLU/ABG) 165 mg/dL 70-104 H IONIZED CALCIUM (test code = CAIABG) 1.22 mmol/L 1.12-1.32 N POC LACTIC ACID (test code = POCLAC) 5.29 mmol/L 0.5-2.2 H TOTAL HGB (test code = THB) 10.2 g/dL 13.0-17.0 L OXYHEMOGLOBIN (test code = OOHGBT) 97.2 % 92.0-98.0 N CARBOXYHEMOGLOBIN (test code = HOHGBT) 0.3 % 0-5.0 N METHEMOGLOBIN (test code = METHGB) 1.0 % 0-1.5 N HHb (test code = HHB) 1.5 % TCO2 ARTERIAL (test code = TCO2A) 22.2 MMOL/L 24-30 L LACTIC [id number] 02:33:00* Test Item Value Reference Range Interpretation Comme [facility] LACTIC ACID (test code = LACT) 5.30 mmol/L 0.5-2.0 HH Critical Value r eported toFirst Name:PILO Last Name:OSAGIERESULTS READ BACK AND VERIFIEDby P.LAB.IX, on 01/13/24, @ 0233. PROTHROMBIN [id number] 02:25:00* Test Item Value Reference Range Interpretation Comme [facility] PROTHROMBIN TIME PATIENT (test code = PTP) 14.0 SECONDS 10.3-12.9 H INTERNATIONAL NORMAL RATIO (test code = INR) 1.26 0.9-1.11 H INR goals are individualized based on patient specificfactors. The following are only general guidelines: Indications: INR Goal:1. Treatment of venous thromboembolism and 2.0 - 3.0 systemic anticoagulation in a variety of conditions, including atrial fibrillation and mechanical heart valves 2. Mechanical mitral and tricuspid valves, 2.5 - 3.5 systemic anticoagulation for high-risk conditions THROMBOPLASTIN TIME [id number] 02:25:00* Test Item Value Reference [facility]ation [facility] PARTIAL (test code = PTT) 35.5 secs 23.8-34.8 H INTERPRETATIVE D MICHELLE: Therapeutic range: Unfractionated Heparin: 60-90 seconds Argatroban: 60-90 seconds [id number] 02:25:00* Test Item Value Reference Range Interpretation Comme [facility] FIBRINOGEN (test code = FIB) 354 mg/dL 200-400 N CBC W/AUTO [id number] 02:18:00* Test Item Value Reference Range Interpretation Comme [facility] WHITE BLOOD CELL (test code = WBC) 14.5 x10 3/uL 4.8-10.8 H RED BLOOD CELL (test code = RBC) 2.87 x10 6/uL 4.70-6.10 L HEMOGLOBIN (test code = HGB) 9.5 g/dL 14.0-18.0 L HEMATOCRIT (test code = HCT) 29.1 % 42.0-52.0 L MEAN CELL VOLUME (test code = MCV) 101.4 fL 80.0-94.0 H MEAN CELL HGB (test code = MCH) 33.1 pg 27-31 H MEAN CELL HGB CONCENTRATION (test code = MCHC) 32.6 G/DL 33-36.5 L RED CELL DISTRIBUTION WIDTH (test code = RDW) 15.1 % 12.9-16.9 N PLATELET COUNT (test code = PLT) 131 x10 3/uL 150-440 L MEAN PLATELET VOLUME (test code = MPV) 10.8 fL 8.9-12.4 N NEUTROPHIL % (test code = NT%) 86.5 % 42.2-75.2 H LYMPHOCYTE % (test code = LY%) 2.4 % 20.5-51.1 L MONOCYTE % (test code = MO%) 10.7 % 1.7-9.3 H EOSINOPHIL % (test code = EO%) 0.0 % 0.0-7.0 N BASOPHIL % (test code = BA%) 0.1 % 0-2.5 N NEUTROPHIL # (test code = NT#) 12.57 x10 3/uL 1.80-7.70 H LYMPHOCYTE # (test code = LY#) 0.35 x10 3/uL 1.00-4.80 L MONOCYTE # (test code = MO#) 1.56 x10 3/uL 0.00-0.80 H EOSINOPHIL # (test code = EO#) 0.00 x10 3/uL 0.00-0.45 N BASOPHIL # (test code = BA#) 0.01 x10 3/uL 0.0-0.20 N BLOOD GAS [id number] 00:28:00* Test Item Value Reference Range Interpretation Comme nts ARTERIAL BLOOD GAS PH (test code = PHA) 7.36 7.35-7.45 N ARTERIAL BLOOD GAS PCO2 (test code = PCO2A) 34.0 mmHg 35.0-45.0 L ARTERIAL BLOOD GAS PO2 (test code = PO2A) 141.0 mmHg 80.0-95.0 H BICARBONATE TOTAL HCO3 (test code = HCO3) 18.8 mmol/L 22.0-24.0 L BASE EXCESS (test code = EM) -5.9 mmol/L See_Comment L [Automated message] The system which generated this result transmitted reference range: (+/-)2.0. The reference range was not used to interpret this result as normal/abnormal. ABG O2 SATURATION (test code = SATA) 98.5 % 95.0-100.0 N ARTERIAL FIO2 (test code = FIO2A) 50.0 % ABG VENT MODE (test code = MODEA) Ventilator ALLENS TEST (test code = ALLENS) NOT APPLICABLE SODIUM (POC) (test code = NA/ABG) 140 mmol/L 135-147 N POTASSIUM (POC) (test code = K/ABG) 4.72 mmol/L 3.6-5.2 N CHLORIDE (ARTERIAL) (test code = CL/ABG) 108 mmol/L 98-108 N GLUCOSE (test code = GLU/ABG) 162 mg/dL 70-104 H IONIZED CALCIUM (test code = CAIABG) 1.24 mmol/L 1.12-1.32 N POC LACTIC ACID (test code = POCLAC) 5.43 mmol/L 0.5-2.2 H TOTAL HGB (test code = THB) 10.7 g/dL 13.0-17.0 L OXYHEMOGLOBIN (test code = OOHGBT) 97.2 % 92.0-98.0 N CARBOXYHEMOGLOBIN (test code = HOHGBT) 0.3 % 0-5.0 N METHEMOGLOBIN (test code = METHGB) 1.0 % 0-1.5 N HHb (test code = HHB) 1.5 % TCO2 ARTERIAL (test code = TCO2A) 19.8 MMOL/L 24-30 L [id number] 22:08:00* Test Item Value Reference Range Interpretation Comme nts GLUBED (test code = GLUBED) 150 MG/DL 70-105 H COMPREHENSIVE METABOLIC [id number] 20:30:00* Test Item Value Reference Range Interpretation Comme nts SODIUM (test code = NA) 144 mmol/L 136-145 N POTASSIUM (test code = K) 4.6 mmol/L 3.5-5.1 N CHLORIDE (test code = CL) 112 mmol/l 98-107 H CARBON DIOXIDE (test code = CO2) 23 mmol/L 20-31 N GLUCOSE (test code = GLU) 161 mg/dL 74-106 H BLOOD UREA NITROGEN (test code = BUN) 32 mg/dL 9-23 H GLOMERULAR FILTRATION RATE (test code = GFR) 46 mL/min >60 L The Glomerular Filtration Rate is [...] <18 years. CREATININE (test code = CREAT) 1.50 mg/dL 0.70-1.30 H TOTAL PROTEIN (test code = PROT) 5.0 g/dL 5.7-8.2 L ALBUMIN (test code = ALB) 3.2 g/dL 3.2-4.8 N CALCIUM (test code = CA) 9.5 mg/dL 8.7-10.4 N BILIRUBIN TOTAL (test code = BILT) 1.2 mg/dL 0.3-1.2 N SGOT/AST (test code = AST) 112 U/L <34 H SGPT/ALT (test code = ALT) 27 U/L 10-49 N ALKALINE PHOSPHATASE (test code = ALKP) 88.0 U/L 46-116 N [id number] 20:30:00* Test Item Value Reference Range Interpretation Comme nts PHOSPHOROUS (test code = PHOS) 1.9 mg/dL 2.4-5.1 L [id number] 20:30:00* Test Item Value Reference Range Interpretation Comme nts MAGNESIUM (test code = MAG) 2.4 mg/dL 1.6-2.6 N CBC W/AUTO [id number] 20:08:00* Test Item Value Reference Range Interpretation Comme nts WHITE BLOOD CELL (test code = WBC) 17.4 x10 3/uL 4.8-10.8 H RED BLOOD CELL (test code = RBC) 3.17 x10 6/uL 4.70-6.10 L HEMOGLOBIN (test code = HGB) 10.4 g/dL 14.0-18.0 L HEMATOCRIT (test code = HCT) 31.9 % 42.0-52.0 L MEAN CELL VOLUME (test code = MCV) 100.6 fL 80.0-94.0 H MEAN CELL HGB (test code = MCH) 32.8 pg 27-31 H MEAN CELL HGB CONCENTRATION (test code = MCHC) 32.6 G/DL 33-36.5 L RED CELL DISTRIBUTION WIDTH (test code = RDW) 14.9 % 12.9-16.9 N PLATELET COUNT (test code = PLT) 135 x10 3/uL 150-440 L MEAN PLATELET VOLUME (test code = MPV) 11.0 fL 8.9-12.4 N NEUTROPHIL % (test code = NT%) 88.7 % 42.2-75.2 H LYMPHOCYTE % (test code = LY%) 1.2 % 20.5-51.1 L MONOCYTE % (test code = MO%) 9.7 % 1.7-9.3 H EOSINOPHIL % (test code = EO%) 0.0 % 0.0-7.0 N BASOPHIL % (test code = BA%) 0.1 % 0-2.5 N NEUTROPHIL # (test code = NT#) 15.39 x10 3/uL 1.80-7.70 H LYMPHOCYTE # (test code = LY#) 0.20 x10 3/uL 1.00-4.80 L MONOCYTE # (test code = MO#) 1.69 x10 3/uL 0.00-0.80 H EOSINOPHIL # (test code = EO#) 0.00 x10 3/uL 0.00-0.45 N BASOPHIL # (test code = BA#) 0.02 x10 3/uL 0.0-0.20 N LACTIC [id number] 19:21:00* Test Item Value Reference Range Interpretation Comme nts LACTIC ACID (test code = LACT) 3.90 mmol/L 0.5-2.0 HH Critical Value r eported toFirst Name:IRMA Barron Name:CHASEULTS READ BACK AND VERIFIEDby [id number], on 01/12/24, @ 1921. PROTHROMBIN [id number] 15:25:00* Test Item Value Reference Range Interpretation Comme nts PROTHROMBIN TIME PATIENT (test code = PTP) 14.3 SECONDS 10.3-12.9 H INTERNATIONAL NORMAL RATIO (test code = INR) 1.28 0.9-1.11 H INR goals are individualized based on patient specificfactors. The following are only general guidelines: Indications: INR Goal:1. Treatment of venous thromboembolism and 2.0 - 3.0 systemic anticoagulation in a variety of conditions, including atrial fibrillation and mechanical heart valves 2. Mechanical mitral and tricuspid valves, 2.5 - 3.5 systemic anticoagulation for high-risk conditions THROMBOPLASTIN TIME [id number] 15:25:00* Test Item Value Reference Range Interpretation Comme nts THROMBOPLASTIN TIME PARTIAL (test code = PTT) 39.3 secs 23.8-34.8 H INTERPRETATIVE D MICHELLE: Therapeutic range: Unfractionated Heparin: 60-90 seconds Argatroban: 60-90 seconds LACTIC [id number] 15:24:00* Test Item Value Reference Range Interpretation Comme nts LACTIC ACID (test code = LACT) 3.60 mmol/L 0.5-2.0 HH Critical Value r eported toFirst Name:ROBEL Last Name:SERGE READ BACK AND VERIFIEDby [id number], on 01/12/24, @ 0468. BASIC METABOLIC [id number] 15:23:00* Test Item Value Reference Range Interpretation Comme nts SODIUM (test code = NA) 144 mmol/L 136-145 N POTASSIUM (test code = K) 4.5 mmol/L 3.5-5.1 N CHLORIDE (test code = CL) 113 mmol/l 98-107 H CARBON DIOXIDE (test code = CO2) 23 mmol/L 20-31 N GLUCOSE (test code = GLU) 130 mg/dL 74-106 H BLOOD UREA NITROGEN (test code = BUN) 28 mg/dL 9-23 H GLOMERULAR FILTRATION RATE (test code = GFR) 60 mL/min >60 The Glomerular Filtration Rate is a calculated parameterbased on serum Creatinine, patient age and sex. GFR valuesless than 60 mL/min/1.73 square meters are indicative ofChronic Kidney Disease. Values less than 15 mL/min/1.73square meters indicate Kidney failure. The calculation forGFR is based on the CKD-EPI (2020) calculation. This formulais race indifferent and is the recommended formula for GFRby the National Kidney Foundation for Adults.The GFR will not calculate if the sex is unknown or if thepatient's age is <18 years. CREATININE (test code = CREAT) 1.20 mg/dL 0.70-1.30 N CALCIUM (test code = CA) 9.7 mg/dL 8.7-10.4 N [id number] 15:23:00* Test Item Value Reference Range Interpretation Comme nts PHOSPHOROUS (test code = PHOS) 2.7 mg/dL 2.4-5.1 N [id number] 15:23:00* Test Item Value Reference Range Interpretation Comme nts MAGNESIUM (test code = MAG) 2.4 mg/dL 1.6-2.6 N CBC W/AUTO [id number] 15:22:00* Test Item Value Reference Range Interpretation Comme nts WHITE BLOOD CELL (test code = WBC) 21.2 x10 3/uL 4.8-10.8 H RED BLOOD CELL (test code = RBC) 3.15 x10 6/uL 4.70-6.10 L HEMOGLOBIN (test code = HGB) 10.6 g/dL 14.0-18.0 L HEMATOCRIT (test code = HCT) 31.9 % 42.0-52.0 L MEAN CELL VOLUME (test code = MCV) 101.3 fL 80.0-94.0 H MEAN CELL HGB (test code = MCH) 33.7 pg 27-31 H MEAN CELL HGB CONCENTRATION (test code = MCHC) 33.2 G/DL 33-36.5 N RED CELL DISTRIBUTION WIDTH (test code = RDW) 14.6 % 12.9-16.9 N PLATELET COUNT (test code = PLT) 162 x10 3/uL 150-440 N MEAN PLATELET VOLUME (test code = MPV) 10.6 fL 8.9-12.4 N NEUTROPHIL % (test code = NT%) 84.0 % 42.2-75.2 H LYMPHOCYTE % (test code = LY%) 3.4 % 20.5-51.1 L MONOCYTE % (test code = MO%) 11.7 % 1.7-9.3 H EOSINOPHIL % (test code = EO%) 0.1 % 0.0-7.0 N BASOPHIL % (test code = BA%) 0.2 % 0-2.5 N NEUTROPHIL # (test code = NT#) 17.80 x10 3/uL 1.80-7.70 H LYMPHOCYTE # (test code = LY#) 0.71 x10 3/uL 1.00-4.80 L MONOCYTE # (test code = MO#) 2.48 x10 3/uL 0.00-0.80 H EOSINOPHIL # (test code = EO#) 0.03 x10 3/uL 0.00-0.45 N BASOPHIL # (test code = BA#) 0.04 x10 3/uL 0.0-0.20 N BLOOD GAS [id number]/[id number] 14:58:00* Test Item Value Reference Range Interpretation Comme nts ARTERIAL BLOOD GAS PH (test code = PHA) 7.36 7.35-7.45 N ARTERIAL BLOOD GAS PCO2 (test code = PCO2A) 38.7 mmHg 35.0-45.0 N ARTERIAL BLOOD GAS PO2 (test code = PO2A) 106.0 mmHg 80.0-95.0 H BICARBONATE TOTAL HCO3 (test code = HCO3) 21.4 mmol/L 22.0-24.0 L BASE EXCESS (test code = EM) -3.6 mmol/L See_Comment L [Automated message] The system which generated this result transmitted reference range: (+/-)2.0. The reference range was not used to interpret this result as normal/abnormal. ABG O2 SATURATION (test code = SATA) 97.4 % 95.0-100.0 N ARTERIAL FIO2 (test code = FIO2A) 60.0 % ABG VENT MODE (test code = MODEA) Ventilator ALLENS TEST (test code = ALLENS) NOT APPLICABLE SODIUM (POC) (test code = NA/ABG) 141 mmol/L 135-147 N POTASSIUM (POC) (test code = K/ABG) 4.42 mmol/L 3.6-5.2 N CHLORIDE (ARTERIAL) (test code = CL/ABG) 109 mmol/L 98-108 H GLUCOSE (test code = GLU/ABG) 128 mg/dL 70-104 H IONIZED CALCIUM (test code = CAIABG) 1.35 mmol/L 1.12-1.32 H POC LACTIC ACID (test code = POCLAC) 3.38 mmol/L 0.5-2.2 H TOTAL HGB (test code = THB) 11.4 g/dL 13.0-17.0 L OXYHEMOGLOBIN (test code = OOHGBT) 95.9 % 92.0-98.0 N CARBOXYHEMOGLOBIN (test code = HOHGBT) 0.3 % 0-5.0 N METHEMOGLOBIN (test code = METHGB) 1.2 % 0-1.5 N HHb (test code = HHB) 2.6 % TCO2 ARTERIAL (test code = TCO2A) 22.6 MMOL/L 24-30 L COAGULATION TIME [id number] 13:31:00* Test Item Value Reference Range Interpretation Comme nts COAGULATION TIME ACTIVATED ( test code = ACT) 116 SECONDS 74-137 N COAGULATION TIME [id number] 13:01:00* Test Item Value Reference Range Interpretation Comme nts COAGULATION TIME ACTIVATED ( test code = ACT) 403 SECONDS 74-137 H COAGULATION TIME [id number] 12:18:00* Test Item Value Reference Range Interpretation Comme nts COAGULATION TIME ACTIVATED ( test code = ACT) 483 SECONDS 74-137 H COAGULATION TIME [id number] 11:54:00* Test Item Value Reference Range Interpretation Comme nts COAGULATION TIME ACTIVATED ( test code = ACT) 531 SECONDS 74-137 H COAGULATION TIME [id number] 11:20:00* Test Item Value Reference Range Interpretation Comme nts COAGULATION TIME ACTIVATED ( test code = ACT) 428 SECONDS 74-137 H COAGULATION TIME [id number] 10:51:00* Test Item Value Reference Range Interpretation Comme nts COAGULATION TIME ACTIVATED ( test code = ACT) 525 SECONDS 74-137 H COAGULATION TIME [id number] 10:22:00* Test Item Value Reference Range Interpretation Comme nts COAGULATION TIME ACTIVATED ( test code = ACT) 391 SECONDS 74-137 H COAGULATION TIME [id number] 09:48:00* Test Item Value Reference Range Interpretation Comme nts COAGULATION TIME ACTIVATED ( test code = ACT) 483 SECONDS 74-137 H COAGULATION TIME [id number] 09:23:00* Test Item Value Reference Range Interpretation Comme nts COAGULATION TIME ACTIVATED ( test code = ACT) 464 SECONDS 74-137 H COAGULATION TIME [id number] 08:54:00* Test Item Value Reference Range Interpretation Comme nts COAGULATION TIME ACTIVATED ( test code = ACT) 146 SECONDS 74-137 H UA RFLX MICR CULT IF [id number] 13:32:00* Test Item Value Reference Range Interpretation Comme nts UA COLOR (test code = COLU) YELLOW DISCRIPT YELLOW UA APPEARANCE (test code = APPU) Slightly cloudy DISCRIPT CLEAR UA GLUCOSE DIPSTICK (test code = DGLUU) NEGATIVE mg/dL NEGATIVE UA BILIRUBIN DIPSTICK (test code = BILU) NEGATIVE NEGATIVE UA KETONE DIPSTICK (test code = KETU) NEGATIVE mg/dL NEGATIVE UA SPECIFIC GRAVITY (test code = SGU) 1.025 1.005-1.030 UA BLOOD DIPSTICK (test code = FAMILIA) NEGATIVE NEGATIVE UA PH DIPSTICK (test code = ALBERTA) 5.5 5.0-9.0 UA PROTEIN DIPSTICK (test code = PROU) NEGATIVE mg/dL NEGATIVE UA UROBILINOGEN DIPSTICK (test code = URO) NORMAL mg/dL 0.2-1.0 UA NITRITE DIPSTICK (test code = WEST) NEGATIVE NEGATIVE UA LEUKOCYTE ESTERASE DIPSTICK (test code = LEUU) NEGATIVE NEGATIVE UA WBC (test code = WBCU) 0-2 #WBC/HPF 0-2 UA RBC (test code = RBCU) 0-2 #RBC/HPF 0-2 UA BACTERIA (test code = BACU) NONE SEEN /HPF NONE-TRACE UA SQUAMOUS CELLS (test code = SQU) TRACE /LPF NONE-TRACE Indication for culture: RiskForSepsis-no oth srcCOMPREHENSIVE METABOLIC PANEL 2024-01-10 11:27:00* Test Item Value Reference Range Interpretation Comme nts SODIUM (test code = NA) 142 mmol/L 136-145 N POTASSIUM (test code = K) 4.7 mmol/L 3.5-5.1 N CHLORIDE (test code = CL) 110 mmol/l 98-107 H CARBON DIOXIDE (test code = CO2) 27 mmol/L 20-31 N GLUCOSE (test code = GLU) 110 mg/dL 74-106 H BLOOD UREA NITROGEN (test code = BUN) 39 mg/dL 9-23 H GLOMERULAR FILTRATION RATE (test code = GFR) 42 mL/min >60 L The Glomerular Filtration Rate is [...] <18 years. CREATININE (test code = CREAT) 1.60 mg/dL 0.70-1.30 H TOTAL PROTEIN (test code = PROT) 5.2 g/dL 5.7-8.2 L ALBUMIN (test code = ALB) 3.6 g/dL 3.2-4.8 N CALCIUM (test code = CA) 8.1 mg/dL 8.7-10.4 L BILIRUBIN TOTAL (test code = BILT) 0.4 mg/dL 0.3-1.2 N SGOT/AST (test code = AST) 30 U/L <34 N SGPT/ALT (test code = ALT) 31 U/L 10-49 N ALKALINE PHOSPHATASE (test code = ALKP) 148.0 U/L 46-116 H COVID 19 Asymptomatic IH [id number] 11:18:00* Test Item Value Reference Range Interpretation Comme nts COVID 19 Asymptomatic IH AG (test code = COVNONPUIAG) NEGATIVE NEGATIVE Negative results , from patients with symptom onset beyondfive days, should be treated as presumptive and confirmationwith a molecular assay, if necessary for patientmanagement, may be performed. Negative results do not ruleout COVID-19 and should not be used as the sole basis fortreatment or patient management decisions, includinginfection control decisions. Negative results should beconsidered in the context of a patient's recent exposures,history and the presence of clinical signs and symptomsconsistent with COVID-19. PROTHROMBIN [id number] 11:09:00* Test Item Value Reference Range Interpretation Comme nts PROTHROMBIN TIME PATIENT (test code = PTP) 11.9 SECONDS 10.3-12.9 N INTERNATIONAL NORMAL RATIO (test code = INR) 1.06 0.9-1.11 N INR goals are individualized based on patient specificfactors. The following are only general guidelines: Indications: INR Goal:1. Treatment of venous thromboembolism and 2.0 - 3.0 systemic anticoagulation in a variety of conditions, including atrial fibrillation and mechanical heart valves 2. Mechanical mitral and tricuspid valves, 2.5 - 3.5 systemic anticoagulation for high-risk conditions THROMBOPLASTIN TIME [id number] 11:09:00* Test Item Value Reference Range Interpretation Comme nts THROMBOPLASTIN TIME PARTIAL (test code = PTT) 37.1 secs 23.8-34.8 H INTERPRETATIVE D MICHELLE: Therapeutic range: Unfractionated Heparin: 60-90 seconds Argatroban: 60-90 seconds CBC W/AUTO [id number] 11:03:00* Test Item Value Reference Range Interpretation Comme nts WHITE BLOOD CELL (test code = WBC) 7.3 x10 3/uL 4.8-10.8 N RED BLOOD CELL (test code = RBC) 3.48 x10 6/uL 4.70-6.10 L HEMOGLOBIN (test code = HGB) 11.5 g/dL 14.0-18.0 L HEMATOCRIT (test code = HCT) 36.3 % 42.0-52.0 L MEAN CELL VOLUME (test code = MCV) 104.3 fL 80.0-94.0 H MEAN CELL HGB (test code = MCH) 33.0 pg 27-31 H MEAN CELL HGB CONCENTRATION (test code = MCHC) 31.7 G/DL 33-36.5 L RED CELL DISTRIBUTION WIDTH (test code = RDW) 14.8 % 12.9-16.9 N PLATELET COUNT (test code = PLT) 217 x10 3/uL 150-440 N MEAN PLATELET VOLUME (test c ode = MPV) 10.8 fL 8.9-12.4 N NEUTROPHIL % (test code = NT%) 77.0 % 42.2-75.2 H LYMPHOCYTE % (test code = LY%) 8.3 % 20.5-51.1 L MONOCYTE % (test code = MO%) 11.2 % 1.7-9.3 H EOSINOPHIL % (test code = EO%) 2.5 % 0.0-7.0 N BASOPHIL % (test code = BA%) 0.7 % 0-2.5 N NEUTROPHIL # (test code = NT#) 5.64 x10 3/uL 1.80-7.70 N LYMPHOCYTE # (test code = LY#) 0.61 x10 3/uL 1.00-4.80 L MONOCYTE # (test code = MO#) 0.82 x10 3/uL 0.00-0.80 H EOSINOPHIL # (test code = EO#) 0.18 x10 3/uL 0.00-0.45 N BASOPHIL # (test code = BA#) 0.05 x10 3/uL 0.0-0.20 N COMPREHENSIVE METABOLIC [id number] 07:58:00* Test Item Value Reference Range Interpretation Comme nts SODIUM (test code = NA) 142 mmol/L 136-145 N POTASSIUM (test code = K) 4.3 mmol/L 3.5-5.1 N CHLORIDE (test code = CL) 110 mmol/l 98-107 H CARBON DIOXIDE (test code = CO2) 25 mmol/L 20-31 N GLUCOSE (test code = GLU) 100 mg/dL 74-106 N BLOOD UREA NITROGEN (test code = BUN) 36 mg/dL 9-23 H GLOMERULAR FILTRATION RATE (test code = GFR) 42 mL/min >60 L The Glomerular Filtration Rate is [...] <18 years. CREATININE (test code = CREAT) 1.60 mg/dL 0.70-1.30 H TOTAL PROTEIN (test code = PROT) 6.2 g/dL 5.7-8.2 N ALBUMIN (test code = ALB) 4.1 g/dL 3.2-4.8 N CALCIUM (test code = CA) 8.6 mg/dL 8.7-10.4 L BILIRUBIN TOTAL (test code = BILT) 0.8 mg/dL 0.3-1.2 N SGOT/AST (test code = AST) 35 U/L <34 H SGPT/ALT (test code = ALT) 34 U/L 10-49 N ALKALINE PHOSPHATASE (test code = ALKP) 126.0 U/L 46-116 H [id number] 07:58:00* Test Item Value Reference Range Interpretation Comme [facility] MAGNESIUM (test code = MAG) 2.0 mg/dL 1.6-2.6 N PROTHROMBIN [id number] 07:55:00* Test Item Value Reference Range Interpretation Comme [facility] PROTHROMBIN TIME PATIENT (test code = PTP) 12.4 SECONDS 10.3-12.9 N INTERNATIONAL NORMAL RATIO (test code = INR) 1.11 0.9-1.11 N INR goals are individualized based on patient specificfactors. The following are only general guidelines: Indications: INR Goal:1. Treatment of venous thromboembolism and 2.0 - 3.0 systemic anticoagulation in a variety of conditions, including atrial fibrillation and mechanical heart valves 2. Mechanical mitral and tricuspid valves, 2.5 - 3.5 systemic anticoagulation for high-risk conditions THROMBOPLASTIN TIME [id number] 07:55:00* Test Item Value Reference Range Interpretation Comme [facility] THROMBOPLASTIN TIME PARTIAL (test code = PTT) 33.9 secs 23.8-34.8 N INTERPRETATIVE D MICHELLE: Therapeutic range: Unfractionated Heparin: 60-90 seconds Argatroban: 60-90 seconds CBC W/AUTO [id number] 07:40:00* Test Item Value Reference Range Interpretation Comme nts WHITE BLOOD CELL (test code = WBC) 7.9 x10 3/uL 4.8-10.8 N RED BLOOD CELL (test code = RBC) 3.60 x10 6/uL 4.70-6.10 L HEMOGLOBIN (test code = HGB) 11.8 g/dL 14.0-18.0 L HEMATOCRIT (test code = HCT) 36.5 % 42.0-52.0 L MEAN CELL VOLUME (test code = MCV) 101.4 fL 80.0-94.0 H MEAN CELL HGB (test code = MCH) 32.8 pg 27-31 H MEAN CELL HGB CONCENTRATION (test code = MCHC) 32.3 G/DL 33-36.5 L RED CELL DISTRIBUTION WIDTH (test code = RDW) 15.4 % 12.9-16.9 N PLATELET COUNT (test code = PLT) 176 x10 3/uL 150-440 N MEAN PLATELET VOLUME (test c ode = MPV) 11.3 fL 8.9-12.4 N NEUTROPHIL % (test code = NT%) 80.1 % 42.2-75.2 H LYMPHOCYTE % (test code = LY%) 6.4 % 20.5-51.1 L MONOCYTE % (test code = MO%) 10.3 % 1.7-9.3 H EOSINOPHIL % (test code = EO%) 2.3 % 0.0-7.0 N BASOPHIL % (test code = BA%) 0.8 % 0-2.5 N NEUTROPHIL # (test code = NT#) 6.36 x10 3/uL 1.80-7.70 N LYMPHOCYTE # (test code = LY#) 0.51 x10 3/uL 1.00-4.80 L MONOCYTE # (test code = MO#) 0.82 x10 3/uL 0.00-0.80 H EOSINOPHIL # (test code = EO#) 0.18 x10 3/uL 0.00-0.45 N BASOPHIL # (test code = BA#) 0.06 x10 3/uL 0.0-0.20 N POC VENOUS BLOOD [id number] 07:01:00* Test Item Value Reference Range Interpretation Comme nts POC VENOUS BLOOD GAS PH (test code = POCPHV) 7.321 pH units 7.26-7.43 N POC VENOUS BLOOD GAS PCO2 (test code = [id number]) 46.8 mmHg e 35.0-45.0 H POC VENOUS BLOOD GAS PO2 (test code = MSTWC7R) 37.0 mmHg e 80.0-100.0 LL POC TCO2 VENOUS (test code = YYAURA6Y) 23.9 MMOL/L e 24.0-30.0 L POC HCO3 VENOUS (test code = NYYETH8C) 24.2 MMOL/L e 22.0-26.0 N POC BASE EXCESS VENOUS (test code = POCBEV) -2.0 MMOL/L e See_Comment N [Automated [employer]] The system which generated this result transmitted reference range: -3.0 to 3.0. The reference range was not used to interpret this result as normal/abnormal. POC O2 SATURATION VENOUS (test code = VMAM8MS) 65 % e 95-100 L POC SAMPLE SOURCE (test code = POCSAMPLE) Venous Descript Specimen POC ARTERIAL BLOOD [id number] 06:36:00* Test Item Value Reference Range Interpretation Comme nts POC ARTERIAL BLOOD GAS PH (test code = POCPHA) 7.385 pH units 7.35-7.45 N POC ARTERIAL BLOOD GAS PCO2 (test code = RYAZBN4Y) 38.9 mmHg e 35.0-45.0 N POC TCO2 ARTERIAL (test code = POCTCO2) 22.9 MMOL/L e 24.0-30.0 L ARTERIAL BLOOD GAS PO2 (test code = WCMGP6S) 89.2 mmHg e 80.0-105.0 N POC HCO3 ARTERIAL (test code = DNXDCM3X) 23.3 MMOL/L e 22.0-26.0 N POC BASE EXCESS (test code = POCBEA) -1.6 MMOL/L e POC O2 SATURATION (test code = POCO2S) 97 % e 95-100 N POC SAMPLE SOURCE (test code = POCSAMPLE) Arterial Descript Specimen COMPREHENSIVE METABOLIC [id number] 06:08:00* Test Item Value Reference Range Interpretation [...] = HDL) 31 MG/DL See_Comment L [Automated [employer]] The system which generated this result transmitted reference range: 60-. The reference range was not used to interpret this result as normal/abnormal. NON-HDL CHOLESTEROL (test code = NHDL) 88 mg/dL <130 LIPOPROTEIN LDL (test code = LDL) 70 MG/DL 0-129 N LDL/HDL (test code = LDL/HDL) 2.25 Ratio See_Comment N [Automated [employer]] The system which generated this result transmitted reference range: 1.48-3.22 Avg. The reference range was not used to interpret this result as normal/abnormal. [id number] 06:08:00* Test Item Value Reference Range Interpretation Comme nts MAGNESIUM (test code = MAG) 2.3 MG/DL 1.8-2.4 N PROTHROMBIN [id number] 05:51:00* Test Item Value Reference Range Interpretation [...] Infarction (to prevent recurrent infarct). 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 He presented last night with hematochezia, 5-6 episodes of HC. Cardiology was consulted for opinion regarding stopping plavix. 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 AV replaced with 21 mmEdwards Inspiris Biologic valve. We already spoke to his primary client account representative Dr. Ureña and he agreed to stop his plavix ROS: Negative except as above Past Medical History: Diagnosis Date Chronic kidney disease Hay fever Hyperlipidemia Hypertension Hypothyroidism Past Surgical History: Procedure Laterality Date COLONOSCOPY EGD (ENDO) URETEROSCOPIC STONE MANIPULATION Left 02/20/2018 Surgeon: Ramy Webb MD; [place] [facility] [place] No family history on file. Social History Socioeconomic History Marital status: Tobacco Use Smoking status: Never Smokeless tobacco: Never Substance and Sexual Activity Alcohol use: No Drug use: No Sexual activity: Never Social Determinants of Health Food Insecurity: No Food Insecurity (05/13/2024) NCSS - Food Insecurity Worried About Running Out of Food in the Last Year: No Ran Out of Food in the Last Year: No Transportation Needs: No Transportation Needs (05/13/2024) NCSS - Transportation Lack of Transportation: No Housing Stability: Not At Risk (05/13/2024) NCSS - Housing/Utilities Has Housing: Yes Worried About Losing Housing: No Unable to Get Utilities: No No Known Allergies Prior to Admission medications Medication Sig Start Date End Date Taking? Authorizing Provider carvediloL 12.5 mg tablet Take 0.5 tablets by mouth in the morning and 0.5 tablets in the evening. Take with meals. Yes Doctor Unassigned, [place] gabapentin ER 600 mg tablet, extended release 24 hr Take 1 tablet by mouth every 8 (eight) hours. Yes Doctor Unassigned, [place] tiZANidine 4 mg capsule Take 1 capsule by mouth at bedtime. Yes Doctor Unassigned, [place] fenofibrate 54 mg tablet Take 54 mg by mouth daily. Doctor Unassigned, [place] vit A/C/E ac/ZnOx/cupric oxide (EYE VITAMIN AND MINERALS ORAL) Take 2 capsules by mouth daily. 02/13/17 Doctor Unassigned, [place] hydroCHLOROthiazide 12.5 mg capsule Take 12.5 mg by mouth daily. 11/29/17 Doctor Unassigned, [place] omeprazole 20 mg capsule Take 1 capsule by mouth daily. 11/29/17 Doctor Unassigned, [place] ASPIRIN CHILD ORAL Take 81 mg by mouth daily. Doctor Unassigned, [place] atorvastatin 40 mg tablet Take 1 tablet by mouth every evening. 03/09/17 Doctor Unassigned, [place] CALCIUM CARBONATE/VITAMIN D3 (VITAMIN D-3 ORAL) Take 1,000 Units by mouth daily. Doctor Unassigned, [place] DOCOSAHEXANOIC ACID/EPA (FISH OIL ORAL) Take 1 tablet by mouth daily. Doctor Unassigned, [place] dutasteride 0.5 mg capsule Take 1 capsule by mouth in the morning. 03/08/17 Doctor Unassigned, [place] ferrous sulfate (IRON) 325 mg (65 mg iron) tablet Take 325 mg by mouth 3 (three) times daily with meals. Doctor Unassigned, [place] levothyroxine 50 mcg tablet Take 1 tablet by mouth every morning. 02/23/17 Doctor Unassigned, [place] Melatonin 5 mg Cap Take 5 mg by mouth at bedtime. Doctor Unassigned, [place] tamsulosin 0.4 mg 24 hr capsule Take 1 capsule by mouth in the morning. 03/09/17 Doctor Unassigned, [place] TRIAMCINOLONE ACETONIDE (NASACORT NASAL) Use 1 Donnelly in each nostril as needed. Doctor Unassigned, [place] Current Facility-Administered Medications: bisacodyL (DULCOLAX) tablet 10 mg, 10 mg, Oral, PRE-PROCEDURE ONCE, Tony Sofia DO bisacodyL (DULCOLAX) tablet 10 mg, 10 mg, Oral, PRE-PROCEDURE ONCE, Tony Sofia DO ondansetron (ZOFRAN (PF)) injection 4 mg, 4 mg, Slow IV Push, Q6HPRN, Tony Sofia DO peg-electrolyte soln (GOLYTELY) 236-22.74-6.74 -5.86 gram solution 4,000 mL, 4,000 mL, Oral, PRN - SEE INSTRUCTIONS, Tony Sofia atorvastatin (LIPITOR) tablet 40 mg, 40 mg, Oral, QPM, Kaylan, [place], AGACNP, 40 mg at 05/13/24 1741 carvediloL (COREG) tablet 6.25 mg, 6.25 mg, Oral, BID MEALS, Kaylan, [place], AGACNP, 6.25 mg at 05/13/24 1741 levothyroxine (SYNTHROID) tablet 50 mcg, 50 mcg, Oral, QAM-0600, Kaylan, [place], AGACNP, 50 mcg at 05/13/24 0611 piperacillin-tazobactam (ZOSYN) 3.375 g in NaCl 0.9% (NS) 100 mL MINI-BAG, 3.375 g, IV Piggyback, Q8H ABX, Kaylan, Socorro, AGACNP, Last Rate: 25 mL/hr at 05/13/24 1746, 3.375 g at 05/13/24 1746 tamsulosin (FLOMAX) capsule 0.4 mg, 0.4 mg, Oral, DAILY, Kaylan, Socorro, AGACNP, 0.4 mg at 05/13/24 0855 acetaminophen (TYLENOL) tablet 650 mg, 650 mg, Oral, Q6HPRN, Kaylan, [place], AGACNP hydralAZINE (APRESOLINE) injection 10 mg, 10 mg, Slow IV Push, Q4HPRN, Kaylan, [place], AGACNP, 10 mg at 05/12/24 2327 HYDROcodone-acetaminophen (NORCO 5) tablet 1 tablet, 1 tablet, Oral, Q6HPRN, Kaylan, Socorro, AGACNP melatonin (MELATIN) tablet 3 mg, 3 mg, Oral, QHSPRN, Kaylan, Socorro, AGACNP NaCl 0.9% (NS) IV infusion 1,000 mL, 1,000 mL, IV Infusion, CONTINUOUS, Kaylan, Socorro, AGACNP, Last Rate: 75 mL/hr at 05/13/24 0354, 1,000 mL at 05/13/24 0354 ondansetron (ZOFRAN (PF)) injection 4 mg, 4 mg, Slow IV Push, Q6HPRN, Kaylan, [place], AGACNP pantoprazole (PROTONIX) injection 40 mg, 40 mg, Slow IV Push, Q12H, Kaylan, Socorro, AGACNP, 40 mg at 05/13/24 0855 Physical Examination: Temp: [36.3 ?C (97.4 ?F)-36.9 ?C (98.4 ?F)] Pulse: [58-80] Resp: [16-20] BP: (132-162)/(73-87) MAP (mmHg): [98-108] Intake/Output Summary (Last 24 hours) at 05/13/2024 1759 Last data filed at 05/13/2024 1300 Gross per 24 hour Intake 890 ml Output 1200 ml Net -310 ml General: alert and oriented x 3, no apparent distress. HEENT: Normocephalic, moist mucous membanes, no scleral icterus. Neck: supple, no JVD. Lungs: Normal respiratory excursion. Bilateral clear to auscultation Cardio: Regular rate and rhythm. S1 and S2. No gallops or murmurs. Abdomen: Soft, non tender, non distended. Extremities: No cyanosis, clubbing or edema. Neuro: Moves all extremities. No gross neuro deficits. Labs/Imaging/Pathology - Reviewed Echocardiography none on chart Assessment/Plan: Ashely Toscano is a 83 year old male admitted with: MVR and AVR with biologic valves 01/2024 done for severe MR along with MAC and severe AI LINDSAY clip with no hx of Afib Hematochezia Normocytic anemia, no baseline to compare to CKD3 baseline creat 1.5 GFR 45 Plan: From cardiology standpoint patient does not have clinical indication for being on DAPT, I confirmed with his primary client account representative no prior hx of Afib, he presented with Hematochezia, along with hx of GI bleeding in 2019, having him on Plavix increase risk of GI bleeding. We agreed to stop Plavix and recommend to keep him on ASA given his recent valves replacement if possible. Anemia work up as per primary team. Send lipid panel. 2L fluid restriction, Strict Is/Os and Daily weights Daily CMP and Mg. C/w Telemetry Ensure K>4 and Mg>2. Thank you for your consult. Discussed case with Dr. Doug Wilson. Bernice Babcock MD Certified Maintenance Welder, PGY-4 ER DOCK Associated attestation - Danica Wynn MD - 05/14/2024 8:19 AM HEADER DOCK I personally examined the patient on 05/13/[address] Babcock's fellow note. I actively participated in the decision-making process. Please see the fellow's note for additional details. Danica Wilson MD Cardiology Faculty [facility] 2024-05-13 13:20:00 Associated Order(s): CONSULT ADULT PHYSICAL THERAPY Patient agreeable to working with physical therapy. Patient met semi reclined in bed and bed in lowest position. Nurse Madrid approved PT/OT visit. Patient seen for co-evaluation with Occupational Therapist due to anticipated level of care and patient's ability to tolerate therapy Recommend nursing staff utilize RW to safely assist patient with mobility out of the bed or chair. PHYSICAL THERAPY EVALUATION Consult received, chart reviewed and evaluation complete this date. Patient is referred to PT for evaluation and treatment. Patient is a 83 year old male who presents to hospital for Gastrointestinal hemorrhage [K92.2], anemia, bloody BMs, diverticulitis. 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 Precautions: Fall Risk Discharge Recommendations: Therapy Needs and Potential: Patient would benefit from continued physical therapy services to address: decline in transfers decline in gait and/or balance decreased strength decreased coordination Patient demonstrates good potential to improve and meet therapy goals with further physical therapy services. Patient appears motivated to improve their functional mobility and return to their previous level of function. Patient demonstrates ability to tolerate atleast 30-60 minutes of physical therapy with active participation. Challenges to Home Transition: increased risk of falls decreased safety awareness Equipment recommendations: Patient has or access to necessary equipment Current Functional Status and/or Treatment: AM-PAC 6 Clicks (Raw Score 0=Dependent, 24=Independent; Low function Raw Score 0= Dependent, 32=Independent): Raw Score - Basic Mobility : 18 T-Scale Score - Basic Mobility : 41.05 Bed Mobility: Rolling: Independent Scooting in supine: Independent Supine-sit: Independent Sitting balance Fair+ Scooting to edge of bed: Independent Cued for sitting posture - tends to retrograde with dynamics sitting activity Used bed rails Dizziness No Transfers: sit-stand: Moderate Assistance without AD, used momentum and had a LOB backward requiring assist Sit to stand: Supervision using RW Stand to sit: Supervision using RW Static/dynamic standing balance: Fair Verbal cueing provided for correct hand placement and correct use of AD Cued for posture Cues to remain next to sitting surface for short period before initiates gait to ensure no onset of dizziness Dizziness No Ambulation: Assisted patient with ambulation as follows: 400, sit on toilet, 20 feet using RW and Supervision. Patient presenting with 4 point gait pattern. Step through Cued for posture - tends to look down, forward shoulders Cues for correct use of the RW and demonstrated to the pt as well Educated on foot clearance Pt toes out Bilat Dizziness No Therapeutic exercise: patient educated in Adaptive equipment , Compensatory techniques/adaptive strategies, Fall prevention, General strengthening, Gross motor coordination of LEs, Positioning, Relaxation/breathing techniques, and Safety awareness., instructed patient in the following: glut sets, long arc quads, seated marching, hip flex, achilles stretch w/ 5 sec holds performed slowly and controlled with education on correct breathing and counting technique, patient/caregiver instructed to perform HEP 2-3 times per day, 10-15 repetitions., and patient/caregiver demonstrates understanding of instructions. Handout provided, reviewed, and educated on the benefits of each exercise to his mobility. Functional Outcome Measures: (Values within the past 12 hours) Tinetti Gait Score- # / 12 Initiation of gait: No hesitancy Step length: On both sides, swing foot passes stance foot Foot clearance: Both feet completely clear floor Step Symmetry: Step lengths equal Step continuity: Steps appear continuous Path: Mild/moderate deviation or uses AD Trunk: Marked sway or uses AD Walking: Heels apart Tinetti Gait Score: 8 Tinetti Gait Score Interpretation: >= 7 - Low risk for falls After session, patient up in chair. Call button provided. Nurse Julius informed of his levels, OOB and will go btb with nursing. PLAN OF CARE: While in the hospital, PT will follow patient at least 2 times per week,once or twice a day, per patient's tolerance and needs. See below for complete details. Admit Date: 05/11/2024 Hospital Diagnosis:Gastrointestinal hemorrhage [K92.2] PT Diagnosis: Weakness and Abnormality of gait and balance Weight Bearing Precaution: NA General Precautions: PPE used:Gloves and Surgical mask, General, Fall,IV , Bracing/Cast present or required:N/A PMH: Past Medical History: Diagnosis Date Chronic kidney disease Hay fever Hyperlipidemia Hypertension Hypothyroidism PSH: Past Surgical History: Procedure Laterality Date COLONOSCOPY EGD (ENDO) URETEROSCOPIC STONE MANIPULATION Left 02/20/2018 Surgeon: Ramy Webb MD; [place] [facility] [place]IVING SITUATION: lives with their spouse, 2 story home bedroom down, 1 step entry DME: Rolling Walker Prior level of Mobility: community ambulation, house hold ambulation, drives Suspected ischemic or hemorraghic stroke:No Subjective: state she walks around the [place] every morning with his but it can be painful - his legs hurt him so he has to walk slowly. States the pain in his legs has been going on for about a year - it is in his calves mostly. "I'm weaker because I haven't had anything to eat." Patient/Family Goals: be back to normal, not have pain in his legs when he walks Patient/Family verbalizes understanding of condition: Yes PAIN: -Pain Location: right leg and left leg -Pain rating before treatment: 0, After treatment: 0, but with certain movements and with gait has pain in B calves -Pain Management: Decreased movement aides in some pain reduction and Repositioning Provided COMMUNICATION Primary Language: German Able to Verbalize needs: Yes Vision:glasses Hearing:hard of hearing ORIENTATION/COGNITION: Oriented to: person, place, date/time, and situation Awake: Yes Alert: Yes Dizzy: No Follows Commands: Yes 1-Step Yes Multi-Step Yes Inconsistent: No NEUROLOGICAL Light Touch: within functional limits bilateral LE, Heel to colindres: impaired Tone: wfl BALANCE: Sitting: Static: Good Dynamic: Fair+ Standing: Static: Fair Dynamic: Fair RANGE OF MOTION: within functional limits bilateral LE, STRENGTH: 4-/5 (G-), bilateral LE except df 4/5 ENDURANCE: Good, Room air SKIN INTEGRITY: intact, where observed PROBLEM LIST: Decline in gait, Decline in transfers, Decreased strength, Decreased balance, Safety awareness deficits, Pain, and Decreased Coordination ASSESSMENT: Patient is a 83 year old male seen secondary to the above listed diagnosis. Patient would benefit from continued PT to address the above listed deficits to maximize independence and safety with functional mobility. Rehabilitation Potential: good Goals: The following goals are to maximize independence and safety with functional mobility to eventually return to prior living situation and prior functional status. Upon discharge, patient and/or family will demonstrate the followin. Sit to stand: Independent using RW 2. Independent with ambulation, Feet: 600 using least assistive device. 3. Pt will perform dynamic standing activities/exercises with SPV Treatment Plan: Gait training, Therapeutic exercise, Transfer training, Balance training, Bed mobility training, Equipment needs assessment, Safety education, patient/caregiver education, Pain management, Neuromuscular Re-Education, and Functional Motor Training PATIENT EDUCATION: Patient provided with preferred teaching of verbal information, written information, and demonstration on role of PT, plan of care, HEP, benefits of the exercises to his mobility, Fall prevention, benefits of mobility, correct use of the RW. Shows readiness to learn. Verbal instruction, Written material, and Demonstration teaching provided. Individual is able to read and needs reinforcement of teaching. Total Time Tx Codes in Minutes: 28 min Total Treatment Time in Minutes: 37 min Dahlia Valencia, PT [phone] [phone] ER DOCK Dahlia Valencia PT [facility] 2024-05-13 12:30:00 Associated Order(s): CONSULT ADULT OCCUPATIONAL THERAPY OT GENERAL EVALUATION Consult received via [employer], EMR reviewed and evaluation completed 05/13/24. Patient referred to occupational therapy for evaluation and treatment secondary to blood in his stool while at home. Patient agreeable to participate in occupational therapy. Patient seen for co-evaluation with Physical Therapist Dahlia Nevarez due to anticipated level of care and patient's ability to tolerate therapy. Discharge Recommendations: Therapy Needs and Potential:- Patient would benefit from continued skilled occupational therapy services to address: Decline in basic activities of daily living, Decline in instrumental activities of daily living, Decreased strength, Decreased endurance, and Decreased coordination - Patient demonstrates good potential to improve and meet therapy goals with further skilled occupational therapy services. - Patient appears motivated to improve their BADLS and IADLs and return to their previous level of function. - Patient demonstrates ability to tolerate at least 30-60 minutes of active participation in occupational therapy. - Patient able to follow commands: 1-step Yes, Multi-step Yes, Inconsistencies No Challenges to Home Transition:- Requires physical assistance for BADLS - Requires physical assistance for IADLS - Limited caregiver availability - Increased risk of falls - Environmental barriers Equipment Recommendations:Shower chair and Long handled sponge PLAN OF CARE: At least 2x/week Precautions: Weight bearing status: NA General: Fall Bracing: N/A Subjective: Pt stated feeling better but weak since he hasn't been able to eat solid food since Monday. Current Occupational Performance and/or Treatment: AM-PAC 6 Clicks (Raw Score 0=Dependent, 24=Independent; Low function Raw Score 0= Dependent, 32=Independent): Grooming: Independent, seated or standing LB Dressing: Supervision, with socks doff/don able to bring foot to opposite knee but simulated attempt to do pants and demo inability to coordinate donning clothing with foot high enough to complete safely. Toilet Transfer: Supervision, with hand rail assist which he does not use at home. Functional Mobility: Hillary with RW due to increased weakness from lack of activity and p.o. intake due to GI bleed. Patient/caregiver educated on:Adaptive equipment , ADL training, Compensatory techniques/adaptive strategies, Edema management, Energy conservation, Fall prevention, General strengthening, Relaxation/breathing techniques, Role of OT, and Safety awareness Patient left sitting upright in bedside chair with call maza in reach. Vital signs stable . Please, see full evaluation below for more detail. OT EVALUATION: 83 year old male Admit date: 05/11/2024 Date of onset: 05/11/2024 Admit Diagnosis: Gastrointestinal hemorrhage [K92.2] OT Diagnosis: Impaired BADL independence, Impaired IADL independence, Weakness, Activity intolerance, Decreased endurance, and Impaired self-care mobility PMH: Past Medical History: Diagnosis Date Chronic kidney disease Hay fever Hyperlipidemia Hypertension Hypothyroidism PSH: Past Surgical History: Procedure Laterality Date COLONOSCOPY EGD (ENDO) URETEROSCOPIC STONE MANIPULATION Left 02/20/2018 Surgeon: Ramy Webb MD; [place] [facility] [place] PAIN: Stated pain he has is chronic leg that ache for last year or so. OCCUPATIONAL ROLES/HOME ENVIRONMENT: Home environment: Lives with spouse, 24/7 supervision/assistance is available, and Multistory home. Does not go upstairs. It is for guest only. Bathroom access: Yes Bathroom setup: Shower Occupation(s): Retired Function prior to admission: Household ambulation, Community ambulation, Independent with BADLs, and Independent with IADLs Suspected ischemic or hemorraghic stroke patient: No Equipment prior to admission: Rolling walker, cane, literature teacher PERFORMANCE SKILLS/FACTORS: UE Muscle Tone: bilateral WNL UE ROM: bilateral AROM WFL UE Strength: KHALIF UE WFL Hand dominance: right Dexterity/Coordination: bilateral Intact Endurance - Sitting: Good Standing: Fair+ Sitting Balance - Static: Good Dynamic: Good Standing: Balance - Static Fair+ Dynamic: Fair+ Dizziness: No Skin Integrity: defer full skin assessment to nursing Sensation: bilateral Intact to light touch Oral Motor: WFL Communication: Able to verbalize needs Yes Other: N/A Vision: WFL Yes Other: glasses or contacts Hearing: good; no issues reported COGNITION: Orientation: person, place, date/time, and situation Follows Commands: 1-step Yes Multi-step Yes Inconsistencies No Safety Awareness/Judgment: Good PROBLEM LIST: Decreased independence with ADL and Decreased strength/endurance for functional activity REHAB POTENTIAL/PROGNOSIS: good PATIENT/FAMILY GOALS: Be able to dressing his underwear and pants without a struggle. TREATMENT/INTERVENTION PLAN: Functional motor treatment, Patient/Caregiver Education, Equipment recommendations, Daily living activities, and Therapeutic exercises GOAL(S): By discharge, patient will increase independence in daily living skills as follows: 1 Patient will perform toilet transfer with independence. 2 Patient will perform LB dressing with supervision with literature teacher. 3 Patient will complete toileting hygiene, including clothing management, with independence. 4 Patient will increase endurance for functional activity as evidenced by ability to sustain 30 minutes of active participation. 5 Patient/caregiver will verbalize/demonstrate understanding/proficiency in the following home programs: Adaptive equipment , Compensatory techniques/adaptive strategies, Edema management, Energy conservation, Fall prevention, and General strengthening PATIENT-FAMILY TEACHING Patient provided with preferred teaching of verbal information on Adaptive equipment , ADL training, Compensatory techniques/adaptive strategies, Edema management, Energy conservation, Fall prevention, General strengthening, Relaxation/breathing techniques, Role of OT, and Safety awareness. Shows readiness to learn. Verbal instruction teaching provided. Individual is able to read and verbalizes understanding of teaching provided. Niya Hernandez OTR, [facility] Department of Rehab Services Total Timed Treatment Codes: 10 Min Total Treatment Time: 20 Min Patient Complexity Level Moderate - An occupational therapy evaluation of moderate complexity was completed using the above tests and measures. The following information was obtained: An occupational profile and medical and therapy history, including an expanded review of medical and/or therapy records and additional review of physical, cognitive, or psychosocial history related to current functional performance, Various standardized and non-standardized assessments were used to identify at least 3-5 performance deficits related to physical, cognitive, or psychosocial skills that result in activity limitations and/or participation restrictions, and Clinical decision making of moderate analytic complexity, which includes an analysis of the occupational profile, analysis of data from detailed assessment(s), and consideration of several treatment options. Patient may present with comorbidities that affect occupational performance. Minimal to moderate modification of tasks or assistance (e.g., physical or verbal) with assessment(s) is necessary to enable patient to complete evaluation component. ER DOCK Niya Hernandez OT [facility] [address] 2024-05-12 07:26:25 Associated Order(s): CONSULT GASTROENTEROLOGY Images from the original note were not included. [facility] Gastroenterology & Hepatology Consult Note Requesting Physician: Jj Mcfarland MD Service: CAN- Medicine Reason for Consultation: GI bleed Date of Service: 05/12/2024 History of Present Illness: Ashely Toscano is a 83 year old male with PMHx of CKD3, HLD, HTN, hypothyroidism, MVR/AVR (01/2024) who presented as a transfer on 05/11/2024 with complaints of hematochezia. Patient states starting around 1 PM yesterday he had rectal bleeding in the absence of a bowel movement. Subsequently went to the bathroom and had hematochezia with 5-6 episodes afterwards. Denies melena, hematemesis, abdominal pain. Last episode of hematochezia was this morning around 530am (picture in media tab) but has not had any BM or bleeding since then. Patient takes ASA/plavix given his history of recent MVR/AVR. Last dose of plavix was 05/11. Reports episodes of hematochezia in 2019 and early 2023. Reports getting colonoscopy earlier this year at OSH during episode of bleeding (reports not available). Also had EGD/colonoscopy in 2019 showing schatzki ring, colonic diverticulosis, 9mm flat polyp in cecum (not removed due to GI bleed). Patient had CTAP at outside hospital prior to transfer here which showed prominent sigmoid diverticulosis with subtle inflammatory changes in the lower left quadrant sigmoid colon fat, concerning for early sigmoid diverticulitis. In the ED, patient afebrile with normal vital signs. Labs notable for hemoglobin 8.8 (last hemoglobin per [facility] Everywhere was 12.4 on 11/13/23), WBC 9, platelets 173, MCV 99, BUN 34, creatinine 1.37. Started on zosyn, IV PPI. Past Medical History: Past Medical History: Diagnosis Date Chronic kidney disease Hay fever Hyperlipidemia Hypertension Hypothyroidism Past Surgical History: Past Surgical History: Procedure Laterality Date COLONOSCOPY EGD (ENDO) URETEROSCOPIC STONE MANIPULATION Left 02/20/2018 Surgeon: Ramy Webb MD; [place] [facility] [place] Family History: No family history on file. Allergies: No Known Allergies Medications: Reviewed Social History: Social History Socioeconomic History Marital status: Spouse name: Not on file Number of children: Not on file Years of education: Not on file Highest education level: Not on file Occupational History Not on file Tobacco Use Smoking status: Never Smokeless tobacco: Never Substance and Sexual Activity Alcohol use: No Drug use: No Sexual activity: Never Other Topics Concern Not on file Social History Narrative Not on file Social Determinants of Health Financial Resource Strain: Not on file Food Insecurity: Not on file Transportation Needs: Not on file Physical Activity: Not on file Stress: Not on file Social Connections: Not on file Housing Stability: Not on file Objective: Physical Exam: BP 123/68 | Pulse 79 | Temp 36.3 ?C (97.4 ?F) | Resp 18 | Ht 1.778 m (5' 10") | Wt 78.9 kg (173 lb 15.1 oz) | SpO2 95% | BMI 24.96 kg/m? General: In NAD, well appearing HEENT: No scleral icterus. No conjunctival pallor. CV: warm, well perfused, no LE swelling Resp: No increased WOB, breathing comfortably on RA Abd: soft, non-tender, non-distended. No masses. No rebound tenderness or guarding. Neuro: answering questions appropriately. Skin: No rashes Labs: Recent Labs 05/12/2451 HGB 8.8* MCV 99.3* WBC 9.18 PLT 173 Recent Labs 05/12/2451 NA 139 K 4.1 CL 115* TCO2 24 BUN 34* CREAT 1.37* GLU 101 CA 7.5* Imaging: CT A/P WO contrast OSH Prior Endoscopy: EGD: 2019 Colonoscopy: 2019 Diverticulosis 9mm flat polyp in cecum near cecum Small internal hemorrhoids 07/2023 Reportedly had diverticulosis at that time as well. Impression/Recommendations: Ashely Toscano is a 83 year old male with PMHx as listed above who is currently admitted for hematochezia, for which GI is consulted. #Painless Hematochezia #Possible Diverticulitis on Imaging #Acute Blood Loss Anemia Patient presenting with 1 day of multiple episodes of hematochezia. Hemodynamically stable on presentation. Has history of multiple episodes of diverticular bleeding (in 2019 and 07/2023). Hemodynamically stable during admission. Hgb 8.8 on presentation, last hgb 12.4 (11/2023) and 10.2 (08/2023). Outside hospital CT apparently showing diverticulosis with subtle inflammatory changes in sigmoid fat c/f possible early diverticulitis however he has not had any pain so this is less likely. Overall, high suspicion for a recurrent diverticular hemorrhage given recent colonoscopy findings. Other ddx include hemorrhoidal, angioectasias. Ideally, would like to avoid contrast/CT angiogram given his CKD. At this time, he has not had BM since 530 this morning so bleeding may have stopped. We will monitor patient for continued bleeding and if there is, then can plan for rapid bowel prep and colonoscopy. Recommendations: - No planned colonoscopy at this time. If he has additional large-volume episodes of hematochezia, then at that time will decide on plan for colonoscopy - Advised patient and nursing to document all BM and if he has another episode of hematochezia to inform GI fellow on-call. - Advance to clear liquid diet - Maintain 2 large bore PIVs (18G or larger) - IVF boluses to maintain hemodynamic stability, support MAPs, normalize HR - Maintain active type and screen - Trend H/H q8h. Transfuse for goal Hgb >7 or if patient deteriorates and starts bleeding significantly. - Avoid NSAIDs. - Okay to resume aspirin, but hold plavix for now. Patient was seen and discussed with Dr. Reyes. GI will continue to follow. Please call with any questions. Dong Lin MD Gastroenterology and Hepatology PGY-5 ER DOCK Associated attestation - Lee Reyes MD - 05/13/2024 8:21 AM HEADER DOCK I have personally seen and examined the patient with Dr. Lin (PGY-5) on 05/12/24. I agree with the above assessment and plan. I actively participated in the evaluation and decision making. Lee Reyes M.D., M.S. Clinical utilization specialist Division of Gastroenterology and Hepatology GASTROENTEROLOGY [facility] - Health History and Physical Notes Date/Time Note Provider Source 2024-05-14 13:35:20 Endoscopy H & P Age: [age] year old Sex: male ASA Class: III Procedure: Colonsocopy Indication: Blood in stool There are no current results on file for these tests and/or test for 1 year. Recent Labs 05/14/24 0514 HGB 9.1* Recent Labs 05/14/24 0514 MCV 101.1* Recent Labs 05/14/24 0514 PLT 256 Histories: Past Medical History: Diagnosis Date Chronic kidney disease Hay fever Hyperlipidemia Hypertension Hypothyroidism No family history on file. Past Surgical History: Procedure Laterality Date COLONOSCOPY EGD (ENDO) URETEROSCOPIC STONE MANIPULATION Left 02/20/2018 Surgeon: Ramy Webb MD; [place] [facility] [place] Current Facility-Administered Medications Medication Dose Route Frequency Last Rate Last Admin bisacodyL (DULCOLAX) tablet 10 mg 10 mg Oral PRE-PROCEDURE ONCE ondansetron (ZOFRAN (PF)) injection 4 mg 4 mg Slow IV Push Q6HPRN peg-electrolyte soln (GOLYTELY) 236-22.74-6.74 -5.86 gram solution 4,000 mL 4,000 mL Oral PRN - SEE INSTRUCTIONS atorvastatin (LIPITOR) tablet 40 mg 40 mg Oral QPM 40 mg at 05/13/24 1741 carvediloL (COREG) tablet 6.25 mg 6.25 mg Oral BID MEALS 6.25 mg at 05/14/24 0845 levothyroxine (SYNTHROID) tablet 50 mcg 50 mcg Oral QAM-0600 50 mcg at 05/14/24 0509 piperacillin-tazobactam (ZOSYN) 3.375 g in NaCl 0.9% (NS) 100 mL MINI-BAG 3.375 g IV Piggyback Q8H ABX Stopped at 05/14/24 0503 tamsulosin (FLOMAX) capsule 0.4 mg 0.4 mg Oral DAILY 0.4 mg at 05/14/24 0845 acetaminophen (TYLENOL) tablet 650 mg 650 mg Oral Q6HPRN hydralAZINE (APRESOLINE) injection 10 mg 10 mg Slow IV Push Q4HPRN 10 mg at 05/12/24 2327 melatonin (MELATIN) tablet 3 mg 3 mg Oral QHSPRN NaCl 0.9% (NS) IV infusion 1,000 mL 1,000 mL IV Infusion CONTINUOUS 75 mL/hr at 05/13/24 0354 1,000 mL at 05/13/24 0354 ondansetron (ZOFRAN (PF)) injection 4 mg 4 mg Slow IV Push Q6HPRN pantoprazole (PROTONIX) injection 40 mg 40 mg Slow IV Push Q12H 40 mg at 05/14/24 0845 No Known Allergies Social History Socioeconomic History Marital status: Tobacco Use Smoking status: Never Smokeless tobacco: Never Substance and Sexual Activity Alcohol use: No Drug use: No Sexual activity: Never Social Determinants of Health Food Insecurity: No Food Insecurity (05/13/2024) NCSS - Food Insecurity Worried About Running Out of Food in the Last Year: No Ran Out of Food in the Last Year: No Transportation Needs: No Transportation Needs (05/13/2024) NCSS - Transportation Lack of Transportation: No Housing Stability: Not At Risk (05/13/2024) NCSS - Housing/Utilities Has Housing: Yes Worried About Losing Housing: No Unable to Get Utilities: No Physical Exam: General: NAD Resp: normal breathing Abdomen: soft, non-tender Impression and Plan: Ashely Toscano is a 83 year old male with PMH as above who presents for blood in stool. Will proceed with colonscopy. Benefits, risks, alternatives, and likelihood of achieving patient's goals of care discussed. Risks discussed including but not limited to aspiration, infection, bleeding, injury to the GI tract or surrounding vessels/structures, perforation, missed polyps/lesions, failure to obtain a diagnosis, failure to complete the procedure, cardiovascular complications such as ID, stroke, arrhythmia, and . Informed consent obtained/verified. Education provided to the patient and family about the procedure. Tony Sofia D.O. Internal Medicine, PGY1 [place] Team ER DOCK Associated attestation - Lee Reyes MD - 05/14/2024 8:04 PM HEADER DOCK I examined the patient and agree with Dr. Sofia's note as written. I actively participated in the decision-making process. We will proceed with colonoscopy. Lee Reyes MD Clinical utilization specialist Division of Gastroenterology and Hepatology INTERNAL MEDICINE [facility] Procedure Notes Date/Time Note Provider Source 2024-05-14 14:30:27 Images from the original note were not included. GASTROENTEROLOGY POST-ENDOSCOPY REPORT Colonoscopy Findings: RECOMMENDATIONS: - monitor H/H keep Hgb>7 - bleeding source could be diverticular bleed vs hemorrhoids, which has resolved on endoscopic exam - monitor bowel movement - antiplatelets/anticoagulation per Cardiology (ASA only per note on 05/13) -advance diet as tolerated - contact GI fellow individual pension adviser if clinical changes GI will sign off today. Full Report to follow. Please see "Results Review-->Endoscopy" for the full report along with images. Dilip Liriano MD ER DOCK [facility]
--- NOTE | 2024-08-09 08:01 | ER ---
Nurse's Notes [facility] Name: Teo Toribio Age: 84 yrs Sex: Male : 1940 Arrival Date: 08/09/2024 Time: 07:29 Bed 13 Private MD: Diagnosis: Essential (primary) hypertension Presentation: 08/09 07:47 Chief complaint: Concerned about high morning BP readings, this morning it was 190s/90s hb before medicine. Denies GORDON/CP. Coronavirus screen: At this time, the client does not indicate any symptoms associated with coronavirus-19. Ebola Screen: No symptoms or risks identified at this time. Initial Sepsis Screen: Does the patient meet any 2 criteria? No. Patient's initial sepsis screen is negative. Does the patient have a suspected source of infection? No. Patient's initial sepsis screen is negative. Risk Assessment: Do you want to hurt yourself or someone else? Patient reports no desire to harm self or others. Onset of symptoms was August 09, 2024. 07:47 Method Of Arrival: Ambulatory hb 07:47 Acuity: DEMARCUS 3 hb Historical: - Home Meds: 07:51 allopurinol 100 mg Oral tab [Active]; carvedilol 3.125 mg Oral tab 2 tabs [Active]; hb Fish Oil Oral daily [Active]; Fish Oil Oral daily [Active]; Flomax 0.4 mg Oral cp24 once daily [Active]; gabapentin 300 mg oral capsule 3 times per day [Active]; 07:57 dutasteride 0.5 mg Oral cap daily [Active]; levothyroxine 88 mcg oral capsule daily hb [Active]; Plavix 75 mg Oral tablet daily [Active]; tizanidine 4 mg Oral cap daily [Active]; losartan 25 mg Oral tab daily [Active]; aspirin 81 mg oral tablet,chewable daily [Active]; furosemide 20 mg oral tablet twice per week [Active]; - Immunization history:: Adult Immunizations up to date. - Infectious Disease History:: Denies. - Social history:: Smoking status: Patient denies any tobacco usage or history of. Screenin:59 [facility] ED Fall Risk Assessment (Adult) History of falling in the last 3 months, kc6 including since admission No falls in past 3 months (0 pts) Confusion or Disorientation No (0 pts) Intoxicated or Sedated No (0 pts) Impaired Gait No (0 pts) Mobility Assist Device Used No (0 pt) Altered Elimination No (0 pt) Score/Fall Risk Level 0 - 2 = Low Risk Oriented to surroundings, Maintained a safe environment. Abuse screen: Denies threats or abuse. Denies injuries from another. Nutritional screening: No deficits noted. Tuberculosis screening: No symptoms or risk factors identified. Assessment: 07:58 General: Appears in no apparent distress. comfortable, well groomed, well developed, kc6 Behavior is calm, cooperative, appropriate for age. Pain: Denies pain. Neuro: Level of Consciousness is awake, alert, obeys commands, Oriented to person, place, time, situation, Appropriate for age. Cardiovascular: Denies chest pain, shortness of breath, Capillary refill < 3 seconds. Respiratory: Airway is patent Trachea midline Respiratory effort is even, unlabored, Respiratory pattern is regular, symmetrical. GI: No signs and/or symptoms were reported involving the gastrointestinal system. : No signs and/or symptoms were reported regarding the genitourinary system. EENT: No signs and/or symptoms were reported regarding the EENT system. Derm: No signs and/or symptoms reported regarding the dermatologic system. Skin is intact, is healthy with good turgor, Skin is pink, warm \T\ dry. Musculoskeletal: No signs and/or symptoms reported regarding the musculoskeletal system. Circulation, motion, and sensation intact. Range of motion: intact in all extremities. Vital Signs: 07:47 BP 113 / 71; Pulse 65; Resp 16; Temp 97.8(TE); Pulse Ox 100% on R/A; Weight 84.82 kg; hb Height 5 ft. 10 in. ; Pain 0/10; 08:16 BP 122 / 68; kc6 07:47 Body Mass Index 26.83 (84.82 kg, 177.8 cm) hb 07:47 Pain Scale: Adult hb ED Course: 07:33 Patient arrived in ED. sj2 07:36 Mckayla Logan, MELISSA is Primary Nurse. kc6 07:40 Malik Cho DO is Attending Physician. ms3 07:44 EKG done, by ED staff, reviewed by Malik Cho DO. em1 07:49 Triage completed. hb 07:56 Arm band placed on. hb 07:59 Patient maintains SpO2 saturation greater than 95% on room air. kc6 07:59 Patient has correct armband on for positive identification. Bed in low position. Call kc6 light in reach. Side rails up X 1. court monitor on. Pulse ox on. NIBP on. Door closed. Noise minimized. Lights dimmed. Warm blanket given. Pillow given. 08:00 Wilbur Allen MD is Referral Physician. ms3 08:16 No provider procedures requiring assistance completed. Patient did not have IV access kc6 during this emergency room visit. Administered Medications: No medications were administered Medication: 08:17 VIS not applicable for this client. kc6 Outcome: 08:00 Discharge ordered by MD. ms3 08:16 Discharged to home ambulatory, kc6 08:16 Condition: good 08:16 Discharge instructions given to patient, Instructed on discharge instructions, follow up and referral plans. Demonstrated understanding of instructions, follow-up care, 08:17 Patient left the ED. kc6 Signatures: Teddy Laura em1 Marialuisa Mcgarry RN RN Malik Cho DO DO ms3 Mckayla Logan RN RN kc6 Thalia Nj sj2 Corrections: (The following items were deleted from the chart) 08:00 07:51 Home Meds: dutasteride 0.5 mg Oral cap; hb hb 08:00 07:51 Home Meds: levothyroxine 50 mcg tab; hb hb 08:00 07:51 Home Meds: losartan 25 mg Oral tab; hb hb 08:00 07:51 Home Meds: Plavix 75 mg Oral tablet; hb hb 08:00 07:51 Home Meds: tizanidine 4 mg Oral cap; hb hb 08:00 07:51 Home Meds: Furosemide Oral; hb hb 08:00 07:51 Home Meds: Aspirin Oral; hb hb 08:00 07:57 PMHx: Hypertension; hb hb 08:00 07:57 PMHx: Hypothyroidism; hb hb 08:00 07:57 PMHx: enlarged prostate; hb hb 08:00 07:57 PMHx: High Cholesterol; hb hb 08:00 07:57 PMHx: diverticulosis; hb hb 08:00 07:57 PMHx: Gout; hb hb 08:00 07:57 PMHx: Congestive heart failure; hb hb 08:00 07:57 PSHx: open heart surgery; hb hb
--- NOTE | 2024-08-09 08:17 | EDPHYS ---
Physician Documentation [facility] Name: Teo Toribio Age: 84 yrs Sex: Male : 1940 Arrival Date: 08/09/2024 Time: 07:29 Bed 13 Private MD: ED Physician Malik Cho HPI: 08/09 08:02 This 84 yrs old Male presents to ER via Ambulatory with complaints of High Blood ms3 Pressure. 08:02 Teo Toribio is an 84-year-old male presenting to the emergency department ms3 for evaluation of hypertension. He reports high blood pressure readings in the morning, with a recent reading of 190/90 mmHg. He is currently taking Losartan, prescribed by his counseling aide, Dr Allen. Two weeks ago, he contacted his counseling aide due to elevated readings and was started on Losartan. He reports no chest pain, shortness of breath, nausea, vomiting, or headache at present. . Historical: - Home Meds: 07:51 allopurinol 100 mg Oral tab [Active]; carvedilol 3.125 mg Oral tab 2 tabs [Active]; hb Fish Oil Oral daily [Active]; Fish Oil Oral daily [Active]; Flomax 0.4 mg Oral cp24 once daily [Active]; gabapentin 300 mg oral capsule 3 times per day [Active]; 07:57 dutasteride 0.5 mg Oral cap daily [Active]; levothyroxine 88 mcg oral capsule daily hb [Active]; Plavix 75 mg Oral tablet daily [Active]; tizanidine 4 mg Oral cap daily [Active]; losartan 25 mg Oral tab daily [Active]; aspirin 81 mg oral tablet,chewable daily [Active]; furosemide 20 mg oral tablet twice per week [Active]; - Immunization history:: Adult Immunizations up to date. - Infectious Disease History:: Denies. - Social history:: Smoking status: Patient denies any tobacco usage or history of. ROS: 08:06 Constitutional: Negative for fever, and chills. Cardiovascular: Negative for chest ms3 pain, and palpitations. Respiratory: Negative for shortness of breath, cough, wheezing, and pleuritic chest pain, Abdomen/GI: Negative for abdominal pain, nausea, vomiting, diarrhea, and constipation, MS/Extremity: Negative for injury and deformity, Skin: Negative for injury, rash, and discoloration, Exam: 08:06 Constitutional: This is a well developed, well nourished patient who is awake, alert, ms3 and in no acute distress. Cardiovascular: Regular rate and rhythm with a normal S1 and S2. No gallops, murmurs, or rubs. Normal PMI, no JVD. No pulse deficits. Respiratory: Lungs have equal breath sounds bilaterally, clear to auscultation and percussion. No rales, rhonchi or wheezes noted. No increased work of breathing, no retractions or nasal flaring. Abdomen/GI: Soft, non-tender, with normal bowel sounds. No distension or tympany. No guarding or rebound. No evidence of tenderness throughout. Skin: Warm, dry with normal turgor. Normal color with no rashes, no lesions, and no evidence of cellulitis. Neuro: Awake and alert, GCS 15, oriented to person, place, time, and situation. Cranial nerves II-XII grossly intact. Motor strength 5/5 in all extremities. Sensory grossly intact. Cerebellar exam normal. Normal gait. 08:21 ECG was reviewed by the Attending Physician. ms3 Vital Signs: 07:47 BP 113 / 71; Pulse 65; Resp 16; Temp 97.8(TE); Pulse Ox 100% on R/A; Weight 84.82 kg; hb Height 5 ft. 10 in. ; Pain 0/10; 08:16 BP 122 / 68; kc6 07:47 Body Mass Index 26.83 (84.82 kg, 177.8 cm) hb 07:47 Pain Scale: Adult hb MDM: 08:00 Medical Screening Exam initiated ms3 08:06 Differential diagnosis: HTN. Data reviewed: vital signs, nurses notes, and as a result, ms3 I will discharge patient. Counseling: I had a detailed discussion with the patient and/or guardian regarding the historical points, exam findings, and any diagnostic results supporting the discharge/admit diagnosis, the need for outpatient follow up, to return to the emergency department if symptoms worsen or persist or if there are any questions or concerns that arise at home. Special discussion: I discussed with the patient/guardian in detail that at this point there is no indication for admission to the hospital. It is understood, however, that if the symptoms persist or worsen the patient needs to return immediately for re-evaluation. ED course: Discussed blood pressure of 113/71 with the patient. Discussed continuing to keep a blood pressure log. Discussed with patient blood pressure fluctuates throughout the day. Patient to follow-up Dr. Allen in 2 to 3 days for blood pressure reevaluation. Patient understands and agrees with plan. All questions were answered. Return precautions discussed include worsening symptoms, or any other concerns. EC:21 Rate is 63 beats/min. Rhythm is regular. QRS [place] is Normal. [place] interval is normal. QRS ms3 interval is normal. Clinical impression: 1st degree heart block. Interpreted by me. Reviewed by me. Administered Medications: No medications were administered Disposition: 10:09 Chart complete. ms3 Disposition Summary: 08/09/24 08:00 Discharge Ordered Notes: Location: Home ms3 Condition: Stable ms3 Diagnosis - Essential (primary) hypertension ms3 Followup: ms3 - With: Wilbur Allen MD - When: 2 - 3 days - Reason: Recheck today's complaints Discharge Instructions: - Discharge Summary Sheet ms3 - Hypertension, Adult ms3 - DASH Eating Plan ms3 Forms: - Medication Reconciliation Form ms3 - Antibiotic Education ms3 - Prescription Opioid Use ms3 - Patient Portal Instructions ms3 - Leadership Thank You Letter ms3 Signatures: Marialuisa Mcgarry RN RN Malik Pennington DO DO ms3 Corrections: (The following items were deleted from the chart) 08:00 07:51 Home Meds: dutasteride 0.5 mg Oral cap; hb hb 08:00 07:51 Home Meds: levothyroxine 50 mcg tab; hb hb 08:00 07:51 Home Meds: losartan 25 mg Oral tab; hb hb 08:00 07:51 Home Meds: Plavix 75 mg Oral tablet; hb hb 08:00 07:51 Home Meds: tizanidine 4 mg Oral cap; hb hb 08:00 07:51 Home Meds: Furosemide Oral; hb hb 08:00 07:51 Home Meds: Aspirin Oral; hb hb 08:00 07:57 PMHx: Hypertension; hb hb 08:00 07:57 PMHx: Hypothyroidism; hb hb 08:00 07:57 PMHx: enlarged prostate; hb hb 08:00 07:57 PMHx: High Cholesterol; hb hb 08:00 07:57 PMHx: diverticulosis; hb hb 08:: PMHx: Gout; hb hb 08:: PMHx: Congestive heart failure; hb hb : PSHx: open heart surgery; hb hb
[2024-08-09 10:47] VITALS: TEMP 97.8; O2SAT 100
[2024-08-09 10:48] VITALS: BP 122/68
== END 2024-08-09 08:17 | disposition home or self-care (01) ==
LOC: ER 07:29
DX: I10 Essential (primary) hypertension (principal)
CPT/HCPCS: 93005; 99284